=== PATIENT | female | born 1975 | race Caucasian/White ===

== ENCOUNTER 2020-09-26 18:01 | Emergency (ER) | payer BC, SELFPAY ==
[2020-09-26 18:31] VITALS: BP 125/86; PULSE 80; RESP 18; TEMP 37; O2SAT 98; BMI 37.2
--- NOTE | 2020-09-26 18:45 | HMH.EDUTC ---
[facility] [place] Disposition Clinical Impression: Cellulitis of breast Disposition: Home, Self-Care Condition on Discharge: Good Instructions: DI for Cellulitis -- Adult, Cellulitis Additional Instructions: *Start antibiotic(s) immediately and be sure to take as ordered for the FULL length of time although you may be feeling better or start to see improvement in the next 24-48 hours *Monitor closely. Outlined redness so that you can monitor easier. Follow up immediately for new or worsening symptoms including but not limited to redness, swelling, streaking from site fever or chills. *Warm compress 15 minutes 3-4 times day *Never squeeze or pop these on your own. Seek immediate medical attention next time this occurs *Monitor Temp. Tylenol every 4 hours as needed and ibuprofen every 6 hours as needed (as long as your primary care doctor has told you that it is ok to take both. For fever, aches, pain. ER if no less that 101 despite Tylenol and ibuprofen Follow up with your family doctor/primary care physician in the next 48-72 hours if no improvement and for monitoring Return if needed Straight to ER if any life threatening symptoms Prescriptions: clindamycin HCL [Cleocin HCl] 300 mg PO TID 10 Days #40 cap Transmission Status: Received by [facility] #[id number] Mupirocin Calcium [Mupirocin 2% Cream 15gm] 1 applicatio TP TID 10 Days #1 tube Transmission Status: Received by [facility] #[id number] Referrals: Camila Berger [Primary Care Provider] - As needed Time of Disposition: 18:55 Medical Decision Making - Jonathan Inquiry Pt receiving controlled substance: No Jonathan was queried for this patient: No Vital Signs: 09/26/20 18:31 09/26/20 18:57 Temperature 98.6 F 98.6 F Temperature Source Oral Pulse Rate 80 Pulse Rate [Left] 80 Respiratory Rate 18 18 Blood Pressure 126/85 Blood Pressure [Left Arm] 125/86 Blood Pressure Mean [Left Arm] 99 Blood Pressure Source [Left Arm] Automatic Cuff 02 Sat by Pulse Oximetry 98 Oxygen Delivery Method Room Air Room Air [facility] [place] HPI - General Stated complaint: Possible breast infection Time Seen by Provider: 09/26/20 18:45 Description of Symptoms (Recalled from Triage Doc. by RN): pt concerned about a possible breast infection to left breast from her bra. HEENT Symptoms (Recalled from RN notes): No Resp Symptoms (Recalled from RN notes): No Skin Symptoms (Recalled from RN notes): Yes MS Symptoms (Recalled from RN notes): No Functional Status (Recalled from RN notes): na - History of Present Illness Provider Complaint: Patient states that she noticed she had a sore red area under her left breast with surrounding redness States that she has had small boil like abcess on her breast before an had to have medication States that today it was sore and looked like it was getting bigger so she came in to get it checked - Related Data Home Medications Medication Instructions Recorded Confirmed Losartan Potassium 50 mg PO DAILY 09/26/20 09/26/20 Metoprolol Succinate [Toprol XL 50 mg PO DAILY 09/26/20 09/26/20 50mg Tablet] Previous Rx's Medication Instructions Recorded Mupirocin Calcium [Mupirocin 2% 1 applicatio TP TID 10 Days #1 tube 09/26/20 Cream 15gm] clindamycin HCL [Cleocin HCl] 300 mg PO TID 10 Days #40 cap 09/26/20 Allergies Allergy/AdvReac Type Severity Reaction Status Date / Time PCN (PENICILLIN) Allergy Mild Uncoded 05/31/17 15:06 - Worker's Comp Is this a Worker's Comp case?: No [facility] History - Hepatitis A Screen Drug use history?: No High risk sexual behaviors?: No History of sexually transmitted infection?: No Currently employed?: No Childcare worker?: No Do you have indoor plumbing?: Yes Do you have electricity?: Yes Attestation statement:: This patient has been screened for Hepatitis A risk factors. I have reviewed the patient's past medical history: Yes ROS Obtained: Yes All systems reviewed & no additional complaints, Yes
[2020-09-26 18:57] VITALS: BP 126/85; PULSE 80; RESP 18; TEMP 37; O2SAT 100
== END 2020-09-26 19:00 | disposition home or self-care (01) ==
PROVIDERS: Emergency Provider Nurse Practitioner; PCP Family Medicine
DX: N61.0 Mastitis without abscess (principal); I10 Essential (primary) hypertension; Z88.0 Allergy status to penicillin; Z79.899 Other long term (current) drug therapy
CPT/HCPCS: 99202; G0463

== ENCOUNTER 2020-12-07 13:24 | Emergency (ER) | payer BC, SELFPAY ==
[2020-12-07 13:27] VITALS: BP 145/67; PULSE 77; RESP 16; TEMP 36.8; O2SAT 98; BMI 36.3
--- NOTE | 2020-12-07 13:30 | PC.NURSE ---
C-colar placed on patient upon arrival to ED
--- NOTE | 2020-12-07 13:55 | XR_ITS ---
PROCEDURE INFORMATION: Exam: XR Facial Bones, Minimum of 3 Views, Complete Exam date and time: 12/07/2020 1:55 PM Age: 45 years old Clinical indication: Injury or trauma; Fall; Blunt trauma (contusions or hematomas); Nose; Additional info: C/O nasal bridge pain after fall w/loc TECHNIQUE: Imaging protocol: XR of the facial bones, minimum of 3 views. Complete exam. AP lateral and Joshua views COMPARISON: No relevant prior studies available. FINDINGS: Sinuses: Well aerated. No opacification. Bones/joints: No fracture. Soft tissues: Unremarkable. IMPRESSION: No facial fracture identified.
--- NOTE | 2020-12-07 13:55 | CT_ITS ---
PROCEDURE INFORMATION: Exam: CT Cervical Spine Without Contrast Exam date and time: 12/07/2020 1:55 PM Age: 45 years old Clinical indication: Injury or trauma; Fall; Blunt trauma; Additional info: Fall, hit head w/loc TECHNIQUE: Imaging protocol: Computed tomography images of the cervical spine without contrast. Radiation optimization: All CT scans at this facility use at least one of these dose optimization techniques: automated exposure control; mA and/or kV adjustment per patient size (includes targeted exams where dose is matched to clinical indication); or iterative reconstruction. COMPARISON: CR XR FACIAL BONES MIN 3V 12/07/2020 1:59 PM FINDINGS: Bones/joints: No acute fracture. Normal alignment. Discs/Spinal canal/Neural foramina: Mild loss of intervertebral disc space at C5-C6 without neural foraminal or spinal canal stenosis. Lungs: Lung apices are normal. Soft tissues: Unremarkable. IMPRESSION: No CT evidence of acute osseous abnormality.
--- NOTE | 2020-12-07 13:55 | CT_ITS ---
PROCEDURE INFORMATION: Exam: CT Head Without Contrast Exam date and time: 12/07/2020 1:55 PM Age: 45 years old Clinical indication: Injury or trauma; Fall; Blunt trauma (contusions or hematomas); With loss of consciousness; Not specified; Additional info: Fall, hit head w/loc TECHNIQUE: Imaging protocol: Computed tomography of the head without contrast. Radiation optimization: All CT scans at this facility use at least one of these dose optimization techniques: automated exposure control; mA and/or kV adjustment per patient size (includes targeted exams where dose is matched to clinical indication); or iterative reconstruction. COMPARISON: CR XR FACIAL BONES MIN 3V 12/07/2020 1:59 PM FINDINGS: Brain: Normal. No hemorrhage. Unremarkable white matter. No mass effect. Cerebral ventricles: No ventriculomegaly. Paranasal sinuses: Visualized sinuses are unremarkable. No fluid levels. Mastoid air cells: Visualized mastoid air cells are well aerated. Bones/joints: Unremarkable. No acute fracture. Soft tissues: Unremarkable. IMPRESSION: No acute intracranial abnormality.
--- NOTE | 2020-12-07 14:11 | HMH.EDGENADL ---
ED Disposition Clinical Impression: Concussion Qualifiers: Encounter type: initial encounter Loss of consciousness presence/duration: with LOC of 30 min or less Qualified Code(s): S06.0X1A - Concussion with loss of consciousness of 30 minutes or less, initial encounter Disposition: Home, Self-Care Condition on Discharge: Good Instructions: DI for Concussion Additional Instructions: Additional instructions for HEAD INJURY: See your physician as soon as possible for further evaluation. Return immediately if severe headache, vomiting, problems with vision or speech, numbness or weakness of the extremities, or severe neck pain. Referrals: Camila Berger [Primary Care Provider] - - Critical Care Critical Care Time: No Attestation: On 12/07/20, the high probability of a clinically significant, sudden or life threatening deterioration of the following system(s) required my full and direct attention, intervention and personal management. The time I documented below is in addition to time spent performing reported procedures but includes the following listed in this critical care notation. Medical Decision Making - Jonathan Inquiry Pt receiving controlled substance: No Vital Signs: 12/07/20 13:27 12/07/20 14:23 Temperature 98.3 F Temperature Source Oral Pulse Rate 79 Pulse Rate [Right] 77 Respiratory Rate 16 Blood Pressure 139/64 Blood Pressure [Right Arm] 145/67 H Blood Pressure Mean [Right Arm] 93 Blood Pressure Source Automatic Cuff Blood Pressure Position Sitting 02 Sat by Pulse Oximetry 98 96 Oxygen Delivery Method Room Air Room Air - Radiology Data #1 Image(s): Other (facial bones) Image Reviewed: Yes I reviewed the patient's radiology image Preliminary Findings: Normal/NAD - CT Data CT Scan: Head, C-Spine Time Received: 14:[address] Reviewed: Yes: I have viewed the radiologist's interpretation Findings Narrative: PROCEDURE INFORMATION: Exam: CT Head Without Contrast Exam date and time: 12/07/2020 1:55 PM Age: 45 years old Clinical indication: Injury or trauma; Fall; Blunt trauma (contusions or hematomas); With loss of consciousness; Not specified; Additional info: Fall, hit head w/loc TECHNIQUE: Imaging protocol: Computed tomography of the head without contrast. Radiation optimization: All CT scans at this facility use at least one of these dose optimization techniques: automated exposure control; mA and/or kV adjustment per patient size (includes targeted exams where dose is matched to clinical indication); or iterative reconstruction. COMPARISON: CR XR FACIAL BONES MIN 3V 12/07/2020 1:59 PM FINDINGS: Brain: Normal. No hemorrhage. Unremarkable white matter. No mass effect. Cerebral ventricles: No ventriculomegaly. Paranasal sinuses: Visualized sinuses are unremarkable. No fluid levels. Mastoid air cells: Visualized mastoid air cells are well aerated. Bones/joints: Unremarkable. No acute fracture. Soft tissues: Unremarkable. IMPRESSION: No acute intracranial abnormality. EDURE INFORMATION: Exam: CT Cervical Spine Without Contrast Exam date and time: 12/07/2020 1:55 PM Age: 45 years old Clinical indication: Injury or trauma; Fall; Blunt trauma; Additional info: Fall, hit head w/loc TECHNIQUE: Imaging protocol: Computed tomography images of the cervical spine without contrast. Radiation optimization: All CT scans at this facility use at least one of these dose optimization techniques: automated exposure control; mA and/or kV adjustment per patient size (includes targeted exams where dose is matched to clinical indication); or iterative reconstruction. COMPARISON: CR XR FACIAL BONES MIN 3V 12/07/2020 1:59 PM FINDINGS: Bones/joints: No acute fracture. Normal alignment. Discs/Spinal canal/Neural foramina: Mild loss of intervertebral disc
--- NOTE | 2020-12-07 14:22 | PC.NURSE ---
Pt returned from rad
[2020-12-07 14:23] VITALS: BP 139/64; PULSE 79; O2SAT 96
[2020-12-07 15:31] VITALS: BP 138/67; PULSE 71; O2SAT 95
[2020-12-07 15:34] VITALS: BP 138/67; PULSE 66; RESP 16; TEMP 36.8; O2SAT 97
== END 2020-12-07 15:35 | disposition home or self-care (01) ==
PROVIDERS: Emergency Provider Emergency Medicine; PCP Family Medicine
DX: S06.0X1A Concussion with loss of consciousness of 30 minutes or less, initial encounter (principal); W01.0XXA Fall on same level from slipping, tripping and stumbling without subsequent striking against object, initial encounter; Y92.017 Garden or yard in single-family (private) house as the place of occurrence of the external cause
CPT/HCPCS: 70150; 70450; 72125; 99282

== ENCOUNTER 2020-12-09 12:37 | Emergency (ER) | payer BC, SELFPAY ==
[2020-12-09 12:38] VITALS: BP 168/85; PULSE 74; RESP 18; TEMP 36.9; O2SAT 97; BMI 36.5
--- NOTE | 2020-12-09 12:41 | HMH.EDGENADL ---
ED Disposition Clinical Impression: Paresthesias Concussion Qualifiers: Encounter type: initial encounter Loss of consciousness presence/duration: with LOC of 30 min or less Qualified Code(s): S06.0X1A - Concussion with loss of consciousness of 30 minutes or less, initial encounter Disposition: Home, Self-Care Condition on Discharge: Good Instructions: DI for Concussion Additional Instructions: Follow-up with your primary care provider and with neurology, Dr. Nobles. Call for appointment. Return to the emergency department if worsening symptoms. Referrals: Camila Berger [Primary Care Provider] - Claudine Nobles MD [Staff Physician] - - Critical Care Critical Care Time: No Attestation: On , the high probability of a clinically significant, sudden or life threatening deterioration of the following system(s) required my full and direct attention, intervention and personal management. The time I documented below is in addition to time spent performing reported procedures but includes the following listed in this critical care notation. Medical Decision Making - Jonathan Inquiry Pt receiving controlled substance: No Vital Signs: 12/09/20 12:38 12/09/20 13:30 Temperature 98.5 F Temperature Source Oral Pulse Rate 62 Pulse Rate [Right] 74 Respiratory Rate 18 18 Blood Pressure 151/77 H Blood Pressure [Right Arm] 168/85 H Blood Pressure Mean [Right Arm] 112 Blood Pressure Position Sitting 02 Sat by Pulse Oximetry 97 94 L Oxygen Delivery Method Room Air Room Air - Lab Data Lab Results 12/09/20 12:45: WBC 11.7 H, RBC 4.97, Hgb 12.8, Hct 37.6, MCV 75.7 L, MCH 25.7 L, MCHC 34.0, RDW 15.3, Plt Count 250, MPV 8.1, Neut % (Auto) 64.7, Lymph % (Auto) 26.7, Island % (Auto) 4.8, Eos % (Auto) 3.1, Baso % (Auto) 0.7, Neut # (Auto) 7.6, Lymph # (Auto) 3.1, Island # (Auto) 0.6, Eos # (Auto) 0.4, Baso # (Auto) 0.1 12/09/20 12:45: Sodium 141, Potassium 3.7, Chloride 107, Carbon Dioxide 25, Anion Gap 12.7, BUN 7, Creatinine 0.60, Estimated Creat Clear 206, Estimated GFR 109, Est GFR ( Amer) 131, Glucose 105 H, Calcium 8.9 Result diagrams: 12/09/20 12:45 12/09/20 12:45 Orders (Tests/Meds): ED MEDICATIONS Discontinued Medications Generic Name Dose Route Start Last Admin Trade Name Andrey PRN Reason Stop Dose Admin Iopamidol 100 ml 12/09/20 13:03 12/09/20 13:04 Iopamidol-370 (76%);100ml Bottle IV 12/09/20 13:04 100 ml ONCE ONE Administration Sodium Chloride 10 ml 12/09/20 13:03 12/09/20 13:05 Sodium Chloride 0.9% 10ml Syr (Rad Only) IV 12/09/20 13:04 10 ml ONCE ONE Administration Sodium Chloride 50 ml 12/09/20 13:03 12/09/20 13:05 0.9 % Sodium Chloride 50 Ml Vial IV 12/09/20 13:04 50 ml ONCE ONE Administration - CT Data CT Scan: Head, Other (facial, CTA head and neck) Time Received: 13:[address] Reviewed: Yes: I have viewed the radiologist's interpretation Findings Narrative: PROCEDURE: CT HEAD/BRAIN WO CON CLINICAL INDICATION: injury Injury, left facial and finger numbness. COMPARISON: CT CT HEAD/BRAIN WO CON from 12/07/2020 TECHNIQUE: Axial images obtained. All CT scans at the facility use one or more dose reduction, viz: automated exposure control, ma/kV adjustment per patient size (including targeted exams where dose is matched to indication, i.e. head), or iterative reconstruction technique. FINDINGS: No midline shift, mass effect, intracranial hemorrhage, hydrocephalus, or extra-axial fluid collection is evident. The calvarium has an unremarkable appearance. No mastoid effusion. No sinus air-fluid level. IMPRESSION: No acute intracranial finding Dictated by: Tarik Zamora MD 12/09/2020 13:26 Tarik Zamora MD in [place] 12/09/2020 13:26 PROCEDURE: CT FACIAL BONES WO CON CLINICAL HISTORY: facial pressure, facial injury COMPARISON: No exams were available for comparison TECHNIQUE: Axial images obtain
--- NOTE | 2020-12-09 12:42 | CT_ITS ---
Procedure: CT ANGIO NECK CT ANGIO HEAD CLINICAL HISTORY: head injury, left facial and hand tingling COMPARISON: CT CT ANGIO HEAD from 12/09/2020 TECHNIQUE: IV Contrast: 100ml Isovue 370 Axial images obtained with sagittal and coronal reformats. All CT scans at the facility use one or more dose reduction, viz: automated exposure control, ma/kV adjustment per patient size (including targeted exams where dose is matched to indication, i.e. head), or iterative reconstruction technique. FINDINGS: CT angio neck: Limited arterial opacification secondary to bolus timing. The aortic arch, great vessels, carotid arteries, and vertebral arteries have an unremarkable appearance. No evidence dissection, stenosis, aneurysm, calcific plaque, or occlusion. Scattered small nodes are present in the neck CT angio head: Arterial opacification is somewhat limited secondary to bolus timing. No aneurysm, AVM, or major intracranial occlusive change apparent. Minimal calcific plaque is present along the cavernous portion of the left ICA laterally and medially with some minimal soft plaque in the cavernous portion of the right ICA. No enhancing lesions, midline shift, or mass effect is evident. No hydrocephalus. IMPRESSION: Limited arterial opacification secondary to bolus timing somewhat decreasing sensitivity of the exam. No acute finding of the CTA of the head or neck. Dictated by: Tarik Zamora MD 12/09/2020 13:47 Tarik Zamora MD in [facility] 12/09/2020 13:47
--- NOTE | 2020-12-09 12:42 | CT_ITS ---
PROCEDURE: CT FACIAL BONES WO CON CLINICAL HISTORY: facial pressure, facial injury COMPARISON: No exams were available for comparison TECHNIQUE: Axial images obtained with sagittal and coronal reformats. All CT scans at the facility use one or more dose reduction, viz: automated exposure control, ma/kV adjustment per patient size (including targeted exams where dose is matched to indication, i.e. head), or iterative reconstruction technique. FINDINGS: Bones: Unremarkable. No fracture, lytic, or blastic changes evident. Extracranial soft tissues: Unremarkable. Sinuses: Unremarkable. No air-fluid levels or significant mucosal thickening. Small retention cyst is present in the right maxillary sinus anteriorly at 5 mm. Orbits: Unremarkable. Other: Scattered small nodes are present in the neck bilaterally. The largest is in the left submandibular region at 1.9 x 1.2 cm. IMPRESSION: No acute finding Dictated by: Tarik Zamora MD 12/09/2020 13:31 Tarik Zamora MD in [facility] 12/09/2020 13:31
--- NOTE | 2020-12-09 12:52 | CT_ITS ---
PROCEDURE: CT HEAD/BRAIN WO CON CLINICAL INDICATION: injury Injury, left facial and finger numbness. COMPARISON: CT CT HEAD/BRAIN WO CON from 12/07/2020 TECHNIQUE: Axial images obtained. All CT scans at the facility use one or more dose reduction, viz: automated exposure control, ma/kV adjustment per patient size (including targeted exams where dose is matched to indication, i.e. head), or iterative reconstruction technique. FINDINGS: No midline shift, mass effect, intracranial hemorrhage, hydrocephalus, or extra-axial fluid collection is evident. The calvarium has an unremarkable appearance. No mastoid effusion. No sinus air-fluid level. IMPRESSION: No acute intracranial finding Dictated by: Tarik Zamora MD 12/09/2020 13:26 Tarik Zamora MD in [facility] 12/09/2020 13:26
[2020-12-09 12:55] LABS: Basophils # 0.1 K/mm3 (0-0.2); Basophils % 0.7 % (0.1-2.0); Eosinophils # 0.4 K/mm3 (0.0-0.4); Eosinophils % 3.1 % (0.1-12.0); Hematocrit 37.6 % (37.0-47.0); Hemoglobin 12.8 g/dL (12.2-16.2); Lymphocytes # 3.1 K/mm3 (0.7-4.5); Lymphocytes % 26.7 % (10-50); Mean Corpuscular Hemoglobin 25.7 pg (27.0-31.2); Mean Corpuscular Volume 75.7 fl (81-99); Mean Platelet Volume 8.1 fl (7.4-10.4); Monocytes # 0.6 K/mm3 (0.1-1.0); Monocytes % 4.8 % (1.7-9.3); Neutrophils # 7.6 K/mm3 (1.8-7.8); Neutrophils % 64.7 % (37.0-80.0); Platelet Count 250 K/mm3 (142-424); Red Blood Count 4.97 M/mm3 (4.20-5.40); Red Cell Distribution Width 15.3 % (11.5-17.5); White Blood Count 11.7 K/mm3 (4.8-10.8)
[2020-12-09 12:59] LABS: Chloride 107 mmol/L (98-107); Potassium 3.7 mmoL/L (3.5-5.1); Sodium 141 mmol/L (136-145)
[2020-12-09 13:02] LABS: Anion Gap 12.7 mEq/L (5-15); Blood Urea Nitrogen 7 mg/dl (7-17); Calcium 8.9 mg/dl (8.4-10.2); Carbon Dioxide 25 mmol/L (22.0-30.0); Creatinine Clearance Estimated 206 mL/min (50-200); Estimated Glomerular Filt Rate 109 ml/min (>60); GFR (African American) 131 ML/MIN (>60); Glucose 105 mg/dl (74-100)
--- NOTE | 2020-12-09 13:14 | PC.NURSE ---
Pt returned from radiology
[2020-12-09 13:30] VITALS: BP 151/77; PULSE 62; RESP 18; O2SAT 94
[2020-12-09 14:00] VITALS: BP 122/71; PULSE 75; RESP 16; TEMP 36.8
== END 2020-12-09 14:22 | disposition home or self-care (01) ==
PROVIDERS: Emergency Provider Emergency Medicine; PCP Family Medicine
DX: S06.0X1D Concussion with loss of consciousness of 30 minutes or less, subsequent encounter (principal); R20.2 Paresthesia of skin
CPT/HCPCS: 70450; 70486; 70496; 70498; 80048; 85025; 99282; Q9967

== ENCOUNTER 2021-06-04 12:07 | Emergency (ER) | payer BC, SELFPAY ==
--- NOTE | 2021-06-04 12:36 | HMH.EDUTC ---
[facility] [place] Clinical Impression: Otitis media Qualifiers: Otitis media type: suppurative Chronicity: acute Laterality: bilateral Recurrence: non-recurrent Spontaneous tympanic membrane rupture: without spontaneous rupture Qualified Code(s): H66.003 - Acute suppurative otitis media without spontaneous rupture of ear drum, bilateral Disposition: Home, Self-Care Condition on Discharge: Good Instructions: Middle Ear Infection Additional Instructions: Drink plenty of fluids. Take tylenol or ibuprofen for pain or fever. Take the medications as directed. Follow up with your regular doctor. GO TO THE ER FOR ANY WORSENING SYMPTOMS Prescriptions: methylPREDNISolone [Medrol] 4 mg PO DIRECTED 6 Days #21 packet Transmission Status: Pending to [facility] # Azithromycin [Z-Cortez 250mg Tab*] 250 mg PO UD DOSE PK #6 tab Transmission Status: Pending to [facility] # Referrals: Camila Berger [Primary Care Provider] - Time of Disposition: 13:35 Medical Decision Making - Medical Records Medical records reviewed: No: I reviewed the patient's medical records. - Jonathan Inquiry Pt receiving controlled substance: No Vital Signs: 06/04/21 12:44 Temperature 98.2 F Temperature Source Oral Pulse Rate [Left] 67 Respiratory Rate 18 Blood Pressure [Right Arm] 136/73 Blood Pressure Mean [Right Arm] 94 02 Sat by Pulse Oximetry 98 [facility] [place]PI - General Stated complaint: left ear pain Time Seen by Provider: 06/04/21 12:36 - History of Present Illness Provider Complaint: She c/o bilateral ear pain for the past 3 days. Her left ear is hurting worse than her right. She gets ear infections sometimes at this time of year. She has sinus congestion also. She denies any chest congestion or significant cough. She denies any fever/chills/body aches. She denies any contact with someone with covid-19 and she states that she does not need to be tested for covid-19 at this time. - Related Data Home Medications Medication Instructions Recorded Confirmed Losartan Potassium 50 mg PO DAILY 09/26/20 09/26/20 Metoprolol Succinate [Toprol XL 50 mg PO DAILY 09/26/20 09/26/20 50mg Tablet] Previous Rx's Medication Instructions Recorded Mupirocin Calcium [Mupirocin 2% 1 applicatio TP TID 10 Days #1 tube 09/26/20 Cream 15gm] clindamycin HCL [Cleocin HCl] 300 mg PO TID 10 Days #40 cap 09/26/20 Azithromycin [Z-Cortez 250mg Tab*] 250 mg PO UD DOSE PK #6 tab 06/04/21 methylPREDNISolone [Medrol] 4 mg PO DIRECTED 6 Days #21 06/04/21 packet Allergies Allergy/AdvReac Type Severity Reaction Status Date / Time PCN (PENICILLIN) Allergy Mild Uncoded 05/31/17 15:06 [facility] History - Hepatitis A Screen Attestation statement:: This patient has been screened for Hepatitis A risk factors. I have reviewed the patient's past medical history: Yes ROS Obtained: Yes All systems reviewed & no additional complaints - Constitutional Constitutional: Denies chills, Denies fever(s), Reports poor appetite, Reports malaise - Eyes Eyes: Denies eye discharge - ENT Ears, Nose, Mouth, and Throat: Reports as per HPI - Cardiovascular Cardiovascular: Denies chest pain - Respiratory Respiratory: Denies chest congestion, Denies cough, Denies dyspnea, Denies stridor, Denies wheezing - Gastrointestinal Gastrointestingal: Reports: nausea. Denies: abdominal pain, diarrhea, vomiting - Musculoskeletal Musculoskeletal: Denies joint pain, Denies back pain, Denies neck pain - Integumentary/Breasts Skin/Breast: Denies redness, Denies rash, Denies wounds Physical Exam - General General appearance: alert, in no apparent distress - Head Head exam: atraumatic, normocephalic, normal inspection - Eye Eye exam: Present: normal appearance, PERRL, EOMI - ENT ENT exam: Present: mucous membranes moist, normal external ear exam - Expanded ENT Exam TM/Canal exam: Bilateral TM: erythema,
[2021-06-04 12:44] VITALS: BP 136/73; PULSE 67; RESP 18; TEMP 36.8; O2SAT 98; BMI 34.7
[2021-06-04 13:42] VITALS: BP 136/73; PULSE 67; RESP 18; TEMP 36.8
== END 2021-06-04 13:43 | disposition home or self-care (01) ==
PROVIDERS: Emergency Provider Nurse Practitioner Family; PCP Family Medicine
DX: H66.003 Acute suppurative otitis media without spontaneous rupture of ear drum, bilateral (principal); Z88.0 Allergy status to penicillin
CPT/HCPCS: 99202; G0463

== ENCOUNTER 2021-06-17 15:28 | Emergency (ER) | payer BC, SELFPAY ==
[2021-06-17 15:43] VITALS: BP 155/87; PULSE 95; RESP 18; O2SAT 97; BMI 33.2
[2021-06-17 17:31] VITALS: BP 0/0; PULSE 0; RESP 0; TEMP -17.7; TEMP 0
== END 2021-06-17 17:32 | disposition left against medical advice (07) ==
LOC: UTC 15:44
PROVIDERS: Emergency Provider Nurse Practitioner Family; PCP Family Medicine
DX: Z53.21 Procedure and treatment not carried out due to patient leaving prior to being seen by health care provider (principal)

== ENCOUNTER 2021-09-11 11:59 | Observation (INO) | payer BC, SELFPAY ==
[2021-09-11] VITALS (13 sets, daily range): BP systolic 101–156; BP diastolic 74–89; PULSE 63–97; RESP 18–21; TEMP 36.7–36.9; O2SAT 92–97; BMI 37.5; BMI 38.2
--- NOTE | 2021-09-11 | IR_ITS ---
APPROVED REPORT Patient Location: [facility] Specialist: JUANITA Hancock RT (R) PROCEDURES Left heart catheterization Left ventriculogram Selective coronary angiogram INDICATION Unstable angina SCAI INDICATION Clinical history: 48-year-old lady sent directly from her family physician's office due to unstable chest pain. Patient began experiencing chest pain this past Tuesday which extended into Tuesday morning. Patient presented to her family physician's office today and was still complaining of intermittent right neck pain with radiations into her left arm. Patient has risk factors for coronary artery disease including morbid obesity, hypertension, and smokes at least 1 pack of cigarettes per day. Patient was evaluated in the emergency department by myself and Ale Aguirre nurse practitioner. While the patient's left arm pain is resolved after receiving nitroglycerin she continued to experience left neck pain and discomfort which was unexplained by any musculoskeletal event. EKG showed very subtle less than a half a millimeter of inferior ST depression. Patient has a history of cholecystectomy. Because of patient's associated symptoms with subtle EKG abnormalities and having ongoing left neck pain this was felt to be unstable angina therefore patient was taken directly to the [facility] for diagnostic angiography Informed consent was obtained prior to the procedure. COMPLICATIONS none Estimated Blood Loss: less than 10 ml TECHNIQUE One percent lidocaine used to anesthetize the right anterior aspect of the wrist. The right radial artery was accessed via the Seldinger technique. A 6 Taj[place] sheath was placed in the right radial artery. 2.5 mg of verapamil, 800 mcg of nitroglycerin, 1mg Lidocaine and 5000 U Heparin were given through the arterial sheath. The papa catheter was also used to perform left heart catheterization, left ventriculogram and selective coronary angiogram. At the end of the procedure the sheath was removed good hemostasis was achieved using Traclet band, patient was transferred to the postop holding area in stable condition. ANGIOGRAPHIC RESULTS The left main artery Normal The left anterior descending artery Proximally normal and has a mid vessel 30 to 40% concentric stenosis The circumflex artery Large dominant normal The right coronary artery Nondominant with a proximal to 40 to 50% eccentric stenosis The OSPINA ventriculogram reveals Normal 65% The left ventricular end-diastolic pressure 10 mmHg IMPRESSION Moderate coronary artery disease as described above all of which is almost certainly nonischemic at this time Normal ejection fraction Normal left ventricular and SI pressure PLAN 1. Avoidance of tobacco products 2. Risk factor modification 3. LDL less than 55 to be achieved with high intensity statin 4. Evaluation of noncardiac chest pain 5. Recommend pulmonary artery CTA this evening Electronically signed by : Lazarus Velasquez MD 09/11/2021 14:18:45
--- NOTE | 2021-09-11 12:07 | ECG_ITS ---
APPROVED REPORT Exam: Resting ECG HR:69 bpm ECG Measurements Heart Rate 69 AXES AR 177 P 56 QRSd 82 QRS 13 QT 391 T 37 QTc 411 Conclusion SINUS RHYTHM NORMAL ECG UNCONFIRMED REPORT Electronically signed by : Dru Morris MD 09/12/2021 08:16:42
--- NOTE | 2021-09-11 12:19 | HMH.EDGENADL ---
ED Disposition Clinical Impression: Chest pain Qualifiers: Chest pain type: unspecified Qualified Code(s): R07.9 - Chest pain, unspecified Disposition: Admitted as Observation Condition on Discharge: Good - Critical Care Critical Care Time: No Attestation: On 09/11/21, the high probability of a clinically significant, sudden or life threatening deterioration of the following system(s) required my full and direct attention, intervention and personal management. The time I documented below is in addition to time spent performing reported procedures but includes the following listed in this critical care notation. Medical Decision Making - Jonathan Inquiry Pt receiving controlled substance: No Vital Signs: 09/11/21 12:00 09/11/21 13:00 09/11/21 13:25 Temperature 98.4 F 98.4 F Temperature Source Oral Oral Pulse Rate 72 72 Pulse Rate [Right Radial] 63 Respiratory Rate 18 21 18 Blood Pressure 131/79 131/79 Blood Pressure [Right Arm] 156/80 H Blood Pressure Mean 104 Blood Pressure Mean [Right Arm] 105 Blood Pressure Source [Right Arm] Blood Pressure Position [Right Arm] 02 Sat by Pulse Oximetry 96 97 Oxygen Delivery Method Room Air 09/11/21 14:21 09/11/21 14:25 09/11/21 14:35 Temperature Temperature Source Pulse Rate 95 H Pulse Rate [Right Radial] 97 H 95 H 90 Respiratory Rate 20 20 20 Blood Pressure Blood Pressure [Right Arm] 147/84 H 127/81 129/79 Blood Pressure Mean Blood Pressure Mean [Right Arm] 105 96 95 Blood Pressure Source [Right Arm] Automatic Cuff Automatic Cuff Automatic Cuff Blood Pressure Position [Right Arm] Supine Supine Supine 02 Sat by Pulse Oximetry 93 L 93 L 95 Oxygen Delivery Method Room Air Room Air Room Air - Lab Data Lab Results 09/11/21 12:15: WBC 11.8 H, RBC 5.44 H, Hgb 14.9, Hct 44.9, MCV 82.5, MCH 27.3, MCHC 33.1, RDW 15.2, Plt Count 314, MPV 8.7, Neut % (Auto) 53.5, Lymph % (Auto) 35.4, [place] % (Auto) 4.8, Eos % (Auto) 3.3, Baso % (Auto) 3.1 H, Neut # (Auto) 6.3, Lymph # (Auto) 4.2, [place] # (Auto) 0.6, Eos # (Auto) 0.4, Baso # (Auto) 0.4 H 09/11/21 12:15: Sodium 138, Potassium 4.1, Chloride 106, Carbon Dioxide 25, Anion Gap 11.1, BUN 9, Creatinine 0.60, Estimated Creat Clear 218, Estimated GFR 109, Est GFR ( Amer) 131, Glucose 96, Calcium 8.9, Total Bilirubin 0.5, AST 26, ALT 25, Alkaline Phosphatase 84, Troponin I < 0.01, Total Protein 7.2, Albumin 4.4, Globulin 2.8, Albumin/Globulin Ratio 1.6 09/11/21 12:34: Urine Color Yellow, Urine Appearance Clear, Urine pH 6.0, Ur Specific [place] 1.015, Urine Protein Negative, Urine Glucose (UA) Negative, Urine Ketones Negative, Urine Blood Negative, Urine Nitrate Negative, Urine Bilirubin Negative, Urine Urobilinogen 0.2, Ur Leukocyte Esterase Negative, Urine RBC None, Urine WBC Occasional, Ur Squamous Epith Cells 3-5, Urine Bacteria Trace 09/11/21 13:21: SARS-CoV-2 (PCR) Not detected, Influenza A Untype (PCR) Not detected, Influenza Type B (PCR) Not detected Result diagrams: 09/11/21 12:15 09/11/21 12:15 Orders (Tests/Meds): ED MEDICATIONS Generic Name Dose Route Start Last Admin Trade Name Freq PRN Reason Stop Dose Admin Acetaminophen 650 mg 09/11/21 14:24 Acetaminophen 325mg Tab PO 10/11/21 14:23 Q4HP PRN Fever or Mild Pain Fentanyl Citrate 25 mcg 09/11/21 14:24 Fentanyl 250mcg/5ml Vial IV 09/12/21 13:21 Q3MINP PRN Moderate to Severe Pain Fentanyl Citrate 50 mcg 09/11/21 14:24 Fentanyl 250mcg/5ml Vial IV 09/12/21 13:21 Q3MINP PRN Moderate to Severe Pain Fentanyl Citrate 25 mcg 09/11/21 14:24 Fentanyl 100mcg/2ml Vial IV 09/12/21 13:21 Q3MINP PRN Moderate to Severe Pain Fentanyl Citrate 50 mcg 09/11/21 14:24 Fentanyl 100mcg/2ml Vial IV 09/12/21 13:21 Q3MINP PRN Moderate to Severe Pain Flumazenil 0.2 mg 09/11/21 14:24 Flumazenil 0.1mg/Ml 5ml Vial IV 09/11/21 23:00 NEEDED PRN Sedation He
--- NOTE | 2021-09-11 12:30 | XR_ITS ---
FINAL REPORT CLINICAL HISTORY: periodic chest pain, smoker FINDINGS: Two views of the chest were obtained. The heart size and pulmonary vascularity are within normal limits. The mediastinum is normal. No acute pulmonary abnormality is identified. There is no pneumothorax. The bony thorax is intact. IMPRESSION: No active cardiopulmonary disease. Reviewed, Interpreted and Dictated by Jose Mcclellan III, MD Transcribed by Yoandy Vieyra Authenticated by Jose Mcclellan III, MD on 09/11/2021 01:27:02 PM [facility]
[2021-09-11 12:38] LABS: Microscopic, Urine URINE MICROSCOPIC (MICROSCOPIC)
--- NOTE | 2021-09-11 12:39 | PC.NURSE ---
Patient going to CT
[2021-09-11 12:42] LABS: Basophils # 0.4 K/mm3 (0-0.2); Basophils % 3.1 % (0.1-2.0); Eosinophils # 0.4 K/mm3 (0.0-0.4); Eosinophils % 3.3 % (0.1-12.0); Hematocrit 44.9 % (37.0-47.0); Hemoglobin 14.9 g/dL (12.2-16.2); Lymphocytes # 4.2 K/mm3 (0.7-4.5); Lymphocytes % 35.4 % (10-50); Mean Corpuscular HGB Conc 33.1 g/dL (31.8-35.4); Mean Corpuscular Hemoglobin 27.3 pg (27.0-31.2); Mean Corpuscular Volume 82.5 fl (81-99); Mean Platelet Volume 8.7 fl (7.4-10.4); Monocytes # 0.6 K/mm3 (0.1-1.0); Monocytes % 4.8 % (1.7-9.3); Neutrophils # 6.3 K/mm3 (1.8-7.8); Neutrophils % 53.5 % (37.0-80.0); Platelet Count 314 K/mm3 (142-424); Red Blood Count 5.44 M/mm3 (4.20-5.40); Red Cell Distribution Width 15.2 % (11.5-17.5); White Blood Count 11.8 K/mm3 (4.8-10.8)
[2021-09-11 12:44] LABS: Appearance,Urine CLEAR (Clear); Bilirubin,Urine Negative (Negative); Blood, Urine Negative (Negative); Color,Urine YELLOW (Yellow); Glucose,Urine (UA) Negative (Negative); Ketones,Urine Negative (Negative); Leukocyte Esterase,Urine Negative (Negative); Nitrate,Urine Negative (Negative); Protein,Urine Negative (Negative); Specific Gravity, Urine 1.015 (1.005-1.030); Urobilinogen,Urine 0.2 EU/dl (0.2)
--- NOTE | 2021-09-11 12:44 | PC.NURSE ---
Patient back from CT
[2021-09-11 12:45] LABS: Alanine Aminotransferase 25 U/L (12-78); Albumin Level 4.4 g/dl (3.5-5.0); Albumin/Globulin Ratio 1.6 (1.1-1.8); Alkaline Phosphatase 84 U/L (38-126); Anion Gap 11.1 mEq/L (5-15); Aspartate Amino Transferase 26 U/L (14-36); Bilirubin,Total 0.5 mg/dl (0.2-1.3); Blood Urea Nitrogen 9 mg/dl (7-17); Calcium 8.9 mg/dl (8.4-10.2); Carbon Dioxide 25 mmol/L (22.0-30.0); Chloride 106 mmol/L (98-107); Creatinine Clearance Estimated 218 mL/min (50-200); Estimated Glomerular Filt Rate 109 ml/min (>60); GFR (African American) 131 ML/MIN (>60); Globulin 2.8 g/dL (1.3-3.2); Glucose 96 mg/dl (74-100); Potassium 4.1 mmoL/L (3.5-5.1); Sodium 138 mmol/L (136-145); Total Protein,Serum 7.2 g/dl (6.3-8.2)
[2021-09-11 12:56] LABS: Bacteria,Urine Trace /lpf; WBC,Urine Occasional #/hpf (0-3)
[2021-09-11 12:59] LABS: Troponin I < 0.01 ng/ml (0.00-0.034)
--- NOTE | 2021-09-11 13:18 | PC.NURSE ---
placed called to dr. metz (suction drum drier operator for service pt), staff states in room with at pt will have him call back.
--- NOTE | 2021-09-11 13:24 | CA_ITS ---
APPROVED REPORT EXAM: Comprehensive 2D, Doppler, and color-flow Echocardiogram [employer]ow Farm Technician: Yeny Spaulding RT(R) Ht: 5 ft 9 in Wt: 254lbs BSA: 2.29 BP: 156/80 mmHg Indications: obesity, cp, heart cath today no stents, smoker, fatigue, SOB, 2D Dimensions LVOT 2.06 cm (M/F) 1.5-2.5 M-Mode Dimensions RVDd 3.11 cm (0.9-2.6) LA Diam 2.74 cm (1.9-4.0) LVDd 4.78 cm (3.5-5.7) Ao Diam 2.86 cm (2.0-3.7) LVDs 3.72 cm (3.5-5.7) IVSd 1.21 cm (0.6-1.1) PWd 0.80 cm (0.6-1.1) EF (Teich) 44.70% FS 22.20% EDV (Teich) 106.50 mL ESV (Teich) 58.90 mL LV Diastology E Decel Time 263.00 (160-240 msec) E/A Ratio 0.8 MED E' 9.70 (< 7 cm/sec) E'/MED E' Ratio 5.65 (>14) LAT E' 8.60 (<10 cm/sec) E/LAT E' Ratio 6.37 (>14) Mitral Valve MV E Max Bola. 55.00 (40-130 cm/s) MV A Velocity 70.00 (40-130 cm/s) E/A Ratio 0.78 MV Decel. Time 263.00 (160-240 ms) MV PHT 77.00 ms Left Ventricle Left atrium is mildly enlarged, left ventricle is normal size, left ventricle wall thickness is upper limits of normal, there is preserved left ventricular systolic function, estimated ejection fraction 55% with no regional wall motion abnormality, Doppler evidence of impaired LV relaxation seen, tissue Doppler is not indicated of raise left atrial pressure. Right Ventricle Right atrium and right ventricle are qualitatively mildly enlarged with normal contractility. Aortic Valve Aortic valve is grossly normal, there is no aortic stenosis or aortic insufficiency. Mitral Valve Mitral valve is grossly normal, there is trace mitral regurgitation. Tricuspid Valve Tricuspid grossly normal, there is trace tricuspid regurgitation, tricuspid regurgitation jet velocity is inadequate for calculation of the right ventricular systolic pressure. Pulmonic Valve Pulmonic valve is poorly visualized. Great Vessels Aortic root is normal size. Inferior vena cava is poorly visualized. Pericardium No significant pericardial effusion noted. Conclusion 1. Normal left ventricular size, preserved left ventricular systolic function, visually estimated ejection fraction 55% with no regional wall motion abnormality, Doppler evidence of impaired LV relaxation seen, tissue Doppler is not indicated raise left atrial pressure. 2. Trace mitral and tricuspid regurgitation. 3. No significant pericardial effusion. 4. Inferior vena cava is poorly visualized. Electronically signed by : Freddie Hooks MD 09/11/2021 16:11:19
--- NOTE | 2021-09-11 13:25 | HMH.CNCARD ---
<Ale Aguirre - Last Filed: 09/11/21 13:25> History of Present Illness Consult date: 09/11/21 Requesting physician: Nadeem Miller Consult reason: chest pain Chief complaint: chest pain History of present illness: This is a 45-year-old white female who presented to the emergency department with complaints of chest pain. She states that she was seen by her primary care provider today in [facility] and it was recommended that she go to the emergency department. She has been having chest pain and discomfort since May 2021. She describes this as a pressure sensation in the substernal aspect of the chest. She states there is a constant aching but the pressure sensation is intermittent. It radiates down her left arm into the left side of her neck. It is associated with shortness of breath and nausea. There is no diaphoresis. Symptoms last about 30 seconds to a minute. Today they lasted a little longer up to 2 minutes and then resolved. She states that since being in the emergency department her constant aching sensation in her chest has resolved but she still has an aching in the left side of her neck and left arm that has been constant. Nothing worsens her symptoms or improves them. She states that this can be severe in intensity. She is a 1 pack/day smoker and has hypertension and hyperlipidemia. She did has have been tight her BNP is in a family history of heart disease. [facility] History I have reviewed the patient's past medical history: Yes Medical History: Reports:: Hyperlipidemia, Hypertension *Have you ever received a pneumonia vaccine?: No *Have you received a flu vaccine this season?: No Other Surgeries: Yes: Other - *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 Smoking Status: Smoker, status unknown # Packs/Day (cigarettes): 1 Alcohol Intake: never *Occupational Status:: employed *Travel in the last 8 weeks: None Family Hx:: Hypertension Meds Home Medications Medication Instructions Recorded Confirmed Type Losartan Potassium 50 mg PO DAILY 09/26/20 09/11/21 History Metoprolol Succinate [Toprol XL 50 mg PO DAILY 09/26/20 09/11/21 History 50mg Tablet] Allergies Allergy/AdvReac Type Severity Reaction Status Date / Time PCN (PENICILLIN) Allergy Mild Uncoded 05/31/17 15:06 Exam Vital signs and Labs for Last 24 Hours: Temp Pulse Resp BP Pulse Ox 98.4 F 63 18 156/80 H 96 04/01/22 12:00 09/11/21 12:00 09/11/21 12:00 09/11/21 12:00 09/11/21 12:00 Laboratory Results - last 24 hr 09/11/21 12:15: WBC 11.8 H, RBC 5.44 H, Hgb 14.9, Hct 44.9, MCV 82.5, MCH 27.3, MCHC 33.1, RDW 15.2, Plt Count 314, MPV 8.7, Neut % (Auto) 53.5, Lymph % (Auto) 35.4, [place] % (Auto) 4.8, Eos % (Auto) 3.3, Baso % (Auto) 3.1 H, Neut # (Auto) 6.3, Lymph # (Auto) 4.2, [place] # (Auto) 0.6, Eos # (Auto) 0.4, Baso # (Auto) 0.4 H 09/11/21 12:15: Sodium 138, Potassium 4.1, Chloride 106, Carbon Dioxide 25, Anion Gap 11.1, BUN 9, Creatinine 0.60, Estimated Creat Clear 218, Estimated GFR 109, Est GFR ( Amer) 131, Glucose 96, Calcium 8.9, Total Bilirubin 0.5, AST 26, ALT 25, Alkaline Phosphatase 84, Troponin I < 0.01, Total Protein 7.2, Albumin 4.4, Globulin 2.8, Albumin/Globulin Ratio 1.6 09/11/21 12:34: Urine Color Yellow, Urine Appearance Clear, Urine pH 6.0, Ur Specific [place] 1.015, Urine Protein Negative, Urine Glucose (UA) Negative, Urine Ketones Negative, Urine Blood Negative, Urine Nitrate Negative, Urine Bilirubin Negative, Urine Urobilinogen 0.2, Ur Leukocyte Esterase Negative, Urine RBC None, Urine WBC Occasional, Ur Squamous Epith Cells 3-5, Urine Bacteria Trace I & O for Last 24 hours: Intake & Output 09/08/21 09/09/21 09/10/21 09/11/21 23:59 23:59 23:59 23:59 Weight 254 lb Narrative: EKG is sinus rhythm with subtle inferior inferior ST depression. These EKG abnormalities are concerning in a morbidly obese patient with associated risk factors including smoking at least 1 pack of cigarettes per day and having active left side
[2021-09-11 13:26] LABS: Coronavirus 19, PCR Not Detected (NotDetected); Influenza A, PCR Not Detected (NotDetected); Influenza B, PCR Not Detected (NotDetected)
--- NOTE | 2021-09-11 13:27 | PC.NURSE ---
Patient going to Network Security Administrator
--- NOTE | 2021-09-11 14:01 | HMH.PHAINT ---
MEDICATION RECONCILIATION COMPLETED ON PATIENT USING EXTERNAL FILL HISTORY FROM PHARMACY. -KENDALL MAURER, EDEND
--- NOTE | 2021-09-11 14:22 | CT_ITS ---
FINAL REPORT CLINICAL HISTORY: chest pain, PT HAD HEART CATH DONE TODAY FINDINGS: Thin section axial CT images of the chest were obtained with contrast. 3D reformatted images were also obtained. This study was performed with techniques to keep radiation doses as low as reasonably achievable (ALARA). Individualized dose reduction techniques using automated exposure control or adjustment of mA and/or kV according to the patient's size were employed. There is no evidence of pulmonary embolism. There is no evidence of thoracic aortic aneurysm or dissection. There is no evidence of mediastinal or hilar mass or adenopathy. There is no evidence of pulmonary mass or nodule. There is bilateral dependent atelectasis. Limited images of the upper abdomen reveal the patient is status post cholecystectomy. IMPRESSION: No evidence of pulmonary embolism. Bilateral dependent atelectasis. Reviewed, Interpreted and Dictated by Jose Mcclellan III, MD Transcribed by Sanjuana Sheehan Authenticated by Jose Mcclellan III, MD on 09/11/2021 04:22:[address] [facility]
--- NOTE | 2021-09-11 14:27 | PC.NURSE ---
GENEVIEVE PHILIPPE speaking with dr. metz at this time
--- NOTE | 2021-09-11 14:28 | PC.NURSE ---
Care management has been contacted about a room for patient.
--- NOTE | 2021-09-11 14:33 | HMH.PHAVTE ---
[facility] Pharmacy VTE Monitoring - Patient Demographics Admission date: 09/11/21 Report Date: 09/11/21 Time: 14:33 Allergies/Adverse Reactions: Patient Allergies PCN (PENICILLIN) Allergy (Mild, Uncoded 05/31/17 15:06) Height: 1.75 m Weight: 115.212 kg Patient Problems: Current Active Problems Unstable angina (Acute) HTN (hypertension) (Chronic) HLD (hyperlipidemia) (Chronic) Smoker (Chronic) Abnormal EKG (Acute) Morbid obesity (Chronic) - VTE Risk Labs: VTE Related Lab Results Hgb 14.9 g/dL (12.2-16.2) 09/11/21 12:15 Hct 44.9 % (37.0-47.0) 09/11/21 12:15 Plt Count 314 K/mm3 (142-424) 09/11/21 12:15 BUN 9 mg/dl (7-17) 09/11/21 12:15 Creatinine 0.60 mg/dl (0.52-1.04) 09/11/21 12:15 Estimated Creat Clear 218 mL/min (50-200) 09/11/21 12:15 - Prophylaxis VTE Prophylaxis Ordered?: Yes Types of VTE Prophylaxis: TEDS Knee High Location of Applied Device: Bilateral Lower Extremeties
--- NOTE | 2021-09-11 14:40 | PC.NURSE ---
Pt arrived to the floor at this time
--- NOTE | 2021-09-11 18:12 | HMH.HPDC ---
General - General Admission date:: 09/11/21 Discharge date: 09/11/21 *Admission Date: 09/11/21 *Chief complaint: chest pain *History of present illness: Sent to the emergency room by her PCP in [place]. She has had episodes of chest discomfort since May 2021. Initially a couple of times a week but now getting up 2-3 times per day over the past week or 2. She describes a heaviness in her chest associated with sharp pain that goes down the inner aspect of her left arm and into the left side of her neck. Sometimes associated with shortness of breath, sometimes with nausea. No diaphoresis. Symptoms last about 30 seconds but then she is left with a discomfort in her left arm that can last up to 1 hour. No exacerbating or alleviating factors. No current discomfort. No prior history of heart disease. No family history of heart disease in first-degree relatives. She is a smoker 1 pack/day. She has hypertension. She does not have diabetes. She has borderline hyperlipidemia, not on any medications for that. No prior cardiac evaluation. Given 4 baby aspirin by her primary care provider and sent to the emergency department. No tests performed in the office. Workup included a normal troponin. [facility] History Medical History: Reports:: Hyperlipidemia, Hypertension Denies:: Diabetes Mellitus Type 1, Diabetes Mellitus Type 2 *Have you ever received a pneumonia vaccine?: No *Have you received a flu vaccine this season?: No Other Surgeries: Yes: Cardiac Catheterization, Cholecystectomy, , Hysterectomy-Total, Other - *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 Smoking Status: Current every day smoker Tobacco Type: cigarettes # Packs/Day (cigarettes): 1 Alcohol Intake: never *Occupational Status:: employed *Travel in the last 8 weeks: None Family Hx:: Cancer, Diabetes, Heart Attack, Hypertension, Substance abuse, Mental illness Review of Systems - Constitutional Reports lack of energy - Eyes Denies change in vision - ENT Denies hearing loss - *Cardiovascular Reports chest pain, Reports shortness of breath with activity - *Respiratory Reports shortness of breath with activity, Denies coughing up blood - *Gastrointestinal Denies black, tarry stools - *Genitourinary Denies painful urination - *Musculoskeletal Reports muscle weakness - Integumentary/Breasts Denies yellowing of the skin - *Neurologic Denies abnormal hearing, Denies behavioral changes - Psychiatric Denies behavioral changes - Endocrine Denies rapid, pounding, or irregular heartbeat - Hematologic/Lymphatic Denies easy bleeding - Allergic/Immunologic Denies hives, Denies wheezing Exam Vital signs and Labs for Last 24 Hours: Temp Pulse Resp BP Pulse Ox 98.4 F 90 20 129/79 95 09/11/21 13:25 09/11/21 14:35 09/11/21 14:35 09/11/21 14:35 09/11/21 16:37 Laboratory Results - last 24 hr 09/11/21 12:15: WBC 11.8 H, RBC 5.44 H, Hgb 14.9, Hct 44.9, MCV 82.5, MCH 27.3, MCHC 33.1, RDW 15.2, Plt Count 314, MPV 8.7, Neut % (Auto) 53.5, Lymph % (Auto) 35.4, [place] % (Auto) 4.8, Eos % (Auto) 3.3, Baso % (Auto) 3.1 H, Neut # (Auto) 6.3, Lymph # (Auto) 4.2, [place] # (Auto) 0.6, Eos # (Auto) 0.4, Baso # (Auto) 0.4 H 09/11/21 12:15: Sodium 138, Potassium 4.1, Chloride 106, Carbon Dioxide 25, Anion Gap 11.1, BUN 9, Creatinine 0.60, Estimated Creat Clear 218, Estimated GFR 109, Est GFR ( Amer) 131, Glucose 96, Calcium 8.9, Total Bilirubin 0.5, AST 26, ALT 25, Alkaline Phosphatase 84, Troponin I < 0.01, Total Protein 7.2, Albumin 4.4, Globulin 2.8, Albumin/Globulin Ratio 1.6 09/11/21 12:34: Urine Color Yellow, Urine Appearance Clear, Urine pH 6.0, Ur Specific [place] 1.015, Urine Protein Negative, Urine Glucose (UA) Negative, Urine Ketones Negative, Urine Blood Negative, Urine Nitrate Negative, Urine Bilirubin Negative, Urine Urobilinogen 0.2, Ur Leukocyte Esterase Negative, Urine RBC None, Urine WBC Occasional, Ur Squamous Epith Cells 3-5, Urine Bacteria T
--- NOTE | 2021-09-11 19:10 | PC.NURSE ---
Discharge instructions given to pt. Vital signs have been stable. Radial band removed, no bruising, bleeding or hematoma noted. PIV removed. Pt states her ride will be here shortly and she will call out when they get her.e
--- NOTE | 2021-09-14 13:55 | CARE MANAGER ---
Spoke with patient regarding recent hospitalization. Patient reports she got meds, and has a follow-up appointment with her MD. NO needs at this time.
== END 2021-09-11 19:24 | disposition home or self-care (01) ==
LOC: ER 13:21 → CATHLAB 13:56 → 2ND 14:00
PROVIDERS: Internal Medicine; Admitting Provider Family Medicine; Emergency Provider Emergency Medicine; PCP Family Medicine; Visit Provider Family Medicine
DX: I25.110 Atherosclerotic heart disease of native coronary artery with unstable angina pectoris (principal); F17.210 Nicotine dependence, cigarettes, uncomplicated; I10 Essential (primary) hypertension
CPT/HCPCS: 71046; 71275; 80053; 81001; 84484; 85025; 93005; 93306; 93458; 99152; 99285; C1725; C1769; C9803; G0378; J1644; Q9967; U0003; U0005

== ENCOUNTER 2021-09-13 10:36 | Emergency (ER) | payer BC, SELFPAY ==
[2021-09-13] VITALS (10 sets, daily range): BP systolic 104–177; BP diastolic 59–85; PULSE 62–89; RESP 13–18; TEMP 37.4; O2SAT 92–99; BMI 36.9
--- NOTE | 2021-09-13 10:36 | ECG_ITS ---
APPROVED REPORT Exam: Resting ECG HR:88 bpm ECG Measurements Heart Rate 88 AXES MO 163 P 72 QRSd 82 QRS 94 QT 348 T 63 QTc 394 Conclusion SINUS RHYTHM BORDERLINE RIGHT AXIS DEVIATION [QRS AXIS > 90] BORDERLINE ECG UNCONFIRMED REPORT Electronically signed by : Dru Morris MD 09/16/2021 17:37:18
--- NOTE | 2021-09-13 10:48 | XR_ITS ---
PROCEDURE INFORMATION: Exam: XR Chest Exam date and time: 09/13/2021 10:50 AM Age: 45 years old Clinical indication: Pain; Chest pressure; Additional info: Chest pain TECHNIQUE: Imaging protocol: XR of the chest. Views: 2 views. COMPARISON: CR XR CHEST 2V 09/11/2021 12:33 PM FINDINGS: Lungs: Mild linear atelectasis/fibrosis. Probable punctate calcified granuloma in the right apical region. No focal consolidation. Pleural spaces: Unremarkable. No pleural effusion. No pneumothorax. Heart/Mediastinum: Unremarkable. No cardiomegaly. Bones/joints: Unremarkable. IMPRESSION: No acute process.
--- NOTE | 2021-09-13 10:50 | PC.NURSE ---
ED MD at
[2021-09-13 10:55] LABS: Basophils # 0.3 K/mm3 (0-0.2); Basophils % 2.4 % (0.1-2.0); Chloride 104 mmol/L (98-107); Eosinophils # 0.4 K/mm3 (0.0-0.4); Eosinophils % 3.3 % (0.1-12.0); Hematocrit 45.2 % (37.0-47.0); Hemoglobin 14.9 g/dL (12.2-16.2); Lymphocytes # 3.5 K/mm3 (0.7-4.5); Lymphocytes % 29.2 % (10-50); Mean Corpuscular Hemoglobin 27.1 pg (27.0-31.2); Mean Corpuscular Volume 82.2 fl (81-99); Mean Platelet Volume 8.3 fl (7.4-10.4); Monocytes # 0.6 K/mm3 (0.1-1.0); Monocytes % 5.3 % (1.7-9.3); Neutrophils % 59.7 % (37.0-80.0); Platelet Count 326 K/mm3 (142-424); Red Blood Count 5.51 M/mm3 (4.20-5.40); Red Cell Distribution Width 15.3 % (11.5-17.5); White Blood Count 11.8 K/mm3 (4.8-10.8)
--- NOTE | 2021-09-13 10:55 | HMH.EDGENADL ---
ED Disposition Clinical Impression: Tremulousness Chest pain Qualifiers: Chest pain type: unspecified Qualified Code(s): R07.9 - Chest pain, unspecified Disposition: Home, Self-Care Condition on Discharge: Good Instructions: Tips for Reducing Stress in Your Life, DI for Chest Pain Additional Instructions: You have been evaluated for chest tightness, dizziness. Please try stress reduction strategies like cyclic breathing. Take Vistaril as needed. Follow-up with your primary care doctor in the morning. Follow-up with cardiology as soon as available, call Dr. Velasquez's office. Return to the emergency department at once for any new or worsening symptoms, chest pain, shortness of breath, other concerns Prescriptions: hydrOXYzine HCL [Hydroxyzine HCl] 25 mg PO Q6 PRN #8 tab PRN Reason: Anxiety Transmission Status: Pending to [facility][id number] Referrals: Camila Berger [Primary Care Provider] - Time of Disposition: 13:49 - Critical Care Critical Care Time: No Attestation: On 09/13/21, the high probability of a clinically significant, sudden or life threatening deterioration of the following system(s) required my full and direct attention, intervention and personal management. The time I documented below is in addition to time spent performing reported procedures but includes the following listed in this critical care notation. Medical Decision Making - Medical Records Medical records reviewed: Yes: I reviewed the patient's medical records. - Jonathan Inquiry Pt receiving controlled substance: No Vital Signs: 09/13/21 10:39 09/13/21 10:40 09/13/21 11:15 Temperature 99.4 F Temperature Source Oral Pulse Rate 85 70 Pulse Rate [Right] 89 Respiratory Rate 16 15 13 Blood Pressure 177/72 H 144/81 H Blood Pressure [Right Arm] 177/72 H Blood Pressure Mean Blood Pressure Mean [Right Arm] 107 Blood Pressure Source [Right Arm] Automatic Cuff Blood Pressure Position [Right Arm] Supine 02 Sat by Pulse Oximetry 97 97 96 Oxygen Delivery Method Room Air 09/13/21 11:18 09/13/21 11:30 09/13/21 12:01 Temperature Temperature Source Pulse Rate 70 82 62 Pulse Rate [Right] Respiratory Rate 18 16 16 Blood Pressure 144/81 H 141/77 H 109/59 L Blood Pressure [Right Arm] Blood Pressure Mean 106 98 75 Blood Pressure Mean [Right Arm] Blood Pressure Source [Right Arm] Blood Pressure Position [Right Arm] 02 Sat by Pulse Oximetry 96 96 94 L Oxygen Delivery Method 09/13/21 12:30 09/13/21 13:01 09/13/21 13:31 Temperature Temperature Source Pulse Rate 66 68 69 Pulse Rate [Right] Respiratory Rate 18 18 16 Blood Pressure 107/74 L 136/76 126/75 Blood Pressure [Right Arm] Blood Pressure Mean 85 87 96 Blood Pressure Mean [Right Arm] Blood Pressure Source [Right Arm] Blood Pressure Position [Right Arm] 02 Sat by Pulse Oximetry 92 L 94 L 95 Oxygen Delivery Method - Lab Data Lab Results 09/13/21 10:40: WBC 11.8 H, RBC 5.51 H, Hgb 14.9, Hct 45.2, MCV 82.2, MCH 27.1, MCHC 33.0, RDW 15.3, Plt Count 326, MPV 8.3, Neut % (Auto) 59.7, Lymph % (Auto) 29.2, [place] % (Auto) 5.3, Eos % (Auto) 3.3, Baso % (Auto) 2.4 H, Neut # (Auto) 7.0, Lymph # (Auto) 3.5, [place] # (Auto) 0.6, Eos # (Auto) 0.4, Baso # (Auto) 0.3 H 09/13/21 10:40: Sodium 138, Potassium 4.4, Chloride 104, Carbon Dioxide 27, Anion Gap 11.4, BUN 9, Creatinine 0.70, Estimated Creat Clear 184, Estimated GFR 91, Est GFR ( Amer) 110, Glucose 98, Calcium 9.0, Total Bilirubin 0.7, AST 24, ALT 24, Alkaline Phosphatase 92, Troponin I 0.05 H, Total Protein 7.6, Albumin 4.5, Globulin 3.1, Albumin/Globulin Ratio 1.5 09/13/21 13:00: Troponin I 0.04 H Result diagrams: 09/13/21 10:40 09/13/21 10:40 Orders (Tests/Meds): ED MEDICATIONS Discontinued Medications Generic Name Dose Route Start Last Admin Trade Name Freq PRN Reason Stop Dose Admin Aspirin 325 mg 09/13/21 10:48 09/13/21 10:
[2021-09-13 10:56] LABS: Potassium 4.4 mmoL/L (3.5-5.1); Sodium 138 mmol/L (136-145)
--- NOTE | 2021-09-13 10:57 | PC.NURSE ---
patient to xray with electronic engineering technician by wheelchair
[2021-09-13 10:58] LABS: Alanine Aminotransferase 24 U/L (12-78); Albumin Level 4.5 g/dl (3.5-5.0); Albumin/Globulin Ratio 1.5 (1.1-1.8); Alkaline Phosphatase 92 U/L (38-126); Anion Gap 11.4 mEq/L (5-15); Aspartate Amino Transferase 24 U/L (14-36); Bilirubin,Total 0.7 mg/dl (0.2-1.3); Blood Urea Nitrogen 9 mg/dl (7-17); Carbon Dioxide 27 mmol/L (22.0-30.0); Creatinine Clearance Estimated 184 mL/min (50-200); Estimated Glomerular Filt Rate 91 ml/min (>60); GFR (African American) 110 ML/MIN (>60); Globulin 3.1 g/dL (1.3-3.2); Total Protein,Serum 7.6 g/dl (6.3-8.2)
[2021-09-13 10:59] LABS: Glucose 98 mg/dl (74-100)
--- NOTE | 2021-09-13 11:07 | PC.NURSE ---
Pt back from radiology with sales and service technician by wheelchair
[2021-09-13 11:11] LABS: Troponin I 0.05 ng/ml (0.00-0.034)
--- NOTE | 2021-09-13 11:47 | PC.NURSE ---
patient to restroom; ambulatory without any complications
--- NOTE | 2021-09-13 12:45 | PC.NURSE ---
pt pacing in room, very nervous
[2021-09-13 13:27] LABS: Troponin I 0.04 ng/ml (0.00-0.034)
--- NOTE | 2021-09-13 13:30 | PC.NURSE ---
pt in bed resting with visitor at bedside
--- NOTE | 2021-09-13 13:44 | PC.NURSE ---
ED MD at for update on POC
== END 2021-09-13 14:45 | disposition home or self-care (01) ==
PROVIDERS: Emergency Provider Emergency Medicine; PCP Family Medicine
DX: R07.9 Chest pain, unspecified (principal); M79.601 Pain in right arm; R42 Dizziness and giddiness; D72.829 Elevated white blood cell count, unspecified; I25.10 Atherosclerotic heart disease of native coronary artery without angina pectoris; E78.5 Hyperlipidemia, unspecified; F41.9 Anxiety disorder, unspecified; Z79.82 Long term (current) use of aspirin; Z79.899 Other long term (current) drug therapy; Z88.0 Allergy status to penicillin
CPT/HCPCS: 71046; 80053; 84484; 85025; 93005; 99285

== ENCOUNTER 2022-02-06 15:25 | Emergency (ER) | payer BC, SELFPAY ==
[2022-02-06 16:15] VITALS: BP 125/51; PULSE 71; RESP 18; TEMP 37.2; O2SAT 97; BMI 34.0
--- NOTE | 2022-02-06 16:51 | EXP.UTC ---
Discharge Plan Disposition Patient Disposition: Home, Self-Care Condition: Good Prescriptions Prescriptions: New metronidazole 0.75 % gel 1 appful vaginal HS 5 Days Qty: 70 0RF No Action paroxetine HCl 10 mg tablet 10 mg PO DAILY Label Comments: TAKE 1 TABLET BY MOUTH EVERY DAY losartan 50 MG tablet 50 mg PO DAILY metoprolol succinate 50 MG tablet 50 mg PO DAILY atorvastatin 40 mg tablet 40 mg PO HS Referrals Follow up/Referrals: Camila Berger [Primary Care Provider] - See instructions Activity Restrictions/Add. Instructions Additional Instructions/Restrictions: Urine culture should be available Tuesday/Tuesday Follow up with PCP if not improving Clinical Impressions Clinical Impression: Bacterial vaginosis Discharge ED Provider: Karina [place] [facility] [place] General Stated complaint: poss uti Mode of Arrival: Ambulatory Source of Information: Patient Limitations: No Limitations Time Seen by Provider: 02/06/22 17:20 Description of Symptoms (Recalled from Triage Doc. by RN): pt comes in with complaints of yeast infection or uti. symptoms include pain with urination, burning, itching. symptoms began yesterday HEENT Symptoms (Recalled from RN notes): No Resp Symptoms (Recalled from RN notes): No Skin Symptoms (Recalled from RN notes): No MS Symptoms (Recalled from RN notes): No Functional Status (Recalled from RN notes): n/a History of Present Illness Provider Complaint: 2 day history of vaginal itching, dysuria, odor. No discharge. Onset (ago): day(s) Location: genitals Radiation: non-radiation Severity: moderate Quality: burning Consistency: constant Relieving factors: none Exacerbating factors: none Associated symptoms: denies other symptoms Treatments prior to arrival: none Related Data Home Medications Medication Instructions Recorded Confirmed losartan 50 mg tablet 50 mg PO DAILY Hypertension 09/26/20 02/06/22 metoprolol succinate 50 mg 50 mg PO DAILY Hypertension 09/26/20 02/06/22 tablet,extended release 24 hr paroxetine HCl 10 mg tablet 10 mg PO DAILY Anxiety 10/07/21 02/06/22 atorvastatin 40 mg tablet 40 mg PO HS Cholesterol 02/06/22 02/06/22 Previous Rx's Medication Instructions Recorded metronidazole 0.75 % vaginal gel 1 appful vaginal HS 5 days #70 02/06/22 grams Allergies Allergy/AdvReac Type Severity Reaction Status Date / Time PCN (PENICILLIN) Allergy Mild Uncoded 05/31/17 15:06 Worker's Comp Is this a Worker's Comp case?: No PFSH PFSH 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 Smoking Status: Current every day smoker tobacco type: cigarettes packs per day: 1 alcohol intake: never current occupational status: employed caffeine: Yes ROS Obtained: Yes All systems reviewed & no additional complaints except as documented Genitourinary Female Genitourinary: Reports dysuria and Reports genital pruritis Physical Exam General General appearance: alert and in no apparent distress Head Head exam: atraumatic, normocephalic and normal inspection Chest Chest inspection: Present normal inspection and symmetric chest wall rise; Absent tenderness Respiratory Respiratory exam: Present normal lung sounds bilaterally; Absent respiratory distress Cardiovascular Cardiovascular exam: Present regular rate and normal rhythm; Absent JVD Extremities Exam Extremities exam: Present normal inspection, full ROM and normal capillary refill; Absent calf tenderness Neurological Exam Neurological exam: Present alert and oriented X3 Psychiatric Psychiatric exam: Present normal affect and normal mood Skin Skin exam: Present warm, dry, intact and normal color Lymphatic Lymphatic Findings: no adenopathy Medical Decision Making Jonathan Inquiry Pt receiving controlled substance: No Vital Signs: 02/06/22 16:15 Temperature 98.9 F Temperature Source Oral Pulse Rate [Left] 71 Respiratory Rate 18 Blood Pre
[2022-02-06 16:53] LABS: Apearance,Urine Cloudy (Clear); Blood, Urine 3+ (Negative); Color,Urine Dark Yellow (Yellow); Glucose,Urine (UA) Negative (Negative); Ketones,Urine Negative (Negative); PH,Urine 5.5 (5.0-8.5); Protein,Urine 1+ (Negative); Specific Gravity, Urine >= 1.030 (1.005-1.030)
[2022-02-06 16:54] LABS: Bilirubin,Urine Negative (Negative); UTC Leukocyte Esterase,Urine Trace (Negative); UTC Nitrate,Urine Negative (Negative); Urobilinogen,Urine 0.2 EU/dl (0.2)
[2022-02-06 17:23] VITALS: BP 125/51; PULSE 71; RESP 18; TEMP 37.2
== END 2022-02-06 17:31 | disposition home or self-care (01) ==
PROVIDERS: Emergency Provider Physician Assistant; PCP Family Medicine
DX: N76.0 Acute vaginitis (principal); B96.20 Unspecified Escherichia coli [E. coli] as the cause of diseases classified elsewhere
CPT/HCPCS: 81003; 87086; 87088; 87186; 87210; 99212; G0463

== ENCOUNTER 2022-05-18 16:01 | Emergency (ER) | payer BC, SELFPAY ==
[2022-05-18 16:13] VITALS: BP 190/71; PULSE 72; RESP 18; TEMP 37; O2SAT 94; BMI 34.0
[2022-05-18 17:01] VITALS: BP 148/70; PULSE 67; RESP 20; O2SAT 95
--- NOTE | 2022-05-18 17:07 | HMH.EDGENADL ---
Discharge Plan Disposition Patient Disposition: Home, Self-Care Condition: Good Prescriptions Prescriptions: New famotidine 20 mg tablet 20 mg PO DAILY Qty: 2 0RF diphenhydramine HCl [Benadryl] 25 mg capsule 50 mg PO HS Qty: 8 0RF Rx Instructions: Please take 2 caps every 12 hours for the next 2 days. No Action paroxetine HCl 10 mg tablet 10 mg PO DAILY Label Comments: TAKE 1 TABLET BY MOUTH EVERY DAY epinephrine 0.3 mg/0.3 mL auto-injector 0.3 ml IM ONCE PRN atorvastatin 40 mg tablet 40 mg PO HS Qty: 90 3RF losartan 50 MG tablet 50 mg PO DAILY metoprolol succinate 50 MG tablet 50 mg PO DAILY Referrals Follow up/Referrals: Camila Berger [Primary Care Provider] - See instructions Activity Restrictions/Add. Instructions Additional Instructions/Restrictions: Please follow-up with your primary care physician within the next 1 to 2 days. Please take the Benadryl scheduled as well as the famotidine scheduled for the next 2 days. Please return to the emergency department if your symptoms recur. Avoid taking any paclovid and avoid any other known triggers. Clinical Impressions Clinical Impression: Allergic reaction Instructions Patient Instructions: DI for General Allergic Reactions Print Language Print Language: Tajik Discharge ED Provider: Carol Serna General Adult HPI General Chief complaint: Allergic Reaction Stated complaint: Allergic reaction Time Seen by Provider: 05/18/22 16:02 Mode of Arrival: Ambulatory Source of Information: Patient Limitations: No Limitations Description of Symptoms (Recalled from ER Triage Doc. by RN): pt to ed c/o allergic reaction. pt states she has been taking paxlovid x4 days. pt reports trouble swallowing and a swollen tongue. pt denies soa or trouble breathing. History of Present Illness HPI narrative: Miss Faulkner is a 46 yo female w/ no significant PMH presenting to the ED for possible allergic rxn. Patient reports 4d prior she was started on Paxlovid. Today is her 4th day of tx and she reports shortly after taking she began to have difficulty swallowing due to swollen tongue. Patient denies any chest pain, wheezing, dyspnea, abdominal pain, rash, N/V or other sx. No exposure to other known allergens. Reports when she took the Paxlovid the first time around she had similar reaction but less severe. MD complaint: allergic rxn. Related Data Home Medications Medication Instructions Recorded Confirmed losartan 50 mg tablet 50 mg PO DAILY Hypertension 09/26/20 04/08/22 metoprolol succinate 50 mg 50 mg PO DAILY Hypertension 09/26/20 04/08/22 tablet,extended release 24 hr paroxetine HCl 10 mg tablet 10 mg PO DAILY Anxiety 10/07/21 04/08/22 epinephrine 0.3 mg/0.3 mL 0.3 ml IM ONCE PRN 04/08/22 04/08/22 injection, auto-injector Previous Rx's Medication Instructions Recorded atorvastatin 40 mg tablet 40 mg PO HS Cholesterol #90 tabs 04/08/22 diphenhydramine HCl 25 mg capsule 50 mg PO HS #8 caps 05/18/22 (Benadryl) famotidine 20 mg tablet 20 mg PO DAILY #2 tabs 05/18/22 Allergies Allergy/AdvReac Type Severity Reaction Status Date / Time PCN (PENICILLIN) Allergy Mild Uncoded 04/08/22 09:55 [facility] Disclaimer: The information contained in this section may have been updated after the patient was seen, as this information can be updated by other users. 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 Smoking Status: Never smoker alcohol intake: never current occupational status: employed Travel in the last 8 weeks: None caffeine: Yes ROS Obtained: Yes All systems reviewed & no additional complaints except as documented Physical Exam General General appearance: alert and in no apparent distress Head Head exam: atraumatic and normal inspection Eye Eye exam: Present normal appearance and EOMI ENT ENT exam: Present normal exam and mucous membranes moist Neck N
[2022-05-18 17:31] VITALS: BP 158/63; PULSE 66; RESP 18; O2SAT 97
[2022-05-18 18:06] VITALS: BP 157/86; PULSE 64; RESP 20; TEMP 37; O2SAT 99
== END 2022-05-18 18:07 | disposition home or self-care (01) ==
PROVIDERS: Emergency Provider Student in an Organized Health Care Education/Training Program; PCP Family Medicine
DX: I10 Essential (primary) hypertension (principal); T43.225A Adverse effect of selective serotonin reuptake inhibitors, initial encounter; F41.9 Anxiety disorder, unspecified; Z79.899 Other long term (current) drug therapy; Z88.0 Allergy status to penicillin
CPT/HCPCS: 99283

== ENCOUNTER 2022-08-14 16:36 | Emergency (ER) | payer BC, SELFPAY ==
[2022-08-14 16:40] VITALS: BP 160/89; PULSE 73; RESP 12; TEMP 36.6; O2SAT 97; BMI 36.1
--- NOTE | 2022-08-14 16:50 | XR_ITS ---
PROCEDURE INFORMATION: Exam: XR Right Finger(s) Exam date and time: 08/14/2022 4:48 PM Age: 46 years old Clinical indication: Pain; Finger(s); Right; Additional info: Foriegn body TECHNIQUE: Imaging protocol: Radiologic exam of the right fingers. Views: Minimum 2 views. COMPARISON: No relevant prior studies available. FINDINGS: Bones/joints: Normal. Soft tissues: Normal. IMPRESSION: No acute findings.
--- NOTE | 2022-08-14 17:04 | EXP.UTC ---
Discharge Plan Disposition Patient Disposition: Home, Self-Care Condition: Good Prescriptions Prescriptions: New clindamycin HCl 300 mg capsule 300 mg PO BID 7 Days Qty: 14 0RF No Action paroxetine HCl 10 mg tablet 10 mg PO DAILY Label Comments: TAKE 1 TABLET BY MOUTH EVERY DAY epinephrine 0.3 mg/0.3 mL auto-injector 0.3 ml IM ONCE PRN atorvastatin 40 mg tablet 40 mg PO HS Qty: 90 3RF losartan 50 MG tablet 50 mg PO DAILY metoprolol succinate 50 MG tablet 50 mg PO DAILY famotidine 20 mg tablet 20 mg PO DAILY Qty: 2 0RF diphenhydramine HCl [Benadryl] 25 mg capsule 50 mg PO HS Qty: 8 0RF Rx Instructions: Please take 2 caps every 12 hours for the next 2 days. Referrals Follow up/Referrals: Camila Berger [Primary Care Provider] - See instructions Clinical Impressions Clinical Impression: Foreign body (FB) in soft tissue Instructions Patient Instructions: DI for Skin Abscess Discharge ED Provider: Manuel ([facility])T[place] [facility] [place] General Stated complaint: splinter in RT index finger Mode of Arrival: Ambulatory Source of Information: Patient Limitations: No Limitations Time Seen by Provider: 08/14/22 17:04 Description of Symptoms (Recalled from Triage Doc. by RN): PATIENT C/O SPLINTER TO RIGHT INDEX FINGER X 1 WEEK HEENT Symptoms (Recalled from RN notes): No Resp Symptoms (Recalled from RN notes): No Skin Symptoms (Recalled from RN notes): Yes MS Symptoms (Recalled from RN notes): No Functional Status (Recalled from RN notes): WNL History of Present Illness Provider Complaint: 46 yr old female presents for a splinter in index finger on rt hand. pt states she got a piece out with pus but the net day it was swollen back up. Related Data Home Medications Medication Instructions Recorded Confirmed losartan 50 mg tablet 50 mg PO DAILY Hypertension 09/26/20 04/08/22 metoprolol succinate 50 mg 50 mg PO DAILY Hypertension 09/26/20 04/08/22 tablet,extended release 24 hr paroxetine HCl 10 mg tablet 10 mg PO DAILY Anxiety 10/07/21 04/08/22 epinephrine 0.3 mg/0.3 mL 0.3 ml IM ONCE PRN 04/08/22 04/08/22 injection, auto-injector Previous Rx's Medication Instructions Recorded diphenhydramine HCl 25 mg capsule 50 mg PO HS #8 caps 05/18/22 (Benadryl) famotidine 20 mg tablet 20 mg PO DAILY #2 tabs 05/18/22 atorvastatin 40 mg tablet 40 mg PO HS Cholesterol #90 tabs 06/14/22 clindamycin HCl 300 mg capsule 300 mg PO BID 7 days #14 caps 08/14/22 Allergies Allergy/AdvReac Type Severity Reaction Status Date / Time PCN (PENICILLIN) Allergy Mild Uncoded 04/08/22 09:55 Worker's Comp Is this a Worker's Comp case?: No [facility] Disclaimer: The information contained in this section may have been updated after the patient was seen, as this information can be updated by other users. 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 smoker alcohol intake: never current occupational status: employed Travel in the last 8 weeks: None caffeine: Yes ROS Obtained: Yes All systems reviewed & no additional complaints except as documented Constitutional Constitutional: Reports system reviewed and no additional complaints, except as documented and Reports as per HPI Eyes Eyes: Reports system reviewed and no additional complaints, except as documented ENT Ears, Nose, Mouth, and Throat: Reports system reviewed and no additional complaints, except as documented Cardiovascular Cardiovascular: Reports system reviewed and no additional complaints, except as documented Respiratory Respiratory: Reports system reviewed and no additional complaints, except as documented Musculoskeletal Musculoskeletal: Reports system reviewed and no additional complaints, except as documented and Reports as per HPI Integumentary/Breasts Skin/Breast: Reports system reviewed and no additional complaints, except as documen
[2022-08-14 17:23] VITALS: BP 160/89; PULSE 73; RESP 12; TEMP 36.6; O2SAT 97
== END 2022-08-14 17:27 | disposition home or self-care (01) ==
PROVIDERS: Emergency Provider Nurse Practitioner Family; PCP Family Medicine
DX: S60.450A Superficial foreign body of right index finger, initial encounter (principal)
CPT/HCPCS: 73140; 99212; 99213; G0463

== ENCOUNTER 2022-09-16 20:17 | Emergency (ER) | payer BC, SELFPAY ==
[2022-09-16] VITALS (8 sets, daily range): BP systolic 135–187; BP diastolic 76–108; PULSE 59–89; RESP 12–21; TEMP 36.7; O2SAT 92–97; BMI 36.5
--- NOTE | 2022-09-16 20:16 | ECG_ITS ---
APPROVED REPORT Exam: Resting ECG HR:91 bpm ECG Measurements Heart Rate 91 AXES MT 178 P 65 QRSd 81 QRS 61 QT 344 T 59 QTc 393 Conclusion SINUS RHYTHM NORMAL ECG UNCONFIRMED REPORT Electronically signed by : Dru Morris MD 09/17/2022 17:02:03
--- NOTE | 2022-09-16 20:29 | XR_ITS ---
PROCEDURE INFORMATION: Exam: XR Chest Exam date and time: 09/16/2022 8:25 PM Age: 46 years old Clinical indication: Sternal or substernal pain; Additional info: Chest pain TECHNIQUE: Imaging protocol: Radiologic exam of the chest. Views: 2 views. COMPARISON: CR XR CHEST 2V 08/14/2021 10:50 FINDINGS: Lungs: Unremarkable. No consolidation. Pleural spaces: Unremarkable. No pleural effusion. No pneumothorax. Heart/Mediastinum: Unremarkable. No cardiomegaly. Bones/joints: Unremarkable. IMPRESSION: No acute findings.
[2022-09-16 20:35] LABS: Basophils # 0.2 K/mm3 (0-0.2); Basophils % 1.2 % (0.1-2.0); Eosinophils # 0.5 K/mm3 (0.0-0.4); Eosinophils % 3.8 % (0.1-12.0); Hematocrit 46.5 % (37.0-47.0); Hemoglobin 15.1 g/dL (12.2-16.2); Lymphocytes # 5.4 K/mm3 (0.7-4.5); Lymphocytes % 39.4 % (10-50); Mean Corpuscular HGB Conc 32.5 g/dL (31.8-35.4); Mean Corpuscular Volume 86.2 fl (81-99); Mean Platelet Volume 8.5 fl (7.4-10.4); Monocytes # 0.6 K/mm3 (0.1-1.0); Monocytes % 4.5 % (1.7-9.3); Neutrophils % 51.1 % (37.0-80.0); Platelet Count 286 K/mm3 (142-424); Red Cell Distribution Width 14.8 % (11.5-17.5); White Blood Count 13.6 K/mm3 (4.8-10.8)
[2022-09-16 20:41] LABS: Chloride 103 mmol/L (98-107)
[2022-09-16 20:42] LABS: Sodium 141 mmol/L (136-145)
[2022-09-16 20:44] LABS: Alanine Aminotransferase 25 U/L (12-78); Alkaline Phosphatase 103 U/L (38-126); Aspartate Amino Transferase 26 U/L (14-36); Bilirubin,Direct 0.2 mg/dl (0.0-0.4); Bilirubin,Indirect 0.1 mg/dL (0.0-0.9); Bilirubin,Total 0.3 mg/dl (0.2-1.3); Bilirubin,Unconjugated 0.1 mg/dL (0.0-1.1); Blood Urea Nitrogen 14 mg/dl (7-17); Carbon Dioxide 28 mmol/L (22.0-30.0); Creatinine Clearance Estimated 174 mL/min (50-200); Estimated Glomerular Filt Rate 90 ml/min (>60); GFR (African American) 109 ML/MIN (>60)
[2022-09-16 20:45] LABS: Albumin Level 4.8 g/dl (3.5-5.0); Calcium 9.4 mg/dl (8.4-10.2); Glucose 117 mg/dl (74-100); Total Protein,Serum 7.5 g/dl (6.3-8.2)
[2022-09-16 21:06] LABS: Troponin I < 0.01 ng/ml (0.00-0.034)
--- NOTE | 2022-09-16 21:10 | PC.NURSE ---
Pt ambulatory to bathroom to provide urine sample and back to bed. Pt provided with warm blanket and mouth swabs. No other needs voiced at this time. Call light within reach.
[2022-09-16 21:11] LABS: Microscopic, Urine URINE MICROSCOPIC (MICROSCOPIC)
[2022-09-16 21:14] LABS: Appearance,Urine CLEAR (Clear); Bilirubin,Urine Negative (Negative); Blood, Urine Negative (Negative); Color,Urine YELLOW (Yellow); Glucose,Urine (UA) Negative (Negative); Ketones,Urine Negative (Negative); Leukocyte Esterase,Urine Negative (Negative); Nitrate,Urine Negative (Negative); PH,Urine 6.5 (5.0-8.5); Protein,Urine Negative (Negative); Specific Gravity, Urine 1.015 (1.005-1.030); Urobilinogen,Urine 0.2 EU/dl (0.2)
--- NOTE | 2022-09-16 21:29 | PC.NURSE ---
Dr. Loya at
[2022-09-16 21:33] LABS: Squamous Epithelial Cell,Urine Occasional #/hpf (0-5); WBC,Urine Occasional #/hpf (0-3)
--- NOTE | 2022-09-16 21:33 | HMH.EDCP ---
Discharge Plan Disposition Patient Disposition: Home, Self-Care Chief Complaint: Chest Pain Prescriptions Prescriptions: No Action paroxetine HCl 10 mg tablet 10 mg PO DAILY Label Comments: TAKE 1 TABLET BY MOUTH EVERY DAY epinephrine 0.3 mg/0.3 mL auto-injector 0.3 ml IM ONCE PRN atorvastatin 40 mg tablet 40 mg PO HS Qty: 90 3RF losartan 50 MG tablet 50 mg PO DAILY metoprolol succinate 50 MG tablet 50 mg PO DAILY famotidine 20 mg tablet 20 mg PO DAILY Qty: 2 0RF diphenhydramine HCl [Benadryl] 25 mg capsule 50 mg PO HS Qty: 8 0RF Rx Instructions: Please take 2 caps every 12 hours for the next 2 days. clindamycin HCl 300 mg capsule 300 mg PO BID 7 Days Qty: 14 0RF Referrals Follow up/Referrals: Camila Berger [Primary Care Provider] - See instructions Lazarus Velasquez MD [Staff Physician] - See instructions Clinical Impressions Clinical Impression: Coronary artery disease, Tobacco use, Angina at rest Instructions Patient Instructions: DI for Chest Pain Discharge ED Provider: Shalini (ED)Ric Chest Pain HPI General Chief Complaint: Chest Pain Stated Complaint: Chest Pain Time Seen by Provider: 09/16/22 21:33 Mode of Arrival: Ambulatory Source of Information: Patient, Relative and Medical Record Limitations: No Limitations Description of Symptoms (Recalled from ER Triage Doc. by RN): Pt arrives to ED with c/o left sided chest pain that radiates to her left neck and arm. Pain started approx 1600 this afternoon. Pt denies any trauma. Pt stated she had a heart cath last September r/t having chest angina, but was not dx with anything. Pt also reported taking aspirin on the way to ED to help with chest pain. History of Present Illness HPI narrative: pt with lt sided chest pain with rad to neck with hx of cad with cath in 10/02 with no stents - does smoke and has been compliant with meds complaint: chest pain indicative of cardiac Onset (ago): hour(s) Duration: intermittent Activity at onset: during rest Pain location: left chest Severity: moderate Quality: sharp Pain radiation: neck Risk Factors for CAD: Hypertension, Family Hx of CAD and Smoking Treatments prior to or on arrival for Cardiac Chest Pain: none [place] Score for Non-Stemi Age of Patient: 40-49 years old Heart Rate: 50-69 bpm Systolic Blood Pressure: 140-159 mmHg Serum Creatinine: 0.40-0.79 mg/dl CHF [place] Class: I-No CHF Other Risk Factors: None Non-Stemi Risk Score: 56 Risk Stratification: 1-108 = Low Risk Related Data Prior Cardiac Testing/Procedures: Cardiac Angiogram On Oral Contraceptives: No Home Medications Medication Instructions Recorded Confirmed losartan 50 mg tablet 50 mg PO DAILY Hypertension 09/26/20 04/08/22 metoprolol succinate 50 mg 50 mg PO DAILY Hypertension 09/26/20 04/08/22 tablet,extended release 24 hr paroxetine HCl 10 mg tablet 10 mg PO DAILY Anxiety 10/07/21 04/08/22 epinephrine 0.3 mg/0.3 mL 0.3 ml IM ONCE PRN 04/08/22 04/08/22 injection, auto-injector Previous Rx's Medication Instructions Recorded diphenhydramine HCl 25 mg capsule 50 mg PO HS #8 caps 05/18/22 (Benadryl) famotidine 20 mg tablet 20 mg PO DAILY #2 tabs 05/18/22 atorvastatin 40 mg tablet 40 mg PO HS Cholesterol #90 tabs 06/14/22 clindamycin HCl 300 mg capsule 300 mg PO BID 7 days #14 caps 08/14/22 Allergies Allergy/AdvReac Type Severity Reaction Status Date / Time PCN (PENICILLIN) Allergy Mild Uncoded 04/08/22 09:55 [facility] Disclaimer: The information contained in this section may have been updated after the patient was seen, as this information can be updated by other users. 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
--- NOTE | 2022-09-16 21:35 | CT_ITS ---
PROCEDURE INFORMATION: Exam: CTA Chest With Contrast Exam date and time: 09/16/2022 9:45 PM Age: 46 years old Clinical indication: Pain; Left-sided; Patient HX: Smoker; Additional info: Cp TECHNIQUE: Imaging protocol: Computed tomographic angiography of the chest with contrast. 3D rendering (Not supervised by radiologist): MIP and/or 3D reconstructed images were created by the technologist. Radiation optimization: All CT scans at this facility use at least one of these dose optimization techniques: automated exposure control; mA and/or kV adjustment per patient size (includes targeted exams where dose is matched to clinical indication); or iterative reconstruction. Contrast material: ISOVUE; Contrast volume: 70 ml; Contrast route: INTRAVENOUS (IV); REPORTING DATA: Count of CT and Cardiac NM exams in prior 12 months: This patient has received 0 known CTs and 0 known cardiac nuclear medicine studies in the 12 months prior to the current study. COMPARISON: CT ANGIO CHEST PE PROTOCOL 06/16/2021 15:03 FINDINGS: Pulmonary arteries: No pulmonary emboli. Aorta: The aorta demonstrates mild atherosclerotic disease. Lungs: Mosaic attenuation of the lungs is nonspecific, but suggests small airway disease. Pleural spaces: Unremarkable. No pneumothorax. No pleural effusion. Heart: Upper limits of normal heart size. Coronary arteries: Mild coronary arterial calcification, indicating the presence of coronary artery disease. Lymph nodes: Unremarkable. No enlarged lymph nodes. Gallbladder and bile ducts: Gallbladder is absent. Bones/joints: Unremarkable. No acute fracture. Soft tissues: Unremarkable. Other findings: Stigmata of old granulomatous disease. IMPRESSION: 1. No pulmonary emboli. 2. Mosaic attenuation of the lungs is nonspecific, but suggests small airway disease. Please correlate for evidence of asthma or bronchiolitis. 3. Mild coronary arterial calcification, indicating the presence of coronary artery disease. If the patient has associated symptoms, recommend management as per chest pain guidelines. If the patient is asymptomatic, consider reviewing modifiable cardiovascular risk factors and managing as per guidelines for primary prevention.
--- NOTE | 2022-09-16 23:04 | PC.NURSE ---
second trop drawn and sent to lab
[2022-09-16 23:45] LABS: Troponin I < 0.01 ng/ml (0.00-0.034)
--- NOTE | 2022-09-16 23:52 | PC.NURSE ---
spoke with Cardiology who recommends 30mg IMDUR and to see patient in clinic at 1100 on 09/17/22
[2022-09-17 00:18] VITALS: BP 156/87; PULSE 84; RESP 16; TEMP 37; O2SAT 99
== END 2022-09-17 00:20 | disposition home or self-care (01) ==
PROVIDERS: Emergency Provider Emergency Medicine; PCP Family Medicine
DX: R07.9 Chest pain, unspecified (principal); I25.10 Atherosclerotic heart disease of native coronary artery without angina pectoris
CPT/HCPCS: 71046; 71275; 80048; 80076; 81001; 83735; 84484; 85025; 93005; 96360; 99285; Q9967

== ENCOUNTER → 2022-10-01 07:17 | Outpatient (CLI) | payer BC, SELFPAY | LOC: RAD 07:17 | PROVIDERS: PCP Family Medicine; Visit Provider Physician Assistant | DX: R07.89 Other chest pain (principal); I25.10 Atherosclerotic heart disease of native coronary artery without angina pectoris; I10 Essential (primary) hypertension; E78.2 Mixed hyperlipidemia; H02.60 Xanthelasma of unspecified eye, unspecified eyelid; R94.31 Abnormal electrocardiogram [ECG] [EKG]; E66.01 Morbid (severe) obesity due to excess calories; Z68.38 Body mass index [BMI] 38.0-38.9, adult; Z72.0 Tobacco use | CPT/HCPCS: 78452; 93017; A9502; J2785 ==

== ENCOUNTER 2023-07-31 21:04 | Emergency (ER) | payer BC, SELFPAY ==
[2023-07-31 21:06] VITALS: BP 161/90; PULSE 89; RESP 18; TEMP 36.8; O2SAT 96; BMI 38.4
--- NOTE | 2023-07-31 21:19 | ED_ITS ---
Discharge Plan Disposition Chief Complaint: Skin/Abscess/Foreign Body Prescriptions Prescriptions: No Action paroxetine HCl 10 mg tablet 10 mg PO DAILY Patient Comments: TAKE 1 TABLET BY MOUTH EVERY DAY epinephrine 0.3 mg/0.3 mL auto-injector 0.3 ml IM ONCE PRN atorvastatin 40 mg tablet 20 mg PO HS Wegovy 0.25 mg/0.5 mL pen injector 0.25 mg SQ WEEKLY Qty: 2 5RF Rx Instructions: administer weeks 1 through 4 of therapy amlodipine [Norvasc] 5 mg tablet 5 mg PO DAILY Qty: 30 5RF losartan 50 MG tablet 50 mg PO DAILY metoprolol succinate 50 MG tablet 50 mg PO DAILY Referrals Follow up/Referrals: Camila Berger [Primary Care Provider] - See instructions Instructions Patient Instructions: DI for Skin Abscess Discharge ED Provider: Jenny Huddleston General Adult HPI General Chief complaint: Skin/Abscess/Foreign Body Stated complaint: abcess on right breast Time Seen by Provider: 07/31/23 21:18 Mode of Arrival: Ambulatory Source of Information: Patient Limitations: No Limitations Description of Symptoms (Recalled from ER Triage Doc. by RN): Patient noticed an abcess to the underside of right breast Tuesday morning. She has been using warm moist compresses and reports that the place has started draining but pain has significantly increased. She had planned to go to primary care tomorrow, but the pain was too severe at this time. Patient has had an abcess many years in the past. No fevers at home reported. Related Data Home Medications Medication Instructions Recorded Confirmed losartan 50 mg tablet 50 mg PO DAILY Hypertension 09/26/20 04/13/23 metoprolol succinate 50 mg 50 mg PO DAILY Hypertension 09/26/20 04/13/23 tablet,extended release 24 hr paroxetine HCl 10 mg tablet 10 mg PO DAILY Anxiety 10/07/21 04/13/23 epinephrine 0.3 mg/0.3 mL 0.3 ml IM ONCE PRN 04/08/22 04/13/23 injection, auto-injector atorvastatin 40 mg tablet 20 mg PO HS Cholesterol 10/06/22 04/13/23 Previous Rx's Medication Instructions Recorded amlodipine 5 mg tablet (Norvasc) 5 mg PO DAILY #30 tabs 02/01/23 semaglutide (weight loss) 0.25 0.25 mg (0.5 mL) SQ WEEKLY #2 mL 04/13/23 mg/0.5 mL subcutaneous pen injector (Wegovy) Allergies Allergy/AdvReac Type Severity Reaction Status Date / Time Penicillins Allergy Intermediate Unknown Verified 04/13/23 09:[address] [facility] Disclaimer: The information contained in this section may have been updated after the patient was seen, as this information can be updated by other users. 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 Smoking Status: Current every day smoker tobacco type: cigarettes packs per day: 1 alcohol intake: never current occupational status: employed Travel in the last 8 weeks: None caffeine: Yes ROS Obtained: Yes Systems reviewed as appropriate & no additional complaints except as documented Physical Exam General General appearance: alert and in no apparent distress Head Head exam: atraumatic and normal inspection Eye Eye exam: Present normal appearance, PERRL and EOMI ENT ENT exam: Present normal exam, normal oropharynx and mucous membranes moist Neck Neck exam: Present normal inspection, full ROM and trachea midline; Absent lym phadenopathy Chest Chest inspection: Present normal inspection and symmetric chest wall rise Respiratory Respiratory exam: Present normal lung sounds bilaterally; Absent accessory muscle use Cardiovascular Cardiovascular exam: Present regular rate, normal rhythm, normal heart sounds, +S1 and +S2 Abdominal Exam Abdominal exam: Present soft and normal bowel sounds; Absent tenderness, guarding or rebound Extremities Exam Extremities exam: Present normal inspection and full ROM Neurological Exam Neurological exam: Present alert, oriented X3 and CN II-XII intact Psychiatric Psychiatric exam: Present normal affect and normal mood Skin Skin exam: Present warm, dry and normal color Lymphatic Lymphatic Findings: no adenopathy Medical Decision Making Vital Signs: 07/31/23 21:06 Temperature 98.2 F Temperature Source Oral Pulse Rate [Left Radial] 89 Respiratory Rate 18 Blood Pressure [Right Arm] 161/90 H Blood Pressure Mean [Right Arm] 113 Blood Pressure Source [Right Arm] Automatic Cuff Blood Pressure Position [Right Arm] Sitting 02 Sat by Pulse Oximetry 96 Oxygen Delivery Method Room Air Medical Decision Narrative: In summary patient is a [age, sex] who presents to the emergency department for evaluation of [complaint]. Patient is [hemodynamically stable/unstable] upon arrival, [febrile/afebrile]. [Unremarkable physical exam, nonfocal exam versus focal remarkable exam]. Differential diagnosis includes [DDx]. Initial workup will be conducted with [hematologic labs, imaging, respiratory swab, describe workup]. Initial interventions include [crystalloid bolus, medications, p.o. challenge, etc.] initial workup reviewed by me [hematologic labs are remarkable for... Imaging remarkable for... Urinalysis remarkable for]. Upon repeat evaluation [patient had acceptable resolution of symptoms, had persistent pain for which additional interventions were conducted (describe interventions), tolerated p.o., was ambulatory, etc.]. Given this [patient is appropriate for discharge at this time and will be discharged with a prescription for... The case was discussed with hospital medicine regarding management and they will admit the patient their service for continued evaluation at this time... Etc.] Places where you can increase complexity: I informally interpreted the patient's chest x-ray or CT read and is remarkable for... Documenting what the cafeteria monitor shows with rate and rhythm Consideration of test but deferring. Ex: I considered chest x-ray on this patient however given that they have no oxygen requirement and are clear to auscultation all lung [place] will be deferred. Social determinants of health: Given that patient is undomiciled increases complexity. Given that patient has polysubstance abuse compounds all aspects of care
--- NOTE | 2023-07-31 21:31 | PC.NURSE ---
Provider at bedside with ultrasound.
--- NOTE | 2023-07-31 21:50 | HMH.EDGENADL ---
Discharge Plan Disposition Patient Disposition: Home, Self-Care Prescriptions Prescriptions: New sulfamethoxazole-trimethoprim [Bactrim DS] 800-160 mg tablet 1 tab PO BID 10 Days Qty: 20 0RF cephalexin 500 mg capsule 500 mg PO QID 10 Days Qty: 40 0RF No Action paroxetine HCl 10 mg tablet 10 mg PO DAILY Patient Comments: TAKE 1 TABLET BY MOUTH EVERY DAY epinephrine 0.3 mg/0.3 mL auto-injector 0.3 ml IM ONCE PRN atorvastatin 40 mg tablet 20 mg PO HS Wegovy 0.25 mg/0.5 mL pen injector 0.25 mg SQ WEEKLY Qty: 2 5RF Rx Instructions: administer weeks 1 through 4 of therapy amlodipine [Norvasc] 5 mg tablet 5 mg PO DAILY Qty: 30 5RF losartan 50 MG tablet 50 mg PO DAILY metoprolol succinate 50 MG tablet 50 mg PO DAILY Referrals Follow up/Referrals: Camila Berger [Primary Care Provider] - See instructions Phan Loza MD [Staff Physician] - See instructions Activity Restrictions/Add. Instructions Additional Instructions/Restrictions: You have evidence of a spontaneously draining small breast abscess with surrounding cellulitis. On bedside ultrasound there is no localized drainable fluid collection. I recommend that you follow-up with either our surgeon in 48 to 72 hours to ensure resolution of your symptoms or with a comprehensive [facility] care [facility] whom you have previously seen in follow-up. Return with any worsening symptoms high fevers or other concerns. Clinical Impressions Clinical Impression: Abscess of breast, Cellulitis of breast Instructions Patient Instructions: DI for Skin Abscess Discharge ED Provider: Jenny Huddleston General Adult HPI General Chief complaint: Skin/Abscess/Foreign Body Stated complaint: abcess on right breast Time Seen by Provider: 07/31/23 21:20 Mode of Arrival: Ambulatory Source of Information: Patient Limitations: No Limitations Description of Symptoms (Recalled from ER Triage Doc. by RN): Patient noticed an abcess to the underside of right breast Tuesday morning. She has been using warm moist compresses and reports that the place has started draining but pain has significantly increased. She had planned to go to primary care tomorrow, but the pain was too severe at this time. Patient has had an abcess many years in the past. No fevers at home reported. History of Present Illness HPI narrative: Patient is a 47-year-old female presents today with concerns for breast abscess. States she had a similar presentation several years ago where she had a bedside drainage at [facility] and had complete resolution of her symptoms with drainage and oral antibiotics. She states that over the last 48 hours she initially noticed some redness and pain and then had some spontaneous drainage this morning. She had some subjective fevers at home but nothing objective. Denies any other significant past medical history specifically no evidence or history of breast cancer. Related Data Home Medications Medication Instructions Recorded Confirmed losartan 50 mg tablet 50 mg PO DAILY Hypertension 09/26/20 04/13/23 metoprolol succinate 50 mg 50 mg PO DAILY Hypertension 09/26/20 04/13/23 tablet,extended release 24 hr paroxetine HCl 10 mg tablet 10 mg PO DAILY Anxiety 10/07/21 04/13/23 epinephrine 0.3 mg/0.3 mL 0.3 ml IM ONCE PRN 04/08/22 04/13/23 injection, auto-injector atorvastatin 40 mg tablet 20 mg PO HS Cholesterol 10/06/22 04/13/23 Previous Rx's Medication Instructions Recorded amlodipine 5 mg tablet (Norvasc) 5 mg PO DAILY #30 tabs 02/01/23 semaglutide (weight loss) 0.25 0.25 mg (0.5 mL) SQ WEEKLY #2 mL 04/13/23 mg/0.5 mL subcutaneous pen injector (Wegovy) cephalexin 500 mg capsule 500 mg PO QID 10 days #40 caps 07/31/23 sulfamethoxazole 800 1 tab PO BID 10 days #20 tabs 07/31/23 mg-trimethoprim 160 mg tablet (Bactrim DS) Allergies Allergy/AdvReac Type Severity Reaction Status Date / Time Penicillins Allergy Intermediate Unknown Verified 04/13/23 09:53 allergy reaction [facility] Disclaimer: The information contained in this section may have been updated after the patient was seen, as this information can be updated by other users. 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 Smoking Status: Current every day smoker tobacco type: cigarettes packs per day: 1 alcohol intake: never current occupational status: employed Travel in the last 8 weeks: None caffeine: Yes ROS Obtained: Yes All systems reviewed & no additional complaints except as documented Physical Exam General General appearance: alert Expanded Chest Exam Female Torso: 1. .5 cm area of centralized necrosis and purulent drainage with some surrounding cellulitis about 3 x 3 cm no fluctuance Respiratory Respiratory exam: Present normal lung sounds bilaterally Cardiovascular Cardiovascular exam: Present regular rate Neurological Exam Neurological exam: Present alert Medical Decision Making Jonathan Inquiry Pt receiving controlled substance: No Vital Signs: 07/31/23 21:06 Temperature 98.2 F Temperature Source Oral Pulse Rate [Left Radial] 89 Respiratory Rate 18 Blood Pressure [Right Arm] 161/90 H Blood Pressure Mean [Right Arm] 113 Blood Pressure Source [Right Arm] Automatic Cuff Blood Pressure Position [Right Arm] Sitting 02 Sat by Pulse Oximetry 96 Oxygen Delivery Method Room Air Orders (Tests/Meds): ED MEDICATIONS Generic Name Dose Route Start Last Admin Trade Name Freq PRN Reason Stop Dose Admin Cephalexin HCl 500 mg 07/31/23 21:44 Cephalexin 500mg Capsule PO 07/31/23 21:45 ONCE ONE Trimethoprim/Sulfamethoxazole 1 each 07/31/23 21:44 Sulfa/Trimethoprim 1 Tablet PO 07/31/23 21:45 ONCE ONE ORDERS Category Date Time Status POCUS Point of Care (ER Only) Stat Exams 07/31/23 21:32 Ordered Medical Decision Narrative: Patient today presents with 48 hours of symptoms of erythema and purulent drainage underneath the right breast over the last 48 hours. It is exceedingly unlikely that this is a malignancy presentation however that remains possible. Limited bedside ultrasound was done to identify the presence of a possible drainable fluid collection which there was not 1. There is evidence that there has been some purulent drainage she likely had a very small superficial abscess that has since been spontaneously draining she does have surrounding cellulitis both clinically and radiographically. At the moment there is no indication for incision and drainage but will treat with oral antibiotics and she has been advised to continue warm compresses. She has an established relationship with [facility] which I advised that she follow-up within 48 to 72 hours or to follow-up with her surgeon during that same time. If she cannot get in to be seen at that time. She will also return to the emergency department with any worsening symptoms. She is aware that this could get worse and that antibiotics may not stop this completely she is also aware that this is a possible presentation of malignancy but that remains unlikely but needs to be followed through resolution. She was given a first dose of Bactrim and Keflex in the emergency department and discharged with prescription. Specifically she has had cephalosporins in the past without any significant allergic reaction. Procedures Miscellaneous Procedure Procedure Performed: Limited soft tissue ultrasound Indication: Right breast cellulitis versus abscess Identified structures: Location: Right breast Findings: Soft tissue edema with no localized drainable fluid collection Impression: Evidence of soft tissue cellulitis without abscess in the right superficial breast tissue Images are saved to permanent archive The study was not technically adequate Soft Tissue CPT Codes: CPT Breast: 21101-83-WK/LT (complete), 46857-81-IY/LT (limited), This study was performed by me, and I personally interpreted all images/videos. Based on my clinical judgement, these images were adequate and did not necessitate further imaging. Critical Care Critical Care Time Critical Care Time: No
[2023-07-31] MEDS: SULFA/TRIMETHOPRIM 1 TABLET 1 EACH PO (21:56)
[2023-07-31] MEDS: cephALEXin 500MG CAPSULE 500 MG PO (21:56)
[2023-07-31 21:57] VITALS: BP 158/88; PULSE 89; RESP 18; TEMP 36.8; O2SAT 96
== END 2023-07-31 21:58 | disposition home or self-care (01) ==
PROVIDERS: Emergency Provider Student in an Organized Health Care Education/Training Program; PCP Family Medicine
DX: N61.1 Abscess of the breast and nipple (principal); N61.0 Mastitis without abscess; F17.210 Nicotine dependence, cigarettes, uncomplicated
CPT/HCPCS: 99284

== ENCOUNTER 2023-08-13 04:32 | Emergency (ER) | payer BC, SELFPAY ==
[2023-08-13 04:34] VITALS: BP 136/89; PULSE 73; RESP 18; O2SAT 96; BMI 40.7
--- NOTE | 2023-08-13 04:54 | XR_ITS ---
PROCEDURE INFORMATION: Exam: XR Chest Exam date and time: 08/13/2023 4:56 AM Age: 47 years old Clinical indication: Shortness of breath; Additional info: Chest tightness TECHNIQUE: Imaging protocol: Radiologic exam of the chest. Views: 2 views. COMPARISON: CT ANGIO CHEST PE PROTOCOL 09/16/2022 9:45 PM FINDINGS: Lungs: Unremarkable. No consolidation. Pleural spaces: Unremarkable. No pleural effusion. No pneumothorax. Heart/Mediastinum: Unremarkable. No cardiomegaly. Bones/joints: Unremarkable. IMPRESSION: No acute findings.
--- NOTE | 2023-08-13 04:58 | HMH.EDGENADL ---
Discharge Plan Disposition Patient Disposition: Home, Self-Care Condition: Good Prescriptions Prescriptions: New clindamycin HCl 300 mg capsule 300 mg PO TID 7 Days Qty: 21 0RF Discontinued sulfamethoxazole-trimethoprim [Bactrim DS] 800-160 mg tablet 1 tab PO BID 10 Days Qty: 20 0RF No Action paroxetine HCl 10 mg tablet 10 mg PO DAILY Patient Comments: TAKE 1 TABLET BY MOUTH EVERY DAY epinephrine 0.3 mg/0.3 mL auto-injector 0.3 ml IM ONCE PRN Wegovy 0.25 mg/0.5 mL pen injector 0.25 mg SQ WEEKLY Qty: 2 5RF Rx Instructions: administer weeks 1 through 4 of therapy amlodipine [Norvasc] 5 mg tablet 5 mg PO DAILY Qty: 30 5RF atorvastatin 40 mg tablet 20 mg PO HS Qty: 90 1RF losartan 50 MG tablet 50 mg PO DAILY metoprolol succinate 50 MG tablet 50 mg PO DAILY cephalexin 500 mg capsule 500 mg PO QID 10 Days Qty: 40 0RF Referrals Follow up/Referrals: Camila Berger [Primary Care Provider] - See instructions Activity Restrictions/Add. Instructions Additional Instructions/Restrictions: If symptoms return, take diphenhydramine 50 mg up to every 12 hours. Return to the emergency department with any shortness of breath, vomiting, lightheadedness, tongue swelling, or other concerns. Clinical Impressions Clinical Impression: Anaphylaxis due to antibacterial agent Instructions Patient Instructions: DI for Anaphylaxis Discharge ED Provider: Nanda Lundberg General Adult HPI General Chief complaint: Allergic Reaction Stated complaint: itching, tightness in chest, hives Time Seen by Provider: 08/13/23 04:45 Mode of Arrival: Wheelchair Source of Information: Patient Limitations: No Limitations Description of Symptoms (Recalled from ER Triage Doc. by RN): woke up itching all over 2 hours ago; states she can breath easily but it feels tight ; wondering if it is the Bactrim she's taking; some redness and hives seen on right leg; pt took 12.5mg of Diphenhydramine 1.5 hours before arrival History of Present Illness HPI narrative: 47-year-old female with previous medical history of breast abscess on Bactrim and open fracture of the right foot on cephalexin presents with generalized itching and chest tightness. 07/31 patient was seen in this emergency department for a right breast abscess. Approximately 2 days later she started taking Bactrim and initially tolerated this well. 08/06 she broke her right foot and due to open fracture was started on cephalexin in addition to the Bactrim. She began taking this on 08/09 and had generalized itching. At that time it was unclear whether this was due to Bactrim or cephalexin. She states that her orthopedic doctors advised her to discontinue both antibiotics and as of today she has only resumed Bactrim for her right breast abscess. Over the past 2 days she has had gradually worsening generalized pruritus of the face, torso, extremities concerning for hives and tonight developed chest tightness as well. She is currently only taking Bactrim so is concerned that Bactrim is what actually caused her reaction rather than cephalexin. On presentation to the emergency department she complains of chest tightness but no shortness of breath or wheezing. No severe chest pain. No nausea or vomiting or diarrhea. She complains of itching all over. She took 12.5 mg diphenhydramine before arrival with no improvement. Chronic daily medications include metoprolol, losartan, paroxetine, amlodipine, atorvastatin. Related Data Home Medications Medication Instructions Recorded Confirmed losartan 50 mg tablet 50 mg PO DAILY Hypertension 09/26/20 08/04/23 metoprolol succinate 50 mg 50 mg PO DAILY Hypertension 09/26/20 08/04/23 tablet,extended release 24 hr paroxetine HCl 10 mg tablet 10 mg PO DAILY Anxiety 10/07/21 08/04/23 epinephrine 0.3 mg/0.3 mL 0.3 ml IM ONCE PRN 04/08/22 08/04/23 injection, auto-injector Previous Rx's Medication Instructions Recorded amlodipine 5 mg tablet (Norvasc) 5 mg PO DAILY #30 tabs 02/01/23 semaglutide (weight loss) 0.25 0.25 mg (0.5 mL) SQ WEEKLY #2 mL 04/13/23 mg/0.5 mL subcutaneous pen injector (Wegovy) cephalexin 500 mg capsule 500 mg PO QID 10 days #40 caps 07/31/23 atorvastatin 40 mg tablet 20 mg PO HS Cholesterol #90 tabs 08/11/23 clindamycin HCl 300 mg capsule 300 mg PO TID 7 days #21 caps 08/13/23 Allergies Allergy/AdvReac Type Severity Reaction Status Date / Time Penicillins Allergy Intermediate Unknown Verified 08/04/23 10:13 allergy reaction [facility] Disclaimer: The information contained in this section may have been updated after the patient was seen, as this information can be updated by other users. Medical History Abscess of breast Cellulitis of breast HTN (hypertension) 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 Smoking Status: Current every day smoker tobacco type: cigarettes packs per day: 1 alcohol intake: never current occupational status: employed Travel in the last 8 weeks: None caffeine: Yes ROS Obtained: Yes All systems reviewed & no additional complaints except as documented Physical Exam General General appearance: alert and in no apparent distress Comment: Erythema and urticaria of the face, chest, bilateral upper and lower extremities. No blistering, petechiae, purpura, or mucous membrane involvement. Head Head exam: atraumatic, normocephalic and normal inspection Eye Eye exam: Present normal appearance, PERRL and EOMI ENT ENT exam: Present normal exam, normal oropharynx, mucous membranes moist, TM's normal bilaterally and normal external ear exam Neck Neck exam: Present normal inspection, full ROM and trachea midline; Absent meningismus or lymphadenopathy Chest Chest inspection: Present normal inspection and symmetric chest wall rise; Absent tenderness Respiratory Respiratory exam: Present normal lung sounds bilaterally; Absent respiratory distress, wheezes, stridor or accessory muscle use Cardiovascular Cardiovascular exam: Present regular rate and normal rhythm; Absent JVD Abdominal Exam Abdominal exam: Present soft and normal bowel sounds; Absent distention, tenderness or guarding Extremities Exam Extremities exam: Present normal inspection, full ROM and normal capillary refill; Absent calf tenderness Back Exam Back exam: Present normal inspection; Absent tenderness Neurological Exam Neurological exam: Present alert and oriented X3 Psychiatric Psychiatric exam: Present normal affect and normal mood Skin Skin exam: Present warm, dry, intact and normal color Lymphatic Lymphatic Findings: no adenopathy Medical Decision Making Medical Records Medical records reviewed: Yes I reviewed the patient's medical records. Jonathan Inquiry Pt receiving controlled substance: No Jonathan was queried for this patient: No Vital Signs: 08/13/23 04:34 Pulse Rate [Right Brachial] 73 Respiratory Rate 18 Blood Pressure [Right Arm] 136/89 Blood Pressure Mean [Right Arm] 104 Blood Pressure Source [Right Arm] Automatic Cuff Blood Pressure Position [Right Arm] Sitting 02 Sat by Pulse Oximetry 96 Oxygen Delivery Method Room Air Lab Data Lab Results 08/13/23 05:05: WBC 11.4 H, RBC 5.25, Hgb 14.4, Hct 45.6, MCV 86.9, MCH 27.5, MCHC 31.6 L, RDW 15.3, Plt Count 294, MPV 8.9, Neut % (Auto) 59.2, Lymph % (Auto) 30.3, Levy % (Auto) 4.7, Eos % (Auto) 4.2, Baso % (Auto) 1.5, Neut # (Auto) 6.8, Lymph # (Auto) 3.5, Levy # (Auto) 0.5, Eos # (Auto) 0.5 H, Baso # (Auto) 0.2, Sodium 139, Potassium 4.0, Chloride 105, Carbon Dioxide 25, Anion Gap 13.0, BUN 11, Creatinine 0.70, Estimated Creat Clear 198, Estimated GFR 90, Est GFR ( Amer) 109, Glucose 105 H, Calcium 9.1, Total Bilirubin 0.3, AST 24, ALT 28, Alkaline Phosphatase 101, Troponin I < 0.01, Total Protein 7.2, Albumin 4.4, Globulin 2.8, Albumin/Globulin Ratio 1.6 08/13/23 05:05 08/13/23 05:05 Orders (Tests/Meds): ED MEDICATIONS Generic Name Dose Route Start Last Admin Trade Name Freq PRN Reason Stop Dose Admin Sodium Chloride 10 ml 08/13/23 04:54 Sodium Chloride 0.9% 10ml Flush Syringe IV 09/12/23 04:53 NEEDED PRN Maintain IV Site Discontinued Medications Generic Name Dose Route Start Last Admin Trade Name Freq PRN Reason Stop Dose Admin Diphenhydramine HCl 50 mg 08/13/23 04:54 08/13/23 05:23 Diphenhydramine 50mg/Ml Vial IV 08/13/23 04:55 50 mg ONCE ONE Administration Epinephrine HCl 0.3 mg 08/13/23 04:54 08/13/23 05:23 Epinephrine 1 Mg/Ml Ampul IM 08/13/23 04:55 0.3 mg ONCE ONE Administration Famotidine 20 mg 08/13/23 04:54 08/13/23 05:24 Famotidine 20mg/2ml Vial IV 08/13/23 04:55 20 mg ONCE ONE Administration ORDERS Category Date Time Status XR chest 2V Stat Exams 08/13/23 04:54 Taken CBC [Complete Blood Count Auto Diff] Stat Lab 08/13/23 05:05 Completed Comprehensive Metabolic Panel Stat Lab 08/13/23 05:05 Completed Trop I [Troponin I] Stat Lab 08/13/23 05:05 Completed Troponin I Q3H Lab 08/13/23 08:00 Ordered Troponin I Q3H Lab 08/13/23 11:00 Ordered Medical Decision Narrative: On arrival patient is hemodynamically stable though her urticaria and chest tightness is concerning for allergic reaction with 2 body systems involved therefore anaphylaxis. For this reason administered IM epinephrine, diphenhydramine, famotidine, and obtained laboratory evaluation to evaluate for endorgan damage. Also given her chest tightness obtained EKG and two-view chest x-ray to evaluate for ACS, pneumothorax, pneumonia, pleural effusion, among others. Low suspicion at this time for angioedema or anaphylactic shock based on physical exam and stable vital signs. Also low suspicion for other life-threatening rashes such as SJS, toxic shock, infectious rashes based on history and physical exam. Social determinants of health did not complicate care. On reassessment, patient had improvement in her itchiness and chest tightness. Labs I independently reviewed and interpreted showed very mild leukocytosis and eosinophilia consistent with allergic reaction, CMP with no signs of endorgan damage, troponin below detectable limit. Chest x-ray independently reviewed and interpreted showed no focal consolidations, pleural effusions, pneumothorax or other concerns to explain her chest tightness. Normal chest x-ray.. Discussed with patient that at this time she most likely had a reaction to Bactrim. Advised her to discontinue taking Bactrim and prescribed clinda instead for abscess/cellulitis treatment with MRSA coverage. Provided strict return precautions and instructions to more appropriately dosed Benadryl. Discharge stable with improvement in her symptoms Critical Care Critical Care Time Critical Care Time: No
[2023-08-13 05:14] LABS: Basophils # 0.2 K/mm3 (0-0.2); Basophils % 1.5 % (0.1-2.0); Eosinophils # 0.5 K/mm3 (0.0-0.4); Eosinophils % 4.2 % (0.1-12.0); Hematocrit 45.6 % (37.0-47.0); Hemoglobin 14.4 g/dL (12.2-16.2); Lymphocytes # 3.5 K/mm3 (0.7-4.5); Lymphocytes % 30.3 % (10-50); Mean Corpuscular HGB Conc 31.6 g/dL (31.8-35.4); Mean Corpuscular Hemoglobin 27.5 pg (27.0-31.2); Mean Corpuscular Volume 86.9 fl (81-99); Mean Platelet Volume 8.9 fl (7.4-10.4); Monocytes # 0.5 K/mm3 (0.1-1.0); Monocytes % 4.7 % (1.7-9.3); Neutrophils # 6.8 K/mm3 (1.8-7.8); Neutrophils % 59.2 % (37.0-80.0); Platelet Count 294 K/mm3 (142-424); Red Blood Count 5.25 M/mm3 (4.20-5.40); Red Cell Distribution Width 15.3 % (11.5-17.5); White Blood Count 11.4 K/mm3 (4.8-10.8)
--- NOTE | 2023-08-13 05:19 | ECG_ITS ---
APPROVED REPORT Exam: Resting ECG HR:61 bpm ECG Measurements Heart Rate 61 AXES NV 179 P 50 QRSd 89 QRS 58 QT 404 T 29 QTc 406 Conclusion Nanda Lundberg MD: Normal rate, regular rhythm, no significant ST segment elevations or morphology changes. Normal sinus rhythm. Electronically signed by : NANDA LUNDBERG, 08/13/2023 07:48:17
[2023-08-13 05:22] LABS: Alanine Aminotransferase 28 U/L (12-78); Albumin Level 4.4 g/dl (3.5-5.0); Albumin/Globulin Ratio 1.6 (1.1-1.8); Alkaline Phosphatase 101 U/L (38-126); Aspartate Amino Transferase 24 U/L (14-36); Bilirubin,Total 0.3 mg/dl (0.2-1.3); Blood Urea Nitrogen 11 mg/dl (7-17); Calcium 9.1 mg/dl (8.4-10.2); Carbon Dioxide 25 mmol/L (22.0-30.0); Chloride 105 mmol/L (98-107); Creatinine Clearance Estimated 198 mL/min (50-200); Estimated Glomerular Filt Rate 90 ml/min (>60); GFR (African American) 109 ML/MIN (>60); Globulin 2.8 g/dL (1.3-3.2); Glucose 105 mg/dl (74-100); Sodium 139 mmol/L (136-145); Total Protein,Serum 7.2 g/dl (6.3-8.2)
[2023-08-13] MEDS: diphenhydrAMINE 50MG/ML VIAL 50 MG IV (05:23)
[2023-08-13] MEDS: EPINEPHrine 1 MG/ML AMPUL 0.299999999999999989 MG IM (05:23)
[2023-08-13] MEDS: FAMOTIDINE 20MG/2ML VIAL 20 MG IV (05:24)
[2023-08-13 05:34] LABS: Troponin I < 0.01 ng/ml (0.00-0.034)
[2023-08-13 07:13] VITALS: BP 138/75; PULSE 70; RESP 18; TEMP 36.7; O2SAT 96
== END 2023-08-13 06:50 | disposition home or self-care (01) ==
PROVIDERS: Emergency Provider Emergency Medicine; PCP Family Medicine
DX: T88.6XXA Anaphylactic reaction due to adverse effect of correct drug or medicament properly administered, initial encounter (principal); T37.0X5A Adverse effect of sulfonamides, initial encounter; L50.9 Urticaria, unspecified; R07.89 Other chest pain; D72.829 Elevated white blood cell count, unspecified; N61.1 Abscess of the breast and nipple; I10 Essential (primary) hypertension; F17.210 Nicotine dependence, cigarettes, uncomplicated
CPT/HCPCS: 71046; 80053; 84484; 85025; 93005; 96372; 96374; 96375; 99285

== ENCOUNTER 2023-09-02 10:58 | Emergency (ER) | payer BC, SELFPAY ==
[2023-09-02 10:59] VITALS: BP 133/71; PULSE 72; RESP 18; TEMP 36.4; O2SAT 95; BMI 39.9
--- NOTE | 2023-09-02 11:12 | XR_ITS ---
FINAL REPORT CLINICAL HISTORY: foot injury FINDINGS: RIGHT FOOT 3 views of the right foot were obtained. There are fractures of the second, third, and fourth distal phalanges with distraction measuring up to 4 mm. There is also a nondisplaced fracture of the second middle phalanx. Visualized joint spaces are normally aligned. Soft tissues are unremarkable. IMPRESSION: Acute fractures as above. Reviewed, Interpreted and Dictated by Jose Mcclellan III, MD Transcribed by Sydney John Authenticated and [facility]
[2023-09-02 11:31] VITALS: BP 144/80; PULSE 68; RESP 18; O2SAT 92
--- NOTE | 2023-09-02 11:38 | ED_ITS ---
Discharge Plan Disposition Patient Disposition: Home, Self-Care Prescriptions Prescriptions: No Action paroxetine HCl 10 mg tablet 10 mg PO DAILY Patient Comments: TAKE 1 TABLET BY MOUTH EVERY DAY epinephrine 0.3 mg/0.3 mL auto-injector 0.3 ml IM ONCE PRN Wegovy 0.25 mg/0.5 mL pen injector 0.25 mg SQ WEEKLY Qty: 2 5RF Rx Instructions: administer weeks 1 through 4 of therapy amlodipine [Norvasc] 5 mg tablet 5 mg PO DAILY Qty: 30 5RF atorvastatin 40 mg tablet 20 mg PO HS Qty: 90 1RF losartan 50 MG tablet 50 mg PO DAILY metoprolol succinate 50 MG tablet 50 mg PO DAILY cephalexin 500 mg capsule 500 mg PO QID 10 Days Qty: 40 0RF clindamycin HCl 300 mg capsule 300 mg PO TID 7 Days Qty: 21 0RF Referrals Follow up/Referrals: Camila Berger [Primary Care Provider] - See instructions Activity Restrictions/Add. Instructions Additional Instructions/Restrictions: Evidence of any new or different abnormalities in comparison with your x-rays that you had recently done at . Please continue to follow-up with them from a wound management standpoint. Clinical Impressions Clinical Impression: Encounter for assessment of wound, Fracture, toe Discharge ED Provider: Jenny Huddleston General Adult HPI General Chief complaint: Extremity Injury, Lower Stated complaint: Ao Pain in R foot Time Seen by Provider: 09/02/23 11:00 Mode of Arrival: Wheelchair Source of Information: Patient Limitations: No Limitations Description of Symptoms (Recalled from ER Triage Doc. by RN): Patient states she broke three of her toes on her right foot approx 3 weeks ago and this morning she accidently dropped a 5lb bag of sugar on them this morning. History of Present Illness HPI narrative: Patient is a 47-year-old female who presents today for wound reevaluation. States that she dropped a very large catering table onto her toes 3 weeks ago she was seen initially at [facility] emergency department where she was diagnosed with lacerations that went through the nail plate as well as distal phalanx fractures of her second third and fourth toes on her right foot. She was seen by orthopedic surgery had those repaired at the bedside and was supposed to follow-up with them for wound management. However this morning she accidentally dropped a 5 pound bag of sugar onto her foot and return to the emergency dep artment to be evaluated to make sure she had not worsened any of her previous injuries. Related Data Home Medications Medication Instructions Recorded Confirmed losartan 50 mg tablet 50 mg PO DAILY Hypertension 09/26/20 08/04/23 metoprolol succinate 50 mg 50 mg PO DAILY Hypertension 09/26/20 08/04/23 tablet,extended release 24 hr paroxetine HCl 10 mg tablet 10 mg PO DAILY Anxiety 10/07/21 08/04/23 epinephrine 0.3 mg/0.3 mL 0.3 ml IM ONCE PRN 04/08/22 08/04/23 injection, auto-injector Previous Rx's Medication Instructions Recorded amlodipine 5 mg tablet (Norvasc) 5 mg PO DAILY #30 tabs 02/01/23 semaglutide (weight loss) 0.25 0.25 mg (0.5 mL) SQ WEEKLY #2 mL 04/13/23 mg/0.5 mL subcutaneous pen injector (Wegovy) cephalexin 500 mg capsule 500 mg PO QID 10 days #40 caps 07/31/23 atorvastatin 40 mg tablet 20 mg (1/2 x 40 mg) PO HS 08/11/23 Cholesterol #90 tabs clindamycin HCl 300 mg capsule 300 mg PO TID 7 days #21 caps 08/13/23 Allergies Allergy/AdvReac Type Severity Reaction Status Date / Time Penicillins Allergy Intermediate Unknown Verified 08/04/23 10:13 allergy reaction cephalexin [From Keflex] Allergy Verified 09/02/23 11:12 [facility] Disclaimer: The information contained in this section may have been updated after the patient was seen, as this information can be updated by other users. Medical History Abscess of breast Cellulitis of breast HTN (hypertension) 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 Smoking Status: Current every day smoker tobacco type: cigarettes packs per day: 1 alcohol intake: never current occupational status: employed Travel in the last 8 weeks: None caffeine: Yes ROS Obtained: Yes All systems reviewed & no additional complaints except as documented Physical Exam General General appearance: alert and in no apparent distress Respiratory Respiratory exam: Present normal lung sounds bilaterally Cardiovascular Cardiovascular exam: Present regular rate and normal rhythm Extremities Exam Extremities exam: Present other (Right lower extremity on the foot very slight erythema and swelling to the second third and fourth digits with good brisk capillary refill no open wounds she has sensation and motor function in her baseline) Neurological Exam Neurological exam: Present alert and oriented X3 Medical Decision Making Jonathan Inquiry Pt receiving controlled substance: No Vital Signs: 09/02/23 10:59 Temperature 97.6 F Temperature Source Oral Pulse Rate [Radial] 72 Respiratory Rate 18 Blood Pressure [Right Arm] 133/71 Blood Pressure Mean [Right Arm] 91 Blood Pressure Source [Right Arm] Automatic Cuff Blood Pressure Position [Right Arm] Sitting 02 Sat by Pulse Oximetry 95 Oxygen Delivery Method Room Air Orders (Tests/Meds): ORDERS Category Date Time Status Foot XR right minimum 3 views [XR foot RT min 3V] Stat Exams 09/02/23 11:12 Taken Medical Decision Narrative: Above history and physical. No superficial injuries that are off of her recent baseline. X-ray was performed which I personally interpreted and also reviewed and personally interpreted the x-rays from [facility] from their EMR as a comparison. She does have distal phalanx fractures that are comminuted in the second third and fourth digits which appear unchanged. No new or different fractures in the foot. There is no obvious callus formation or wound healing from that standpoint she has been advised of this. Nothing worse from an injury standpoint today. Her foot was redressed and she has been advised to follow-up with orthopedic surgery as previously instructed. Critical Care Critical Care Time Critical Care Time: No
[2023-09-02 11:46] VITALS: BP 144/80; PULSE 67; RESP 18; TEMP 36.6; O2SAT 67
== END 2023-09-02 11:47 | disposition home or self-care (01) ==
PROVIDERS: Emergency Provider Student in an Organized Health Care Education/Training Program; PCP Family Medicine
DX: M79.671 Pain in right foot (principal); W22.8XXA Striking against or struck by other objects, initial encounter; I10 Essential (primary) hypertension; F17.210 Nicotine dependence, cigarettes, uncomplicated
CPT/HCPCS: 73630; 99283

== ENCOUNTER 2023-11-23 19:14 | Emergency (ER) | payer BC, SELFPAY ==
[2023-11-23 19:23] VITALS: BP 171/115; PULSE 87; RESP 16; TEMP 37.2; O2SAT 98; BMI 40.6
--- NOTE | 2023-11-23 19:28 | ECG_ITS ---
APPROVED REPORT Exam: Resting ECG HR:85 bpm ECG Measurements Heart Rate 85 AXES NM 163 P 59 QRSd 78 QRS 95 QT 358 T 32 QTc 400 Conclusion SINUS RHYTHM WITH SINUS ARRHYTHMIA BORDERLINE RIGHT AXIS DEVIATION [QRS AXIS > 90] LOW QRS VOLTAGE IN PRECORDIAL LEADS [QRS DEFLECTION < 1.0 mV IN CHEST LEADS] BORDERLINE ECG Electronically signed by : MECCA COOK, 11/24/2023 19:09:48
--- NOTE | 2023-11-23 19:29 | XR_ITS ---
PROCEDURE INFORMATION: Exam: XR Chest Exam date and time: 11/23/2023 7:39 PM Age: 48 years old Clinical indication: Pain; Other: Neck; Additional info: Left shoulder pain/neck pain radiating into chest TECHNIQUE: Imaging protocol: Radiologic exam of the chest. Views: 2 views. COMPARISON: CR XR CHEST 2V 08/13/2023 4:56 AM FINDINGS: Lungs: Minimal subsegmental atelectasis/scarring. No consolidation. Pleural spaces: No significant pleural effusion. No pneumothorax. Heart/Mediastinum: No cardiomegaly. Bones/joints: No displaced fracture. Soft tissues: Unremarkable. IMPRESSION: No definite acute cardiopulmonary disease.
[2023-11-23 19:31] VITALS: PULSE 85
--- NOTE | 2023-11-23 19:53 | PC.NURSE ---
pt back from RAD in bathroom giving urine sample at this time.
--- NOTE | 2023-11-23 19:55 | CT_ITS ---
PROCEDURE INFORMATION: Exam: CTA Neck With Contrast Exam date and time: 11/23/2023 8:45 PM Age: 48 years old Clinical indication: Other: Left neck pain; Additional info: BP radiating to L neck TECHNIQUE: Imaging protocol: Computed tomographic angiography of the neck with contrast. Exam focused on the cervical segments of the vasculature. 3D rendering (Not supervised by radiologist): MIP and/or 3D reconstructed images were created by the technologist. Radiation optimization: All CT scans at this facility use at least one of these dose optimization techniques: automated exposure control; mA and/or kV adjustment per patient size (includes targeted exams where dose is matched to clinical indication); or iterative reconstruction. Contrast material: ISOVUE; Contrast volume: 90 ml; Contrast route: INTRAVENOUS (IV); COMPARISON: CT ANGIO NECK 12/09/2020 1:03 PM FINDINGS: Right common carotid artery: No stenosis. No dissection or occlusion. Right internal carotid artery: No stenosis of the extracranial segment. No dissection or occlusion. Right external carotid artery: No occlusion or stenosis of the origin. Left common carotid artery: No stenosis. No dissection or occlusion. Left internal carotid artery: No stenosis of the extracranial segment. No dissection or occlusion. Left external carotid artery: No occlusion or stenosis of the origin. Right vertebral artery: No stenosis. No dissection or occlusion. Left vertebral artery: No stenosis. No dissection or occlusion. Soft tissues: Normal. No significant soft tissue swelling. Bones/joints: No acute fracture. IMPRESSION: No stenosis or occlusion. REFERENCES: NASCET CRITERIA. The degree of stenosis in the cervical segment of the internal carotid artery is based on NASCET criteria. Normal is no stenosis. Mild is less than 50% stenosis. Moderate is 50-69% stenosis. Severe is 70% to 99% stenosis. Total occlusion is no detectable patent lumen.
--- NOTE | 2023-11-23 19:55 | CT_ITS ---
PROCEDURE INFORMATION: Exam: CTA Head With Contrast, Arteriography Exam date and time: 11/23/2023 8:45 PM Age: 48 years old Clinical indication: Other: Pain left neck; Additional info: BP radiating to L neck TECHNIQUE: Imaging protocol: Computed tomographic angiography of the head with contrast. Exam focused on the arteries. 3D rendering (Not supervised by radiologist): MIP and/or 3D reconstructed images were created by the technologist. Radiation optimization: All CT scans at this facility use at least one of these dose optimization techniques: automated exposure control; mA and/or kV adjustment per patient size (includes targeted exams where dose is matched to clinical indication); or iterative reconstruction. Contrast material: ISVOUE; Contrast volume: 90 ml; Contrast route: INTRAVENOUS (IV); COMPARISON: CT HEAD/BRAIN WO CON 11/23/2023 8:42 PM FINDINGS: ANTERIOR CIRCULATION: Right internal carotid artery: Mild atherosclerotic changes of the right cavernous carotid artery. Right middle cerebral artery: No occlusion or significant stenosis. No aneurysm. Right anterior cerebral artery: No occlusion or significant stenosis. No aneurysm. Left internal carotid artery: Mild atherosclerotic changes of the left cavernous carotid artery. Left middle cerebral artery: No occlusion or significant stenosis. No aneurysm. Left anterior cerebral artery: No occlusion or significant stenosis. No aneurysm. POSTERIOR CIRCULATION: Right vertebral artery: No occlusion or significant stenosis. No aneurysm. Left vertebral artery: No occlusion or significant stenosis. No aneurysm. Basilar artery: No occlusion or significant stenosis. No aneurysm. Right posterior cerebral artery: No occlusion or significant stenosis. No aneurysm. 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 Brain: No definite mass, mass effect, or midline shift. Cerebral ventricles: No ventriculomegaly. Bones/joints: Unremarkable. No acute fracture. Soft tissues: Unremarkable. IMPRESSION: No acute findings.
--- NOTE | 2023-11-23 19:55 | CT_ITS ---
PROCEDURE INFORMATION: Exam: CTA Chest With Contrast Exam date and time: 11/23/2023 8:50 PM Age: 48 years old Clinical indication: Pain; Left-sided; Additional info: BP radiating to L neck TECHNIQUE: Imaging protocol: Computed tomographic angiography of the chest with contrast. Exam focused on the arteries. 3D rendering (Not supervised by radiologist): MIP and/or 3D reconstructed images were created by the technologist. Radiation optimization: All CT scans at this facility use at least one of these dose optimization techniques: automated exposure control; mA and/or kV adjustment per patient size (includes targeted exams where dose is matched to clinical indication); or iterative reconstruction. Contrast material: ISOVUE; Contrast volume: 90 ml; Contrast route: INTRAVENOUS (IV); COMPARISON: CT ANGIO CHEST PE PROTOCOL 09/16/2022 9:45 PM FINDINGS: Limitations: Streak artifact - mild. Suboptimal timing of bolus. Pulmonary arteries: No definite pulmonary embolism. Aorta: Unremarkable. No aneurysm. Lungs: Minimal atelectasis/scarring. No consolidation. RUL calcified granuloma. Pleural spaces: No significant pleural effusion. No pneumothorax. Heart: No cardiomegaly. No pericardial effusion. Lymph nodes: No pathologically enlarged lymph nodes. Gallbladder and bile ducts: Cholecystectomy. Bones/joints: No acute fracture. Soft tissues: Unremarkable. IMPRESSION: No definite CT evidence of pulmonary embolism.
--- NOTE | 2023-11-23 20:06 | ED_ITS ---
Discharge Plan Disposition Patient Disposition: Home, Self-Care Chief Complaint: Chest Pain Prescriptions Prescriptions: No Action paroxetine HCl 10 mg tablet 10 mg PO DAILY Patient Comments: TAKE 1 TABLET BY MOUTH EVERY DAY epinephrine 0.3 mg/0.3 mL auto-injector 0.3 ml IM ONCE PRN Wegovy 0.25 mg/0.5 mL pen injector 0.25 mg SQ WEEKLY Qty: 2 5RF Rx Instructions: administer weeks 1 through 4 of therapy atorvastatin 40 mg tablet 20 mg PO HS Qty: 90 1RF amlodipine [Norvasc] 5 mg tablet 5 mg PO DAILY Qty: 30 5RF losartan 50 MG tablet 50 mg PO DAILY metoprolol succinate 50 MG tablet 50 mg PO DAILY cephalexin 500 mg capsule 500 mg PO QID 10 Days Qty: 40 0RF clindamycin HCl 300 mg capsule 300 mg PO TID 7 Days Qty: 21 0RF Referrals Follow up/Referrals: Camila Berger [Primary Care Provider] - See instructions Activity Restrictions/Add. Instructions Additional Instructions/Restrictions: Call your family doctor to establish care for this visit to the emergency department and schedule follow-up within 48 hours to ensure improvement. If you have any worsening of your condition or any other concerning signs or symptoms, return to the emergency department or your primary care doctor for further evaluation. Clinical Impressions Clinical Impression: Migraine, Acute neck pain Discharge ED Provider: Rodolfo Mccray HPI General Chief Complaint: Chest Pain Stated Complaint: neck shoulder pain, MELARA, Time Seen by Provider: 11/23/23 19:29 Mode of Arrival: Family Vehicle Source of Information: Patient Limitations: No Limitations Description of Symptoms (Recalled from ER Triage Doc. by RN): 48 yo female presents with CC of left side neck pain, left shoulder pain, and having headaches throughout day today. States she has been dealing with bronchitis and pneumonia since the beginning of October and been on several rounds of antibiotics for them also states she smokes 1 ppd cigs, denies etoh and denies marijuana/rec drugs. Patient is alert, oriented, denies previous fevers this week. Slightly nauseated. Denies dyspnea. History of Present Illness HPI narrative: Please note that above description of symptoms, in this electronic medical record under categorization of recalled from ER triage doctor by RN are reflective of an initial nursing assessment, however, is not reflective of my full history and physical exam that was personally taken and clarified. Consequentially, this preceding description of symptoms, which may include the patient's categorized chief complaint in the EMR, do not reflect my personal clinical impression, and the ultimate description of history of present illness and patient stated complaints should be deferred to this section of the note. Unless stated otherwise or congruent with this section of the note, additional signs, symptoms, or incongruence should be interpreted as inaccurate with my clinical impression. Related Data Home Medications Medication Instructions Recorded Confirmed losartan 50 mg tablet 50 mg PO DAILY Hypertension 09/26/20 08/04/23 metoprolol succinate 50 mg 50 mg PO DAILY Hypertension 09/26/20 08/04/23 tablet,extended release 24 hr paroxetine HCl 10 mg tablet 10 mg PO DAILY Anxiety 10/07/21 08/04/23 epinephrine 0.3 mg/0.3 mL 0.3 ml IM ONCE PRN 04/08/22 08/04/23 injection, auto-injector Previous Rx's Medication Instructions Recorded semaglutide (weight loss) 0.25 0.25 mg (0.5 mL) SQ WEEKLY #2 mL 04/13/23 mg/0.5 mL subcutaneous pen injector (Wegovy) cephalexin 500 mg capsule 500 mg PO QID 10 days #40 caps 07/31/23 atorvastatin 40 mg tablet 20 mg (1/2 x 40 mg) PO HS 08/11/23 Cholesterol #90 tabs clindamycin HCl 300 mg capsule 300 mg PO TID 7 days #21 caps 08/13/23 amlodipine 5 mg tablet (Norvasc) 5 mg PO DAILY #30 tabs 09/23/23 Allergies Allergy/AdvReac Type Severity Reaction Status Date / Time Penicillins Allergy Intermediate Unknown Verified 08/04/23 10:13 allergy reaction cephalexin [From Keflex] Allergy Verified 09/02/23 11:12 [facility] Disclaimer: The information contained in this section may have been updated after the patient was seen, as this information can be updated by other users. Medical History Abscess of breast Cellulitis of breast HTN (hypertension) 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 Smoking Status: Current every day smoker tobacco type: cigarettes packs per day: 1 alcohol intake: never current occupational status: employed Travel in the last 8 weeks: None caffeine: Yes ROS Obtained: Yes All systems reviewed & no additional complaints except as documented Physical Exam General General appearance: alert, in distress (Intermittently crying, intermittent pains) and obese Neck Neck exam: Present trachea midline and other (No bruit); Absent tenderness Chest Chest inspection: Present normal inspection and symmetric chest wall rise Respiratory Respiratory exam: Present normal lung sounds bilaterally; Absent respiratory distress, wheezes, stridor, accessory muscle use or prolonged expiratory phase Cardiovascular Cardiovascular exam: Present regular rate, normal rhythm and other Extremities Exam Extremities exam: Absent edema Neurological Exam Neurological exam: Present alert, oriented X3, CN II-XII intact and normal gait; Absent motor sensory deficit Skin Skin exam: Present warm and dry; Absent cyanosis, diaphoresis or pallor HEART Score HEART Score HEART Score assessment performed?: Yes History (anamnesis): Slightly suspicious ECG: Normal Age: 45-65 years Risk factors: 1-2 risk factors Troponin: </= normal limit HEART Score: 2 Critical Care Critical Care Time Critical Care Time: No Medical Decision Making Medical Records Medical records reviewed: Yes I reviewed the patient's medical records. Jonathan Inquiry Pt receiving controlled substance: No Jonathan was queried for this patient: No Vital Signs Vital Signs: 11/23/23 19:23 11/23/23 19:31 11/23/23 20:15 Temperature 98.9 F Temperature Source Oral Pulse Rate 85 Pulse Rate [Right Brachial] 87 Respiratory Rate 16 Blood Pressure 129/95 H Blood Pressure [Right Arm] 171/115 H Blood Pressure Mean [Right Arm] 133 Blood Pressure Source [Right Arm] Automatic Cuff Blood Pressure Position [Right Arm] Sitting 02 Sat by Pulse Oximetry 98 Oxygen Delivery Method Room Air Lab Data Labs: Lab Results 11/23/23 19:45: WBC 11.5 H, RBC 5.02, Hgb 13.9, Hct 42.2, MCV 84.0, MCH 27.6, MCHC 32.9, RDW 15.7, Plt Count 290, MPV 8.2, Neut % (Auto) 53.7, Lymph % (Auto) 37.0, Hernando % (Auto) 4.3, Eos % (Auto) 3.6, Baso % (Auto) 1.4, Neut # (Auto) 6.2, Lymph # (Auto) 4.2, Hernando # (Auto) 0.5, Eos # (Auto) 0.4, Baso # (Auto) 0.2, Sodium 138, Potassium 3.8, Chloride 106, Carbon Dioxide 24, Anion Gap 11.8, BUN 12, Creatinine 0.60, Estimated Creat Clear 228, Estimated GFR 107, Est GFR ( Amer) 130, Glucose 110 H, Calcium 9.4, Total Bilirubin 0.2, AST 24, ALT 26, Alkaline Phosphatase 88, Troponin I < 0.01, NT-Pro-B Natriuret Pep < 20.0, Total Protein 7.2, Albumin 4.3, Globulin 2.9, Albumin/Globulin Ratio 1.5 11/23/23 22:38: Troponin I < 0.01 11/23/23 19:45 11/23/23 19:45 Response Orders (Tests/Meds): ED MEDICATIONS Discontinued Medications Generic Name Dose Route Start Last Admin Trade Name Freq PRN Reason Stop Dose Admin Acetaminophen 1,000 mg 11/23/23 20:11 11/23/23 20:23 Acetaminophen 500mg Tab PO 11/23/23 20:12 1,000 mg ONCE ONE Administration Aspirin 324 mg 11/23/23 19:55 11/23/23 20:08 Aspirin 81mg Chewable Tablet PO 11/23/23 19:56 324 mg ONCE ONE Administration Dexamethasone Sodium Phosphate 10 mg 11/23/23 20:11 11/23/23 20:21 Dexamethasone 4mg/Ml 1ml Vial IV 11/23/23 20:12 10 mg ONCE ONE Administration Diphenhydramine HCl 25 mg 11/23/23 20:11 11/23/23 20:22 Diphenhydramine 50mg/Ml Vial IV 11/23/23 20:12 25 mg ONCE ONE Administration Iopamidol 180 ml 11/23/23 20:37 11/23/23 20:38 Iopamidol-370 (76%);100ml Bottle IV 11/23/23 20:38 180 ml ONCE ONE Administration Ketorolac Tromethamine 15 mg 11/23/23 20:11 11/23/23 20:21 Ketorolac 30mg/Ml Vial IV 11/23/23 20:12 15 mg ONCE ONE Administration Labetalol HCl 10 mg 11/23/23 20:07 Labetalol 20mg/4ml Syringe IV 11/23/23 20:08 ONCE ONE Labetalol HCl 20 mg 11/23/23 20:09 11/23/23 20:15 Labetalol 20mg/4ml Syringe IV 11/23/23 20:10 Not Given ONCE ONE Morphine Sulfate 4 mg 11/23/23 19:55 11/23/23 20:16 Morphine 4mg/Ml Syringe IV 11/23/23 19:56 Not Given ONCE ONE Ondansetron HCl 4 mg 11/23/23 19:55 11/23/23 20:08 Ondansetron 4mg/2ml Vial IV 11/23/23 19:56 4 mg ONCE ONE Administration Prochlorperazine Edisylate 10 mg 11/23/23 20:11 11/23/23 20:21 Prochlorperazine 10mg/2ml Vial IV 11/23/23 20:12 10 mg ONCE ONE Administration Sodium Chloride 10 ml 11/23/23 20:37 11/23/23 20:38 Sodium Chloride 0.9% 10ml Syr (Rad Only) IV 11/23/23 20:38 10 ml ONCE ONE Administration Sodium Chloride 50 ml 11/23/23 20:37 11/23/23 20:38 0.9 % Sodium Chloride 50 Ml Vial IV 11/23/23 20:38 50 ml ONCE ONE Administration ORDERS Category Date Time Status CT angio head Stat Cat Scan 11/23/23 19:[address] angio neck Stat Cat Scan 11/23/23 19:[address] head/brain wo con Stat Cat Scan 11/23/23 20:37 Completed CTA Chest [CT angio chest - dissection] Stat Cat Scan 11/23/23 19:55 Completed XR chest 2V Stat Exams 11/23/23 19:29 Completed Complete Blood Count Auto Diff Stat Lab 11/23/23 19:45 Completed Comprehensive Metabolic Panel Stat Lab 11/23/23 19:45 Completed NT Pro Brain Natriuretic Pep. Stat Lab 11/23/23 19:45 Completed Troponin I Q3H Lab 11/23/23 22:38 Completed Troponin I Q3H Lab 11/24/23 01:30 Ordered Troponin I Stat Lab 11/23/23 19:45 Completed MDM Narrative Medical Decision Narrative: 48-year-old female history of hypertension and hyperlipidemia presenting with neck pain, shoulder pain, headache. Patient states that headaches have been on and off for the past couple of months. Today, started having left-sided neck pain that radiates into her left scapula and left upper extremity. Feels that it is separate from the headache it has been going on. No numbness, tingling, weakness, no stroke symptoms, no chest pain, shortness of breath. Patient states the pain is moderate in intensity at baseline, intermittently spikes to severe intensity, does not radiate elsewhere.. History was obtained via conversation with patient. On arrival, patient hemodynamically stable, alert, oriented x4, appropriate, GCS 15, moving all extremities spontaneously, pupils equal and reactive to light. Full physical exam performed and significant for anxious appearing woman in intermittent distress secondary to pain. Pupils equal and reactive, no evidence of conjunctival injection or tearing, motor, sensory, cerebellar, cranial nerve exams within normal limits. Cardiopulmonary exam within normal limits as well. Differential includes migraine, cluster headache, dissection, ACS, TX, muscle spasms, among others. Patient was given full dose aspirin, headache cocktail, for symptomatic management and correction of underlying abnormalities. Labetalol was ordered, but prior to giving, patient's blood pressure lowered to 120/90 and no longer tachycardic. Held at this time. Workup independently interpreted and significant for nonactionable CBC or chemistry, kidney function normal. Initial troponin undetectable. Chest x-ray nonactionable. CTA of the chest, head, neck without acute dissection, CT head without acute intracranial hemorrhage.. See radiology read for full review of final results. Independent interpretation of EKG shows sinus rhythm 85 beats a minute without ST or T wave changes concerning for acute ischemia. OK 163, QRS 78, QTc 400. Patient placed on continuous cardiac monitoring and continuous pulse ox with initial blood pressure 171/115, heart rate 87, saturation 98 on room air. Heart score. Patient was placed in observation beginning at 8 PM in order to rule out evolving TX with delta troponin as well as monitor for headache improvement with meds and determine need for admission versus home- going. The patient was provided meds, serial exams while awaiting results. Independent interpretation of results demonstrated negative delta troponin. On reevaluation, patient resting comfortably in bed, normotensive, no symptoms at this time. At this time, I feel patient is appropriate for discharge. Total observation time 3 hours. It is recommended the patient follow-up with her monkey trainer as well as her family doctor for this. Patient continues to have symptoms, could be related to migraines. She states she used to have a history of migraines, they were not similar to this, but she has not had them in years, did not cross her mind at the time. Thinks it may be related to atypical migraine, but unsure. At this point, I think is possible, but I am not able to definitively say, given patient's history of heart disease it was still recommended she follow-up with her monkey trainer given possibility of atypical angina as well, she voiced understanding. Because patient at baseline without signs or symptoms of clinical decompensation, deemed appropriate for discharge. Results were relayed to patient who voiced understanding and were agreeable to outpatient management and follow up. I discussed my clinical impression with patient and answered all questions. At this time, the evidence for any other entities in the differential is insufficient to warrant any further testing or ED observation. This was explained as well. Advisory was given that persistent or worsening symptoms require further evaluation. I confirmed the understanding of this discussion. [employer] Technician disclaimer Much of this encounter note is an electronic neuropsychology service director spoken language to printed text. Electronic neuropsychology service director of the spoken language may permit errors. Although I have reviewed the note, some errors may still exist.
[2023-11-23] MEDS: ASPIRIN 81MG CHEWABLE TABLET 324 MG PO (20:08)
[2023-11-23] MEDS: ONDANSETRON 4MG/2ML VIAL 4 MG IV (20:08)
--- NOTE | 2023-11-23 20:14 | PC.NURSE ---
discussed pt's current bp with physician per indu saucedo, states to hold off on labetalol.
[2023-11-23 20:15] VITALS: BP 129/95
[2023-11-23 20:15] LABS: Basophils # 0.2 K/mm3 (0-0.2); Basophils % 1.4 % (0.1-2.0); Eosinophils # 0.4 K/mm3 (0.0-0.4); Eosinophils % 3.6 % (0.1-12.0); Hematocrit 42.2 % (37.0-47.0); Hemoglobin 13.9 g/dL (12.2-16.2); Lymphocytes # 4.2 K/mm3 (0.7-4.5); Mean Corpuscular HGB Conc 32.9 g/dL (31.8-35.4); Mean Corpuscular Hemoglobin 27.6 pg (27.0-31.2); Mean Platelet Volume 8.2 fl (7.4-10.4); Monocytes # 0.5 K/mm3 (0.1-1.0); Monocytes % 4.3 % (1.7-9.3); Neutrophils # 6.2 K/mm3 (1.8-7.8); Neutrophils % 53.7 % (37.0-80.0); Platelet Count 290 K/mm3 (142-424); Red Blood Count 5.02 M/mm3 (4.20-5.40); Red Cell Distribution Width 15.7 % (11.5-17.5); White Blood Count 11.5 K/mm3 (4.8-10.8)
[2023-11-23 20:19] LABS: Chloride 106 mmol/L (98-107); Potassium 3.8 mmoL/L (3.5-5.1); Sodium 138 mmol/L (136-145)
[2023-11-23] MEDS: KETOROLAC 30MG/ML VIAL 15 MG IV (20:21)
[2023-11-23] MEDS: DEXAMETHASONE 4MG/ML 1ML VIAL 10 MG IV (20:21)
[2023-11-23] MEDS: PROCHLORPERAZINE 10MG/2ML VIAL 10 MG IV (20:21)
[2023-11-23 20:22] LABS: Alanine Aminotransferase 26 U/L (12-78); Albumin Level 4.3 g/dl (3.5-5.0); Albumin/Globulin Ratio 1.5 (1.1-1.8); Alkaline Phosphatase 88 U/L (38-126); Anion Gap 11.8 mEq/L (5-15); Aspartate Amino Transferase 24 U/L (14-36); Bilirubin,Total 0.2 mg/dl (0.2-1.3); Blood Urea Nitrogen 12 mg/dl (7-17); Calcium 9.4 mg/dl (8.4-10.2); Carbon Dioxide 24 mmol/L (22.0-30.0); Creatinine Clearance Estimated 228 mL/min (50-200); Estimated Glomerular Filt Rate 107 ml/min (>60); GFR (African American) 130 ML/MIN (>60); Globulin 2.9 g/dL (1.3-3.2); Glucose 110 mg/dl (74-100); Total Protein,Serum 7.2 g/dl (6.3-8.2)
[2023-11-23] MEDS: diphenhydrAMINE 50MG/ML VIAL 25 MG IV (20:22)
[2023-11-23] MEDS: ACETAMINOPHEN 500MG TAB 1000 MG PO (20:23)
[2023-11-23 20:32] LABS: NT Pro Brain Natriuretic Pep. < 20.0 pg/mL (0-125)
[2023-11-23 20:35] LABS: Troponin I < 0.01 ng/ml (0.00-0.034)
--- NOTE | 2023-11-23 20:37 | CT_ITS ---
PROCEDURE INFORMATION: Exam: CT Head Without Contrast Exam date and time: 11/23/2023 8:42 PM Age: 48 years old Clinical indication: Pain; Headache; Additional info: Frontal MELARA, devere, acute TECHNIQUE: Imaging protocol: Computed tomography of the head without contrast. Radiation optimization: All CT scans at this facility use at least one of these dose optimization techniques: automated exposure control; mA and/or kV adjustment per patient size (includes targeted exams where dose is matched to clinical indication); or iterative reconstruction. COMPARISON: CT ANGIO HEAD 12/09/2020 1:03 PM FINDINGS: Brain: No intracranial hemorrhage. No mass. No definite edema. Cerebral ventricles: No hydrocephalus. Paranasal sinuses: No acute sinusitis. Mastoid air cells: No significant effusion. Orbital cavities: Unremarkable as visualized. Bones: No acute fracture. Soft tissues: Unremarkable. IMPRESSION: No definite acute intracranial abnormality. If symptoms persist, consider MRI.
[2023-11-23] MEDS: SODIUM CHLORIDE 0.9% 10ML SYR (RAD ONLY) 10 ML IV (20:38)
[2023-11-23] MEDS: 0.9 % SODIUM CHLORIDE 50 ML VIAL IV (20:38)
[2023-11-23] MEDS: IOPAMIDOL-370 (76%);100ML BOTTLE 180 ML IV (20:38)
[2023-11-23 23:10] LABS: Troponin I < 0.01 ng/ml (0.00-0.034)
[2023-11-23 23:55] VITALS: BP 97/57; PULSE 72; RESP 19; TEMP 36.7; O2SAT 98
== END 2023-11-23 23:57 | disposition home or self-care (01) ==
PROVIDERS: Emergency Provider Emergency Medicine; PCP Family Medicine
DX: G43.909 Migraine, unspecified, not intractable, without status migrainosus (principal); M54.2 Cervicalgia; M25.512 Pain in left shoulder; I10 Essential (primary) hypertension; F17.210 Nicotine dependence, cigarettes, uncomplicated
CPT/HCPCS: 70450; 70496; 70498; 71046; 71275; 80053; 83880; 84484; 85025; 93005; 96374; 96375; 99285; J1100; J1885; J2270; J2405; Q9967

== ENCOUNTER 2023-12-20 07:34 | Outpatient (CLI) | payer BC, SELFPAY ==
[2023-12-20] VITALS (8 sets, daily range): BP systolic 144–182; BP diastolic 64–91; PULSE 59–73; RESP 16–18; TEMP 36.4; O2SAT 96–98; BMI 40.8
--- NOTE | 2023-12-20 07:35 | CT_ITS ---
APPROVED REPORT Continuity Coordinator: CLINICAL INDICATION Chest Pain TECHNIQUE Image Acquisition: A 128 slice MDCT scanner (Deep Drivera View) was used for data acquisition. A noncontrast coronary calcium scan was performed. A CT attenuation threshold of 130 Hounsfield units (HU) was used for the detection of calcium in contiguous voxels of 1 sq mm in area to be counted as individual lesions. Bolus tracking in the ascending aorta with a threshold of 180 HU was performed. Immediately afterwards, ECG synchronized cardiac CT was then performed from the cardiac base to apex using retrospective gating with ECG tube current modulation. A total of 85 mL of Isovue 370 mg/mL contrast medium was administered at 5 mL/sec followed by a saline flush using a biphasic injection protocol. A tube voltage of 120 KVp was used. The patient received the following medications prior to the cardiac CT. 5 mg of intravenous metoprolol 0.8 mg of sublingual nitroglycerin The average heart rate at the time of acquisition was 60 bpm and regular. Image Reconstruction Transaxial images were reconstructed at 0.67 mm slide thickness. Data was reviewed interactively on an advanced workstation capable of 2 and 3-dimensional displays in all conventional reconstruction formats, including multiplanar reformations, maximum intensity projections, curved multiplanar reformations, and volume rendered reconstructions. When applicable, selected routine images describing the relevant coronary anatomy and pathology were saved and sent to PACS. Complications None Technical Quality Overall image quality was suboptimal. Coronary artery opacification was suboptimal. Total DLP (Dose-Length Product) is 2725.8 mGy-cm. The reported value represents the total of one or more individual components during the CT acquisition of this date and at this time, and as such, the same value may appear in more than one CT report depending on the interpreting/reporting physicians. COMPARISON None FINDINGS CT Coronary Calcium Scoring LMA (Left Main Artery) = 0 LAD (Left Anterior Descending) = 128 LCX (Left Coronary Circumflex) = 2 RCA (Right Coronary Artery) = 3 Total Calcium Score = 133 using the AJ-130 method. The observed calcium score of 133 is at 99th percentile for subjects of the same age, sex, and race/ethnicity. The interpretation of the calcium heart score is based on the following continuum*: 0 = no calcified plaque detected (risk of coronary artery disease is very low ??? less than 5%) 1-10 = calcium detected in extremely minimal levels (risk of coronary diseases is still low ??? less than 10%) 11-100 = mild levels of plaque detected with certainty (mild or minimal narrowing of heart arteries is likely) 101-400 = definite,at least moderate levels of plaque detected (relatively high risk of a heart attack within 3-5 years) >401-999 = extensive levels of plaque detected (high risk of heart attack, high levels of vascular disease are present, high likelihood of at least one significant coronary narrowing) *The calcium heart score quantifies the burden of coronary calcification/plaque in the coronary arteries. The calcium heart score is not able to evaluate the presence or burden of non-calcified (i.e. soft) plaque. There is no identifiable calcification in the aortic valve, mitral annulus or mitral valve, pericardium, or myocardium. Coronary CT Angiography The coronary arterial system is right dominant. Quantitative Stenosis Grading: Left Main (LM): The left main originates normally from the left sinus of Valsalva. The LM bifurcates into the left anterior descending artery and left circumflex artery. The LM is patent with no evidence of atherosclerosis. Left Anterior Descending (LAD) and Diagonal Branches: The LAD gives off 2 diagonal branch(es). There is mixed calcified/noncalcified plaque in the proximal and mid LAD segments with up to 70-90% luminal stenosis. There is no evidence of LAD-myocardial bridge. Left Circumflex (LCX) and Obtuse Marginals (OM): The LCX gives off 1 Obtuse Marginal (OM) branch(es). There is mild calcified plaque in the proximal LCx, with no luminal stenosis. Right Coronary Artery (RCA): The RCA originates normally from the right sinus of Valsalva. The RCA gives off a posterior descending artery (PDA) and posterolateral (PL) branches. There is mild calcified plaque in the proximal RCA, with no luminal stenosis. Non-Coronary Cardiac Findings: Analysis of the left ventricular (LV) structure and function was performed after 3-D reconstruction of the LV from axial images, with user-corrected automatic contouring for assessment of LV volumes and user-defined reconstruction from oblique planes for measurement of 3-D cardiac structure and function. -The left ventricle systolic function is reduced. -There is no left atrial appendage filling defect. Two right pulmonary veins and two left pulmonary veins drain normally into the left atrium. -No pericardial thickening or calcification. -Central and branch pulmonary arteries in the [id number] are unremarkable. -Thoracic aorta within the visualized thoracic aortic-branches in the [id number] is unremarkable. Extracardiac Structures No significant extra-cardiac findings. Note, however, that this study is focused on the cardiac findings. IMPRESSION -Suboptimal image quality and suboptimal opacification of IV contrast. Technically difficult study. -Presence of coronary calcification with an Agatston score = 133 using the AJ-130 method. -The observed calcium score of 133 is at 99th percentile for subjects of the same age, sex, and race/ethnicity. -Possible significant flow-limiting atherosclerosis of the proximal LAD segment (up to 70-90% luminal stenosis). -The left ventricle systolic function is reduced on CCTA. Correlation with new or recent TTE is recommended. -CAD-RADS 4A. Management recommendations per ACC/AHA guidelines*, as clinically appropriate. In the setting of technically difficult non-invasive study and presence of reduced LV systolic function with flow-limiting atherosclerosis on CCTA, revascularization with invasive coronary angiography is suggested. *Recommendations: CAD RADS 0: Reassurance. Consider non-atherosclerotic causes of chest pain. CAD RADS 1: Consider non-atherosclerotic causes of chest pain. Consider preventive therapy and risk factor modification. CAD RADS 2: Consider non-atherosclerotic causes of chest pain. Consider preventive therapy and risk factor modification, particularly for patients with nonobstructive plaque in multiple segments. CAD RADS 3: Consider further functional testing. Consider symptom-guided anti-ischemic and preventive pharmacotherapy as well as risk factor modification per published guideline statements. CAD RADS 4A: Consider further functional testing or invasive coronary angiography with revascularization per published guideline statements. Consider symptom-guided anti-ischemic and preventive pharmacotherapy as well as risk factor modification per published guideline statements. CAD RADS 4B: Invasive coronary angiography recommended with revascularization per published guideline statements. Consider symptom-guided anti-ischemic and preventive pharmacotherapy as well as risk factor modification per published guideline statements. CAD RADS 5: Consider invasive angiography and/or viability assessment with revascularization per published guideline statements. Consider symptom-guided anti-ischemic and preventive pharmacotherapy as well as risk factor modification per published guideline statements. CRITICAL RESULT None COMMUNICATION Per this written report The coronary and cardiac findings of this CCTA were reviewed, reported, and signed by Nestor Watts MD (Heel Gummer) Conclusion Electronically signed by : Nanda Watts MD 12/21/2023 13:11:09
[2023-12-20] MEDS: IOPAMIDOL-370 (76%);100ML BOTTLE 90 ML IV (09:02)
[2023-12-20] MEDS: SODIUM CHLORIDE 0.9% 10ML SYR (RAD ONLY) 10 ML IV (09:02)
[2023-12-20] MEDS: 0.9 % SODIUM CHLORIDE 50 ML VIAL IV (09:02)
== END 2023-12-20 09:03 | disposition home or self-care (01) ==
PROVIDERS: PCP Family Medicine; Visit Provider Nurse Practitioner Family
DX: R07.9 Chest pain, unspecified (principal); I25.10 Atherosclerotic heart disease of native coronary artery without angina pectoris; F17.210 Nicotine dependence, cigarettes, uncomplicated
CPT/HCPCS: 75574; Q9967

== ENCOUNTER 2023-12-30 10:42 | Emergency (ER) | payer BC, SELFPAY ==
[2023-12-30 11:03] VITALS: BP 111/48; PULSE 82; RESP 16; TEMP 36.8; O2SAT 95; BMI 41.5
[2023-12-30 11:05] LABS: Apearance,Urine Cloudy (Clear); Color,Urine Dark Yellow (Yellow)
[2023-12-30 11:06] LABS: Bilirubin,Urine Negative (Negative); Blood, Urine Trace (Negative); Glucose,Urine (UA) Negative (Negative); Ketones,Urine Negative (Negative); Protein,Urine Trace (Negative); UTC Leukocyte Esterase,Urine 1+ (Negative); UTC Nitrate,Urine Positive (Negative); Urobilinogen,Urine 0.2 EU/dl (0.2)
--- NOTE | 2023-12-30 11:16 | ED_ITS ---
Discharge Plan Disposition Patient Disposition: Home, Self-Care Condition: Good Prescriptions Prescriptions: New nitrofurantoin monohyd/m-cryst [Macrobid] 100 mg capsule 100 mg PO Q12H 7 Days Qty: 14 0RF Rx Instructions: must administer with a meal/food phenazopyridine [Pyridium] 200 mg tablet 200 mg PO Q8H 2 Days Qty: 6 0RF No Action paroxetine HCl 10 mg tablet 10 mg PO DAILY Patient Comments: TAKE 1 TABLET BY MOUTH EVERY DAY epinephrine 0.3 mg/0.3 mL auto-injector 0.3 ml IM ONCE PRN (Reason: Allergic Reaction) atorvastatin 40 mg tablet 20 mg PO HS Qty: 90 1RF amlodipine [Norvasc] 5 mg tablet 5 mg PO DAILY Qty: 30 5RF losartan 50 MG tablet 50 mg PO DAILY metoprolol succinate 50 MG tablet 50 mg PO DAILY Referrals Follow up/Referrals: Camila eBrger [Primary Care Provider] - See instructions Activity Restrictions/Add. Instructions Additional Instructions/Restrictions: *Increase fluids. Water not Soda or Tea *Start antibiotic immediately and be sure to take as ordered for the FULL length of time although you should start to see improvement over the next 48 hours *Pyridium as needed Remember this medication will turn your urine . This is normal but it will stain what ever it gets on *You should not use Pyridium for more than 48 hours. If so , follow up with your primary physician to review urine culture and ensure that antibiotic is adequate for infection *Be SURE to follow up anytime for new or worsening symptoms with your family doctor. AND in 48 hours for urine culture results with your family doctor, if you do not have a doctor then you may call back to the [facility] for urine culture results and further treatment. We do recommend that you choose and establish care with a Primary Care Physician. ?AND follow up with them ?in 10-14 days to repeat UA to ensure infection is resolved and blood no longer present *Be sure to let your PCP know that we sent urine cultures from the [facility] so they can follow up to ensure that you area the on the correct antibiotic Call your doctor office and make appointment for 48 hours (2 days from today) ?to follow up and get the results of your urine culture and further treatment Clinical Impressions Clinical Impression: UTI (urinary tract infection) Instructions Patient Instructions: DI for Urinary Tract Infection (UTI), Urinary Tract Infection, Nitrofurantoin Discharge ED Provider: Veronica Sainz [facility] [place] General Stated complaint: poss uti Mode of Arrival: Ambulatory Source of Information: Patient Limitations: No Limitations Time Seen by Provider: 12/30/23 11:16 Description of Symptoms (Recalled from Triage Doc. by RN): Complaint of burning and pain with urination since 12/27. HEENT Symptoms (Recalled from RN notes): No Resp Symptoms (Recalled from RN notes): No Skin Symptoms (Recalled from RN notes): No MS Symptoms (Recalled from RN notes): No Functional Status (Recalled from RN notes): wnl History of Present Illness Provider Complaint: Patient states that she has been having burning with urination and feeling of urgency and frequency States feels like she does when she has a UTI so today she was still havign symptoms so she came in to get checked Related Data Home Medications Medication Instructions Recorded Confirmed losartan 50 mg tablet 50 mg PO DAILY Hypertension 09/26/20 12/20/23 metoprolol succinate 50 mg 50 mg PO DAILY Hypertension 09/26/20 12/20/23 tablet,extended release 24 hr paroxetine HCl 10 mg tablet 10 mg PO DAILY Anxiety 10/07/21 12/20/23 epinephrine 0.3 mg/0.3 mL 0.3 ml IM ONCE PRN Allergic 04/08/22 12/20/23 injection, auto-injector Reaction Previous Rx's Medication Instructions Recorded atorvastatin 40 mg tablet 20 mg (1/2 x 40 mg) PO HS 08/11/23 Cholesterol #90 tabs amlodipine 5 mg tablet (Norvasc) 5 mg PO DAILY #30 tabs 09/23/23 nitrofurantoin 100 mg PO Q12H 7 days #14 caps 12/30/23 monohydrate/macrocrystals 100 mg capsule (Macrobid) phenazopyridine 200 mg tablet 200 mg PO Q8H pain 2 days #6 tabs 12/30/23 (Pyridium) Allergies Allergy/AdvReac Type Severity Reaction Status Date / Time bee venom protein (honey bee) Allergy Severe Anaphylaxis Verified 12/20/23 07:57 Penicillins Allergy Intermediate Unknown Verified 12/20/23 07:55 allergy reaction cephalexin [From Keflex] Allergy Verified 12/20/23 07:55 Worker's Comp Is this a Worker's Comp case?: No [facility] Disclaimer: The information contained in this section may have been updated after the patient was seen, as this information can be updated by other users. Medical History (Updated 12/30/23 @ 11:22 by Veronica Sainz APRN) Angina pectoris Pain of left lower extremity Cellulitis of breast Abscess of breast Xanthelasma Coronary artery disease Morbid obesity HLD (hyperlipidemia) HTN (hypertension) Surgical History Previous section Hx of cholecystectomy History of appendectomy H/O: hysterectomy 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 Smoking Status: Current every day smoker tobacco type: cigarettes packs per day: 1 alcohol intake: never current occupational status: employed Travel in the last 8 weeks: None caffeine: Yes ROS Obtained: Yes All systems reviewed & no additional complaints except as documented and Yes Systems reviewed as appropriate & no additional complaints except as documented Constitutional Constitutional: Reports system reviewed and no additional complaints, except as documented, Reports as per HPI, Denies body ache, Denies chills and Denies fever(s) ENT Ears, Nose, Mouth, and Throat: Reports system reviewed and no additional complaints, except as documented, Reports as per HPI, Denies nasal congestion, Denies nasal discharge and Denies sore throat Cardiovascular Cardiovascular: Reports system reviewed and no additional complaints, except as documented and Reports as per HPI Respiratory Respiratory: Reports system reviewed and no additional complaints, except as documented and Reports as per HPI Gastrointestinal Gastrointestingal: Reports system reviewed and no additional complaints, except as documented and as per HPI; Denies abdominal pain, diarrhea, nausea or vomi ting Genitourinary Female Genitourinary: Reports system reviewed and no additional complaints, except as documented, Reports as per HPI, Reports dysuria, Reports urinary frequency and Reports urinary urgency Physical Exam General General appearance: alert and in no apparent distress ENT ENT exam: Present mucous membranes moist Respiratory Respiratory exam: Present normal lung sounds bilaterally; Absent respiratory distress or wheezes Cardiovascular Cardiovascular exam: Present regular rate, normal rhythm and normal heart sounds Neurological Exam Neurological exam: Present alert, oriented X3 and normal gait Medical Decision Making Jonathan Inquiry Pt receiving controlled substance: No Jonathan was queried for this patient: No Vital Signs: 12/30/23 11:03 Temperature 98.2 F Temperature Source Oral Pulse Rate [Radial] 82 Respiratory Rate 16 Blood Pressure [Right Arm] 111/48 L Blood Pressure Mean [Right Arm] 69 Blood Pressure Source [Right Arm] Automatic Cuff Blood Pressure Position [Right Arm] Sitting 02 Sat by Pulse Oximetry 95 Oxygen Delivery Method Room Air Lab Data Lab results reviewed: Yes I reviewed the patient's lab results. Lab Results 12/30/23 11:04: Urine Color Dark yellow, Urine Appearance Cloudy, Urine pH 7.0, Ur Specific [place]cl[place] 1.020, Urine Protein Trace, Urine Glucose (UA) Negative, Urine Ketones Negative, Urine Blood Trace, Urine Nitrate Positive A, Urine Bilirubin Negative, Urine Urobilinogen 0.2, Ur Leukocyte Esterase 1+ A Orders (Tests/Meds): ORDERS Category Date Time Status Urine Culture Stat Micro 12/30/23 10:55 Received
[2023-12-30 11:27] VITALS: BP 111/48; PULSE 82; RESP 16; TEMP 36.8; O2SAT 95
--- NOTE | 2024-01-01 09:42 | PC.NURSE ---
URINE CULTURE WAS REVIEWED BY Modesta KHANNA APRN AND ANTIBIOTIC WAS CHANGED TO LEVAQUIN. PATIENT NOTIFIED OF CHANGE IN ANTIBIOTIC AND ADVISED TO MONITOR FOR HEEL/ACHILLES TENDON PAIN WHILE TAKING THE LEVAQUIN
== END 2023-12-30 11:28 | disposition home or self-care (01) ==
PROVIDERS: Emergency Provider Nurse Practitioner; PCP Family Medicine
DX: N39.0 Urinary tract infection, site not specified (principal); B95.2 Enterococcus as the cause of diseases classified elsewhere; R30.0 Dysuria; R35.0 Frequency of micturition
CPT/HCPCS: 81003; 87086; 87088; 87186; 99212; 99214; G0463

== ENCOUNTER 2024-01-02 21:27 | Observation (INO) | payer BC, SELFPAY ==
[2024-01-02 21:28] VITALS: BP 156/77; PULSE 90; RESP 18; TEMP 37.2; O2SAT 97; BMI 41.6
--- NOTE | 2024-01-02 21:30 | ECG_ITS ---
APPROVED REPORT Exam: Resting ECG HR:81 bpm ECG Measurements Heart Rate 81 AXES WA 156 P 54 QRSd 92 QRS 106 QT 344 T 18 QTc 381 Conclusion SINUS RHYTHM RIGHT AXIS DEVIATION [QRS AXIS > 100] LOW QRS VOLTAGE IN PRECORDIAL LEADS [QRS DEFLECTION < 1.0 mV IN CHEST LEADS] ABNORMAL ECG UNCONFIRMED REPORT Electronically signed by : LIZ TREVIZO, 01/04/2024 06:04:08
--- NOTE | 2024-01-02 21:37 | XR_ITS ---
PROCEDURE INFORMATION: Exam: XR Chest Exam date and time: 01/02/2024 9:36 PM Age: 48 years old Clinical indication: Dyspnea TECHNIQUE: Imaging protocol: Radiologic exam of the chest. Views: 1 view. COMPARISON: CT ANGIO CHEST 11/23/2023 8:50 PM and chest x-ray 11/23/2023 FINDINGS: Lungs: Unremarkable. No consolidation. Pleural spaces: Unremarkable. No pleural effusion. No pneumothorax. Heart/Mediastinum: Unremarkable. No cardiomegaly. Bones/joints: Unremarkable. IMPRESSION: Stable chest x-ray with no acute disease.
--- NOTE | 2024-01-02 21:39 | ED_ITS ---
Discharge Plan Disposition Patient Disposition: Admitted Prescriptions Prescriptions: No Action paroxetine HCl 10 mg tablet 10 mg PO DAILY Patient Comments: TAKE 1 TABLET BY MOUTH EVERY DAY epinephrine 0.3 mg/0.3 mL auto-injector 0.3 ml IM ONCE PRN (Reason: Allergic Reaction) atorvastatin 20 mg tablet 20 mg PO HS Qty: 90 3RF amlodipine [Norvasc] 5 mg tablet 5 mg PO DAILY Qty: 30 5RF losartan 50 MG tablet 50 mg PO DAILY metoprolol succinate 50 MG tablet 50 mg PO DAILY nitrofurantoin monohyd/m-cryst [Macrobid] 100 mg capsule 100 mg PO Q12H 7 Days Qty: 14 0RF Rx Instructions: must administer with a meal/food phenazopyridine [Pyridium] 200 mg tablet 200 mg PO Q8H 2 Days Qty: 6 0RF levofloxacin 500 mg tablet 500 mg PO DAILY 7 Days Qty: 7 0RF Referrals Follow up/Referrals: Camila Berger [Primary Care Provider] - See instructions Clinical Impressions Clinical Impression: Anxiety, Abnormal findings on diagnostic imaging of heart and coronary circulation, Abnormal findings diagnostic imaging of heart and coronary circulation Chest pain Qualifiers: Chest pain type: unspecified Qualified Code(s): R07.9 - Chest pain, unspecified Discharge ED Provider: Jenny Huddleston HPI General Chief Complaint: Chest Pain Stated Complaint: Chest Pain- needs to schedule heart cath Time Seen by Provider: 01/02/24 21:29 History of Present Illness HPI narrative: Patient is a 48-year-old female presenting today with chest pain and anxiety. She states this has been intermittently occurring over the last several months. She had an ED visit that subsequently prompted a cardiology follow-up where she had a noninvasive coronary CTA which showed significant abnormalities including probable diminished LVEF as well as probable intraluminal stenosis of the LAD of 70-90%. She was told she needed a heart cath at her cardiology appointment earlier today. She states that after she left she got very anxious and her chest pain worsened been coming and going throughout the remainder of the day. Admits to being severely anxious and tearful not sure whether or not her chest pain is the same pain she is been feeling her subsequent to the new she just found out about needing this procedure. She specifically asked to be admitted to have this procedure done prior to going home. Related Data Home Medications Medication Instructions Recorded Confirmed losartan 50 mg tablet 50 mg PO DAILY Hypertension 09/26/20 01/02/24 metoprolol succinate 50 mg 50 mg PO DAILY Hypertension 09/26/20 01/02/24 tablet,extended release 24 hr paroxetine HCl 10 mg tablet 10 mg PO DAILY Anxiety 10/07/21 01/02/24 epinephrine 0.3 mg/0.3 mL 0.3 ml IM ONCE PRN Allergic 04/08/22 01/02/24 injection, auto-injector Reaction Previous Rx's Medication Instructions Recorded amlodipine 5 mg tablet (Norvasc) 5 mg PO DAILY #30 tabs 09/23/23 nitrofurantoin 100 mg PO Q12H 7 days #14 caps 12/30/23 monohydrate/macrocrystals 100 mg capsule (Macrobid) phenazopyridine 200 mg tablet 200 mg PO Q8H pain 2 days #6 tabs 12/30/23 (Pyridium) levofloxacin 500 mg tablet 500 mg PO DAILY 7 days #7 tabs 01/01/24 atorvastatin 20 mg tablet 20 mg PO HS Cholesterol #90 tabs 01/02/24 Allergies Allergy/AdvReac Type Severity Reaction Status Date / Time bee venom protein (honey bee) Allergy Severe Anaphylaxis Verified 01/02/24 13:51 Penicillins Allergy Intermediate Unknown Verified 01/02/24 13:51 allergy reaction cephalexin [From Keflex] Allergy Verified 01/02/24 13:51 [facility] Disclaimer: The information contained in this section may have been updated after the patient was seen, as this information can be updated by other users. Medical History (Updated 01/02/24 @ 21:39 by Jenny Huddleston MD) Abnormal findings on diagnostic imaging of heart and coronary circulation Angina pectoris Pain of left lower extremity Cellulitis of breast Abscess of breast Xanthelasma Coronary artery disease Morbid obesity HLD (hyperlipidemia) HTN (hypertension) Surgical History Previous section Hx of cholecystectomy History of appendectomy H/O: hysterectomy 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 Smoking Status: Current every day smoker tobacco type: cigarettes packs per day: 1 alcohol intake: never current occupational status: employed Travel in the last 8 weeks: None caffeine: Yes ROS Obtained: Yes All systems reviewed & no additional complaints except as documented Physical Exam General General appearance: alert and anxious (Tearful) Respiratory Respiratory exam: Present normal lung sounds bilaterally and respiratory distress Cardiovascular Cardiovascular exam: Present regular rate and normal rhythm Abdominal Exam Abdominal exam: Present soft; Absent distention or tenderness Neurological Exam Neurological exam: Present alert and oriented X3 HEART Score HEART Score HEART Score assessment performed?: Yes History (anamnesis): Moderately suspicious ECG: Non-specific disturbance Age: 45-65 years Risk factors: 3 or more risk factors Troponin: </= normal limit HEART Score: 5 Critical Care Critical Care Time Critical Care Time: No Medical Decision Making Jonathan Inquiry Pt receiving controlled substance: No Vital Signs Vital Signs: 01/02/24 21:28 01/02/24 21:41 Temperature 98.9 F Temperature Source Oral Pulse Rate 90 Pulse Rate [Left Radial] 90 Respiratory Rate 18 Blood Pressure [Right Arm] 156/77 H Blood Pressure Mean [Right Arm] 103 02 Sat by Pulse Oximetry 97 Oxygen Delivery Method Room Air Lab Data Lab results reviewed: Yes I reviewed the patient's lab results. Labs: Lab Results 01/02/24 21:32: WBC 11.0 H, RBC 5.05, Hgb 13.9, Hct 43.3, MCV 85.7, MCH 27.6, MCHC 32.2, RDW 16.0, Plt Count 293, MPV 8.1, Neut % (Auto) 50.9, Lymph % (Auto) 36.8, [place] % (Auto) 6.6, Eos % (Auto) 3.7, Baso % (Auto) 2.0, Neut # (Auto) 5.6, Lymph # (Auto) 4.1, [place] # (Auto) 0.7, Eos # (Auto) 0.4, Baso # (Auto) 0.2, Sodium 141, Potassium 3.8, Chloride 109 H, Carbon Dioxide 26, Anion Gap 9.8, BUN 9, Creatinine 0.90, Estimated Creat Clear 78, Estimated GFR 67, Est GFR ( Amer) 81, Glucose 108 H, Calcium 9.5, Total Bilirubin 0.3, AST 24, ALT 28, Alkaline Phosphatase 76, Troponin I < 0.01, Total Protein 7.2, Albumin 4.2, Globulin 3.0, Albumin/Globulin Ratio 1.4, Lipase 56 01/02/24 21:32 01/02/24 21:32 Response Orders (Tests/Meds): ED MEDICATIONS Generic Name Dose Route Start Last Admin Trade Name Freq PRN Reason Stop Dose Admin Sodium Chloride 10 ml 01/02/24 21:37 Sodium Chloride 0.9% 10ml Vial IV 02/01/24 21:36 NEEDED PRN to Dilute Lorazepam inj Discontinued Medications Generic Name Dose Route Start Last Admin Trade Name Freq PRN Reason Stop Dose Admin Aspirin 324 mg 01/02/24 21:37 01/02/24 21:46 Aspirin 81mg Chewable Tablet PO 01/02/24 21:38 324 mg ONCE ONE Administration Lorazepam 1 mg 01/02/24 21:37 01/02/24 21:48 Lorazepam 2mg/Ml Vial IV 01/02/24 21:38 1 mg ONCE ONE Administration ORDERS Category Date Time Status CXR --portable [XR chest portable] Stat Exams 01/02/24 21:37 Completed CBC w/Auto Diff [Complete Blood Count Auto Diff] Stat Lab 01/02/24 21:32 Completed CMP [Comprehensive Metabolic Panel] Stat Lab 01/02/24 21:32 Completed Lipase Stat Lab 01/02/24 21:32 Completed Trop I [Troponin I] Stat Lab 01/02/24 21:32 Completed Troponin I Q3H Lab 01/03/24 00:45 Ordered Troponin I Q3H Lab 01/03/24 03:45 Ordered ECG Data Tracing #1: Attestation: I reviewed this ECG and interpreted as documented below: ECG Narrative: Ventricular rate of 81 normal sinus rhythm no acute ischemic changes noted no significant conduction abnormalities there is a normal axis MDM Narrative Medical Decision Narrative: 48-year-old presenting today with persistent and worsening chest pain after recent noninvasive cardiac imaging with a coronary CTA demonstrating significant upper and probable with disease in the LAD and diminished LVEF. She has been advised in an outpatient setting that she needs a left heart cath however she is very anxious and tearful after today's news and states her chest pain has worsened. She request to be admitted for further evaluation and heart cath on this hospitalization which is reasonable. Aspirin has been administered as well as Ativan will reassess after initial workup is complete. No indication to go emergently to the [facility] at this moment. Reassessment 10:30 PM patient appears very stable troponin negative labs otherwise unremarkable chest x-ray performed which I first interpreted as no acute cardiopulmonary emergency. I discussed the case with hospital medicine who agreed admit the patient for further evaluation and management and probable consult with cardiology and possible left heart cath this hospitalization
[2024-01-02 21:41] VITALS: PULSE 90
[2024-01-02] MEDS: ASPIRIN 81MG CHEWABLE TABLET 324 MG PO (21:46)
[2024-01-02 21:48] LABS: Basophils # 0.2 K/mm3 (0-0.2); Eosinophils # 0.4 K/mm3 (0.0-0.4); Eosinophils % 3.7 % (0.1-12.0); Hematocrit 43.3 % (37.0-47.0); Hemoglobin 13.9 g/dL (12.2-16.2); Lymphocytes # 4.1 K/mm3 (0.7-4.5); Lymphocytes % 36.8 % (10-50); Mean Corpuscular HGB Conc 32.2 g/dL (31.8-35.4); Mean Corpuscular Hemoglobin 27.6 pg (27.0-31.2); Mean Corpuscular Volume 85.7 fl (81-99); Mean Platelet Volume 8.1 fl (7.4-10.4); Monocytes # 0.7 K/mm3 (0.1-1.0); Monocytes % 6.6 % (1.7-9.3); Neutrophils # 5.6 K/mm3 (1.8-7.8); Neutrophils % 50.9 % (37.0-80.0); Platelet Count 293 K/mm3 (142-424); Red Blood Count 5.05 M/mm3 (4.20-5.40)
[2024-01-02] MEDS: LORazepam 2MG/ML VIAL 1 MG IV (21:48)
[2024-01-02 21:52] LABS: Chloride 109 mmol/L (98-107); Potassium 3.8 mmoL/L (3.5-5.1); Sodium 141 mmol/L (136-145)
[2024-01-02 21:54] LABS: Blood Urea Nitrogen 9 mg/dl (7-17); Creatinine Clearance Estimated 78 mL/min (50-200); Estimated Glomerular Filt Rate 67 ml/min (>60); GFR (African American) 81 ML/MIN (>60)
[2024-01-02 21:55] LABS: Alanine Aminotransferase 28 U/L (12-78); Albumin Level 4.2 g/dl (3.5-5.0); Albumin/Globulin Ratio 1.4 (1.1-1.8); Alkaline Phosphatase 76 U/L (38-126); Anion Gap 9.8 mEq/L (5-15); Aspartate Amino Transferase 24 U/L (14-36); Bilirubin,Total 0.3 mg/dl (0.2-1.3); Calcium 9.5 mg/dl (8.4-10.2); Carbon Dioxide 26 mmol/L (22.0-30.0); Glucose 108 mg/dl (74-100); Lipase 56 U/L (23-300); Total Protein,Serum 7.2 g/dl (6.3-8.2)
[2024-01-02 22:01] VITALS: BP 131/103; PULSE 93; RESP 15; O2SAT 95
[2024-01-02 22:23] LABS: Troponin I < 0.01 ng/ml (0.00-0.034)
--- NOTE | 2024-01-02 22:29 | PC.NURSE ---
called [facility] [employer] for bed. pt being admitted to hospitalist for chest pain
[2024-01-02 22:43] VITALS: BP 120/78; PULSE 88; RESP 20; TEMP 36.8; O2SAT 98
--- NOTE | 2024-01-02 22:43 | PC.NURSE ---
jeremiah report to Lianet AMIN on 2nd floor
--- NOTE | 2024-01-02 22:58 | PC.NURSE ---
pt arrived to floor via wheelchair @[id number]
[2024-01-02 23:13] VITALS: BP 120/78; PULSE 80; RESP 19; O2SAT 92; BMI 41.4
--- NOTE | 2024-01-02 23:39 | P.HP_ITS ---
History of Present Illness *Admission Date: 01/02/24 *Reason for visit:: Chest pain *History of present illness: Julia Smith is a 48-year-old female past medical history significant for HTN, tobacco use, HLD, CAD who presents emergency room tonight with complaints of chest pain. Ms. Smith states that she went to see Dr. Velasquez[facility] clinic today for the results of her coronary CTA. Report showed significant abnormalities including probable diminished LVEF as well as probable intraluminal stenosis of the LAD of 70-90%. She was told they were going to schedule an LHC in the next week. She states she got extremely anxious and started worrying and began having chest pain. Chest pain was left-sided, radiating up into her shoulder. Reports some diaphoresis but states she was outside and it was hot today. Also reports some nausea, no vomiting noted. Reports that she has been having these chest pains off and on for the last several months. Her chest pain was virtually gone down in the ER but she specifically asked to be admitted to have an LHC done during this admission instead of waiting for another week. She believes that she is likely having this type of chest pain related to her anxiety. Denies any cough, fever, shortness of breath, abdominal pain, bowel or bladder dysfunction. No swelling in her legs or feet. No focal neurodeficits noted. Continues to smoke cigarettes, smokes about a pack of cigarettes per day. Denies alcohol or illicit drug use. Takes a baby aspirin every other day. Reports that she had UTI symptoms that started Tuesday, went to urgent care and was given Macrobid. Culture came back and they switched her to Levaquin. She has not taken a dose of Levaquin. Called into her PCP today and they wanted her to take Cipro instead of Levaquin. She has not had a dose of Cipro either. Workup in the ER showed a slightly evaded white count of 11, H&H stable at 13.9 and 43. All other labs were virtually unremarkable. EKG did not show any ST elevation depression, sinus rhythm with a rate 81. Initial troponin was negative. She will be noted to hospitalist service for chest pain/ACS rule out. [facility] Disclaimer: The information contained in this section may have been updated after the patient was seen, as this information can be updated by other users. Medical History (Updated 01/03/24 @ 09:49 by Ale Aguirre APRN) LV dysfunction Unstable angina Abnormal findings on diagnostic imaging of heart and coronary circulation Angina pectoris Pain of left lower extremity Cellulitis of breast Abscess of breast Xanthelasma Coronary artery disease Morbid obesity HLD (hyperlipidemia) HTN (hypertension) Surgical History Previous section Hx of cholecystectomy History of appendectomy H/O: hysterectomy Family History Other No significant family history 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 (Updated 01/02/24 @ 23:25 by Ashley Terrazas RN) Smoking Status: Current every day smoker tobacco type: cigarettes packs per day: 1 alcohol intake: never current occupational status: employed Travel in the last 8 weeks: None caffeine: Yes Review of Systems Review of Systems Review of systems:: pertinent systems reviewed and negative unless documented below *Cardiovascular Cardiovascular: Reports chest pain, Reports dyspnea and Reports radiating jaw, neck or arm pain *Respiratory Respiratory: Reports dyspnea *Genitourinary Genitourinary: Reports dysuria Meds Home Medications and Allergies Home Medications Medication Instructions Recorded Confirmed Type losartan 50 mg tablet 50 mg PO DAILY 09/26/20 01/02/24 History metoprolol succinate 50 mg 50 mg PO DAILY 09/26/20 01/02/24 History tablet,extended release 24 hr paroxetine HCl 10 mg tablet 10 mg PO DAILY 10/07/21 01/02/24 History epinephrine 0.3 mg/0.3 mL 0.3 ml IM ONCE PRN Allergic 04/08/22 01/02/24 History injection, auto-injector Reaction amlodipine 5 mg tablet (Norvasc) 5 mg PO DAILY #30 tabs 09/23/23 01/02/24 Rx aspirin 81 mg tablet,delayed 81 mg PO DAILY 30 days #30 tabs 01/03/24 Rx release atorvastatin 40 mg tablet 40 mg PO HS 30 days #30 tabs 01/03/24 Rx prasugrel 10 mg tablet 10 mg PO DAILY 30 days #30 tabs 01/03/24 Rx New Prescriptions to Start Prescriptions: Javier Silvestre atorvastatin Trudy,Javier prasugrel Javier Yates Allergies Allergy/AdvReac Type Severity Reaction Status Date / Time bee venom protein (honey bee) Allergy Severe Anaphylaxis Verified 01/02/24 13:51 Penicillins Allergy Intermediate Unknown Verified 01/02/24 13:51 allergy reaction cephalexin [From Keflex] Allergy Unknown Verified 01/03/24 10:36 allergy reaction Sulfa (Sulfonamide Allergy Hives Verified 01/03/24 10:36 Antibiotics) Exam Data for Last 24 hours Vital signs and Labs for Last 24 Hours: Temp Pulse Resp BP Pulse Ox O2 Del Method 98.2 F 80 19 120/78 92 L Room Air 01/02/24 22:43 01/02/24 23:13 01/02/24 23:13 01/02/24 23:13 01/02/24 23:13 01/02/24 23:30 Laboratory Results - last 24 hr 01/02/24 21:32: WBC 11.0 H, RBC 5.05, Hgb 13.9, Hct 43.3, MCV 85.7, MCH 27.6, MCHC 32.2, RDW 16.0, Plt Count 293, MPV 8.1, Neut % (Auto) 50.9, Lymph % (Auto) 36.8, Woods % (Auto) 6.6, Eos % (Auto) 3.7, Baso % (Auto) 2.0, Neut # (Auto) 5.6, Lymph # (Auto) 4.1, Woods # (Auto) 0.7, Eos # (Auto) 0.4, Baso # (Auto) 0.2, Sodium 141, Potassium 3.8, Chloride 109 H, Carbon Dioxide 26, Anion Gap 9.8, BUN 9, Creatinine 0.90, Estimated Creat Clear 78, Estimated GFR 67, Est GFR ( Amer) 81, Glucose 108 H, Calcium 9.5, Total Bilirubin 0.3, AST 24, ALT 28, Alkaline Phosphatase 76, Troponin I < 0.01, Total Protein 7.2, Albumin 4.2, Globulin 3.0, Albumin/Globulin Ratio 1.4, Lipase 56 I & O for Last 24 hours: Intake & Output 12/30/23 12/31/23 01/01/24 01/02/24 23:59 23:59 23:59 23:59 Weight 124.012 kg *Routine HEENT Exam Head: Present normocephalic Eye: Present EOMI and PERRL ENT: Present mucous membranes moist *Routine Neck Exam Neck: Present supple *Routine Respiratory Exam Respiratory: Present CTA bilaterally *Routine Cardiovascular Exam Cardiovascular: Present RRR, Normal S1 and Normal S2 *Routine Abdominal Exam Abdominal: Present soft and normoactive bowel sounds *Routine Rectal Exam Rectal:: deferred *Routine Genitalia Exam Genitalia:: deferred *Routine Extremities Exam Extremities: Present pulses intact and normal capillary refill *Routine Skin Exam Skin: Present intact *Routine Neurological Exam Neurological: Present alert and oriented X3 Assessment and Plan *Assessment and plan (1) Chest pain: Status: Acute Qualifiers: Chest pain type: unspecified Qualified Code(s): R07.9 - Chest pain, unspecified Category: Medical Code(s): R07.9 - Chest pain, unspecified (2) Coronary artery disease: Status: Chronic Qualifiers: Associated angina: with other forms of angina Coronary Disease- Associated Artery/Lesion type: [place] artery [place] vs. transplanted heart: [place] heart Qualified Code(s): I25.118 - Atherosclerotic heart disease of [place] coronary artery with other forms of angina pectoris Category: Medical Code(s): I25.10 - Atherosclerotic heart disease of [place] coronary artery without angina pectoris (3) HLD (hyperlipidemia): Status: Chronic Qualifiers: Hyperlipidemia type: mixed hyperlipidemia Qualified Code(s): E78.2 - Mixed hyperlipidemia Category: Medical Code(s): E78.5 - Hyperlipidemia, unspecified (4) HTN (hypertension): Status: Chronic Qualifiers: Hypertension type: primary hypertension Qualified Code(s): I10 - Essent ial (primary) hypertension Category: Medical Code(s): I10 - Essential (primary) hypertension (5) Morbid obesity: Status: Chronic Category: Medical Code(s): E66.01 - Morbid (severe) obesity due to excess calories (6) Xanthelasma: Status: Chronic Category: Medical Code(s): H02.60 - Xanthelasma of unspecified eye, unspecified eyelid (7) Acute cystitis: Status: Acute Category: Medical Code(s): N30.00 - Acute cystitis without hematuria Plan Assessment: This is a 48-year-old female being admitted for chest pain/ACS rule out. On my exam, patient is lying in bed in no acute distress. No complaints at this time. Plan: Admit to observation-MedSurg Chest pain/ACS rule out CAD HTN HLD -Serial troponins -Serial EKGs -Telemetry -N.p.o. at midnight -COnsider Consult cardiology in the morning -ASA daily, continue statin, BB, ARB -If troponin elevates, or if ischemic ECG changes noted, will initiate heparin drip Acute cystitis -urine culture back showed Enterobacter colacae -will start on Cipro -Pyridium as needed for dysuria Anxiety -Continue paroxetine Tobacco abuse -cessation counseling given -nicotine patch as needed DVT prophylaxis: Heparin CODE STATUS: Full code Surrogate decision maker: Osbaldo [phone] Skin: Low risk Rounded on patient after nurse practitioner. Personally examined and interviewed patient. Agree with exam findings and care plan as documented.
[2024-01-03] VITALS (19 sets, daily range): BP systolic 121–163; BP diastolic 67–90; PULSE 59–110; RESP 16–19; TEMP 36.4–36.8; O2SAT 91–99; BMI 41.4
[2024-01-03 01:00] LABS: Troponin I < 0.01 ng/ml (0.00-0.034)
[2024-01-03 04:02] LABS: Troponin I < 0.01 ng/ml (0.00-0.034)
--- NOTE | 2024-01-03 04:30 | PC.NURSE ---
Patient alert and oriented x4 this shift. Tolerating room air well. No complaints of chest pain since arriving to the floor. Patient has ambulated independently to/from restroom. Family at bedside through the night. Lung sounds clear. Bowel sounds active x4 quadrants. Slight swelling bilaterally in ankles. Sinus tach on tele. No needs or concerns expressed this shift. VSS. Call light within reach.
[2024-01-03 06:53] LABS: Basophils # 0.1 K/mm3 (0-0.2); Basophils % 1.4 % (0.1-2.0); Eosinophils # 0.4 K/mm3 (0.0-0.4); Eosinophils % 4.1 % (0.1-12.0); Hematocrit 38.3 % (37.0-47.0); Hemoglobin 12.8 g/dL (12.2-16.2); Lymphocytes # 3.5 K/mm3 (0.7-4.5); Lymphocytes % 40.6 % (10-50); Mean Corpuscular HGB Conc 33.5 g/dL (31.8-35.4); Mean Corpuscular Hemoglobin 28.2 pg (27.0-31.2); Mean Corpuscular Volume 84.4 fl (81-99); Mean Platelet Volume 8.4 fl (7.4-10.4); Monocytes # 0.6 K/mm3 (0.1-1.0); Monocytes % 6.9 % (1.7-9.3); Neutrophils # 4.1 K/mm3 (1.8-7.8); Neutrophils % 47.2 % (37.0-80.0); Platelet Count 252 K/mm3 (142-424); Red Blood Count 4.53 M/mm3 (4.20-5.40); White Blood Count 8.7 K/mm3 (4.8-10.8)
[2024-01-03 07:09] LABS: INR 0.93 (0.9-1.1); Prothrombin Time 10.5 seconds (10.1-12.5)
[2024-01-03 07:10] LABS: Anion Gap 9.8 mEq/L (5-15); Blood Urea Nitrogen 10 mg/dl (7-17); Calcium 9.2 mg/dl (8.4-10.2); Carbon Dioxide 27 mmol/L (22.0-30.0); Chloride 107 mmol/L (98-107); Creatinine Clearance Estimated 117 mL/min (50-200); Estimated Glomerular Filt Rate 107 ml/min (>60); GFR (African American) 130 ML/MIN (>60); Glucose 112 mg/dl (74-100); Potassium 3.8 mmoL/L (3.5-5.1); Sodium 140 mmol/L (136-145)
--- NOTE | 2024-01-03 07:17 | HMH.PHAINT1 ---
Pharmacy Intervention Comments: HOME MEDICATION LIST VERIFIED USING LIST FROM OUTPATIENT PHARMACY
--- NOTE | 2024-01-03 08:04 | ECG_ITS ---
APPROVED REPORT Exam: Resting ECG HR:69 bpm ECG Measurements Heart Rate 69 AXES OR 162 P 67 QRSd 80 QRS 88 QT 363 T 48 QTc 383 Conclusion SINUS RHYTHM WITH SINUS ARRHYTHMIA NORMAL ECG UNCONFIRMED REPORT Electronically signed by : LIZ TREVIZO, 01/04/2024 06:04:00
[2024-01-03] MEDS: IRBESARTAN 75MG TABLET 75 MG PO (08:08)
[2024-01-03] MEDS: METOPROLOL SUCCINATE XL 50MG TABLET 50 MG PO (08:09)
[2024-01-03] MEDS: AMLODIPINE 5MG TABLET 5 MG PO (08:09)
[2024-01-03] MEDS: ASPIRIN 81MG CHEWABLE TABLET 81 MG PO (08:09)
[2024-01-03] MEDS: PARoxetine 10MG TABLET 10 MG PO (08:09)
[2024-01-03] MEDS: HEPARIN SODIUM 5,000 UNIT/ML VIAL 5000 UNIT SQ (08:09)
--- NOTE | 2024-01-03 09:09 | CA_ITS ---
APPROVED REPORT EXAM: Comprehensive 2D, Doppler, and color-flow Echocardiogram [employer] Operator: Yeny Spaulding RT(R) Ht: 5 ft 8 in Wt: 273lbs BSA: 2.33 BP: 120/77 mmHg Indications: CP, smoker, HTN, HLD, obesity, CAD, reduced EF on cardiac CTA 2D Dimensions IVSd 1.19 cm F: 0.6-1.0 LVEF (Visual) 41.10 % PWd 0.88 cm F: 0.6 - 1.0 LVEF (Cross's) 69.40 % F: 54 - 74 LVDd 4.92 cm F: 3.9 - 5.3 LV Volume 130.10 mL F: 46 - 106 LVDs 3.93 cm F: 2.2 - 3.5 LV Volume Index 55.8 mL/m2 F: 29 - 61 EF AP4 69.00 % EF AP2 68.1 % EF BP 69.4 % GL Strain -21.7 % M-Mode Dimensions RVDd 3.48 cm (0.9-2.6) LA Diam 3.00 cm (1.9-4.0) LVDd 5.17 cm (3.5-5.7) LVDs 4.28 cm (3.5-5.7) IVSd 0.94 cm (0.6-1.1) PWd 0.80 cm (0.6-1.1) EF (Teich) 35.70% FS 17.20% EDV (Teich) 127.80 mL ESV (Teich) 82.20 mL LV Diastology E Decel Time 250 (160-240 msec) E/A Ratio 1.01 Mitral Valve MV A Velocity 87.0 (40-130 cm/s) E/A Ratio 1.01 Left Ventricle The left ventricle is normal size. The left ventricular systolic function is normal. The left ventricular ejection fraction is within the normal range. There is increased LV wall thickness. There is normal LV segmental wall motion. The left ventricular diastolic function is normal. LVEF is 55%. Right Ventricle The right ventricle is normal size. The right ventricular systolic function is normal. Atria The left atrium size is normal. The right atrium size is normal. There is no Doppler evidence of interatrial shunt. Aortic Valve The aortic valve opens well. There is no aortic valvular stenosis. No aortic regurgitation is present. Mitral Valve The mitral valve is normal in structure. No evidence of mitral valve stenosis. Trace mitral regurgitation. Tricuspid Valve The tricuspid valve leaflets are thin and pliable. Trace tricuspid regurgitation. There is insufficient TR jet to estimate RVSP. Pulmonic Valve The pulmonary valve is normal in structure. Trace pulmonic regurgitation. Great Vessels The aortic root is normal in size. The ascending aorta is normal in size. IVC is normal in size and collapses >50% with inspiration. Pericardium There is no pericardial effusion. Other Information Study Quality: Adequate Conclusion Normal biventricular systolic function. Significant valvular stenosis or regurgitation. Electronically signed by : Nanda Watts MD 01/03/2024 12:17:05
--- NOTE | 2024-01-03 09:35 | P.CONCA_ITS ---
History of Present Illness History of Present Illness Consult date: 01/03/24 Requesting physician: Javier Yates Consult reason: chest pain Chief complaint: chest pain History of present illness: This is a 48-year-old white female presented to the emergency department with complaints of chest pain. She has a past medical history for coronary artery disease, hypertension, hyperlipidemia and tobacco use. The patient was in cardiology clinic yesterday afternoon to review her coronary CTA which showed she may have a reduction in her LVEF and suspected a stenosis of 70 to 990% in the LAD. The patient was being scheduled for an outpatient left heart cath next week. When she got home from her appointment she was extremely anxious so she decided to go fishing so she would stop worrying. She states that when she got to the like to finish she was very relaxed and not even thinking about the results she had been given. She then had sudden onset of pressure and sharp pain and the left side of her chest that radiated up to the left side of her neck and her left shoulder. She states that it was associated with shortness of breath and diaphoresis. She states that this was a severe pain and attributed it to her being hot so she went home to sit in the air but her symptoms continue to persist and worsen so she decided to come to the emergency department. She is not sure whether or not her chest pain was related to her anxiety or because of her coronary artery disease. She states that her chest pain has improved but she has still been having it intermittently. The patient gets very tearful when discussing her chest pain and she is just very concerned that something is wrong with her heart. She ruled out for an AR. She denies any fever, chills, nausea, vomiting, diarrhea, PND or orthopnea. She was recently diagnosed with a UTI as well and has been started on antibiotics. [facility] Disclaimer: The information contained in this section may have been updated after the patient was seen, as this information can be updated by other users. Medical History (Updated 01/03/24 @ 09:49 by Ale Aguirre APRN) LV dysfunction Unstable angina Abnormal findings on diagnostic imaging of heart and coronary circulation Angina pectoris Pain of left lower extremity Cellulitis of breast Abscess of breast Xanthelasma Coronary artery disease Morbid obesity HLD (hyperlipidemia) HTN (hypertension) Surgical History Previous section Hx of cholecystectomy History of appendectomy H/O: hysterectomy Family History Other No significant family history 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 (Updated 01/02/24 @ 23:25 by Ashley Terrazas RN) Smoking Status: Current every day smoker tobacco type: cigarettes packs per day: 1 alcohol intake: never current occupational status: employed Travel in the last 8 weeks: None caffeine: Yes Review of Systems Review of Systems Review of systems:: pertinent systems reviewed and negative unless documented below Constitutional Constitutional: Reports system reviewed and no additional complaints, except as documented Eyes Eyes: Reports system reviewed and no additional complaints, except as documented ENT Ears, Nose, Mouth, and Throat: Reports system reviewed and no additional complaints, except as documented *Cardiovascular Cardiovascular: Reports system reviewed and no additional complaints, except as documented, Reports chest pain, Reports chest pain at rest, Reports chest pain with activity, Reports diaphoresis, Reports dyspnea, Reports dyspnea on exertion and Reports radiating jaw, neck or arm pain *Respiratory Respiratory: Reports system reviewed and no additional complaints, except as documented, Reports dyspnea and Reports dyspnea on exertion *Gastrointestinal Gastrointestinal: Reports system reviewed and no additional complaints, except as documented *Genitourinary Genitourinary: Reports system reviewed and no additional complaints, except as documented *Musculoskeletal Musculoskeletal: Reports system reviewed and no additional complaints, except as documented Integumentary/Breasts Skin/Breast: Reports system reviewed and no additional complaints, except as documented *Neurologic Neurologic: Reports system reviewed and no additional complaints, except as documented Psychiatric Psychiatric: Reports system reviewed and no additional complaints, except as documented and Reports anxiety Endocrine Endocrine: Reports system reviewed and no additional complaints, except as documented Hematologic/Lymphatic Hematologic/Lymphatic: Reports system reviewed and no additional complaints, except as documented Allergic/Immunologic Allergic/Immunologic: Reports system reviewed and no additional complaints, except as documented Exam Data for Last 24 hours Vital signs and Labs for Last 24 Hours: Temp Pulse Resp BP Pulse Ox O2 Del Method 97.6 F 100 H 18 140/77 98 Room Air 01/03/24 07:42 01/03/24 07:55 01/03/24 07:42 01/03/24 07:42 01/03/24 07:42 01/03/24 09:00 Laboratory Results - last 24 hr 01/02/24 21:32: WBC 11.0 H, RBC 5.05, Hgb 13.9, Hct 43.3, MCV 85.7, MCH 27.6, MCHC 32.2, RDW 16.0, Plt Count 293, MPV 8.1, Neut % (Auto) 50.9, Lymph % (Auto) 36.8, [place] % (Auto) 6.6, Eos % (Auto) 3.7, Baso % (Auto) 2.0, Neut # (Auto) 5.6, Lymph # (Auto) 4.1, [place] # (Auto) 0.7, Eos # (Auto) 0.4, Baso # (Auto) 0.2, Sodium 141, Potassium 3.8, Chloride 109 H, Carbon Dioxide 26, Anion Gap 9.8, BUN 9, Creatinine 0.90, Estimated Creat Clear 78, Estimated GFR 67, Est GFR ( Amer) 81, Glucose 108 H, Calcium 9.5, Total Bilirubin 0.3, AST 24, ALT 28, Alkaline Phosphatase 76, Troponin I < 0.01, Total Protein 7.2, Albumin 4.2, Globulin 3.0, Albumin/Globulin Ratio 1.4, Lipase 56 01/03/24 00:32: Troponin I < 0.01 01/03/24 03:30: Troponin I < 0.01 01/03/24 06:26: WBC 8.7, RBC 4.53, Hgb 12.8, Hct 38.3, MCV 84.4, MCH 28.2, MCHC 33.5, RDW 16.0, Plt Count 252, MPV 8.4, Neut % (Auto) 47.2, Lymph % (Auto) 40.6, [place] % (Auto) 6.9, Eos % (Auto) 4.1, Baso % (Auto) 1.4, Neut # (Auto) 4.1, Lymph # (Auto) 3.5, [place] # (Auto) 0.6, Eos # (Auto) 0.4, Baso # (Auto) 0.1, PT 10.5, INR 0.93, Sodium 140, Potassium 3.8, Chloride 107, Carbon Dioxide 27, Anion Gap 9.8, BUN 10, Creatinine 0.60 D, Estimated Creat Clear 117, Estimated GFR 107, Est GFR ( Amer) 130 D, Glucose 112 H, Calcium 9.2 I & O for Last 24 hours: Intake & Output 12/31/23 01/01/24 01/02/24 01/03/24 23:59 23:59 23:59 23:59 Output Total 0 / 0 Balance 0 / 0 Weight 273 lb 6.4 oz 273 lb 6.394 oz Narrative: EKG #1 is sinus rhythm with right axis deviation and a rate of 81 bpm. EKG #2 is sinus rhythm with a rate of 69 bpm. Constitutional Constitutional: no acute distress and morbidly obese *Routine HEENT Exam Head: Present normocephalic and atraumatic ENT: Present mucous membranes moist *Routine Neck Exam Neck: Present supple, full ROM and normal carotid upstroke; Absent JVD, carotid bruit or lymphadenopathy *Routine Respiratory Exam Respiratory: Present CTA bilaterally, normal respiratory effort, able to speak in complete sentences and symmetric chest movement *Routine Cardiovascular Exam Cardiovascular: Present RRR, Normal S1 and Normal S2; Absent murmur or gallop *Routine Abdominal Exam Abdominal: Present soft and normoactive bowel sounds; Absent tenderness, distended or organomegaly *Routine Extremities Exam Extremities: Present full ROM, pulses intact and normal capillary refill; Absent cyanosis, clubbing or edema *Routine Skin Exam Skin: Present intact and warm; Absent erythema *Routine Neurological Exam Neurological: Present alert, oriented X3 and CN II-XII intact; Absent sensory deficit or motor deficit Routine Psychiatric Exam Psychiatric: Present normal affect Meds Home Medications and Allergies Home Medications Medication Instructions Recorded Confirmed Type losartan 50 mg tablet 50 mg PO DAILY 09/26/20 01/02/24 History metoprolol succinate 50 mg 50 mg PO DAILY 09/26/20 01/02/24 History tablet,extended release 24 hr paroxetine HCl 10 mg tablet 10 mg PO DAILY 10/07/21 01/02/24 History epinephrine 0.3 mg/0.3 mL 0.3 ml IM ONCE PRN Allergic 04/08/22 01/02/24 History injection, auto-injector Reaction amlodipine 5 mg tablet (Norvasc) 5 mg PO DAILY #30 tabs 09/23/23 01/02/24 Rx atorvastatin 20 mg tablet 20 mg PO HS Cholesterol #90 tabs 01/02/24 01/02/24 Rx New Prescriptions to Start Prescriptions: Allergies Allergy/AdvReac Type Severity Reaction Status Date / Time bee venom protein (honey bee) Allergy Severe Anaphylaxis Verified 01/02/24 13:51 Penicillins Allergy Intermediate Unknown Verified 01/02/24 13:51 allergy reaction cephalexin [From Keflex] Allergy Unknown Verified 01/03/24 10:36 allergy reaction Sulfa (Sulfonamide Allergy Hives Verified 01/03/24 10:36 Antibiotics) Assessment and Plan *Assessment and plan (1) Abnormal findings on diagnostic imaging of heart and coronary circulation: Status: Acute Category: Medical Code(s): R93.1 - Abnormal findings on diagnostic imaging of heart and coronary circ ulation (2) LV dysfunction: Status: Acute Category: Medical Code(s): I51.9 - Heart disease, unspecified (3) Unstable angina: Status: Resolved Category: Medical Code(s): I20.0 - Unstable angina (4) Coronary artery disease: Status: Chronic Qualifiers: Associated angina: with other forms of angina Coronary Disease- Associated Artery/Lesion type: [place] artery [place] vs. transplanted heart: [place] heart Qualified Code(s): I25.118 - Atherosclerotic heart disease of [place] coronary artery with other forms of angina pectoris Category: Medical Code(s): I25.10 - Atherosclerotic heart disease of [place] coronary artery without angina pectoris (5) HLD (hyperlipidemia): Status: Chronic Qualifiers: Hyperlipidemia type: mixed hyperlipidemia Qualified Code(s): E78.2 - Mixed hyperlipidemia Category: Medical Code(s): E78.5 - Hyperlipidemia, unspecified (6) HTN (hypertension): Status: Chronic Qualifiers: Hypertension type: primary hypertension Qualified Code(s): I10 - Essential (primary) hypertension Category: Medical Code(s): I10 - Essential (primary) hypertension (7) Xanthelasma: Status: Chronic Category: Medical Code(s): H02.60 - Xanthelasma of unspecified eye, unspecified eyelid (8) Tobacco use: Status: Chronic Category: Social Hx Code(s): Z72.0 - Tobacco use (9) UTI (urinary tract infection): Status: Acute Qualifiers: Hematuria presence: with hematuria Urinary tract infection type: site unspecified Qualified Code(s): N39.0 - Urinary tract infection, site not specified; R31.9 - Hematuria, unspecified Category: Medical Code(s): N39.0 - Urinary tract infection, site not specified (10) Anxiety: Status: Acute Category: Medical Code(s): F41.9 - Anxiety disorder, unspecified Plan Plan: 1. The patient was admitted to the hospital with unstable angina. She has a recent abnormal CTA of the coronary arteries which shows severe disease in the LAD at 70-90 percent stenosis. Will plan to proceed with left cardiac catheterization today to evaluate her coronary arteries due to her known coronary artery disease, unstable angina and abnormal CTA of the coronary arteries. 2. The patient has been educated the risk and benefits of proceeding with left cardiac catheterization. The patient verbalized understanding and is agreeable in proceeding with the procedure. 3. The patient will be n.p.o. in preparation for left cardiac catheterization. 4. Coronary artery disease is present. Continue aspirin 81 mg daily. 5. Her blood pressure is well-controlled. Continue amlodipine, losartan and metoprolol. 6. Her LDL goal is less than 55. Her LDL is 99 in November 2023. Will increase her Lipitor to 40 mg p.o. nightly. 7. Tobacco cessation is highly advised and counseled. 8. Will obtain an echocardiogram. The CTA of her coronary arteries reported that there was presence of reduced LV systolic function, so we will obtain an echocardiogram to evaluate her LV function. 9. The patient was recently diagnosed with a UTI. She has been on antibiotics. Her antibiotics are being managed by the hospitalist. Will defer. 10. Further recommendations will be made pending the patient's response to treatment and the results of her left cardiac catheterization and echocardiogram today. Thank you for the opportunity to help participate in the care of this patient. All recommendations and orders are per Dr. Watts. AMB Pre-cath Criteria Pre-cath considerations: Clinical evaluation and indication for coronary angiography includes:: know CAD, new onset angina <= 2 months, worsening angina and LV dysfunction Patient is describing chest pain symtom as:: typical angina Clinical risk factors:: CAD, HTN, HLD, Tobacco use, LV dysfunction, abnormal CTA coronary arteries. How many antianginals is the patient taking?: 2 Patient is taking:: beta adrianna and CCB Risks and benefits:: We will plan to proceed with LHC/coronary angiography with right radial access. The patient has been educated on the risks and benefits of proceeding with LHC/coronary angiography with right radial access. The patient verbalized understanding and is agreeable in proceeding with the procedure.
[2024-01-03] MEDS: LEVOFLOXACIN/D5W 750 MG/150 ML 750 MG/150 ML PIGGYBACK 100 MG IV (09:36)
--- NOTE | 2024-01-03 09:38 | IR_ITS ---
APPROVED REPORT Patient Location: Inpatient PROCEDURES Selective coronary angiogram Drug-eluting stent deployment to the proximal and mid right coronary artery INDICATION Coronary artery disease, Acute coronary syndrome/unstable angina, Informed consent was obtained prior to the procedure. COMPLICATIONS NONE Estimated Blood Loss: LESS THAN 10 ML TECHNIQUE One percent lidocaine used to anesthetize the right anterior aspect of the wrist. The right radial artery was accessed via the Seldinger technique. A 6 [place] sheath was placed in the right radial artery. 2.5 mg of Verapamil, 800 mcg of nitroglycerin, 1mg Lidocaine and 5000 U Heparin were given through the arterial sheath. The papa catheter was also used to perform selective coronary angiogram. At the end the diagnostic angiogram therapeutic Was administered giving a therapeutic ACT and the guide catheter was placed in the right coronary artery followed by Choice PT extra-support wire distally. A 3 mm x 38 mm [place] frontier stent was deployed at 16 noel reducing the stenosis to 0%. An additional 3.5 x 26 mm [place] frontier stent was placed proximal to the for stent yet still overlapping and deployed at 18 noel. 800 mcg of intracoronary nitroglycerin was administered which failed to satisfactorily reduce the proximal stenosis therefore a 4 mm x 12 mm [place] frontier stent was placed proximal to the 3.5 mm stent yet still overlapping and deployed at 18 noel. The balloon was advanced onto the length and deployed at 16 noel to post dilate. SAE-3 flow was present before and after the procedure. At the end of procedure the apparatus was removed the sheath was removed and hemostasis was achieved using TR banding patient was transferred to the postop holding in stable condition ANGIOGRAPHIC RESULTS The left main artery Normal The left anterior descending artery Proximally normal with a mid vessel smooth 20 to 30% stenosis The circumflex artery Large-caliber codominant with 40 to 50% concentric stenosis and a mid 2.5 mm first obtuse marginal artery. Second obtuse marginal artery has proximal smooth 20% stenosis The right coronary artery Is codominant has a proximal eccentric 70 to 80% stenosis with an additional long tubular 40% stenosis which extends into the proximal portion of the distal right coronary The OSP[place] ventriculogram reveals Not performed The left ventricular end-diastolic pressure Not measured IMPRESSION Severe single-vessel coronary disease as described above Successful stenting of the proximal mid and distal codominant right coronary artery severe disease reduced to 0% with 3 contiguous drug-eluting stents Persistent moderate stenosis in a medium to large first obtuse marginal artery PLAN 1. Dual antiplatelet therapy 2. LDL less than 55 to be achieved with high intensity statin 3. Avoidance of tobacco products 4. Risk factor modification 5. Cardiac rehabilitation Electronically signed by : Lazarus Velasquez MD 01/03/2024 14:31:20
[2024-01-03] MEDS: 0.9 % SODIUM CHLORIDE 500 ML 25 ML IV (13:54)
[2024-01-03] MEDS: NITROGLYCERIN 800MCG/8ML SYR (CATH LAB) 800 MCG IA (13:55)
[2024-01-03] MEDS: HEPARIN 1,000 UNITS/500ML NS (CATH LAB) 3000 UNIT IV (13:55)
[2024-01-03] MEDS: VERAPAMIL 2.5MG/ML 2ML VIAL 2.5 MG IV (13:55)
[2024-01-03] MEDS: HEPARIN 1,000 UNITS/ML 10ML VIAL (CATH LAB) 10000 UNIT IV (13:55)
[2024-01-03] MEDS: diphenhydrAMINE 50MG/ML VIAL 50 MG IV (13:55)
[2024-01-03] MEDS: FENTANYL 100MCG/2ML VIAL 50 MCG IV (14:07)
[2024-01-03] MEDS: MIDAZOLAM HCL 1MG/1ML 5ML VIAL 1 MG IV (14:07)
[2024-01-03] MEDS: LIDOCAINE 1% 10ML MDV 20 ML IJ (14:12)
[2024-01-03] MEDS: ONDANSETRON 4MG/2ML VIAL 4 MG IV (14:17)
[2024-01-03] MEDS: PRASUGREL 10MG TAB 10 MG PO (14:30)
--- NOTE | 2024-01-03 14:39 | EXP.DC.SUM ---
General Admission date:: 01/02/24 Discharge date: 01/03/24 HPI HPI HPI: Sofi Faulkner is a 48-year-old female past medical history significant for HTN, tobacco use, HLD, CAD who presents emergency room tonight with complaints of chest pain. Ms. Smith states that she went to see Dr. Velasquez's clinic today for the results of her coronary CTA. Report showed significant abnormalities including probable diminished LVEF as well as probable intraluminal stenosis of the LAD of 70-90%. She was told they were going to schedule an LHC in the next week. She states she got extremely anxious and started worrying and began having chest pain. Chest pain was left-sided, radiating up into her shoulder. Reports some diaphoresis but states she was outside and it was hot today. Also reports some nausea, no vomiting noted. Reports that she has been having these chest pains off and on for the last several months. Her chest pain was virtually gone down in the ER but she specifically asked to be admitted to have an LHC done during this admission instead of waiting for another week. She believes that she is likely having this type of chest pain related to her anxiety. Denies any cough, fever, shortness of breath, abdominal pain, bowel or bladder dysfunction. No swelling in her legs or feet. No focal neurodeficits noted. Continues to smoke cigarettes, smokes about a pack of cigarettes per day. Denies alcohol or illicit drug use. Takes a baby aspirin every other day. Reports that she had UTI symptoms that started Tuesday, went to urgent care and was given Macrobid. Culture came back and they switched her to Levaquin. She has not taken a dose of Levaquin. Called into her PCP today and they wanted her to take Cipro instead of Levaquin. She has not had a dose of Cipro either. Workup in the ER showed a slightly evaded white count of 11, H&H stable at 13.9 and 43. All other labs were virtually unremarkable. EKG did not show any ST elevation depression, sinus rhythm with a rate 81. Initial troponin was negative. She will be noted to hospitalist service for chest pain/ACS rule out. Hospital Course Hospital Course Hospital Course: Ms. Faulkner is a 48-year-old female admitted for unstable angina/ACS rule out. Serial enzymes overnight remain negative. Symptoms however very concerning. Recently had CCTA with concern for occlusions. Was being scheduled for outpatient heart cath. Patient taken to the [facility] with severe one-vessel disease identified and intervened on. Doing better after heart cath. On goal-directed therapy. Stable to discharge home with close follow-up with cardiology for further management. Problems addressed as follows: Chest pain/ACS rule out CAD HTN HLD - The patient was admitted to the hospital with unstable angina. She has a recent abnormal CTA of the coronary arteries which shows severe disease in the LAD at 70-90 percent stenosis. Taken for left heart cath. Found to have severe single-vessel coronary artery disease in the mid and distal codominant right coronary artery as follows: Severe single-vessel coronary disease. Successful stenting of the proximal mid and distal codominant right coronary artery severe disease reduced to 0% with 3 contiguous drug-eluting stents Persistent moderate stenosis in a medium to large first obtuse marginal artery - Continue dual antiplatelet therapy with aspirin and prasugrel. Medications provided at discharge. Initiated on high intensity statin, continue Lipitor 40 mg nightly. Counseled on tobacco cessation. Plan for close follow-up with cardiology in the next 1 to 2 weeks for further management as an outpatient. - Echocardiogram obtained showing preserved ejection fraction Acute cystitis: urine culture from previous visit positive for Enterobacter cloacae, resistant to Macrobid. Will receive dose of Levaquin prior to cath. Complete course with Cipro at discharge. Anxiety: Continue paroxetine Tobacco abuse: cessation counseling given. Exam Data for Last 24 hours Vital signs and Labs for Last 24 Hours: Temp Pulse Resp BP Pulse Ox O2 Del Method 98.1 F 69 19 163/90 H 97 Room Air 01/03/24 12:00 01/03/24 12:00 01/03/24 12:00 01/03/24 12:00 01/03/24 12:00 01/03/24 13:00 Laboratory Results - last 24 hr 01/02/24 21:32: WBC 11.0 H, RBC 5.05, Hgb 13.9, Hct 43.3, MCV 85.7, MCH 27.6, MCHC 32.2, RDW 16.0, Plt Count 293, MPV 8.1, Neut % (Auto) 50.9, Lymph % (Auto) 36.8, [place] % (Auto) 6.6, Eos % (Auto) 3.7, Baso % (Auto) 2.0, Neut # (Auto) 5.6, Lymph # (Auto) 4.1, [place] # (Auto) 0.7, Eos # (Auto) 0.4, Baso # (Auto) 0.2, Sodium 141, Potassium 3.8, Chloride 109 H, Carbon Dioxide 26, Anion Gap 9.8, BUN 9, Creatinine 0.90, Estimated Creat Clear 78, Estimated GFR 67, Est GFR ( Amer) 81, Glucose 108 H, Calcium 9.5, Total Bilirubin 0.3, AST 24, ALT 28, Alkaline Phosphatase 76, Troponin I < 0.01, Total Protein 7.2, Albumin 4.2, Globulin 3.0, Albumin/Globulin Ratio 1.4, Lipase 56 01/03/24 00:32: Troponin I < 0.01 01/03/24 03:30: Troponin I < 0.01 01/03/24 06:26: WBC 8.7, RBC 4.53, Hgb 12.8, Hct 38.3, MCV 84.4, MCH 28.2, MCHC 33.5, RDW 16.0, Plt Count 252, MPV 8.4, Neut % (Auto) 47.2, Lymph % (Auto) 40.6, [place] % (Auto) 6.9, Eos % (Auto) 4.1, Baso % (Auto) 1.4, Neut # (Auto) 4.1, Lymph # (Auto) 3.5, [place] # (Auto) 0.6, Eos # (Auto) 0.4, Baso # (Auto) 0.1, PT 10.5, INR 0.93, Sodium 140, Potassium 3.8, Chloride 107, Carbon Dioxide 27, Anion Gap 9.8, BUN 10, Creatinine 0.60 D, Estimated Creat Clear 117, Estimated GFR 107, Est GFR ( Amer) 130 D, Glucose 112 H, Calcium 9.2 I & O for Last 24 hours: Intake & Output 12/31/23 01/01/24 01/02/24 01/03/24 23:59 23:59 23:59 23:59 Output Total 0 / 0 Balance 0 / 0 Weight 124.012 kg 124.012 kg Constitutional Constitutional: no acute distress, morbidly obese and cooperative *Routine HEENT Exam Head: Present normocephalic Eye: Present EOMI and PERRL ENT: Present mucous membranes moist *Routine Neck Exam Neck: Present supple; Absent lymphadenopathy *Routine Respiratory Exam Respiratory: Present CTA bilaterally; Absent rhonchi, wheezes or crackles *Routine Cardiovascular Exam Cardiovascular: Present RRR *Routine Abdominal Exam Abdominal: Present soft and normoactive bowel sounds; Absent tenderness *Routine Rectal Exam Patient deferred: visual exam *Routine Exam Patient deferred: external exam *Routine Extremities Exam Extremities: Absent cyanosis, clubbing or edema *Routine Skin Exam Skin: Present warm; Absent rash *Routine Neurological Exam Neurological: Present alert, oriented X3 and moving all extremities; Absent altered mental status Results Data Completed and Pending Labs on day of discharge: Labs from last 24 hours 01/03/24 01/03/24 01/03/24 06:26 03:30 00:32 WBC 8.7 RBC 4.53 Hgb 12.8 Hct 38.3 MCV 84.4 MCH 28.2 MCHC 33.5 RDW 16.0 Plt Count 252 MPV 8.4 Neut % (Auto) 47.2 Lymph % (Auto) 40.6 [place] % (Auto) 6.9 Eos % (Auto) 4.1 Baso % (Auto) 1.4 Neut # (Auto) 4.1 Lymph # (Auto) 3.5 [place] # (Auto) 0.6 Eos # (Auto) 0.4 Baso # (Auto) 0.1 PT 10.5 INR 0.93 Sodium 140 Potassium 3.8 Chloride 107 Carbon Dioxide 27 Anion Gap 9.8 BUN 10 Creatinine 0.60 D Estimated Creat Clear 117 Estimated GFR 107 Est GFR ( Amer) 130 D Glucose 112 H Calcium 9.2 Total Bilirubin AST ALT Alkaline Phosphatase Troponin I < 0.01 < 0.01 Total Protein Albumin Globulin Albumin/Globulin Ratio Lipase 01/02/24 21:32 WBC 11.0 H RBC 5.05 Hgb 13.9 Hct 43.3 MCV 85.7 MCH 27.6 MCHC 32.2 RDW 16.0 Plt Count 293 MPV 8.1 Neut % (Auto) 50.9 Lymph % (Auto) 36.8 [place] % (Auto) 6.6 Eos % (Auto) 3.7 Baso % (Auto) 2.0 Neut # (Auto) 5.6 Lymph # (Auto) 4.1 [place] # (Auto) 0.7 Eos # (Auto) 0.4 Baso # (Auto) 0.2 PT INR Sodium 141 Potassium 3.8 Chloride 109 H Carbon Dioxide 26 Anion Gap 9.8 BUN 9 Creatinine 0.90 Estimated Creat Clear 78 Estimated GFR 67 Est GFR ( Amer) 81 Glucose 108 H Calcium 9.5 Total Bilirubin 0.3 AST 24 ALT 28 Alkaline Phosphatase 76 Troponin I < 0.01 Total Protein 7.2 Albumin 4.2 Globulin 3.0 Albumin/Globulin Ratio 1.4 Lipase 56 DS: Diagnosis Discharge Diagnosis (1) Abnormal findings on diagnostic imaging of heart and coronary circulation: Status: Acute Code(s): R93.1 - Abnormal findings on diagnostic imaging of heart and coronary circulation (2) LV dysfunction: Status: Acute Code(s): I51.9 - Heart disease, unspecified (3) Unstable angina: Status: Resolved Code(s): I20.0 - Unstable angina (4) Coronary artery disease: Status: Chronic Code(s): I25.10 - Atherosclerotic heart disease of [place] coronary artery without angina pectoris Qualifiers: Associated angina: with other forms of angina Coronary Disease-Associated Artery/Lesion type: [place] artery [place] vs. transplanted heart: [place] heart Qualified Code(s): I25.118 - Atherosclerotic heart disease of [place] coronary artery with other forms of angina pectoris (5) HLD (hyperlipidemia): Status: Chronic Code(s): E78.5 - Hyperlipidemia, unspecified Qualifiers: Hyperlipidemia type: mixed hyperlipidemia Qualified Code(s): E78.2 - Mixed hyperlipidemia (6) HTN (hypertension): Status: Chronic Code(s): I10 - Essential (primary) hypertension Qualifiers: Hypertension type: primary hypertension Qualified Code(s): I10 - Essential (primary) hypertension (7) Xanthelasma: Status: Chronic Code(s): H02.60 - Xanthelasma of unspecified eye, unspecified eyelid (8) Tobacco use: Status: Chronic Code(s): Z72.0 - Tobacco use (9) UTI (urinary tract infection): Status: Acute Code(s): N39.0 - Urinary tract infection, site not specified Qualifiers: Hematuria presence: with hematuria Urinary tract infection type: site unspecified Qualified Code(s): N39.0 - Urinary tract infection, site not specified; R31.9 - Hematuria, unspecified (10) Anxiety: Status: Acute Code(s): F41.9 - Anxiety disorder, unspecified Meds Home Medications and Allergies Home Medications ?Medication ?Instructions ?Recorded ?Confirmed ?Type losartan 50 mg tablet 50 mg PO DAILY 09/26/20 01/02/24 History metoprolol succinate 50 mg 50 mg PO DAILY 09/26/20 01/02/24 History tablet,extended release 24 hr paroxetine HCl 10 mg tablet 10 mg PO DAILY 10/07/21 01/02/24 History epinephrine 0.3 mg/0.3 mL 0.3 ml IM ONCE PRN Allergic 04/08/22 01/02/24 History injection, auto-injector Reaction amlodipine 5 mg tablet (Norvasc) 5 mg PO DAILY #30 tabs 09/23/23 01/02/24 Rx aspirin 81 mg tablet,delayed 81 mg PO DAILY 30 days #30 tabs 01/03/24 Rx release atorvastatin 40 mg tablet 40 mg PO HS 30 days #30 tabs 01/03/24 Rx prasugrel 10 mg tablet 10 mg PO DAILY 30 days #30 tabs 01/03/24 Rx New Prescriptions to Start Prescriptions: Javier Silvestre atorvastatin Javier Yates prasugrel Javier Yates Allergies Allergy/AdvReac Type Severity Reaction Status Date / Time bee venom protein (honey bee) Allergy Severe Anaphylaxis Verified 01/02/24 13:51 Penicillins Allergy Intermediate Unknown Verified 01/02/24 13:51 allergy reaction cephalexin [From Keflex] Allergy Unknown Verified 01/03/24 10:36 allergy reaction Sulfa (Sulfonamide Allergy Hives Verified 01/03/24 10:36 Antibiotics) Discharge Plan Disposition Patient Disposition: Home, Self-Care Condition: Fair Follow up Plan Follow up with: Lazarus Velasquez MD [Staff Physician] - 01/11/24 1:15 pm Camila Berger [Primary Care Provider] - Enter time for follow up (Please call for your follow up appt ) Prescriptions/Medication Reconciliation: New atorvastatin 40 mg Tablet 40 mg PO HS 30 Days Qty: 30 0RF prasugrel 10 mg Tablet 10 mg PO DAILY 30 Days Qty: 30 0RF aspirin 81 mg tablet,delayed release (DR/EC) 81 mg PO DAILY 30 Days Qty: 30 0RF Continued paroxetine HCl 10 mg tablet 10 mg PO DAILY Patient Comments: TAKE 1 TABLET BY MOUTH EVERY DAY epinephrine 0.3 mg/0.3 mL auto-injector 0.3 ml IM ONCE PRN (Reason: Allergic Reaction) amlodipine [Norvasc] 5 mg tablet 5 mg PO DAILY Qty: 30 5RF losartan 50 MG tablet 50 mg PO DAILY metoprolol succinate 50 MG tablet 50 mg PO DAILY Discontinued atorvastatin 20 mg tablet 20 mg PO HS Qty: 90 3RF Other Ambulatory Orders: Basic Metabolic Panel (Routine) Timeframe: 20240110 Facility: [facility] - Location: Laboratory Ordered By: Lazarus Velasquez Complete Blood Count Auto Diff (Routine) Timeframe: 20240110 Facility: [facility] - Location: Laboratory Ordered By: Lazarus Velasquez Problem Reconciliation Problems Reviewed?: Yes Patient Discharge Instructions ACTIVITY: Continue current activity DIET: continue same diet and low fat, low cholesterol Patient Instructions: DI for Cardiac Catheterization, DI for Coronary Stenting, DI for Surgical Site Infection, DI for Chest Pain Print Language: Turkish Providers Primary Care Provider: Camila Berger Admit Provider: Javier Yates Attending Provider: Javier Yates
[2024-01-03] MEDS: IOPAMIDOL-370 (76%);100ML BOTTLE 100 ML IV (14:48)
[2024-01-03 14:49] LABS: CATHL Activated Clotting Time 301 SEC (74-125)
--- NOTE | 2024-01-04 13:05 | CARE MANAGER ---
Contacted patient related to hospital discharge. She states that she is tired but doing well. She is aware of her appointment with cardiology and will call PCP tomorrow as the office is closed today to make follow up appointment. She has all new meds and denies questions or concerns. ELOISA Morel
== END 2024-01-03 18:35 | disposition home or self-care (01) ==
LOC: ER 21:39 → 2ND 23:10
PROVIDERS: Internal Medicine; Nurse Practitioner Acute Care; Admitting Provider Internal Medicine Adolescent Medicine; Emergency Provider Student in an Organized Health Care Education/Training Program; PCP Family Medicine; Visit Provider Internal Medicine Adolescent Medicine
DX: R07.9 Chest pain, unspecified (principal); F17.210 Nicotine dependence, cigarettes, uncomplicated; Z79.899 Other long term (current) drug therapy; I25.110 Atherosclerotic heart disease of native coronary artery with unstable angina pectoris; I10 Essential (primary) hypertension; E78.5 Hyperlipidemia, unspecified; E66.01 Morbid (severe) obesity due to excess calories; Z68.41 Body mass index [BMI] 40.0-44.9, adult; N39.0 Urinary tract infection, site not specified
CPT/HCPCS: 36415; 71045; 80048; 80053; 83690; 84484; 85025; 85347; 85610; 92928; 93005; 93306; 93454; 99152; 99221; 99285; C1725; C1769; C1874; C9600; G0378; J1200; J1644; J1956; J2060; J2250; J2405; J3010; Q9967

== ENCOUNTER 2024-02-02 14:04 | Outpatient (RCR) | payer BC, SELFPAY | END 2024-03-19 15:30 | disposition home or self-care (01) | LOC: PT 14:04 | PROVIDERS: Visit Provider Internal Medicine | DX: I25.118 Atherosclerotic heart disease of native coronary artery with other forms of angina pectoris (principal); Z95.5 Presence of coronary angioplasty implant and graft | CPT/HCPCS: 93798 ==

== ENCOUNTER 2024-05-16 21:34 | Emergency (ER) | payer BC, SELFPAY ==
[2024-05-16 21:41] VITALS: BP 167/103; PULSE 88; RESP 20; TEMP 37.1; O2SAT 97; BMI 38.0
--- NOTE | 2024-05-16 22:05 | PC.NURSE ---
Family states that she has become more confused over past few days State that her speech has been off. Skin pale warm and dry REsp full and tachypnic. Speech clear and appropriate. - FAST exam. MD at bedside at time of triage
[2024-05-16] MEDS: OXYMETAZOLINE NASAL SPRAY 0.05% 15ML NS (22:06)
--- NOTE | 2024-05-16 22:06 | ED_ITS ---
Discharge Plan Disposition Patient Disposition: Home, Self-Care Chief Complaint: Epistaxis Prescriptions Prescriptions: No Action paroxetine HCl 10 mg tablet 10 mg PO DAILY Patient Comments: TAKE 1 TABLET BY MOUTH EVERY DAY epinephrine 0.3 mg/0.3 mL auto-injector 0.3 ml IM ONCE PRN (Reason: Allergic Reaction) albuterol sulfate 90 mcg/actuation HFA aerosol inhaler inhalation nystatin 100,000 unit/gram cream topical amlodipine [Norvasc] 5 mg tablet 5 mg PO DAILY Qty: 30 5RF atorvastatin 40 mg tablet 40 mg PO HS 30 Days Qty: 90 1RF aspirin 81 mg tablet,delayed release (DR/EC) 81 mg PO DAILY 30 Days Qty: 90 1RF prasugrel 10 mg tablet 10 mg PO DAILY 30 Days Qty: 90 1RF losartan 50 MG tablet 50 mg PO DAILY metoprolol succinate 50 MG tablet 50 mg PO DAILY Referrals Follow up/Referrals: Camila Berger [Primary Care Provider] - See instructions Activity Restrictions/Add. Instructions Additional Instructions/Restrictions: Call your family doctor to establish care for this visit to the emergency department and schedule follow-up within 48 hours to ensure improvement. If you have any worsening of your condition or any other concerning signs or symptoms, return to the emergency department or your primary care doctor for further evaluation. If you have another nosebleed, repeat what we did here for 20 minutes. If it continues bleeding, repeat by blowing clots out, oxymetazoline in both nostrils, then clamping for 45 minutes. Clinical Impressions Clinical Impression: Acute anterior epistaxis Instructions Patient Instructions: DI for Nosebleed Print Language Print Language: Pashto Discharge ED Provider: Rodolfo Mccray General Adult HPI General Chief complaint: Epistaxis Stated complaint: nose bleed dizziness Time Seen by Provider: 05/16/24 21:42 Mode of Arrival: Ambulatory Source of Information: Spouse Limitations: No Limitations Description of Symptoms (Recalled from ER Triage Doc. by RN): Pt has nose bleed that started 20 min ago. Pt on blood thinners and has HTN History of Present Illness HPI narrative: Please note that above description of symptoms, in this electronic medical record under categorization of recalled from ER triage doctor by RN are reflective of an initial nursing assessment, however, is not reflective of my full history and physical exam that was personally taken and clarified. Consequentially, this preceding description of symptoms, which may include the patient's categorized chief complaint in the EMR, do not reflect my personal clinical impression, and the ultimate description of history of present illness and patient stated complaints should be deferred to this section of the note. Unless stated otherwise or congruent with this section of the note, additional signs, symptoms, or incongruence should be interpreted as inaccurate with my clinical impression. Related Data Home Medications ?Medication ?Instructions ?Recorded ?Confirmed losartan 50 mg tablet 50 mg PO DAILY 09/26/20 03/14/24 metoprolol succinate 50 mg 50 mg PO DAILY 09/26/20 03/14/24 tablet,extended release 24 hr paroxetine HCl 10 mg tablet 10 mg PO DAILY 10/07/21 03/14/24 epinephrine 0.3 mg/0.3 mL 0.3 ml IM ONCE PRN Allergic 04/08/22 03/14/24 injection, auto-injector Reaction albuterol sulfate 90 mcg/actuation inhalation 01/10/24 03/14/24 aerosol inhaler nystatin 100,000 unit/gram topical topical 02/09/24 03/14/24 cream Previous Rx's ?Medication ?Instructions ?Recorded amlodipine 5 mg tablet (Norvasc) 5 mg PO DAILY #30 tabs 09/23/23 aspirin 81 mg tablet,delayed 81 mg PO DAILY 30 days #90 tabs 02/03/24 release atorvastatin 40 mg tablet 40 mg PO HS 30 days #90 tabs 02/03/24 prasugrel 10 mg tablet 10 mg PO DAILY 30 days #90 tabs 02/03/24 Allergies Allergy/AdvReac Type Severity Reaction Status Date / Time bee venom protein (honey bee) Allergy Severe Anaphylaxis Verified 03/14/24 10:42 Penicillins Allergy Intermediate Unknown Verified 03/14/24 10:42 allergy reaction cephalexin (From Keflex) Allergy Unknown Verified 03/14/24 10:42 allergy reaction Sulfa (Sulfonamide Allergy Hives Verified 03/14/24 10:42 Antibiotics) [facility] Disclaimer: The information contained in this section may have been updated after the patient was seen, as this information can be updated by other users. Medical History LV dysfunction Unstable angina Abnormal findings on diagnostic imaging of heart and coronary circulation Angina pectoris Pain of left lower extremity Cellulitis of breast Abscess of breast Xanthelasma Coronary artery disease Morbid obesity HLD (hyperlipidemia) HTN (hypertension) Surgical History Previous section Hx of cholecystectomy History of appendectomy H/O: hysterectomy Family History Other No significant family history 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 Smoking Status: Current every day smoker tobacco type: cigarettes packs per day: 1 alcohol intake: never current occupational status: employed Travel in the last 8 weeks: None caffeine: Yes Other Medical History Have you received the Flu Vaccine for this season: No Have you received the Pneumonia Vaccine: No ROS Obtained: Yes All systems reviewed & no additional complaints except as documented Physical Exam General General appearance: alert Head Head exam: atraumatic and normocephalic Eye Eye exam: Present normal appearance, PERRL and EOMI ENT ENT exam: Present other (Clot left nostril) Neck Neck exam: Present normal inspection, full ROM and trachea midline Respiratory Respiratory exam: Absent respiratory distress, wheezes, stridor, accessory muscle use or prolonged expiratory phase Cardiovascular Cardiovascular exam: Present other (Pulses equal symmetric in upper and lower extremities) Abdominal Exam Abdominal exam: Present soft; Absent distention, tenderness or pulsatile mass Extremities Exam Extremities exam: Absent edema Neurological Exam Neurological exam: Present alert, oriented X3 and CN II-XII intact; Absent motor sensory deficit Skin Skin exam: Present warm and dry; Absent diaphoresis or erythema Medical Decision Making Medical Records Medical records reviewed: Yes I reviewed the patient's medical records. Screening: Per USPSTF and CDC recommendations, given the prevalence of disease in our region, it is our hospital?s policy to screen for HIV and viral Hepatitis for all patients aged 18 and over and those with ongoing risk factors. Jonathan Inquiry Pt receiving controlled substance: No Jonathan was queried for this patient: No Vital Signs: 05/16/24 21:41 05/16/24 22:15 05/16/24 22:30 Temperature 98.8 F Temperature Source Oral Pulse Rate 84 80 Pulse Rate [Right Brachial] 88 Respiratory Rate 20 Blood Pressure 151/88 H 137/90 Blood Pressure [Right Arm] 167/103 H Blood Pressure Mean [Right Arm] 124 Blood Pressure Source [Right Arm] Automatic Cuff Blood Pressure Position [Right Arm] Sitting 02 Sat by Pulse Oximetry 97 95 95 Oxygen Delivery Method Room Air 05/16/24 22:45 Temperature Temperature Source Pulse Rate 81 Pulse Rate [Right Brachial] Respiratory Rate Blood Pressure Blood Pressure [Right Arm] Blood Pressure Mean [Right Arm] Blood Pressure Source [Right Arm] Blood Pressure Position [Right Arm] 02 Sat by Pulse Oximetry 93 L Oxygen Delivery Method Orders (Tests/Meds): ED MEDICATIONS Discontinued Medications Generic Name Dose Route Start Last Admin Trade Name Andrey PRN Reason Stop Dose Admin Oxymetazoline HCl 1 ml 05/16/24 21:59 05/16/24 22:06 Oxymetazoline Nasal [place] 0.05% 15ml NS 05/16/24 22:00 1 ml ONCE ONE Administration ORDERS Category Date Time Status HIV (1&2) Antibody Rapid Stat Lab 05/16/24 21:44 Ordered Hep C Ab with Reflex to RNA Stat Lab 05/16/24 21:44 Ordered Medical Decision Narrative: 48-year-old female history of hypertension, hyperlipidemia, CAD on aspirin and Plavix presenting with nosebleed. Patient states that just for arrival, she was itching her nose, she has had upper airway congestion symptoms. No fevers or chills. States that she started having epistaxis that has not been able to stop. She has been holding pressure. Came in for further evaluation. No syncope, chest pain, lightheadedness, shortness of breath, or any other associated symptoms.. History was obtained via conversation with patient. On arrival, patient hemodynamically stable, alert, oriented x4, appropriate, GCS 15, moving all extremities spontaneously, pupils equal and reactive to light. Full physical exam performed and significant for large clot in left nostril. No blood running down the back of her throat.. Differential includes anterior epistaxis, among others. Patient placed on continuous cardiac monitoring and continuous pulse ox with initial blood pressure 167/103, heart rate 88, saturation 97% on room air. Labs not deemed necessary at this time, although they were considered. Patient given topical oxymetazoline and nose clip for 20-minute trial. Successful clamp trial. Because patient at baseline without signs or symptoms of clinical decompensation, deemed appropriate for discharge. Results were relayed to patient who voiced understanding and were agreeable to outpatient management and follow up. I discussed my clinical impression with patient and answered all questions. At this time, the evidence for any other entities in the differential is insufficient to warrant any further testing or ED observation. This was explained as well. Advisory was given that persistent or worsening symptoms require further evaluation. I confirmed the understanding of this discussion. Roller Machine Operator disclaimer Much of this encounter note is an electronic roustabout supervisor spoken language to printed text. Electronic roustabout supervisor of the spoken language may permit errors. Although I have reviewed the note, some errors may still exist. Critical Care Critical Care Time Critical Care Time: No
[2024-05-16 22:15] VITALS: BP 151/88; PULSE 84; O2SAT 95
[2024-05-16 22:30] VITALS: BP 137/90; PULSE 80; O2SAT 95
[2024-05-16 22:45] VITALS: PULSE 81; O2SAT 93
[2024-05-16 23:10] VITALS: BP 137/81; PULSE 58; RESP 18; TEMP 36.6; O2SAT 98
== END 2024-05-16 23:12 | disposition home or self-care (01) ==
PROVIDERS: Emergency Provider Emergency Medicine; PCP Family Medicine
DX: R04.0 Epistaxis (principal); R42 Dizziness and giddiness
CPT/HCPCS: 99282

== ENCOUNTER 2024-06-07 22:46 | Emergency (ER) | payer BC, SELFPAY ==
[2024-06-07 23:03] VITALS: BMI 36.1
[2024-06-07 23:04] VITALS: BP 154/91; PULSE 80; RESP 16; TEMP 36.8; O2SAT 96; BMI 36.3
[2024-06-07 23:10] LABS: Microscopic, Urine URINE MICROSCOPIC (MICROSCOPIC)
[2024-06-07 23:25] LABS: Appearance,Urine CLEAR (Clear); Blood, Urine Negative (Negative); Color,Urine ORANGE (Yellow); Glucose,Urine (UA) TRACE (Negative); Ketones,Urine TRACE (Negative); Leukocyte Esterase,Urine Negative (Negative); Nitrate,Urine POSITIVE (Negative); PH,Urine 6.5 (5.0-8.5); Protein,Urine 1+ (Negative); Specific Gravity, Urine 1.025 (1.005-1.030)
--- NOTE | 2024-06-07 23:29 | ECG_ITS ---
APPROVED REPORT Exam: Resting ECG HR:67 bpm ECG Measurements Heart Rate 67 AXES WV 174 P 38 QRSd 82 QRS 0 QT 392 T 13 QTc 408 Conclusion SINUS RHYTHM NORMAL ECG Electronically signed by : SAKINA SIDDIQUI, 06/08/2024 07:00:45
--- NOTE | 2024-06-07 23:29 | XR_ITS ---
PROCEDURE INFORMATION: Exam: XR Chest Exam date and time: 06/07/2024 11:44 PM Age: 48 years old Clinical indication: Pain; Left-sided; Additional info: L cp TECHNIQUE: Imaging protocol: Radiologic exam of the chest. Views: 1 view. COMPARISON: CR XR CHEST PORTABLE 01/02/2024 9:36 PM FINDINGS: Lungs: Unremarkable. No consolidation. Pleural spaces: Unremarkable. No pleural effusion. No pneumothorax. Heart/Mediastinum: Unremarkable. No cardiomegaly. Bones/joints: Unremarkable. IMPRESSION: No acute findings.
--- NOTE | 2024-06-07 23:39 | HMH.EDGENADL ---
Discharge Plan Disposition Patient Disposition: Home, Self-Care Condition: Good Prescriptions Prescriptions: New levofloxacin 750 mg tablet 750 mg PO DAILY 6 Days Qty: 6 0RF No Action paroxetine HCl 10 mg tablet 10 mg PO DAILY Patient Comments: TAKE 1 TABLET BY MOUTH EVERY DAY epinephrine 0.3 mg/0.3 mL auto-injector 0.3 ml IM ONCE PRN (Reason: Allergic Reaction) albuterol sulfate 90 mcg/actuation HFA aerosol inhaler inhalation nystatin 100,000 unit/gram cream topical amlodipine [Norvasc] 5 mg tablet 5 mg PO DAILY Qty: 30 5RF atorvastatin 40 mg tablet 40 mg PO HS 30 Days Qty: 90 1RF aspirin 81 mg tablet,delayed release (DR/EC) 81 mg PO DAILY 30 Days Qty: 90 1RF prasugrel 10 mg tablet 10 mg PO DAILY 30 Days Qty: 90 1RF losartan 50 MG tablet 50 mg PO DAILY metoprolol succinate 50 MG tablet 50 mg PO DAILY Referrals Follow up/Referrals: Camila Berger [Primary Care Provider] - See instructions Activity Restrictions/Add. Instructions Additional Instructions/Restrictions: You were evaluated in the ER and are appropriate for discharge at this time. Take the prescribed Levaquin as directed, do not skip doses, do not stop taking early. Make an appointment with your primary care doctor for reevaluation in a few days. Also call your cotton broker for an appointment and follow-up of chest pain. Return to the ER with new, worsening, or otherwise concerning symptoms. Clinical Impressions Clinical Impression: UTI (urinary tract infection) Instructions Patient Instructions: DI for Urinary Tract Infection (UTI) Print Language Print Language: Moh[place] Discharge ED Provider: Hafsa Márquez General Adult HPI General Chief complaint: Urogenital-Female Stated complaint: Burning,frequency,left shoulder pain Time Seen by Provider: 06/07/24 23:10 Mode of Arrival: Ambulatory Source of Information: Patient Limitations: No Limitations Description of Symptoms (Recalled from ER Triage Doc. by RN): pt c/o pain and burning with urination. pt states this has been ongoing since 06/05. Pt has tried to go to a few [facility]'s but was unable due to the alvaro. She has since started taking AZO and her urine is bright orange. History of Present Illness HPI narrative: 48-year-old female presents to the ER with complaints of 2 days of dysuria, urgency, frequency. She states she was unable to get into [facility] or her primary care doctor due to the holiday. She states she has been taking Azo but this is only slightly relieved her symptoms. She reports tonight she also drank baking soda with water because a friend told her it would help her urinary symptoms. She states since that time she has been having left-sided chest pain and pressure. She does have a cardiac history with multiple stents and a history of hypertension and hyperlipidemia. She states this pain is similar to what she experienced before she needed stents. She has no vomiting or diarrhea, abdominal pain is localized in the suprapubic region, she does not have any back pain or fevers. ROS otherwise negative Related Data Home Medications ?Medication ?Instructions ?Recorded ?Confirmed losartan 50 mg tablet 50 mg PO DAILY 09/26/20 03/14/24 metoprolol succinate 50 mg 50 mg PO DAILY 09/26/20 03/14/24 tablet,extended release 24 hr paroxetine HCl 10 mg tablet 10 mg PO DAILY 10/07/21 03/14/24 epinephrine 0.3 mg/0.3 mL 0.3 ml IM ONCE PRN Allergic 04/08/22 03/14/24 injection, auto-injector Reaction albuterol sulfate 90 mcg/actuation inhalation 01/10/24 03/14/24 aerosol inhaler nystatin 100,000 unit/gram topical topical 02/09/24 03/14/24 cream Previous Rx's ?Medication ?Instructions ?Recorded amlodipine 5 mg tablet (Norvasc) 5 mg PO DAILY #30 tabs 09/23/23 aspirin 81 mg tablet,delayed 81 mg PO DAILY 30 days #90 tabs 02/03/24 release atorvastatin 40 mg tablet 40 mg PO HS 30 days #90 tabs 02/03/24 prasugrel 10 mg tablet 10 mg PO DAILY 30 days #90 tabs 02/03/24 levofloxacin 750 mg tablet 750 mg PO DAILY 6 days #6 tabs 06/08/24 Allergies Allergy/AdvReac Type Severity Reaction Status Date / Time bee venom protein (honey bee) Allergy Severe Anaphylaxis Verified 06/07/24 23:11 Penicillins Allergy Intermediate Unknown Verified 06/07/24 23:11 allergy reaction cephalexin (From Keflex) Allergy Unknown Verified 06/07/24 23:11 allergy reaction Sulfa (Sulfonamide Allergy Hives Verified 06/07/24 23:11 Antibiotics) [facility] Disclaimer: The information contained in this section may have been updated after the patient was seen, as this information can be updated by other users. Medical History LV dysfunction Unstable angina Abnormal findings on diagnostic imaging of heart and coronary circulation Angina pectoris Pain of left lower extremity Cellulitis of breast Abscess of breast Xanthelasma Coronary artery disease Morbid obesity HLD (hyperlipidemia) HTN (hypertension) Surgical History Previous section Hx of cholecystectomy History of appendectomy H/O: hysterectomy Family History Other No significant family history 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 Smoking Status: Current every day smoker tobacco type: cigarettes packs per day: 1 alcohol intake: never current occupational status: employed Travel in the last 8 weeks: None caffeine: Yes Have you lived/traveled outside US in past 30 days?: No Contact w/someone who lives/traveled outside US past 30 days?: No Exposure to someone with infectious disease in past 14 days?: No Do you have a fever (greater than 100.4 F or 38 C)?: No Have you tested positive for COVID-19: No Exposed to someone with COVID-19 in past 14 days?: No Do you have a sore throat?: No Do you have a cough?: No Do you have any weakness?: No Do you have any diarrhea?: No Are you experiencing any unusual bleeding?: No Do you have any muscle aches/pain?: No Do you have any abdominal pain?: No Are you experiencing loss of taste or smell?: No Other Medical History Have you received the Flu Vaccine for this season: No Have you received the Pneumonia Vaccine: No ROS Obtained: Yes Systems reviewed as appropriate & no additional complaints except as documented Per HPI Physical Exam General General appearance: alert and in no apparent distress Head Head exam: atraumatic and normocephalic Eye Eye exam: Present PERRL and EOMI ENT ENT exam: Present mucous membranes moist Neck Neck exam: Present normal inspection and full ROM Chest Chest inspection: Present symmetric chest wall rise Respiratory Respiratory exam: Present normal lung sounds bilaterally; Absent respiratory distress, wheezes or stridor Cardiovascular Cardiovascular exam: Present regular rate and normal rhythm Abdominal Exam Abdominal exam: Present soft and tenderness (Mild suprapubic); Absent distention, guarding or rebound Extremities Exam Extremities exam: Present full ROM Back Exam Back exam: Absent tenderness, CVA tenderness (R) or CVA tenderness (L) Neurological Exam Neurological exam: Present alert and oriented X3; Absent motor sensory deficit Psychiatric Psychiatric exam: Present normal affect and normal mood Skin Skin exam: Present warm and dry Medical Decision Making Medical Records Screening: Per USPSTF and CDC recommendations, given the prevalence of disease in our region, it is our hospital?s policy to screen for HIV and viral Hepatitis for all patients aged 18 and over and those with ongoing risk factors. Jonathan Inquiry Pt receiving controlled substance: No Vital Signs: 06/07/24 23:04 06/08/24 00:00 06/08/24 00:30 Temperature 98.2 F Temperature Source Oral Pulse Rate 70 62 Pulse Rate [Left] 80 Respiratory Rate 16 Blood Pressure 118/67 Blood Pressure [Right Arm] 154/91 H Blood Pressure Mean 88 Blood Pressure Mean [Right Arm] 112 Blood Pressure Source [Right Arm] Automatic Cuff Blood Pressure Position [Right Arm] Sitting 02 Sat by Pulse Oximetry 96 96 96 Oxygen Delivery Method Room Air Room Air 06/08/24 01:00 06/08/24 02:00 06/08/24 02:30 Temperature Temperature Source Pulse Rate 54 L 56 L 53 L Pulse Rate [Left] Respiratory Rate Blood Pressure 147/80 H Blood Pressure [Right Arm] Blood Pressure Mean Blood Pressure Mean [Right Arm] Blood Pressure Source [Right Arm] Blood Pressure Position [Right Arm] 02 Sat by Pulse Oximetry 97 96 97 Oxygen Delivery Method 06/08/24 03:23 Temperature 97.9 F Temperature Source Pulse Rate 72 Pulse Rate [Left] Respiratory Rate 16 Blood Pressure 126/80 Blood Pressure [Right Arm] Blood Pressure Mean Blood Pressure Mean [Right Arm] Blood Pressure Source [Right Arm] Blood Pressure Position [Right Arm] 02 Sat by Pulse Oximetry Oxygen Delivery Method Lab Data Lab Results 06/07/24 23:01: Urine Color [place], Urine Appearance Clear, Urine pH 6.5, Ur Specific [place] 1.025, Urine Protein 1+ A, Urine Glucose (UA) Trace, Urine Ketones Trace, Urine Blood Negative, Urine Nitrate Positive A, Urine Bilirubin 1+ A, Urine Urobilinogen 4.0, Ur Leukocyte Esterase Negative, Urine RBC None, Urine WBC 3-5, Ur Squamous Epith Cells 5-10, Urine Bacteria Trace 06/07/24 23:46: WBC 9.9, RBC 4.73, Hgb 12.6, Hct 38.6, MCV 81.6, MCH 26.6 L, MCHC 32.6, RDW 14.9, Plt Count 268, MPV 10.5 H, Neut % (Auto) 51.8, Lymph % (Auto) 37.0, [place] % (Auto) 6.3, Eos % (Auto) 3.5, Baso % (Auto) 0.9, Neut # (Auto) 5.1, Lymph # (Auto) 3.7, [place] # (Auto) 62.0 H, Eos # (Auto) 0.4, Baso # (Auto) 0.1, Sodium 139, Potassium 3.7, Chloride 106, Carbon Dioxide 26, Anion Gap 10.7, BUN 11, Creatinine 0.60, Estimated Creat Clear 203, Estimated GFR 107, Est GFR ( Amer) 130, Glucose 101 H, Calcium 9.1, Total Bilirubin 0.4, AST 29, ALT 21, Alkaline Phosphatase 88, Troponin I < 0.01, Total Protein 6.4, Albumin 4.1, Globulin 2.3, Albumin/Globulin Ratio 1.8 06/08/24 02:34: Troponin I < 0.01 06/07/24 23:46 06/07/24 23:46 Orders (Tests/Meds): ED MEDICATIONS Discontinued Medications Generic Name Dose Route Start Last Admin Trade Name Surajq PRN Reason Stop Dose Admin Levofloxacin 750 mg 06/07/24 23:54 06/08/24 00:00 Levofloxacin 750 Mg Tablet PO 06/07/24 23:55 750 mg ONCE ONE Administration ORDERS Category Date Time Status CXR --portable [XR chest portable] Stat Exams 06/07/24 23:29 Completed CBC w/Auto Diff [Complete Blood Count Auto Diff] Stat Lab 06/07/24 23:46 Completed CMP [Comprehensive Metabolic Panel] Stat Lab 06/07/24 23:46 Completed Trop I [Troponin I] Stat Lab 06/07/24 23:46 Completed Troponin I Q3H Lab 06/08/24 02:34 Completed UA [Urinalysis and Microscopic] Stat Lab 06/07/24 23:01 Completed Urine Culture Stat Micro 06/07/24 23:01 Received Medical Decision Narrative: In summary, this 48-year-old female with comorbidities described in the HPI presents to the emergency department today with dysuria, urgency, frequency, as well as left-sided chest pain that has been going on for the last couple hours. On initial evaluation patient is hemodynamically stable, afebrile, no reproducible chest pain on exam, cardiopulmonary exam is benign, patient has mild suprapubic tenderness without rebound or guarding, no CVA tenderness. Differential diagnosis includes but is not limited to UTI, considered pyelonephritis but patient has no CVA tenderness or back pain, she is afebrile. I also considered ACS, esophageal spasm, pneumothorax, among others. Based on these concerns, I ordered serum labs, chest x-ray, urine studies. ECG personally interpreted demonstrates normal sinus rhythm, rate 67, normal axis, normal MA and QTc, no STEMI. Labs reviewed and are notable for findings concerning for UTI with few WBCs as well as nitrite positive, trace bacteria. Patient's urine sample is contaminated with squamous cells, however with her symptoms I believe it is appropriate to treat for UTI. She received Levaquin due to antibiotic allergies. Labs also notable for initial troponin undetectably low less than 0.01. Patient was placed into ED observation at 0130 for continued monitoring, serial troponins to rule out evolving AL and preclude unnecessary admission. 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 She did not have any concerning changes in her vitals, chest pain was resolved. Repeat troponin undetectably low less than 0.01. She is appropriate for discharge at this time. I prescribed Levaquin for outpatient management of UTI. Patient was given instructions on symptomatic management, follow up instructions, and return precautions for the emergency department. Patient indicated understanding and was discharged in stable condition. Total time in ED observation: 1 hour 45 minutes Critical Care Critical Care Time Critical Care Time: No
[2024-06-07 23:52] LABS: Bilirubin,Urine 1+ (Negative)
[2024-06-07 23:55] LABS: Bacteria,Urine Trace /lpf
[2024-06-08] VITALS: BP 118/67; PULSE 70; O2SAT 96
[2024-06-08] MEDS: levoFLOXacin 750 MG TABLET PO
[2024-06-08 00:05] LABS: Hemoglobin 12.6 g/dL (12.2-16.2); Red Blood Count 4.73 M/mm3 (4.20-5.40); White Blood Count 9.9 K/mm3 (4.8-10.8)
[2024-06-08 00:06] LABS: Basophils % 0.9 % (0.1-2.0); Eosinophils % 3.5 % (0.1-12.0); Hematocrit 38.6 % (37.0-47.0); Lymphocytes # 3.7 K/mm3 (0.7-4.5); Mean Corpuscular HGB Conc 32.6 g/dL (31.8-35.4); Mean Corpuscular Hemoglobin 26.6 pg (27.0-31.2); Mean Corpuscular Volume 81.6 fl (81-99); Mean Platelet Volume 10.5 fl (7.4-10.4); Monocytes % 6.3 % (1.7-9.3); Neutrophils # 5.1 K/mm3 (1.8-7.8); Neutrophils % 51.8 % (37.0-80.0); Platelet Count 268 K/mm3 (142-424); Red Cell Distribution Width 14.9 % (11.5-17.5)
[2024-06-08 00:07] LABS: Basophils # 0.1 K/mm3 (0-0.2); Eosinophils # 0.4 K/mm3 (0.0-0.4)
[2024-06-08 00:12] LABS: Alanine Aminotransferase 21 U/L (12-78); Albumin Level 4.1 g/dl (3.5-5.0); Albumin/Globulin Ratio 1.8 (1.1-1.8); Alkaline Phosphatase 88 U/L (38-126); Aspartate Amino Transferase 29 U/L (14-36); Bilirubin,Total 0.4 mg/dl (0.2-1.3); Blood Urea Nitrogen 11 mg/dl (7-17); Calcium 9.1 mg/dl (8.4-10.2); Carbon Dioxide 26 mmol/L (22.0-30.0); Chloride 106 mmol/L (98-107); Creatinine Clearance Estimated 203 mL/min (50-200); Estimated Glomerular Filt Rate 107 ml/min (>60); GFR (African American) 130 ML/MIN (>60); Globulin 2.3 g/dL (1.3-3.2); Glucose 101 mg/dl (74-100); Potassium 3.7 mmoL/L (3.5-5.1); Total Protein,Serum 6.4 g/dl (6.3-8.2)
[2024-06-08 00:19] LABS: Anion Gap 10.7 mEq/L (5-15); Sodium 139 mmol/L (136-145)
[2024-06-08 00:30] VITALS: PULSE 62; O2SAT 96
[2024-06-08 00:36] LABS: Troponin I < 0.01 ng/ml (0.00-0.034)
[2024-06-08 01:00] VITALS: BP 147/80; PULSE 54; O2SAT 97
[2024-06-08 02:00] VITALS: PULSE 56; O2SAT 96
[2024-06-08 02:30] VITALS: PULSE 53; O2SAT 97
[2024-06-08 03:09] LABS: Troponin I < 0.01 ng/ml (0.00-0.034)
[2024-06-08 03:23] VITALS: BP 126/80; PULSE 72; RESP 16; TEMP 36.6; O2SAT 97
--- NOTE | 2024-06-10 09:53 | PC.NURSE ---
URINE CULTURE DISCUSSED WITH DR GERBER, APPROPRIATE ABX GIVEN. NO NEW ORDERS
== END 2024-06-08 03:27 | disposition home or self-care (01) ==
PROVIDERS: Emergency Provider Emergency Medicine; PCP Family Medicine
DX: N39.0 Urinary tract infection, site not specified (principal); R30.9 Painful micturition, unspecified; R35.0 Frequency of micturition; R30.0 Dysuria; R07.89 Other chest pain; R10.2 Pelvic and perineal pain
CPT/HCPCS: 71045; 80053; 81001; 84484; 85025; 87086; 87088; 87186; 93005; 99284

== ENCOUNTER 2024-07-10 08:56 | Emergency (ER) | payer BC, SELFPAY ==
[2024-07-10 09:10] VITALS: BP 132/78; PULSE 70; RESP 18; TEMP 36.8; O2SAT 98; BMI 37.7
[2024-07-10 09:15] LABS: Apearance,Urine Cloudy (Clear); Color,Urine Orange (Yellow); Specific Gravity, Urine 1.025 (1.005-1.030)
[2024-07-10 09:16] LABS: Bilirubin,Urine Negative (Negative); Blood, Urine 3+ (Negative); Glucose,Urine (UA) 1+ (Negative); Ketones,Urine TRACE (Negative); Protein,Urine 1+ (Negative); UTC Leukocyte Esterase,Urine 1+ (Negative); UTC Nitrate,Urine Positive (Negative); Urobilinogen,Urine 1 EU/dl (0.2)
--- NOTE | 2024-07-10 09:24 | ED_ITS ---
Discharge Plan Disposition Patient Disposition: Home, Self-Care Condition: Good Prescriptions Prescriptions: New nitrofurantoin monohyd/m-cryst [Macrobid] 100 mg capsule 100 mg PO Q12H 7 Days Qty: 14 0RF Rx Instructions: must administer with a meal/food phenazopyridine [Pyridium] 200 mg tablet 200 mg PO Q8H 2 Days Qty: 6 0RF No Action losartan 50 mg tablet 50 mg PO DAILY Patient Comments: TAKE 1 TABLET BY MOUTH EVERY DAY atorvastatin 40 mg tablet 40 mg PO DAILY Patient Comments: TAKE ONE TABLET BY MOUTH EVERY DAY AT BEDTIME paroxetine HCl 10 mg tablet 10 mg PO DAILY Patient Comments: TAKE 1 TABLET BY MOUTH EVERY DAY metoprolol succinate 50 mg tablet extended release 24 hr 50 mg PO DAILY Patient Comments: TAKE 1 TABLET BY MOUTH EVERY DAY amlodipine 5 mg tablet 5 mg PO DAILY Patient Comments: TAKE 1 TABLET BY MOUTH ONCE DAILY aspirin 81 mg tablet,delayed release (DR/EC) 81 mg PO DAILY Patient Comments: TAKE ONE TABLET BY MOUTH EVERY DAY prasugrel 10 mg tablet 10 mg PO DAILY Patient Comments: TAKE ONE TABLET BY MOUTH EVERY DAY Referrals Follow up/Referrals: Camila Berger [Primary Care Provider] - See instructions Activity Restrictions/Add. Instructions Additional Instructions/Restrictions: Follow up with your Family Doctor as discussed *Increase fluids. Water not Soda or Tea *Start antibiotic immediately and be sure to take as ordered for the FULL length of time although you should start to see improvement over the next 48 hours *Pyridium as needed Remember this medication will turn your urine . This is normal but it will stain what ever it gets on *You should not use Pyridium for more than 48 hours. If so , follow up with your primary physician to review urine culture and ensure that antibiotic is adequate for infection *Be SURE to follow up anytime for new or worsening symptoms with your family doctor. AND in 48 hours for urine culture results with your family doctor, if you do not have a doctor then you may call back to the [facility] for urine culture results and further treatment. We do recommend that you choose and establish care with a Primary Care Physician. ?AND follow up with them ?in 10-14 days to repeat UA to ensure infection is resolved and blood no longer present *Be sure to let your PCP know that we sent urine cultures from the [facility] so they can follow up to ensure that you area the on the correct antibiotic Call your doctor office and make appointment for 48 hours (2 days from today) ?to follow up and get the results of your urine culture and further treatment Clinical Impressions Clinical Impression: UTI (urinary tract infection) Instructions Patient Instructions: Nitrofurantoin, DI for Urinary Tract Infection (UTI) Print Language Print Language: [place] Discharge ED Provider: Veronica Sainz [facility] HPI General Stated complaint: uti Mode of Arrival: Ambulatory Source of Information: Patient Limitations: No Limitations Time Seen by Provider: 07/10/24 09:24 Description of Symptoms (Recalled from Triage Doc. by RN): PATIENT C/O FREQUENCY, BURNING, AND PAIN WITH URINATION THAT STARTED YESTERDAY. HEENT Symptoms (Recalled from RN notes): No Resp Symptoms (Recalled from RN notes): No Skin Symptoms (Recalled from RN notes): No MS Symptoms (Recalled from RN notes): No Functional Status (Recalled from RN notes): WNL History of Present Illness Provider Complaint: Patient states that she has been having burning with urination, with urgency and frequency since yesterday States that she had a UTI about a month ago and had similar symptoms so today when she was still having symptoms she came in to get checked Related Data Home Medications ?Medication ?Instructions ?Recorded ?Confirmed amlodipine 5 mg tablet 5 mg PO DAILY 07/10/24 07/10/24 aspirin 81 mg tablet,delayed 81 mg PO DAILY 07/10/24 07/10/24 release atorvastatin 40 mg tablet 40 mg PO DAILY 07/10/24 07/10/24 losartan 50 mg tablet 50 mg PO DAILY 07/10/24 07/10/24 metoprolol succinate 50 mg 50 mg PO DAILY 07/10/24 07/10/24 tablet,extended release 24 hr paroxetine HCl 10 mg tablet 10 mg PO DAILY 07/10/24 07/10/24 prasugrel 10 mg tablet 10 mg PO DAILY 07/10/24 07/10/24 Previous Rx's ?Medication ?Instructions ?Recorded nitrofurantoin 100 mg PO Q12H 7 days #14 caps 07/10/24 monohydrate/macrocrystals 100 mg capsule (Macrobid) phenazopyridine 200 mg tablet 200 mg PO Q8H pain 2 days #6 tabs 07/10/24 (Pyridium) Allergies Allergy/AdvReac Type Severity Reaction Status Date / Time bee venom protein (honey bee) Allergy Severe Anaphylaxis Verified 07/02/24 09:40 Penicillins Allergy Intermediate Unknown Verified 07/02/24 09:40 allergy reaction cephalexin (From Keflex) Allergy Unknown Verified 07/02/24 09:40 allergy reaction Sulfa (Sulfonamide Allergy Hives Verified 07/02/24 09:40 Antibiotics) Worker's Comp Is this a Worker's Comp case?: No [facility] Disclaimer: The information contained in this section may have been updated after the patient was seen, as this information can be updated by other users. Medical History LV dysfunction Unstable angina Abnormal findings on diagnostic imaging of heart and coronary circulation Angina pectoris Pain of left lower extremity Cellulitis of breast Abscess of breast Xanthelasma Coronary artery disease Morbid obesity HLD (hyperlipidemia) HTN (hypertension) Surgical History Previous section Hx of cholecystectomy History of appendectomy H/O: hysterectomy Family History Other No significant family history 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 Smoking Status: Current every day smoker tobacco type: cigarettes packs per day: 1 alcohol intake: never current occupational status: employed Travel in the last 8 weeks: None caffeine: Yes Have you lived/traveled outside US in past 30 days?: No Contact w/someone who lives/traveled outside US past 30 days?: No Exposure to someone with infectious disease in past 14 days?: No Do you have a fever (greater than 100.4 F or 38 C)?: No Have you tested positive for COVID-19: No Exposed to someone with COVID-19 in past 14 days?: No Do you have a sore throat?: No Do you have a cough?: No Do you have any weakness?: No Do you have any diarrhea?: No Are you experiencing any unusual bleeding?: No Do you have any muscle aches/pain?: No Do you have any abdominal pain?: No Are you experiencing loss of taste or smell?: No ROS Obtained: Yes All systems reviewed & no additional complaints except as documented and Yes Systems reviewed as appropriate & no additional complaints except as documented Constitutional Constitutional: Reports system reviewed and no additional complaints, except as documented, Reports as per HPI, Denies body ache, Denies chills and Denies fever(s) ENT Ears, Nose, Mouth, and Throat: Reports system reviewed and no additional complaints, except as documented and Reports as per HPI Cardiovascular Cardiovascular: Reports system reviewed and no additional complaints, except as documented and Reports as per HPI Respiratory Respiratory: Reports system reviewed and no additional complaints, except as documented and Reports as per HPI Gastrointestinal Gastrointestingal: Reports system reviewed and no additional complaints, except as documented and as per HPI Genitourinary Female Genitourinary: Reports system reviewed and no additional complaints, except as documented, Reports as per HPI, Reports dysuria, Reports urinary frequency and Reports urinary urgency Musculoskeletal Musculoskeletal: Reports system reviewed and no additional complaints, except as documented and Reports as per HPI Physical Exam General General appearance: alert and in no apparent distress Respiratory Respiratory exam: Present normal lung sounds bilaterally; Absent respiratory distress or wheezes Cardiovascular Cardiovascular exam: Present regular rate, normal rhythm and normal heart sounds Abdominal Exam Abdominal exam: Present soft and normal bowel sounds; Absent distention or tenderness Neurological Exam Neurological exam: Present alert, oriented X3 and normal gait Medical Decision Making Medical Records Screening: Per USPSTF and CDC recommendations, given the prevalence of disease in our region, it is our hospital?s policy to screen for HIV and viral Hepatitis for all patients aged 18 and over and those with ongoing risk factors. Jonathan Inquiry Pt receiving controlled substance: No Jonathan was queried for this patient: No Vital Signs: 07/10/24 09:10 Temperature 98.3 F Temperature Source Oral Pulse Rate [Left Brachial] 70 Respiratory Rate 18 Blood Pressure [Left Arm] 132/78 Blood Pressure Mean [Left Arm] 96 Blood Pressure Source [Left Arm] Automatic Cuff Blood Pressure Position [Left Arm] Sitting 02 Sat by Pulse Oximetry 98 Oxygen Delivery Method Room Air Lab Data Lab results reviewed: Yes I reviewed the patient's lab results. Lab Results 07/10/24 09:04: Urine Color [place], Urine Appearance Cloudy, Urine pH 5.0, Ur Specific [place] 1.025, Urine Protein 1+, Urine Glucose (UA) 1+, Urine Ketones Trace, Urine Blood 3+, Urine Nitrate Positive A, Urine Bilirubin Negative, Urine Urobilinogen 1, Ur Leukocyte Esterase 1+ A Orders (Tests/Meds): ORDERS Category Date Time Status Urine Culture Stat Micro 07/10/24 09:00 Received
[2024-07-10 09:34] VITALS: BP 132/78; PULSE 70; RESP 18; TEMP 36.8; O2SAT 98
--- NOTE | 2024-07-13 19:57 | PC.NURSE ---
REVIEWED PATIENT'S URINE CULTURE. PATIENT IS CURRENTLY ON MACROBID, NO CHANGES NEEDED AT THIS TIME
== END 2024-07-10 09:37 | disposition home or self-care (01) ==
PROVIDERS: Emergency Provider Nurse Practitioner; PCP Family Medicine
DX: N30.00 Acute cystitis without hematuria (principal)
CPT/HCPCS: 81003; 87086; 87088; 87186; 99212; G0381

== ENCOUNTER 2024-10-25 20:57 | Emergency (ER) | payer BC, SELFPAY ==
[2024-10-25 21:04] VITALS: BP 165/83; PULSE 100; RESP 18; TEMP 36.6; O2SAT 98; BMI 36.5
[2024-10-25] MEDS: diphenhydrAMINE 50MG/ML VIAL 50 MG IV (21:23)
[2024-10-25] MEDS: FAMOTIDINE 20MG/2ML VIAL 20 MG IV (21:23)
[2024-10-25] MEDS: EPINEPHrine 1 MG/ML AMPUL 0.3 MG IM (21:23)
[2024-10-25] MEDS: SODIUM CHLORIDE 0.9% 10ML VIAL 8 ML IV (21:24)
[2024-10-25] MEDS: DEXAMETHASONE 4MG/ML 1ML VIAL 10 MG IV (21:24)
[2024-10-25 21:29] LABS: Basophils # 0.1 K/mm3 (0-0.2); Basophils % 0.8 % (0.1-2.0); Eosinophils # 0.5 Kmm3 (0.0-0.4); Eosinophils % 3.8 % (0.1-12.0); Hematocrit 42.5 % (37.0-47.0); Hemoglobin 13.7 g/dL (12.2-16.2); Immature Granulocytes # 0.05 10^3uL; Immature Granulocytes % 0.4 %; Lymphocytes # 5.2 K/mm3 (0.7-4.5); Mean Corpuscular HGB Conc 32.2 g/dL (31.8-35.4); Mean Corpuscular Hemoglobin 26.5 pg (27.0-31.2); Mean Corpuscular Volume 82.2 fl (81-99); Mean Platelet Volume 10.4 fl (7.4-10.4); Monocytes # 0.7 K/mm3 (0.1-1.0); Monocytes % 5.7 % (1.7-9.3); Neutrophils # 6.4 K/mm3 (1.8-7.8); Neutrophils % 49.3 % (37.0-80.0); Nucleated Red Blood Cells # 0 10^3/uL; Nucleated Red Blood Cells % 0 %; Platelet Count 319 K/mm3 (142-424); Red Blood Count 5.17 M/mm3 (4.20-5.40); Red Cell Distribution Width 15.5 % (11.5-17.5); Red Cell Distribution Width-SD 46.5 fL
[2024-10-25 21:32] LABS: MANUAL DIFFERENTIAL MANUAL DIFFERENTIAL (MANUAL DIFF)
[2024-10-25 21:34] LABS: Chloride 109 mmol/L (98-107)
[2024-10-25 21:35] LABS: Albumin Level 5.1 g/dl (3.5-5.0); Potassium 4.2 mmoL/L (3.5-5.1); Sodium 140 mmol/L (136-145)
[2024-10-25 21:37] LABS: Alanine Aminotransferase 23 U/L (12-78); Anion Gap 10.2 mEq/L (5-15); Aspartate Amino Transferase 26 U/L (14-36); Blood Urea Nitrogen 17 mg/dl (7-17); Carbon Dioxide 25 mmol/L (22.0-30.0); Creatinine Clearance Estimated 169 mL/min (50-200); Estimated Glomerular Filt Rate 89 ml/min (>60); GFR (African American) 108 ML/MIN (>60)
[2024-10-25 21:38] LABS: Alkaline Phosphatase 111 U/L (38-126); Bilirubin,Total 0.4 mg/dl (0.2-1.3); Calcium 9.7 mg/dl (8.4-10.2); Globulin 2.5 g/dL (1.3-3.2); Glucose 130 mg/dl (74-100); Total Protein,Serum 7.6 g/dl (6.3-8.2)
[2024-10-25 22:34] LABS: Eosinophils % 3 % (0-3); Lymphocytes % 48 % (10-50); Monocytes % 2 % (2-9); Neutrophils % 47 % (42-76); Total Cells Counted 100
[2024-10-25 22:35] LABS: Platelet Estimate Normal; RBC Morphology Normal
--- NOTE | 2024-10-25 23:27 | HMH.EDGENADL ---
Discharge Plan Disposition Patient Disposition: Home, Self-Care Condition: Good Prescriptions Prescriptions: New epinephrine [EpiPen] 0.3 mg/0.3 mL auto-injector 0.3 mg IM Q10M PRN (Reason: anaphylaxis) Qty: 2 0RF Rx Instructions: for 2 doses No Action atorvastatin 40 mg tablet See Rx Instructions .ROUTE .COMPLEX Qty: 90 3RF Dose Instruction: TAKE ONE TABLET BY MOUTH EVERY DAY AT BEDTIME Rx Instructions: TAKE ONE TABLET BY MOUTH EVERY DAY AT BEDTIME prasugrel HCl 10 mg tablet See Rx Instructions .ROUTE .COMPLEX Qty: 90 3RF Dose Instruction: TAKE ONE TABLET BY MOUTH EVERY DAY Rx Instructions: TAKE ONE TABLET BY MOUTH EVERY DAY aspirin 81 mg tablet,delayed release (DR/EC) See Rx Instructions .ROUTE .COMPLEX Qty: 90 1RF Dose Instruction: TAKE ONE TABLET BY MOUTH EVERY DAY Rx Instructions: TAKE ONE TABLET BY MOUTH EVERY DAY amlodipine 5 mg tablet 5 mg PO DAILY Qty: 30 3RF losartan 50 mg tablet 50 mg PO DAILY Patient Comments: TAKE 1 TABLET BY MOUTH EVERY DAY paroxetine HCl 10 mg tablet 10 mg PO DAILY Patient Comments: TAKE 1 TABLET BY MOUTH EVERY DAY metoprolol succinate 50 mg tablet extended release 24 hr 50 mg PO DAILY Patient Comments: TAKE 1 TABLET BY MOUTH EVERY DAY Referrals Follow up/Referrals: Lazarus Velasquez MD [Staff Physician] - See instructions Camila Berger [Primary Care Provider] - See instructions Activity Restrictions/Add. Instructions Additional Instructions/Restrictions: You were evaluated in the emergency department today. We considered prolonged observation in the hospital to make sure you do not have worsening symptoms, but since you are electing to go home it is very important that you monitor for any worsening symptoms. I recommend stopping your losartan for your blood pressure just in case this could have caused this. It is unclear if it is related to the losartan if it could be allergic reaction to something else. Please car pick up driver your prescription for EpiPen and keep on hand as needed for allergic reactions. Call cardiology in the morning to see if they would like to start you on a different blood pressure medication or if they want you to keep taking the losartan. Take Benadryl every 8 hours as needed for symptoms. Return to the emergency department for new or worsening symptoms Clinical Impressions Clinical Impression: Angioedema Stand Alone Forms Stand Alone Forms: Work/School Release Instructions Patient Instructions: DI for Angioedema, DI for Adverse Drug Reaction -- Allergic Print Language Print Language: Upper Sorbian Discharge ED Provider: Isis Bates General Adult HPI General Chief complaint: Allergic Reaction Stated complaint: allergic reaction,eyes,tongue swelling,SOA Time Seen by Provider: 10/25/24 21:11 Mode of Arrival: Ambulatory Source of Information: Patient Description of Symptoms (Recalled from ER Triage Doc. 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 She also notes some swelling to her eyes. She states this feels different from prior anaphylaxis and she does not know of any bee stings, though she was outside today. She is on losartan but denies any prior reaction. No rashes, abdominal pain/cramping, nausea, vomiting, or diarrhea, but she does state that she feels like her chest is a little bit wheezy. Related Data Home Medications ?Medication ?Instructions ?Recorded ?Confirmed losartan 50 mg tablet 50 mg PO DAILY 07/10/24 10/01/24 metoprolol succinate 50 mg 50 mg PO DAILY 07/10/24 10/01/24 tablet,extended release 24 hr paroxetine HCl 10 mg tablet 10 mg PO DAILY 07/10/24 10/01/24 Previous Rx's ?Medication ?Instructions ?Recorded aspirin 81 mg tablet,delayed See Rx Instructions .Route 07/30/24 release .COMPLEX #90 tabs atorvastatin 40 mg tablet See Rx Instructions .Route 07/30/24 .COMPLEX #90 tabs prasugrel HCl 10 mg tablet See Rx Instructions .Route 07/30/24 .COMPLEX #90 tabs amlodipine 5 mg tablet 5 mg PO DAILY #30 tabs 08/31/24 epinephrine 0.3 mg/0.3 mL 0.3 mg (0.3 mL) IM Q10M PRN 10/25/24 injection, auto-injector (EpiPen) anaphylaxis #2 ea Allergies Allergy/AdvReac Type Severity Reaction Status Date / Time bee venom protein (honey bee) Allergy Severe Anaphylaxis Verified 10/01/24 09:37 Penicillins Allergy Intermediate Unknown Verified 10/01/24 09:37 allergy reaction cephalexin (From Keflex) Allergy Unknown Verified 10/01/24 09:37 allergy reaction Sulfa (Sulfonamide Allergy Hives Verified 10/01/24 09:37 Antibiotics) [facility] Disclaimer: The information contained in this section may have been updated after the patient was seen, as this information can be updated by other users. Medical History Angina pectoris SOB (shortness of breath) LV dysfunction Unstable angina Abnormal findings on diagnostic imaging of heart and coronary circulation Pain of left lower extremity Cellulitis of breast Abscess of breast Xanthelasma Coronary artery disease Morbid obesity HLD (hyperlipidemia) HTN (hypertension) Surgical History Previous section Hx of cholecystectomy History of appendectomy H/O: hysterectomy Family History Other No significant family history 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 Smoking Status: Current every day smoker tobacco type: cigarettes packs per day: 1 alcohol intake: never current occupational status: employed Travel in the last 8 weeks?: None caffeine: Yes Have you lived/traveled outside US in past 30 days?: No Contact w/someone who lives/traveled outside US past 30 days?: No Exposure to someone with infectious disease in past 14 days?: No Do you have a fever (greater than 100.4 F or 38 C)?: No Have you tested positive for COVID-19?: No Exposed to someone with COVID-19 in past 14 days?: No Do you have a sore throat?: No Do you have a cough?: No Do you have any weakness?: No Do you have any diarrhea?: No Are you experiencing any unusual bleeding?: No Do you have any muscle aches/pain?: No Do you have any abdominal pain?: No Are you experiencing loss of taste or smell?: No Other Medical History Have you received the Flu Vaccine for this season: No Have you received the Pneumonia Vaccine: Yes ROS Obtained: Yes All systems reviewed & no additional complaints except as documented Physical Exam General General appearance: alert and in no apparent distress Head Head exam: atraumatic and normocephalic Eye Eye exam: Present PERRL and EOMI ENT ENT exam: Present mucous membranes moist, normal external ear exam and other (Mild tongue and bilateral periorbital swelling) Neck Neck exam: Present normal inspection, full ROM and trachea midline; Absent tenderness Chest Chest inspection: Present normal inspection and symmetric chest wall rise; Absent tenderness Respiratory Respiratory exam: Present normal lung sounds bilaterally; Absent respiratory distress, wheezes, stridor or accessory muscle use Cardiovascular Cardiovascular exam: Present regular rate and normal rhythm Abdominal Exam Abdominal exam: Present soft; Absent distention, tenderness or guarding Extremities Exam Extremities exam: Present normal inspection, full ROM and normal capillary refill; Absent tenderness or edema Back Exam Back exam: Present normal inspection and full ROM; Absent tenderness Neurological Exam Neurological exam: Present alert, oriented X3, CN II-XII intact and normal gait; Absent motor sensory deficit Psychiatric Psychiatric exam: Present normal affect and normal mood Skin Skin exam: Present warm and dry Medical Decision Making Medical Records Medical records reviewed: Yes I reviewed the patient's medical records. Screening: Per USPSTF and CDC recommendations, given the prevalence of disease in our region, it is our hospital?s policy to screen for HIV and viral Hepatitis for all patients aged 18 and over and those with ongoing risk factors. Jonathan Inquiry Pt receiving controlled substance: No Vital Signs: 10/25/24 21:04 Temperature 98 F Temperature Source Oral Pulse Rate [Right] 100 H Respiratory Rate 18 Blood Pressure [Right Arm] 165/83 H Blood Pressure Mean [Right Arm] 110 Blood Pressure Source [Right Arm] Manual Cuff/ Doppler Blood Pressure Position [Right Arm] Sitting 02 Sat by Pulse Oximetry 98 Oxygen Delivery Method Room Air Lab Data Lab results reviewed: Yes I reviewed the patient's lab results. Lab Results 10/25/24 21:15: WBC 13.0 H, RBC 5.17, Hgb 13.7, Hct 42.5, MCV 82.2, MCH 26.5 L, MCHC 32.2, RDW 15.5, Plt Count 319, MPV 10.4, Neut % (Auto) 49.3, Lymph % (Auto) 40.0, Fannin % (Auto) 5.7, Eos % (Auto) 3.8, Baso % (Auto) 0.8, Neut # (Auto) 6.4, Lymph # (Auto) 5.2 H, Fannin # (Auto) 0.7, Eos # (Auto) 0.5 H, Baso # (Auto) 0.1, Total Counted 100, Neutrophils % (Manual) 47, Lymphocytes % (Manual) 48, Monocytes % (Manual) 2, Eosinophils % (Manual) 3, Platelet Estimate Normal, RBC Morphology Normal, Sodium 140, Potassium 4.2, Chloride 109 H, Carbon Dioxide 25, Anion Gap 10.2, BUN 17, Creatinine 0.70, Estimated Creat Clear 169, Estimated GFR 89, Est GFR ( Amer) 108, Glucose 130 H, Calcium 9.7, Total Bilirubin 0.4, AST 26, ALT 23, Alkaline Phosphatase 111, Total Protein 7.6, Albumin 5.1 H, Globulin 2.5, Albumin/Globulin Ratio 2.0 H 10/25/24 21:15 10/25/24 21:15 Orders (Tests/Meds): ED MEDICATIONS Generic Name Dose Route Start Last Admin Trade Name Freq PRN Reason Stop Dose Admin Sodium Chloride 8 ml 10/25/24 21:15 10/25/24 21:24 Sodium Chloride 0.9% 10ml Vial IV 11/24/24 21:14 8 ml NEEDED PRN Administration dilute pepcid Discontinued Medications Generic Name Dose Route Start Last Admin Trade Name Freq PRN Reason Stop Dose Admin Dexamethasone Sodium Phosphate 10 mg 10/25/24 21:15 10/25/24 21:24 Dexamethasone 4mg/Ml 1ml Vial IV 10/25/24 21:16 10 mg ONCE ONE Administration Diphenhydramine HCl 50 mg 10/25/24 21:15 10/25/24 21:23 Diphenhydramine 50mg/Ml Vial IV 10/25/24 21:16 50 mg ONCE ONE Administration Epinephrine HCl 0.3 mg 10/25/24 21:15 10/25/24 21:23 Epinephrine 1 Mg/Ml Ampul IM 10/25/24 21:16 0.3 mg ONCE ONE Administration Famotidine 20 mg 10/25/24 21:15 10/25/24 21:23 Famotidine 20mg/2ml Vial IV 10/25/24 21:16 20 mg ONCE ONE Administration ORDERS Category Date Time Status Complete Blood Count Auto Diff Stat Lab 10/25/24 21:15 Completed Comprehensive Metabolic Panel Stat Lab 10/25/24 21:15 Completed Medical Decision Narrative: In summary, this patient is a 49-year-old female presenting to the Emergency Department for evaluation of tongue swelling. Differential diagnoses considered include but are not limited to medication adverse reaction, anaphylaxis to bee sting, other cause of anaphylaxis, bradykinin mediated angioedema. Ruling out the most morbid conditions drove assessment. It should be noted patient's history includes obesity, hypertension, hyperlipidemia, CAD which may not be at goal therapy. This complicates all aspects of care by increasing patient's risk for morbidity. I reviewed patient's past medical records and noted prior cardiology valuations for maintenance of health and blood pressure. On exam, the patient has tongue swelling and mild bilateral periorbital swelling, but otherwise exam is reassuring with no wheezing, stridor, or abdominal symptoms. Vitals are reassuring on cardiac telemetry. She is not in any distress and is conversational without any sort of dyspnea. Workup included CBC and CMP. I considered that this could be related to losartan which she takes, but she does have a history of anaphylaxis to bee stings and has been outside. I elected to treat with IM epinephrine, IV Benadryl, IV dexamethasone, IV Pepcid. On multiple subsequent reassessments, the patient had resolution of symptoms. Labs obtained are reassuring with only mild leukocytosis which is nonspecific. At 2130, patient was placed in ED observation status pending continued monitoring and reassessment to make sure she does not have any rebound symptoms to determine whether or not the patient would be appropriate for discharge versus admission. The patient was provided serial reevaluations and cardiac monitoring while awaiting ultimate disposition. Patient continued to have resolution of symptoms with no recurrence. She states she feels a whole lot better. I feel it is less likely to be related to losartan and more likely to be related to other causes of allergic reaction since it resolved so easily with these medications. I recommended longer observation to ensure no rebound symptoms, however patient states she is very familiar with this and has EpiPen's at home so she feels comfortable going home. Given reassuring workup and exam, it is felt that the patient is appropriate for discharge at 2330. Total ED observation time was 2 hours. She was given prescription for EpiPen, strict return precautions, and instructions for close outpatient follow-up. Advised that she hold the losartan in the meantime just in case and talk to her basket turner to see if they would like to switch this medication. I had a [id number] visit with the patient when providing discharge instructions. The total time involved in discharging this patient was less than 30 minutes. Critical Care Critical Care Time Critical Care Time: Yes Attestation: On 10/25/24, the high probability of a clinically significant, sudden or life threatening deterioration of the following system(s) required my full and direct attention, intervention and personal management. The time I documented below is in addition to time spent performing reported procedures but includes the following listed in this critical care notation. Total Time Total Critical Care Time: 45
[2024-10-25 23:28] VITALS: BP 136/58; PULSE 73; RESP 16; TEMP 36.6; O2SAT 95
== END 2024-10-25 23:30 | disposition home or self-care (01) ==
PROVIDERS: Emergency Provider Emergency Medicine; PCP Family Medicine
DX: T78.3XXA Angioneurotic edema, initial encounter (principal)
CPT/HCPCS: 80053; 85007; 85025; 85027; 96372; 96374; 96375; 99291; J0171; J1100; J1200

== ENCOUNTER 2025-01-10 17:41 | Emergency (ER) | payer OTHER, SELFPAY ==
[2025-01-10] VITALS (9 sets, daily range): BP systolic 126–152; BP diastolic 62–74; PULSE 60–87; RESP 16–21; TEMP 36.4–36.7; O2SAT 95–97; BMI 36.5
--- NOTE | 2025-01-10 17:43 | ECG_ITS ---
APPROVED REPORT Exam: Resting ECG HR:80 bpm ECG Measurements Heart Rate 80 AXES ND 167 P 66 QRSd 89 QRS 75 QT 368 T 51 QTc 404 Conclusion SINUS RHYTHM INDETERMINATE AXIS LOW QRS VOLTAGE IN PRECORDIAL LEADS [QRS DEFLECTION < 1.0 mV IN CHEST LEADS] No STEMI Electronically signed by : SAKINA SIDDIQUI, 01/12/2025 06:41:37
--- OUTSIDE RECORDS SUMMARY | 2025-01-10 17:47 | XMS_ITS | Encounter Summary ---
Author Organization Healthcare Address [address] [place] [address] Care Team Providers Care Can Filling Machine Operator Name Role Phone Camila Berger MD Primary Care Provider [phone] Encounter Details Date Type Department Care Team (Late st Contact Info) Description 03/05/2022 Orders Only External Location [address] [place] [address] Provider, External 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 Tobacco Use Types Packs/Day Years Used Date Smoking Tobacco: Never Assessed Comments Unknown Sex and Gender Information Value Date Recorded Sex Assigned at Not on file Legal Sex Female 8:43 PM EDT Gender Identity Not on file Sexual Orientation Not on file documented as of this encounter Plan of Treatment Not on file documented as of this encounter Procedures Procedure Name Priority Date/Time Associated Diagnosis Comments MAMMOGRAPHY OUTSIDE IMAGES 03/05/2022 11:52 AM EDT documented in this encounter Results * MAMMOGRAPHY OUTSIDE IMAGES (03/05/2022 11:52 AM EDT) Anatomical Region Laterality Modality Breast Mammography 03/05/2022 11:5 2 AM EDT us External Provider IMG BI PROCEDURES Final Result documented in this encounter Visit Diagnoses Not on filedocumented in this encounter Care Teams Can Filling Machine Operator Relationship Specialty Start Date End Date Camila Berger MD [address] [place] [address] [address] [place] [address] PCP - General 10/24/20 documented as of this encounter
--- OUTSIDE RECORDS SUMMARY | 2025-01-10 17:47 | XMS_ITS | Clinical Summary ---
Author Organization [facility] Address [address] [place] [address] Care Team Providers Care Hay Stacker Name Role Phone Camila Berger MD Primary Care Provider + Allergies Active Allergy Reactions Criticality Noted Date Comments Penicillins Anaphylaxis High 04/20/2019 Medications clindamycin (CLEOCIN) 300 MG capsule Take 1 capsule by mouth 4 (Four) Times a Day. 40 capsule 04/20/2019 Active Immunizations Immunization Administration Dates Next Due Tdap 08/06/2023 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 Tobacco Use Types Packs/Day Years Used Date Smoking Tobacco: Never Assessed Abuse Screen Answer Date Recorded Feels Unsafe at Home or Work/School no 08/06/2023 Feels Threatened by Someone no 07/15 Does Anyone Try to Keep You From Having Contact with Others or Doing Things Outside Your Home? no 08/06/2023 Physical Signs of Abuse Present no 08/06/2023 Housing Stability Answer Date Recorded Current Living Arrangements Not on file 02/2023 Potentially Unsafe Housing Conditions Not on fabian e 03/21/2023 Family and Community Support Answer Ildefonso e Recorded Help with Day-to-Day Activities Not on file 03/21/2023 Lonely or Isolated Not on file 03/21/2023 Employment Answer Date Recorded Do you want help finding or keeping work or a yoav b? Not on file 03/21/2023 Disabilities Answer Date Recorded Concentrating, Remembering, or Making Decisions Difficulty Not on file 03/21/2023 Doing Errands Independently Difficulty Not on fi le 03/21/2023 Education Answer Date Recorded Help with school or training? Not on file Preferred Language Not on file 03/21/2023 Comments No Sex and Gender Information Value Date Recorded Sex Assigned at Not on file Legal Sex Female 11:18 AM EDT Gender Identity Not on file Sexual Orientation Not on file Last Filed Vital Signs Vital Sign Reading Time Taken Comments Blood Pressure 138/83 08/06/2023 6:05 PM EST Pulse 80 08/06/2023 6:05 PM EST Temperature 36.9 C (98.5 F) 08/06/2023 6:05 PM EST Respiratory Rate 18 08/06/2023 6:05 PM EST Oxygen Saturation 95% 08/06/2023 6:05 PM EST Inhaled Oxygen Concentration - - Weight 118 kg (260 lb) 08/06/2023 1:45 PM EST Height 175.3 cm (5' 9 ) 08/06/2023 1:45 PM EST Body Mass Index 38.4 08/06/2023 1:45 PM EST Plan of Treatment Health Maintenance Due Date Last Done Comments ANNUAL PHYSICAL 1975 Annual Gynecologic Pelvic and Breast Exam 1975 HEPATITIS C SCREENING 1975 COLON CANCER SCREENING 5 YEAR SIGMOIDOSCOPY [address] COLONOGRAPHY 2021 FECAL OCCULT BLOOD TEST 2021 FIT Testing (1 year) 2021 COVID-19 Vaccine ( season) 2024 01/30/2021, 12/24/2020 INFLUENZA VACCINE 03/13/2025 03/02/2022, , 05/16/2018, Additional history exists COLOGUARD 04/29/2025 04/29/2022 COLORECTAL CANCER SCREENING 04/29/2025 MAMMOGRAM 09/06/2025 09/07/2023, 05/14, 12/23/2016, Additional history exists TDAP/TD VACCINES (3 - Td or Tdap) 08/06/2033 08/06/2023, 02/22/2017 Pneumococcal Vaccine 0-49 Aged Out No longer eligible based on patient's age to complete this topic Insurance [facility] [place] [id number] [facility] Member Subscriber Plan / Payer (Ef fective 2017-Present) Name:Davalosesa Member ID:[id number] Relation to Subscriber:Self Name:Sofi Faulkner Subscriber ID:[id number] Payer ID:[id number] (NAIC) Type:Not on file Address: [address] [place] [address] [place] Care Teams Hay Stacker Relationship Specialty Start Date End Date Camila Berger MD [address] [place] [address] PCP - General Family Medicine 04/20/19
--- OUTSIDE RECORDS SUMMARY | 2025-01-10 17:47 | XMS_ITS | Clinical Summary ---
Author Organization [facility] Address [address] [place] [address] Care Team Providers Care High Energy Forming Equipment Operator Name Role Phone Camila Berger MD Primary Care Provider [phone] Allergies Active Allergy Reactions Criticality Noted Date Comments Sulfamethoxazole-Trime thoprim Hives,Shortness of breath High 08/15/2023 Chest tightness Penicillins Shortness of breath High 12/28/2022 Pt was given Ancef and tolerated well on 08/06/23. Pt states she was told this allergy from childhood. Medications amLODIPine (Norvasc) 5 MG tablet Take 1 tablet (5 mg) by mouth 1 (one) time each day. Active atorvastatin (Lipitor) 20 MG tablet 1 (one) time each day in the evening. Active losartan (Cozaar) 50 MG tablet Take 1 tablet (50 mg) by mouth 1 (one) time each day. 3 Active metoprolol succinate XL (Toprol-XL) 50 MG 24 hr tablet Take 1 tablet (50 mg) by mouth 1 (one) time each day. 3 Active PARoxetine (Paxil) 10 MG tablet Take 1 tablet (10 mg) by mouth 1 (one) time each day. 3 Active albuterol (Ventolin HFA) 108 (90 Base) MCG/ACT inhaler Inhale 2 puffs every 4 (four) hours if needed. Active EPINEPHrine (Epipen) 0.3 MG/0.3ML injection syringe See administration instructions. Active nystatin (Mycostatin) cream Apply 1 Application topically 2 (two) times a day. Active Active Problems Problem Noted Date Diagnosed Date Toe pain, right 10/24/2023 Open nondisplaced fracture o f lesser toe of right foot with routine healing 09/12/2023 Open wound 09/12/2023 Family History Medical History Relation Name Comments Breast cancer Maternal Grandmother Diabetes Mother Hypertension Mother Relation Name Status Comments Maternal Grandmother Mother 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 Tobacco Use Types Packs/Day Years Used Date Smoking Tobacco: Every Day Cigarettes 0.8 20 Started: 2021 Smokeless Tobacco: Never Tobacco Cessation:Ready to Q uit: Not Asked; Counseling Given: Yes Alcohol Use Standard Drinks/Week Comments Never 0 (1 standard drink = 0.6 oz pur e alcohol) PHQ-2 Answer Date Recorded Patient Health Questionnaire-2 Score 0 08/15/2023 Comments No Sex and Gender Information Value Date Recorded Sex Assigned at Not on file Legal Sex Female 8:43 PM EDT Gender Identity Not on file Sexual Orientation Not on file Last Filed Vital Signs Vital Sign Reading Time Taken Comments Blood Pressure 110/72 10/24/2023 10:37 AM EDT Pulse 72 10/24/2023 10:37 AM EDT Temperature 37.2 C (98.9 F) 10/24/2023 10:37 AM EDT Respiratory Rate 16 09/12/2023 10:29 AM EDT Oxygen Saturation 96% 09/22/2023 2:04 PM EDT Inhaled Oxygen Concentration - - Weight 126 kg (277 lb 9 oz) 10/24/2023 10:37 AM EDT Height 172.7 cm (5' 7.99 ) 10/24/2023 10:37 AM E DT Body Mass Index 42.21 10/24/2023 10:37 AM EDT Plan of Treatment Health Maintenance Due Date Last Done Comments [facility]-HIV Screening 1975 [facility]-Hepatitis C Screening 1976 [facility]-Infant/Child/Adol SDOH Screenings 1976 [facility]- SDOH Screenings 1994 [facility]-Adult SDOH Screenings 1994 [facility]-Hepatitis B Vaccines (1 of 3 - 19+ 3-dose series) 10/14/1995 CT Colonography 2021 Colonoscopy 2021 FIT-DNA 2021 FIT 2021 FOBT 2021 Sigmoidoscopy 2021 [facility]-Colorectal Cancer Screening 2021 [id number] Vaccine (3 - season) 2024 01/30/2021, 12/24/2020 [facility]-Depression Screening 08/14/2024 08/15/2023 [facility]-Influenza Vaccine (#1) 02/11/202503/02, 04/18/2020, 05/16/2018, Additional history exists [facility]-Zoster Vaccines (1 of 2) 2026 [facility]-DTaP,Tdap,and Td Vaccines (3 - Td or Tdap) 08/06/2033 08/06/2023, 02/22/2017 [facility]-Hepatitis A Vaccines Aged Out 05/16/2018 No longer eligible based on patient's age to complete this topic [facility]-Obesity Intervention Completed 024, 09/12/2023, 08/15/2023 HPV Vaccines Aged Out No longer eligi ble based on patient's age to complete this topic [facility]-HIB Vaccines Aged Out No longer e ligible based on patient's age to complete this topic [facility]-IPV Vaccines Aged Out No longer e ligible based on patient's age to complete this topic [facility]-Pneumococcal Vaccine: Pediatrics (0 to 5 Years) and At-Risk Patients (6 to 49 Years) Aged Out No longer eligible based on patient's age to complete this topic [facility]-Rotavirus Vaccines Aged Out No lo nger eligible based on patient's age to complete this topic Insurance [id number] [place] [id number] [facility] Care Teams High Energy Forming Equipment Operator Relationship Specialty Start Date End Date Camila Berger MD [address] [place] [address] [address] [place] [address] PCP - General 10/24/20
--- NOTE | 2025-01-10 18:35 | XR_ITS ---
PROCEDURE INFORMATION: Exam: XR Chest Exam date and time: 01/10/2025 6:40 PM Age: 49 years old Clinical indication: Pain; Chest pressure; Additional info: L chest pain TECHNIQUE: Imaging protocol: Radiologic exam of the chest. Views: 2 views. COMPARISON: CR XR CHEST PORTABLE 06/07/2024 11:44 PM FINDINGS: Lungs: Unremarkable. No consolidation. Pleural spaces: Unremarkable. No pleural effusion. No pneumothorax. Heart/Mediastinum: Unremarkable. No cardiomegaly. Bones/joints: Unremarkable. IMPRESSION: No acute findings.
--- NOTE | 2025-01-10 18:38 | [facility].EDCP ---
Discharge Plan Disposition Patient Disposition: Home, Self-Care Condition: Good Prescriptions Prescriptions: No Action metoprolol succinate 50 mg tablet extended release 24 hr 50 mg PO DAILY Qty: 90 3RF fluticasone propionate [Flonase Allergy Relief] 50 mcg/actuation spray,suspension 1 spray intranasal DAILY Qty: 16 2RF Rx Instructions: administer into each nostril twice a day for a week then once daily. atorvastatin 40 mg tablet See Rx Instructions .ROUTE .COMPLEX Qty: 90 3RF Dose Instruction: TAKE ONE TABLET BY MOUTH EVERY DAY AT BEDTIME Rx Instructions: TAKE ONE TABLET BY MOUTH EVERY DAY AT BEDTIME prasugrel HCl 10 mg tablet See Rx Instructions .ROUTE .COMPLEX Qty: 90 3RF Dose Instruction: TAKE ONE TABLET BY MOUTH EVERY DAY Rx Instructions: TAKE ONE TABLET BY MOUTH EVERY DAY aspirin 81 mg tablet,delayed release (DR/EC) See Rx Instructions .ROUTE .COMPLEX Qty: 90 1RF Dose Instruction: TAKE ONE TABLET BY MOUTH EVERY DAY Rx Instructions: TAKE ONE TABLET BY MOUTH EVERY DAY amlodipine 10 mg tablet 10 mg PO DAILY Qty: 90 3RF paroxetine HCl 10 mg tablet 10 mg PO DAILY Patient Comments: TAKE 1 TABLET BY MOUTH EVERY DAY epinephrine [EpiPen] 0.3 mg/0.3 mL auto-injector 0.3 mg IM Q10M PRN (Reason: anaphylaxis) Qty: 2 0RF Rx Instructions: for 2 doses Referrals Follow up/Referrals: Provider,MD Leona [Primary Care Provider, Medical] - See instructions Nestor Watts MD [Staff Physician, Cardiology] - See instructions Activity Restrictions/Add. Instructions Additional Instructions/Restrictions: You were evaluated in the emergency department today. At this time, your workup is reassuring and it does not look like you have any acute heart attack or stress or strain on your heart. It is possible your pain is musculoskeletal. Try taking Tylenol and ibuprofen every 4-6 hours as needed for pain. Follow-up closely with your primary care provider as well as with cardiology. Return to the emergency department for new or worsening symptoms. Clinical Impressions Clinical Impression: Chest pain, Acute pain of left shoulder Stand Alone Forms Stand Alone Forms: Work/School Release Instructions Patient Instructions: DI for Atypical Chest Pain, DI for Shoulder Pain, DI for Chest Pain Print Language Print Language: Bahamian Discharge ED Provider: Isis Bates [facility] General Chief Complaint: Chest Pain Stated Complaint: chest pain Time Seen by Provider: 01/10/25 18:15 Mode of Arrival: Ambulatory Source of Information: Patient and Spouse Description of Symptoms (Recalled from ER Triage Doc. by RN): pt states she hasnt felt well for a week with fatigue then today at 1600 began having pain under left breasrt that radiated into shouler and down left arm with fingertip numbness History of Present Illness HPI narrative: This patient is a 49-year-old female with a history of hypertension, hyperlipidemia, CAD status post stenting, tobacco dependence, obesity presenting to the emergency department for evaluation with concern for fatigue for 1 week and generally feeling unwell. She states that he feels like the floor is uneven and she just does not feel right. She states she feels disoriented. She notes that today, she started having chest pain around 4:00 PM that was on her left breast radiating into her shoulder, and down her left arm with numbness and tingling. She does note that she saw urgent treatment 01/02/2025 for similar symptoms and was told that she had an ear effusion and fluid behind her ear. She notes that she was having ear and neck pain at that time and thinks she might of slept on her neck wrong, but she is not sure. She was told if symptoms worsen, to come to the emergency department. No headache, vision change, unilateral weakness, true gait disturbance. No fever. She has had mild cough and congestion Related Data Home Medications ?Medication ?Instructions ?Recorded ?Confirmed paroxetine HCl 10 mg tablet 10 mg PO DAILY 07/10/24 01/02/25 Previous Rx's ?Medication ?Instructions ?Recorded aspirin 81 mg tablet,delayed See Rx Instructions .Route 07/30/24 release .COMPLEX #90 tabs atorvastatin 40 mg tablet See Rx Instructions .Route 07/30/24 .COMPLEX #90 tabs prasugrel HCl 10 mg tablet See Rx Instructions .Route 07/30/24 .COMPLEX #90 tabs epinephrine 0.3 mg/0.3 mL 0.3 mg (0.3 mL) IM Q10M PRN 10/25/24 injection, auto-injector (EpiPen) anaphylaxis #2 ea amlodipine 10 mg tablet 10 mg PO DAILY #90 tabs 11/29/24 metoprolol succinate 50 mg 50 mg PO DAILY #90 tabs 12/26/24 tablet,extended release 24 hr fluticasone propionate 50 1 spray intranasal DAILY #16 grams 01/02/25 mcg/actuation nasal spray,suspension (Flonase Allergy Relief) Allergies Allergy/AdvReac Type Severity Reaction Status Date / Time bee venom protein (honey bee) Allergy Severe Anaphylaxis Verified 01/02/25 16:36 losartan Allergy Severe throat and Verified 01/02/25 16:36 lip swelling Penicillins Allergy Intermediate Unknown Verified 01/02/25 16:36 allergy reaction cephalexin (From Keflex) Allergy Unknown Verified 01/02/25 16:36 allergy reaction Sulfa (Sulfonamide Allergy Hives Verified 01/02/25 16:36 Antibiotics) [facility] Disclaimer: The information contained in this section may have been updated after the patient was seen, as this information can be updated by other users. Medical History Angina pectoris SOB (shortness of breath) LV dysfunction Unstable angina Abnormal findings on diagnostic imaging of heart and coronary circulation Pain of left lower extremity Cellulitis of breast Abscess of breast Xanthelasma Coronary artery disease Morbid obesity HLD (hyperlipidemia) HTN (hypertension) Surgical History Previous section Hx of cholecystectomy History of appendectomy H/O: hysterectomy Family History Other No significant family history 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 Smoking Status: Current every day smoker tobacco type: cigarettes packs per day: 1 alcohol intake: never current occupational status: employed Travel in the last 8 weeks?: None caffeine: Yes Have you lived/traveled outside [place] in past 30 days?: No Contact w/someone who lives/traveled outside [place] past 30 days?: No Exposure to someone with infectious disease in past 14 days?: No Do you have a fever (greater than 100.4 F or 38 C)?: No Have you tested positive for COVID-19?: No Exposed to someone with COVID-19 in past 14 days?: No Do you have a sore throat?: No Do you have a cough?: No Do you have any weakness?: No Do you have any diarrhea?: No Are you experiencing any unusual bleeding?: No Do you have any muscle aches/pain?: No Do you have any abdominal pain?: No Are you experiencing loss of taste or smell?: No Other Medical History Have you received the Flu Vaccine for this season: No Have you received the Pneumonia Vaccine: Yes ROS Obtained: Yes All systems reviewed & no additional complaints except as documented Physical Exam General General appearance: alert and in no apparent distress Head Head exam: atraumatic and normocephalic Eye Eye exam: Present normal appearance, PERRL and EOMI ENT ENT exam: Present normal exam, normal oropharynx, mucous membranes moist and normal external ear exam Neck Neck exam: Present normal inspection, full ROM and trachea midline; Absent tenderness Chest Chest inspection: Present symmetric chest wall rise and tenderness (Left upper chest wall tenderness going up into the anterior left shoulder.) Respiratory Respiratory exam: Present normal lung sounds bilaterally; Absent respiratory distress, wheezes, stridor or accessory muscle use Cardiovascular Cardiovascular exam: Present regular rate and normal rhythm Abdominal Exam Abdominal exam: Present soft; Absent distention, tenderness or guarding Extremities Exam Extremities exam: Present full ROM, tenderness (Left shoulder muscle tenderness) and normal capillary refill; Absent edema Back Exam Back exam: Present normal inspection and full ROM; Absent tenderness Neurological Exam Neurological exam: Present alert, oriented X3, CN II-XII intact and normal gait; Absent motor sensory deficit Psychiatric Psychiatric exam: Present normal affect and normal mood Skin Skin exam: Present warm and dry HEART Score HEART Score HEART Score assessment performed?: Yes History (anamnesis): Slightly suspicious ECG: Normal Age: 45-65 years Risk factors: Atherosclerosis history Troponin: </= normal limit HEART Score: 3 Critical Care Critical Care Time Critical Care Time: No Medical Decision Making Jonathan Inquiry Pt receiving controlled substance: No Vital Signs Vital Signs: 01/10/25 17:48 01/10/25 17:53 01/10/25 19:01 Temperature 98.1 F Temperature Source Oral Pulse Rate 68 63 Pulse Rate [Left Radial] 68 Respiratory Rate 20 21 Blood Pressure 126/62 Blood Pressure [Right Arm] 152/65 H Blood Pressure Mean Blood Pressure Mean [Right Arm] 94 02 Sat by Pulse Oximetry 97 95 Oxygen Delivery Method Room Air Room Air 01/10/25 19:31 01/10/25 20:01 01/10/25 20:31 Temperature Temperature Source Pulse Rate 61 61 61 Pulse Rate [Left Radial] Respiratory Rate 16 18 16 Blood Pressure 135/69 134/74 134/68 Blood Pressure [Right Arm] Blood Pressure Mean Blood Pressure Mean [Right Arm] 02 Sat by Pulse Oximetry 97 96 97 Oxygen Delivery Method Room Air Room Air 01/10/25 21:31 01/10/25 22:01 01/10/25 22:06 Temperature 97.6 F 97.9 F Temperature Source Pulse Rate 60 61 87 Pulse Rate [Left Radial] Respiratory Rate 18 16 18 Blood Pressure 134/70 132/74 132/74 Blood Pressure [Right Arm] Blood Pressure Mean 91 82 Blood Pressure Mean [Right Arm] 02 Sat by Pulse Oximetry 97 96 Oxygen Delivery Method Room Air Lab Data Labs: Lab Results 01/10/25 17:48: WBC 13.2 H, RBC 4.76, Hgb 12.9, Hct 39.4, MCV 82.8, MCH 27.1, MCHC 32.7, RDW 15.4, Plt Count 296, MPV 10.5 H, Neut % (Auto) 50.7, Lymph % (Auto) 37.7, [place] % (Auto) 6.4, Eos % (Auto) 4.2, Baso % (Auto) 0.7, Neut # (Auto) 6.7, Lymph # (Auto) 5.0 H, [place] # (Auto) 0.9, Eos # (Auto) 0.6 H, Baso # (Auto) 0.1, Total Counted 100, Neutrophils % (Manual) 56, Lymphocytes % (Manual) 34, Monocytes % (Manual) 5, Eosinophils % (Manual) 5 H, Platelet Estimate Normal, RBC Morphology Normal, Hypochromasia 1+, Sodium 140, Potassium 4.2, Chloride 108 H, Carbon Dioxide 25, Anion Gap 11.2, BUN 17, Creatinine 0.80, Estimated Creat Clear 148, Estimated GFR 77, Est GFR ( Amer) 93, Glucose 100, Calcium 9.6, Magnesium 2.0, Total Bilirubin 0.2, AST 27, ALT 19, Alkaline Phosphatase 98, Troponin I < 0.01, NT-Pro-B Natriuret Pep 59.1, Total Protein 7.1, Albumin 4.5, Globulin 2.6, Albumin/Globulin Ratio 1.7, Lipase 75, TSH 1.43, Thyroxine (T4) 11.0 01/10/25 18:48: SARS-CoV-2 (PCR) Not detected, Influenza A Untype (PCR) Not detected, Influenza Type B (PCR) Not detected 01/10/25 20:53: Troponin I < 0.01 01/10/25 17:48 01/10/25 17:48 Response Orders (Tests/Meds): ED MEDICATIONS Discontinued Medications Generic Name Dose Route Start Last Admin Trade Name Andrey PRN Reason Stop Dose Admin Lactated Ringer's 1,000 mls @ 999 mls/hr 01/10/25 18:36 01/10/25 18:45 Lactated Ringer's 1000 Ml Bag IV 01/10/25 19:36 999 mls/hr .Q1H1M ONE Administration Ketorolac Tromethamine 15 mg 01/10/25 18:36 01/10/25 18:45 Ketorolac 30mg/Ml Vial IV 01/10/25 18:37 15 mg ONCE ONE Administration Ondansetron HCl 4 mg 01/10/25 18:36 01/10/25 18:45 Ondansetron 4mg/2ml Vial IV 01/10/25 18:37 4 mg ONCE ONE Administration ORDERS Category Date Time Status CXR 2 view (NOT portable) [XR chest 2V] Stat Exams 01/10/25 18:35 Completed BNP [NT Pro Brain Natriuretic Pep.] Stat Lab 01/10/25 17:48 Completed Complete Blood Count Auto Diff Stat Lab 01/10/25 17:48 Completed Comprehensive Metabolic Panel Stat Lab 01/10/25 17:48 Completed Lipase Stat Lab 01/10/25 17:48 Completed MAG [Magnesium] Stat Lab 01/10/25 17:48 Completed Rapid PCR Covid and Flu A/B Stat Lab 01/10/25 18:48 Completed T4 (Thyroxine) Stat Lab 01/10/25 17:48 Completed TSH [Thyroid Stimulating Hormone] Stat Lab 01/10/25 17:48 Completed Trop I [Troponin I] Stat Lab 01/10/25 17:48 Completed Troponin I Q3H Lab 01/10/25 20:53 Completed ECG Data Tracing #1: Attestation: I reviewed this ECG and interpreted as documented below: ECG Narrative: Normal sinus rhythm with ventricular of [address] changes concerning for STEMI. Normal axis and interval ECG initial impression date: 01/10/25 ECG initial impression time: 17:45 MDM Narrative Medical Decision Narrative: In summary, this patient is a 49-year-old female presenting to the Emergency Department for evaluation of left-sided chest pain going down her left arm. She also has multiple other complaints including fatigue, feelings of disorientation differential diagnoses considered include but are not limited to musculoskeletal strain/sprain, ACS, dysrhythmia, GERD, costochondritis, unstable angina, pneumonia, pleurisy, viral syndrome. Ruling out the most morbid conditions drove assessment. It should be noted patient's history includes hypertension, hyperlipidemia, CAD, tobacco abuse, obesity which may or may not be at goal therapy. This complicates all aspects of care by increasing patient's risk for morbidity. I reviewed patient's past medical records and noted evaluation by [facility] and diagnosis of eustachian tube dysfunction as detailed in HPI. On exam, the patient is sitting upright in no acute distress. Her pain is reproducible with palpation, so I feel it could very well be musculoskeletal. She does have cardiac history, however.. Cardiopulmonary exam is reassuring. She is neurologically intact with reassuring vitals on cardiac telemetry. Workup included CBC, CMP, lipase, troponin, TSH, T4, magnesium, viral swab, chest x-ray, EKG. She is PERC negative for pulmonary embolus. Patient was given a bolus of IV fluids as well as IV Toradol and Zofran for symptomatic improvement. I independently interpreted chest x-ray prior to the radiologist read and noted no large focal consolidation, no pneumothorax. Please see their read for final interpretation. Labs were obtained that demonstrated mild leukocytosis, which appears to be chronic based on lab evaluation. I recommend close PCP follow-up. Troponins negative x 2. Chemistry otherwise reassuring with reassuring thyroid studies, kidney function, liver enzymes. On reassessment, patient had improvement after Toradol. It is possible her symptoms could be muscular in nature, but I feel we have excluded acute life-threatening pathology as a cause of her symptoms currently. I feel she is appropriate for discharge with close PCP and cardiology follow-up. Strict return precautions were given
[2025-01-10 18:43] LABS: Hematocrit 39.4 % (37.0-47.0); Hemoglobin 12.9 g/dL (12.2-16.2); Immature Granulocytes % 0.3 %; Mean Corpuscular HGB Conc 32.7 g/dL (31.8-35.4); Mean Corpuscular Hemoglobin 27.1 pg (27.0-31.2); Mean Corpuscular Volume 82.8 fl (81-99); Nucleated Red Blood Cells % 0 %; Platelet Count 296 K/mm3 (142-424); Red Blood Count 4.76 M/mm3 (4.20-5.40); Red Cell Distribution Width-SD 46.3 fL; White Blood Count 13.2 K/mm3 (4.8-10.8)
[2025-01-10] MEDS: KETOROLAC 30MG/ML VIAL 15 MG IV (18:45)
[2025-01-10] MEDS: ONDANSETRON 4MG/2ML VIAL 4 MG IV (18:45)
[2025-01-10] MEDS: LACTATED RINGERS 1000ML 1,000 ML 999 ML IV (18:45)
[2025-01-10 18:51] LABS: Coronavirus 19, PCR Not Detected (NotDetected); Influenza A, PCR Not Detected (NotDetected); Influenza B, PCR Not Detected (NotDetected)
[2025-01-10 18:53] LABS: Alanine Aminotransferase 19 U/L (12-78); Albumin Level 4.5 g/dl (3.5-5.0); Albumin/Globulin Ratio 1.7 (1.1-1.8); Alkaline Phosphatase 98 U/L (38-126); Anion Gap 11.2 mEq/L (5-15); Aspartate Amino Transferase 27 U/L (14-36); Bilirubin,Total 0.2 mg/dl (0.2-1.3); Blood Urea Nitrogen 17 mg/dl (7-17); Calcium 9.6 mg/dl (8.4-10.2); Carbon Dioxide 25 mmol/L (22.0-30.0); Chloride 108 mmol/L (98-107); Creatinine Clearance Estimated 148 mL/min (50-200); Creatinine,Serum 0.80 mg/dl (0.52-1.04); Estimated Glomerular Filt Rate 77 ml/min (>60); GFR (African American) 93 ML/MIN (>60); Globulin 2.6 g/dL (1.3-3.2); Glucose 100 mg/dl (74-100); Lipase 75 U/L (23-300); Magnesium 2.0 mg/dl (1.6-2.3); Potassium 4.2 mmoL/L (3.5-5.1); Sodium 140 mmol/L (136-145); Total Protein,Serum 7.1 g/dl (6.3-8.2)
[2025-01-10 19:02] LABS: NT Pro Brain Natriuretic Pep. 59.1 pg/mL (0-125)
[2025-01-10 19:07] LABS: Troponin I < 0.01 ng/ml (0.00-0.034)
[2025-01-10 19:11] LABS: T4 (Thyroxine) 11.0 ug/dl (5.53-11.0)
[2025-01-10 19:22] LABS: Hypochromasia 1+; RBC Morphology Normal; Total Cells Counted 100
[2025-01-10 19:24] LABS: Thyroid Stimulating Hormone 1.43 uIU/mL (0.465-4.68)
[2025-01-10 21:53] LABS: Troponin I < 0.01 ng/ml (0.00-0.034)
== END 2025-01-10 22:11 | disposition home or self-care (01) ==
PROVIDERS: Emergency Provider Emergency Medicine
DX: R07.9 Chest pain, unspecified (principal); M25.512 Pain in left shoulder; F17.210 Nicotine dependence, cigarettes, uncomplicated; I10 Essential (primary) hypertension; E78.5 Hyperlipidemia, unspecified; Z86.79 Personal history of other diseases of the circulatory system; Z95.5 Presence of coronary angioplasty implant and graft
CPT/HCPCS: 71046; 80053; 83690; 83735; 83880; 84436; 84443; 84484; 85007; 85025; 85027; 87636; 93005; 96361; 96374; 96375; 99285; J1885; J2405; J7120

== ENCOUNTER 2025-01-29 13:37 | Emergency (ER) | payer OTHER, SELFPAY ==
[2025-01-29] VITALS (8 sets, daily range): BP systolic 111–151; BP diastolic 61–81; PULSE 64–81; RESP 16; TEMP 36.6–36.8; O2SAT 95–98; BMI 36.5
--- NOTE | 2025-01-29 13:38 | ECG_ITS ---
APPROVED REPORT Exam: Resting ECG HR:81 bpm ECG Measurements Heart Rate 81 AXES NE 173 P 58 QRSd 69 QRS 4 QT 350 T 32 QTc 387 Conclusion Normal sinus rhythm Normal axis Normal intervals No STEMI Electronically signed by : Jeevan Patel, 01/29/2025 16:21:33
--- NOTE | 2025-01-29 13:39 | XR_ITS ---
FINAL REPORT CLINICAL HISTORY: Shortness of breath and chest pain COMPARISON: 06/07/2024 FINDINGS: The heart size is normal. The mediastinum is normal. There is no focal infiltrate or edema. There are no pleural effusions. There is no pneumothorax. There is no osseous abnormality. IMPRESSION: No acute cardiopulmonary process Reviewed, Interpreted and Dictated by Marcelo Rocha MD Transcribed by Jennifer Garcia Authenticated and [facility]
--- NOTE | 2025-01-29 13:50 | ED_ITS ---
<Statement entered by Jeevan Patel DO - 01/31/25 10:37> I was consulted by the DANIELA, and we discussed the complexity of problems being addressed. I approved the treatment and management plan for this patient's care in the emergency department, thus performing a substantive portion of the medical decision making. Jeevan Patel DO Discharge Plan Disposition Patient Disposition: Home, Self-Care Condition: Good Prescriptions Prescriptions: No Action metoprolol succinate 50 mg tablet extended release 24 hr 50 mg PO DAILY Qty: 90 3RF fluticasone propionate [Flonase Allergy Relief] 50 mcg/actuation spray,suspension 1 spray intranasal DAILY Qty: 16 2RF Rx Instructions: administer into each nostril twice a day for a week then once daily. isosorbide mononitrate 30 mg tablet extended release 24 hr 30 mg PO DAILY Qty: 30 2RF atorvastatin 40 mg tablet See Rx Instructions .ROUTE .COMPLEX Qty: 90 3RF Dose Instruction: TAKE ONE TABLET BY MOUTH EVERY DAY AT BEDTIME Rx Instructions: TAKE ONE TABLET BY MOUTH EVERY DAY AT BEDTIME prasugrel HCl 10 mg tablet See Rx Instructions .ROUTE .COMPLEX Qty: 90 3RF Dose Instruction: TAKE ONE TABLET BY MOUTH EVERY DAY Rx Instructions: TAKE ONE TABLET BY MOUTH EVERY DAY aspirin 81 mg tablet,delayed release (DR/EC) See Rx Instructions .ROUTE .COMPLEX Qty: 90 1RF Dose Instruction: TAKE ONE TABLET BY MOUTH EVERY DAY Rx Instructions: TAKE ONE TABLET BY MOUTH EVERY DAY amlodipine 10 mg tablet 10 mg PO DAILY Qty: 90 3RF paroxetine HCl 10 mg tablet 10 mg PO DAILY Patient Comments: TAKE 1 TABLET BY MOUTH EVERY DAY epinephrine [EpiPen] 0.3 mg/0.3 mL auto-injector 0.3 mg IM Q10M PRN (Reason: anaphylaxis) Qty: 2 0RF Rx Instructions: for 2 doses Referrals Follow up/Referrals: Provider,Referral, [Referring, Medical] - See instructions Lazarus Velasquez MD [Staff Physician, Cardiology] - See instructions Activity Restrictions/Add. Instructions Additional Instructions/Restrictions: Please return to the emergency department with any worsening signs or symptoms, any worsening chest pain or shortness of breath, please continue to take all your medications as prescribed. Please follow-up with the [facility] office in the upcoming days, please follow-up with your PCP in the upcoming days. Clinical Impressions Clinical Impression: Chest pain, Angina pectoris Instructions Patient Instructions: DI for Angina, DI for Chest Pain Print Language Print Language: Syriac Discharge ED Provider: Jeevan Patel HPI <VALERIE Gomez - Last Filed: 01/29/25 17:29> General Chief Complaint: Chest Pain Stated Complaint: chest pain Time Seen by Provider: 01/29/25 13:39 Mode of Arrival: Ambulatory Source of Information: Patient Description of Symptoms (Recalled from ER Triage Doc. by RN): Patient states that she started having pain in center of chest radiating to left arm around midnight. Patient states that she saw Ale Aguirre at cardiology office 2 weeks ago and was started on new medication, which had been helping History of Present Illness HPI narrative: 49-year-old female presents the emergency department with chest pain that started around midnight last night, waxing and waning, at initial start it was a 2 out of 10, currently a 5 out of 10, worsened within the last hour. Patient describes it as left-sided substernal with radiation around the shoulder and numbness and tingling down the left arm, she follows with [facility], has coronary artery disease with status post 3 stent placement, she is on dual endplate therapy of Plavix and aspirin, was also recently started on a low-dose isosorbide mononitrate, 2 weeks ago. She denies any fever chills admits to shortness of breath and nausea no vomiting no abdominal pain no constipation no diarrhea no urinary type symptomatology, patient is a current everyday smoker, denies any alcohol or drug use, other past medical history consistent with hyperlipidemia, hypertension, LV dysfunction. Initial triage vitals unremarkable. Please note that above description of symptoms, in this electronic medical record under categorization of recalled from ER triage doctor by RN are reflective of an initial nursing assessment, however, is not reflective of my full history and physical exam that was personally taken and clarified. Consequentially, this preceding description of symptoms, which may include the patient's categorized chief complaint in the EMR, do not reflect my personal clinical impression, and the ultimate description of history of present illness and patient stated complaints should be deferred to this section of the note. Unless stated otherwise or congruent with this section of the note, additional signs, symptoms, or incongruence should be interpreted as inaccurate with my clinical impression. complaint: chest pain Related Data Home Medications ?Medication ?Instructions ?Recorded ?Confirmed paroxetine HCl 10 mg tablet 10 mg PO DAILY 07/10/24 Previous Rx's ?Medication ?Instructions ?Recorded aspirin 81 mg tablet,delayed See Rx Instructions .Rout e 07/30/24 release .COMPLEX #90 tabs atorvastatin 40 mg tablet See Rx Instructions .Route 0 07/30/24 .COMPLEX #90 tabs prasugrel HCl 10 mg tablet See Rx Instructions .Route 07/30/24 .COMPLEX #90 tabs epinephrine 0.3 mg/0.3 mL 0.3 mg (0.3 mL) IM Q10M PRN 10/25/24 injection, auto-injector (EpiPen) anaphylaxis #2 ea amlodipine 10 mg tablet 10 mg PO DAILY #90 tabs 11/11 03/07 metoprolol succinate 50 mg 50 mg PO DAILY #90 tabs tablet,extended release 24 hr fluticasone propionate 50 1 spray intranasal DAILY #16 grams 01/02/25 mcg/actuation nasal spray,suspension (Flonase Allergy Relief) isosorbide mononitrate 30 mg 30 mg PO DAILY #30 tabs 0 01/15/25 tablet,extended release 24 hr Allergies Allergy/AdvReac Type Severity Reaction Status Date / Time bee venom protein (honey bee) Allergy Severe Anaphylaxis Verified 01/22/25 11:38 losartan Allergy Severe throat and Verified 01/22/25 11:38 lip swelling Penicillins Allergy Intermediate Unknown Verified 01/22/25 11:38 allergy reaction cephalexin (From Keflex) Allergy Unknown Verified 01/22/25 11:38 allergy reaction Sulfa (Sulfonamide Allergy Hives Verified 01/22/25 11:38 Antibiotics) [facility] <VALERIE Gomez - Last Filed: 01/29/25 17:29> [facility] Disclaimer: The information contained in this section may have been updated after the patient was seen, as this information can be updated by other users. Medical History Angina pectoris SOB (shortness of breath) LV dysfunction Unstable angina Abnormal findings on diagnostic imaging of heart and coronary circulation Pain of left lower extremity Cellulitis of breast Abscess of breast Xanthelasma Coronary artery disease Morbid obesity HLD (hyperlipidemia) HTN (hypertension) Surgical History Previous section Hx of cholecystectomy History of appendectomy H/O: hysterectomy Family History Other No significant family history 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 Smoking Status: Current every day smoker tobacco type: cigarettes packs per day: 1 alcohol intake: never current occupational status: employed Travel in the last 8 weeks?: None caffeine: Yes Have you lived/traveled outside [place] in past 30 days?: No Contact w/someone who lives/traveled outside US past 30 days?: No Exposure to someone with infectious disease in past 14 days?: No Do you have a fever (greater than 100.4 F or 38 C)?: No Have you tested positive for COVID-19?: No Exposed to someone with COVID-19 in past 14 days?: No Do you have a sore throat?: No Do you have a cough?: No Do you have any weakness?: No Do you have any diarrhea?: No Are you experiencing any unusual bleeding?: No Do you have any muscle aches/pain?: No Do you have any abdominal pain?: No Are you experiencing loss of taste or smell?: No Other Medical History Have you received the Flu Vaccine for this season: No Have you received the Pneumonia Vaccine: Yes <VALERIE Gomez - Last Filed: 01/29/25 17:29> ROS Obtained: Yes All systems reviewed & no additional complaints except as documented Physical Exam <VALEREI Gomez - Last Filed: 01/29/25 17:29> General General appearance: alert and in no apparent distress Head Head exam: atraumatic and normocephalic Eye Eye exam: Present normal appearance, PERRL and EOMI Neck Neck exam: Present full ROM; Absent meningismus Chest Chest inspection: Present normal inspection; Absent tenderness Respiratory Respiratory exam: Absent respiratory distress, wheezes, stridor, accessory muscle use or prolonged expiratory phase Cardiovascular Cardiovascular exam: Present normal rhythm and other (Pulses equal and symmetric in bilateral upper and lower extremities) Abdominal Exam Abdominal exam: Absent distention Extremities Exam Extremities exam: Absent edema Neurological Exam Neurological exam: Present alert Psychiatric Psychiatric exam: Present normal affect Skin Skin exam: Present warm and dry HEART Score <VALERIE Gomez - Last Filed: 01/29/25 17:29> HEART Score HEART Score assessment performed?: Yes HEART Score: 3 Critical Care <VALERIE Gomez - Last Filed: 01/29/25 17:29> Critical Care Time Critical Care Time: No Medical Decision Making <VALERIE Gomez - Last Filed: 01/29/25 17:29> Medical Records Medical records reviewed: Yes I reviewed the patient's medical records. Jonathan Inquiry Pt receiving controlled substance: Yes Jonathan was queried for this patient: No Reason not queried -: Emergent pt cond-no time Risks and benefits of using a controlled substance: were discussed with pt by me Vital Signs Vital Signs: 01/29/25 13:42 Temperature 98.2 F Temperature Source Oral Pulse Rate [Right Brachial] 80 Respiratory Rate 16 Blood Pressure [Right Arm] 146/71 H Blood Pressure Mean [Right Arm] 96 Blood Pressure Source [Right Arm] Automatic Cuff Blood Pressure Position [Right Arm] Supine 02 Sat by Pulse Oximetry 96 Oxygen Delivery Method Room Air Lab Data Lab results reviewed: Yes I reviewed the patient's lab results. Labs: Lab Results 01/29/25 13:47: WBC 12.6 H, RBC 4.83, Hgb 12.6, Hct 39.8, MCV 82.4, MCH 26.1 L, MCHC 31.7 L, RDW 15.0, Plt Count 285, MPV 10.1, Neut % (Auto) 52.3, Lymph % (Auto) 35.4, Kings % (Auto) 6.4, Eos % (Auto) 4.4, Baso % (Auto) 0.8, Neut # (Auto) 6.6, Lymph # (Auto) 4.5, Kings # (Auto) 0.8, Eos # (Auto) 0.6 H, Baso # (Auto) 0.1, PT 10.8, INR 0.97, D-Dimer 0.77 H, Sodium 140, Potassium 4.4, Chloride 106, Carbon Dioxide 25, Anion Gap 13.4, BUN 15, Creatinine 0.70, Estimated Creat Clear 169, Estimated GFR 89, Est GFR ( Amer) 108, Glucose 90, Calcium 9.7, Magnesium 1.9, Total Bilirubin 0.4, AST 30, ALT 21, Alkaline Phosphatase 98, Troponin I < 0.01, NT-Pro-B Natriuret Pep 57.9, Total Protein 7.2, Albumin 4.5, Globulin 2.7, Albumin/Globulin Ratio 1.7, Lipase 81 01/29/25 16:41: Troponin I < 0.01 01/29/25 13:47 01/29/25 13:47 Response Orders (Tests/Meds): ED MEDICATIONS Discontinued Medications Generic Name Dose Route Start Last Admin Trade Name Andrey PRN Reason Stop Dose Admin Aspirin 243 mg 01/29/25 13:49 01/29/25 13:57 Aspirin 81mg Chewable Tablet PO 01/29/25 13:50 243 mg ONCE ONE Administration Iopamidol 75 ml 01/29/25 15:12 01/29/25 15:13 Iopamidol-370 (76%);100ml Bottle IV 01/29/25 15:13 75 ml ONCE ONE Administration Morphine Sulfate 4 mg 01/29/25 13:50 01/29/25 14:02 Morphine 4mg/Ml Syringe IV 01/29/25 13:51 4 mg ONCE ONE Administration Ondansetron HCl 4 mg 01/29/25 13:50 01/29/25 14:02 Ondansetron 4mg/2ml Vial IV 01/29/25 13:51 4 mg ONCE ONE Administration Sodium Chloride 10 ml 01/29/25 15:12 01/29/25 15:13 Sodium Chloride 0.9% 10ml Syr (Rad Only) IV 01/29/25 15:13 10 ml ONCE ONE Administration Sodium Chloride 50 ml 01/29/25 15:12 01/29/25 15:13 0.9 % Sodium Chloride 50 Ml Vial IV 01/29/25 15:13 50 ml ONCE ONE Administration ORDERS Category Date Time Status CT angio chest PE protocol Stat Cat Scan 01/29/25 14:57 Completed XR chest portable Stat Exams 01/29/25 13:39 Completed Complete Blood Count Auto Diff Stat Lab 01/29/25 13:47 Completed Comprehensive Metabolic Panel Stat Lab 01/29/25 13:47 Completed D-Dimer Stat Lab 01/29/25 13:47 Completed Lipase Stat Lab 01/29/25 13:47 Completed Magnesium Stat Lab 01/29/25 13:47 Completed NT Pro Brain Natriuretic Pep. Stat Lab 01/29/25 13:47 Completed PT INR [Prothrombin Time INR] Stat Lab 01/29/25 13:47 Completed Troponin I Q3H Lab 01/29/25 16:41 Completed Troponin I Q3H Lab 01/29/25 19:45 Ordered Troponin I Stat Lab 01/29/25 13:47 Completed MDM Narrative Medical Decision Narrative: 49-year-old female presents emerged part with chest pain shortness of breath and nausea, last 24 hours, see HPI for detail past medical history, differential diagnose include but not limited to ACS, cardiac arrhythmia, electrolyte disturbance, PE, costochondritis, anxiety reaction, panic attack, gastritis, pneumonia, GERD, pancreatitis, other musculoskeletal chest pain among others. I discussed the patient case with attending patient , he saw and examined the patient as well as well as Dr. Weaver Will obtain basic laboratory studies, CXR, D-dimer, lipase, troponin, proBNP, PT/INR, EKG, give 243 mg p.o. aspirin, as well as 4 mg morphine and 4 mg of Zofran for pain and nausea. CBC is notable for mild leukocytosis 12.6 PT/INR within normal D-dimer is elevated at 0.77, thus will obtain CTA PE to rule out PE Initial troponin within normal limits at less than 0.01, proBNP within normals, lipase within normal limits. I reviewed the patient's chest x-ray along the corresponding radiologic report, no acute cardiopulmonary process I reviewed the patient's CTA chest without contrast PE protocol, no pulmonary embolism or dissection, dependent edema or pneumonitis. Repeat troponin is less than 0.01, reexamination of the patient at approximately 5:25 PM, patient is currently chest pain-free, would like to be discharged home to self-care, I think this is appropriate, shared decision-making was utilized, patient's heart score of 3, patient will follow-up with [facility] office in the upcoming days. Patient was given strict ED return precautions. Patient and family voiced understanding and in agreement with the current treatment/discharge plan <Jeevan Patel, DO - Last Filed: 01/29/25 16:21> Vital Signs Vital Signs: 01/29/25 13:42 Temperature 98.2 F Temperature Source Oral Pulse Rate [Right Brachial] 80 Respiratory Rate 16 Blood Pressure [Right Arm] 146/71 H Blood Pressure Mean [Right Arm] 96 Blood Pressure Source [Right Arm] Automatic Cuff Blood Pressure Position [Right Arm] Supine 02 Sat by Pulse Oximetry 96 Oxygen Delivery Method Room Air Lab Data Labs: Lab Results 01/29/25 13:47: WBC 12.6 H, RBC 4.83, Hgb 12.6, Hct 39.8, MCV 82.4, MCH 26.1 L, MCHC 31.7 L, RDW 15.0, Plt Count 285, MPV 10.1, Neut % (Auto) 52.3, Lymph % (Auto) 35.4, Kings % (Auto) 6.4, Eos % (Auto) 4.4, Baso % (Auto) 0.8, Neut # (Auto) 6.6, Lymph # (Auto) 4.5, Kings # (Auto) 0.8, Eos # (Auto) 0.6 H, Baso # (Auto) 0.1, PT 10.8, INR 0.97, D-Dimer 0.77 H, Sodium 140, Potassium 4.4, Chloride 106, Carbon Dioxide 25, Anion Gap 13.4, BUN 15, Creatinine 0.70, Estimated Creat Clear 169, Estimated GFR 89, Est GFR ( Amer) 108, Glucose 90, Calcium 9.7, Magnesium 1.9, Total Bilirubin 0.4, AST 30, ALT 21, Alkaline Phosphatase 98, Troponin I < 0.01, NT-Pro-B Natriuret Pep 57.9, Total Protein 7.2, Albumin 4.5, Globulin 2.7, Albumin/Globulin Ratio 1.7, Lipase 81 01/29/25 16:41: Troponin I < 0.01 Response Orders (Tests/Meds): ED MEDICATIONS Discontinued Medications Generic Name Dose Route Start Last Admin Trade Name Andrey PRN Reason Stop Dose Admin Aspirin 243 mg 01/29/25 13:49 01/29/25 13:57 Aspirin 81mg Chewable Tablet PO 01/29/25 13:50 243 mg ONCE ONE Administration Iopamidol 75 ml 01/29/25 15:12 01/29/25 15:13 Iopamidol-370 (76%);100ml Bottle IV 01/29/25 15:13 75 ml ONCE ONE Administration Morphine Sulfate 4 mg 01/29/25 13:50 01/29/25 14:02 Morphine 4mg/Ml Syringe IV 01/29/25 13:51 4 mg ONCE ONE Administration Ondansetron HCl 4 mg 01/29/25 13:50 01/29/25 14:02 Ondansetron 4mg/2ml Vial IV 01/29/25 13:51 4 mg ONCE ONE Administration Sodium Chloride 10 ml 01/29/25 15:12 01/29/25 15:13 Sodium Chloride 0.9% 10ml Syr (Rad Only) IV 01/29/25 15:13 10 ml ONCE ONE Administration Sodium Chloride 50 ml 01/29/25 15:12 01/29/25 15:13 0.9 % Sodium Chloride 50 Ml Vial IV 01/29/25 15:13 50 ml ONCE ONE Administration ORDERS Category Date Time Status CT angio chest PE protocol Stat Cat Scan 01/29/25 14:57 Completed XR chest portable Stat Exams 01/29/25 13:39 Completed Complete Blood Count Auto Diff Stat Lab 01/29/25 13:47 Completed Comprehensive Metabolic Panel Stat Lab 01/29/25 13:47 Completed D-Dimer Stat Lab 01/29/25 13:47 Completed Lipase Stat Lab 01/29/25 13:47 Completed Magnesium Stat Lab 01/29/25 13:47 Completed NT Pro Brain Natriuretic Pep. Stat Lab 01/29/25 13:47 Completed PT INR [Prothrombin Time INR] Stat Lab 01/29/25 13:47 Completed Troponin I Q3H Lab 01/29/25 16:41 Completed Troponin I Q3H Lab 01/29/25 19:45 Ordered Troponin I Stat Lab 01/29/25 13:47 Completed ECG Data Tracing #1: Attestation: I reviewed this ECG and interpreted as documented below: ECG Narrative: EKG personally interpreted by me demonstrates normal sinus rhythm with a rate of 81 bpm, normal axis, no TN prolongation, narrow QRS, no QTc prolongation. No ST elevation or depression. No overt signs of ischemia or arrhythmia
--- OUTSIDE RECORDS SUMMARY | 2025-01-29 13:53 | XMS_ITS | Encounter Summary ---
Author Organization Healthcare Address [address] [place] [address] Care Team Providers Care Pipeline Engineer Name Role Phone Camila Berger MD Primary Care Provider [phone] Encounter Details Date Type Department Care Team (Late st Contact Info) Description 03/05/2022 Orders Only External Location [address] [place] [address] Provider, External 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 Tobacco Use Types [...] on filedocumented in this encounter Care Teams Pipeline Engineer Relationship Specialty Start Date End Date Camila Berger MD [address] [place] [address] [address] [place] [address] PCP - General 10/24/20 documented as of this encounter
--- OUTSIDE RECORDS SUMMARY | 2025-01-29 13:53 | XMS_ITS | Clinical Summary ---
Author Organization [facility] Address [address] [place] [address] Care Team Providers Care Care Services Manager Name Role Phone Camila Berger MD Primary Care Provider [phone] Allergies Active Allergy Reactions Criticality Noted Date [...] [facility]-HIV Screening 1976 [facility]-Hepatitis C Screening 1976 [facility]-/Child/Adol SDOH Screenings 1976 [facility]- SDOH Screenings 1994 [facility]-Adult SDOH Screenings 1994 [facility]-Hepatitis B Vaccines (1 of 3 - 19+ 3-dose series) 10/14/1995 CT Colonography 2021 Colonoscopy 2021 FIT-DNA 2021 FIT 2021 FOBT 2021 Sigmoidoscopy 2021 [facility]-Colorectal Cancer Screening 2021 [id number] Vaccine (3 - season) 2024 01/30/2021, 12/24/2020 [...] this topic Insurance [id number] [id number] [place] [address] Care Teams Care Services Manager Relationship Specialty Start Date End Date Camila Berger MD [address] [place] [address] [address] [place] [address] PCP - General 10/24/20
[2025-01-29 13:56] LABS: Hematocrit 39.8 % (37.0-47.0); Hemoglobin 12.6 g/dL (12.2-16.2); Immature Granulocytes % 0.7 %; Mean Corpuscular HGB Conc 31.7 g/dL (31.8-35.4); Mean Corpuscular Hemoglobin 26.1 pg (27.0-31.2); Mean Corpuscular Volume 82.4 fl (81-99); Nucleated Red Blood Cells % 0 %; Platelet Count 285 K/mm3 (142-424); Red Blood Count 4.83 M/mm3 (4.20-5.40); Red Cell Distribution Width-SD 45.0 fL; White Blood Count 12.6 K/mm3 (4.8-10.8)
[2025-01-29] MEDS: ASPIRIN 81MG CHEWABLE TABLET 243 MG PO (13:57)
[2025-01-29] MEDS: MORPHINE 4MG/ML SYRINGE 4 MG IV (14:02)
[2025-01-29] MEDS: ONDANSETRON 4MG/2ML VIAL 4 MG IV (14:02)
[2025-01-29 14:10] LABS: INR 0.97 (0.9-1.1); Prothrombin Time 10.8 seconds (10.1-12.5)
[2025-01-29 14:29] LABS: Alanine Aminotransferase 21 U/L (12-78); Albumin Level 4.5 g/dl (3.5-5.0); Albumin/Globulin Ratio 1.7 (1.1-1.8); Alkaline Phosphatase 98 U/L (38-126); Anion Gap 13.4 mEq/L (5-15); Aspartate Amino Transferase 30 U/L (14-36); Bilirubin,Total 0.4 mg/dl (0.2-1.3); Blood Urea Nitrogen 15 mg/dl (7-17); Calcium 9.7 mg/dl (8.4-10.2); Carbon Dioxide 25 mmol/L (22.0-30.0); Chloride 106 mmol/L (98-107); Creatinine Clearance Estimated 169 mL/min (50-200); Creatinine,Serum 0.70 mg/dl (0.52-1.04); Estimated Glomerular Filt Rate 89 ml/min (>60); GFR (African American) 108 ML/MIN (>60); Globulin 2.7 g/dL (1.3-3.2); Glucose 90 mg/dl (74-100); Magnesium 1.9 mg/dl (1.6-2.3); Potassium 4.4 mmoL/L (3.5-5.1); Sodium 140 mmol/L (136-145); Total Protein,Serum 7.2 g/dl (6.3-8.2)
[2025-01-29 14:31] LABS: Lipase 81 U/L (23-300)
[2025-01-29 14:33] LABS: D-Dimer 0.77 ug/mL (0.0-0.5)
[2025-01-29 14:41] LABS: NT Pro Brain Natriuretic Pep. 57.9 pg/mL (0-125)
[2025-01-29 14:47] LABS: Troponin I < 0.01 ng/ml (0.00-0.034)
--- NOTE | 2025-01-29 14:57 | CT_ITS ---
FINAL REPORT TECHNIQUE: The patient was injected with IV contrast. Axial images were obtained through the chest in a PE protocol. 3-D reconstruction images were also performed. Individualized dose reduction techniques using automated exposure control or adjustment of the MA and/or KV according to patient's size were employed. CLINICAL HISTORY: Shortness of breath/chest pain COMPARISON: 11/23/2023 FINDINGS: Mediastinal vasculature is adequately opacified. No pulmonary artery filling defects are identified to suggest PE. There is no aortic dissection. There is no axillary adenopathy. There is no hilar or mediastinal adenopathy. The heart size is normal. There is no pericardial or pleural effusion. Limited images of the upper abdomen are unremarkable. There are subtle ground-glass opacities in both lower lobes which may be due to mild dependent edema or pneumonitis. No suspicious pulmonary nodule identified. IMPRESSION: No pulmonary embolus or dissection. Mild dependent edema or pneumonitis. Reviewed, Interpreted and Dictated by Marcelo Rocha MD Transcribed by Jennifer Garcia Authenticated and [facility]
[2025-01-29] MEDS: IOPAMIDOL-370 (76%);100ML BOTTLE 75 ML IV (15:13)
[2025-01-29] MEDS: 0.9 % SODIUM CHLORIDE 50 ML VIAL IV (15:13)
[2025-01-29] MEDS: SODIUM CHLORIDE 0.9% 10ML SYR (RAD ONLY) 10 ML IV (15:13)
[2025-01-29 17:23] LABS: Troponin I < 0.01 ng/ml (0.00-0.034)
== END 2025-01-29 17:42 | disposition home or self-care (01) ==
PROVIDERS: Physician Assistant; Emergency Provider Student in an Organized Health Care Education/Training Program; PCP Family Medicine
DX: R07.9 Chest pain, unspecified (principal); I20.9 Angina pectoris, unspecified; I10 Essential (primary) hypertension; E78.5 Hyperlipidemia, unspecified; F17.210 Nicotine dependence, cigarettes, uncomplicated
CPT/HCPCS: 71045; 71275; 80053; 83690; 83735; 83880; 84484; 85025; 85378; 85610; 93005; 96374; 96375; 99284; 99285; J2270; J2405; Q9967

== ENCOUNTER 2025-04-21 19:49 | Emergency (ER) | payer OTHER, SELFPAY ==
--- OUTSIDE RECORDS SUMMARY | 2025-03-14 12:30 | XMS_ITS | Encounter Summary ---
Author Organization [facility] Address [address] [id number] Care Team Providers Care Audiometric Technician Name Role Phone Camila Berger MD Primary Care Provider + Reason for Referral * Consultation (Routine) - Pending Review Specialty Diagnoses / Procedures Referred By Sil nance Referred To Contact High Risk Breast Diagnoses DEISI gene mutation positive Procedures HI OFFICE/OUTPATIENT NEW MODERATE MDM 45 MINUTES Robin Tafoya MD [address] [place] [address] Phone: tel: fax: [facility] [address] [facility] [address] [place] [address] Phone: tel: fax: Referral ID Status Reason Start Date Expiration Date Visits Requested Visits Authorized [id number] Pending Review Specialty Services Required 03/14/2025 06/13/2026 1 1 * Diagnostic Imaging (Routine) - Authorized Specialty Diagnoses / Procedures Referred By Sil nance Referred To Contact Radiology Diagnoses Mass of upper outer quadrant of left breast Procedures Mammo Diagnostic Digital Tomosynthesis Bilateral With CAD CHG DIGITAL BREAST TOMOSYNTHESIS BILATERAL HI TOMOSYNTHESIS, MAMMO Robin Tafoya MD [address] [place] [address] Phone: tel: fax: [facility] [address] [place] [address] Phone: tel: Referral ID Status Reason Start Date Expiration Date V isits Requested Visits Authorized [id number] Authorized 03/14/2025 06/13/2026 1 1 Reason for Visit * Reason Comments Establish Care Braca 1 detected Encounter Details Date Type Department Care Team (Late st Contact Info) Description 03/14/2025 1:30 PM EDT Office Visit [facility] GENERAL SURGERY [address] [facility] [address] [place] [address] [facility] [address] [facility] [address] [id number] DEISI gene mutation positive (Primary Dx); Mass of upper outer quadrant of left breast; Coronary artery disease due to calcified coronary lesion 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 Tobacco Use Types Packs/Day Years Used Date Smoking Tobacco: Every Day Cigarettes Smokeless Tobacco: Never Tobacco Cessation:Ready to Q uit: Not Asked; Counseling Given: Not Answered Alcohol Use Standard Drinks/Week Comments Never 0 (1 standard drink = 0.6 oz pur e alcohol) Abuse Screen Answer Date Recorded Feels Unsafe [...] Information Value Date Recorded Sex Assigned at Female 03/14/2025 11:39 AM EDT Legal Sex Female 11:18 AM EDT Gender Identity Not on file Sexual Orientation Straight 03/14/2025 11 :39 AM EDT documented as of this encounter Last Filed Vital Signs Vital Sign Reading Time Taken Comments Blood Pressure 121/73 03/14/2025 1:23 PM EDT Pulse 78 03/14/2025 1:23 PM EDT Temperature 36.4 C (97.6 F) 03/14/2025 1:23 PM EDT Respiratory Rate - - Oxygen Saturation 96% 03/14/2025 1:23 PM EDT Inhaled Oxygen Concentration - - Weight 115 kg (254 lb 8 oz) 03/14/2025 1:23 PM E DT Height 172.7 cm (5' 8 ) 03/14/2025 1:23 PM EDT Body Mass Index 38.7 03/14/2025 1:23 PM EDT documented in this encounter Progress Notes * Robin Tafoya MD - 03/14/2025 1:30 PM EDTAssociated Problem(s): Mass of upper outer quadrant of left breast Palpable masses in the upper outer quadrant with tenderness last mammogram in 2023 Recommend proceeding with bilateral diagnostic mammograms and ultrasound as needed Orders: Mammo Diagnostic Digital Tomosynthesis Bilateral With CAD; Future * Robin Tafoya MD - 03/14/2025 1:30 PM EDTAssociated Problem(s): DEISI gene mutation positive Genetic testing 2018 with an amendment in 2021. Patient is at risk for developing breast cancer breast cancer; 20-40% lifetime risk We discussed proceeding with surveillance at the high risk clinic with routine mammograms alternating with breast MRIs versus prophylactic mastectomies. She is at high risk for surgical intervention since she has had coronary disease with 3 stents placed in November 2023. Patient is currently on Brilinta and aspirin and follows up with cardiology at . Will refer to the high risk clinic in the meantime. Orders: Ambulatory Referral to High Risk Breast * Robin Tafoya MD - 03/14/2025 1:30 PM EDTAssociated Problem(s): Coronary artery disease due to calcified coronary lesion Status post 3 stents in November 2023 * Robin Tafoya MD - 03/14/2025 1:30 PM EDT Date of Service: 03/14/2025 Sofi Faulkner [phone] Referring Provider: Chris Berger MD Subjective History of Present Illness: I am seeing, Sofi Faulkner, in consultation for Dr. Berger regarding positive gene mutation. Patient had genetic test in 2017 with an amendment in 2021 that showed the variant in the DEISI gene. She has a family history of breast cancer in her maternal grandmother. Her last mammogram was in 2023. Shepresents today with her mother to discuss possible prophylactic mastectomies. She had a partial hyst erectomy in 2009. She has 2 children. She was diagnosed with coronary disease and had 3 stents placed in November 2023. She has been on Brilinta and baby aspirin. Past Medical History: Diagnosis Date Abscess of the breast and nipple MULTIPLE AND RECURRENT BILATERAL Asthma UNCOMPLICATED Essential (primary) hypertension Past Surgical History: APPENDECTOMY CHOLECYSTECTOMY HYSTERECTOMY Allergies Allergen Reactions Bee Venom Anaphylaxis Losartan Angioedema Penicillins Anaphylaxis Sulfamethoxazole-Trimethoprim Hives and Shortness Of Breath Chest tightness Current Outpatient Medications on File Prior to Visit Medication Sig Dispense Refill amLODIPine (NORVASC) 10 MG tablet Take 1 tablet by mouth Daily. Aspirin Low Dose 81 MG EC tablet Take 1 tablet by mouth Daily. atorvastatin (LIPITOR) 40 MG tablet Take 1 tablet by mouth every night at bedtime. EPINEPHrine (EPIPEN) 0.3 MG/0.3ML solution auto-injector injection See administration instructions. fluticasone (FLONASE) 50 MCG/ACT nasal spray instill 1 SPRAY IN EACH NOSTRIL TWICE DAILY FOR ONE WEEK THEN ONCE DAILY DIRECTED isosorbide mononitrate (IMDUR) 30 MG 24 hr tablet Take 1 tablet by mouth Daily. metoprolol succinate XL (TOPROL-XL) 50 MG 24 hr tablet Take 1 tablet by mouth Daily. PARoxetine (PAXIL) 10 MG tablet Take 1 tablet by mouth Daily. prasugrel (EFFIENT) 10 MG tablet Take 1 tablet by mouth Daily. triamcinolone (KENALOG) 0.1 % cream APPLY TOPICALLY TO THE AFFECTED AREA(S) (A THIN LAYER) FOUR TIMES DAILY NEEDED [DISCONTINUED] clindamycin (CLEOCIN) 300 MG capsule Take 1 capsule by mouth 4 (Four) Times a Day. 40 capsule 0 [DISCONTINUED] fluticasone (FLONASE) 50 MCG/ACT nasal spray instill 1 SPRAY IN EACH NOSTRIL TWICE DAILY FOR ONE WEEK THEN ONCE DAILY DIRECTED No current facility-administered medications on file prior to visit. Current Outpatient Medications: amLODIPine (NORVASC) 10 MG tablet, Take 1 tablet by mouth Daily., Disp: , Rfl: Aspirin Low Dose 81 MG EC tablet, Take 1 tablet by mouth Daily., Disp: , Rfl: atorvastatin (LIPITOR) 40 MG tablet, Take 1 tablet by mouth every night at bedtime., Disp: , Rfl: EPINEPHrine (EPIPEN) 0.3 MG/0.3ML solution auto-injector injection, See administration instructions., Disp: , Rfl: fluticasone (FLONASE) 50 MCG/ACT nasal spray, instill 1 SPRAY IN EACH NOSTRIL TWICE DAILY FOR ONE WEEK THEN ONCE DAILY DIRECTED, Disp: , Rfl: isosorbide mononitrate (IMDUR) 30 MG 24 hr tablet, Take 1 tablet by mouth Daily., Disp: , Rfl: metoprolol succinate XL (TOPROL-XL) 50 MG 24 hr tablet, Take 1 tablet by mouth Daily., Disp: , Rfl: PARoxetine (PAXIL) 10 MG tablet, Take 1 tablet by mouth Daily., Disp: , Rfl: prasugrel (EFFIENT) 10 MG tablet, Take 1 tablet by mouth Daily., Disp: , Rfl: triamcinolone (KENALOG) 0.1 % cream, APPLY TOPICALLY TO THE AFFECTED AREA(S) (A THIN LAYER) FOUR TIMES DAILY NEEDED, Disp: , Rfl: Family History Problem Relation Age of Onset Diabetes Mother Hypertension Mother Heart failure Father 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 Socioeconomic History Marital status: Tobacco Use Smoking status: Every Day Types: Cigarettes Smokeless tobacco: Never Vaping Use Vaping status: Never Used Substance and Sexual Activity Alcohol use: Never Drug use: Never Sexual activity: Defer Review of Systems: Review of Systems Otherwise the 12 point review of systems is negative. Objective BP 121/73 (BP Location: Left arm, Patient Position: Sitting, Cuff Size: Adult) Pulse 78 Temp 97.6 ??F (36.4 ??C) (Infrared) Ht 172.7 cm (68 ) Wt 115 kg (254 lb 8 oz) SpO2 96% BMI 38.70 kg/m?? Body mass index is 38.7 kg/m??. Physical Exam Vitals and nursing note reviewed. Constitutional: Appearance: Normal appearance. HENT: Head: Normocephalic and atraumatic. Nose: Nose normal. Mouth/Throat: Mouth: Mucous membranes are moist. Eyes: Extraocular Movements: Extraocular movements intact. Pupils: Pupils are equal, round, and reactive to light. Cardiovascular: Rate and Rhythm: Normal rate and regular rhythm. Pulmonary: Effort: Pulmonary effort is normal. Breath sounds: Normal breath sounds. Chest: Comments: Breast: Symmetric breast bilaterally. Large and pendulous No skin thickening. No nipple inversion or discharge. Palpable masses appreciated in the upper outer quadrant of the left breast with mild tenderness Axilla: No bilateral axillary adenopathy. Abdominal: General: Abdomen is flat. Musculoskeletal: General: Normal range of motion. Cervical back: Normal range of motion and neck supple. Skin: General: Skin is warm. Neurological: General: No focal deficit present. Mental Status: She is alert and oriented to person, place, and time. Psychiatric: Mood and Affect: Mood normal. Assessment & Plan Mass of upper outer quadrant of left breast Palpable masses in the upper outer quadrant with tenderness last mammogram in 2023 Recommend proceeding with bilateral diagnostic mammograms and ultrasound as needed Orders: Mammo Diagnostic Digital Tomosynthesis Bilateral With CAD; Future DEISI gene mutation positive Genetic testing 2017 with an amendment in 2021. Patient is at risk for developing breast cancer breast cancer; 20-40% lifetime risk We discussed proceeding with surveillance at the high risk clinic with routine mammograms alternating with breast MRIs versus prophylactic mastectomies. She is at high risk for surgical intervention since she has had coronary disease with 3 stents placed in November 2023. Patient is currently on Brilinta and aspirin and follows up with cardiology at . Will refer to the high risk clinic in the meantime. Orders: Ambulatory Referral to High Risk Breast Coronary artery disease due to calcified coronary lesion Status post 3 stents in November 2023 Return for Follow up as needed. Robin Tafoya MD 03/14/25 18:38 EDT documented in this encounter Plan of Treatment Upcoming Encounters Date Type Department Care Team (Late st Contact Info) Description 05/13/2025 8:00 AM EST Appointment [facility] [place] [address] [facility] [address] [place] [address] 10/09/2025 10:30 AM EDT Office Visit [facility] [address] [facility] [address] [place] [address] Agnes Burns APRN [address] [facility] [address] [place] [address] Scheduled Orders Name Type Priority Associated Diagnoses Orde r Schedule Mammo Diagnostic Digital Tomosynthesis Bilateral With CAD Imaging Routine Mass of upper outer quadrant of left breast Expected: 04/25/2025, Expires: 03/14/2026 Scheduled Referrals Name Type Priority Associated Diagnoses Order Schedule Ambulatory Referral to High Risk Breast Outpatient Referral Routine Deisi Gene Mutation Positive Ordered: 03/14/2025 documented as of this encounter Visit Diagnoses Diagnosis DEISI gene mutation positive- Primary Mass of upper outer quadrant of left breast Coronary artery disease due to calcified coronary lesion documented in this encounter Care Teams Audiometric Technician Relationship Specialty Start Date End Date Camila Berger MD [address] [place] [address] [address] [place] [address] PCP - General Family Medicine 04/20/19 documented as of this encounter
--- OUTSIDE RECORDS SUMMARY | 2025-04-10 10:00 | XMS_ITS | Encounter Summary ---
Author Organization [facility] Address [address] [place] [id number] Care Team Providers Care Designer Architect Name Role Phone Camila Berger MD Primary Care Provider + Reason for Referral * MRI/CAT/PET Scan (Routine) - Pending Review Specialty Diagnoses / Procedures [facility] Referred To Contact Radiology Diagnoses DEISI gene mutation positive At high risk for breast cancer Screening for breast cancer using non-mammogram modality Procedures MRI Breast Bilateral Screening With & Without Contrast Agnes Burns APRN [address] [place] [address] Phone: tel: fax: [facility] [address] [place] [address] Phone: tel: Referral ID Status Reason Start Date Expiration Date V isits Requested Visits Authorized [id number] Pending Review 04/10/2025 07/10/2026 1 1 Reason for Visit * Consultation (Routine) - Pending Review Specialty Diagnoses / Procedures [facility] Referred To Contact High Risk Breast Diagnoses DEISI gene mutation positive Procedures CA OFFICE/OUTPATIENT NEW MODERATE MDM 45 MINUTES Robin Tafoya MD [address] [facility] [address] [place] [address] Phone: tel: fax: [facility] [address] [place] [phone] Phone: tel: fax: Referral ID Status Reason Start Date Expiration Date Visits Requested Visits Authorized [id number] Pending Review Specialty Services Required 03/14/2025 06/13/2026 1 1 Encounter Details Date Type Department Care Team (Park st Contact Info) Description 04/10/2025 11:00 AM EDT Office Visit [facility] [address] [facility] [address] [place] [address] Agnes Burns APRN [address] [facility] [address] [place] [address] DEISI gene mutation positive (Primary Dx); Mass of upper outer quadrant of left breast; At high risk for breast cancer; Screening for breast cancer using non-mammogram modality; Tobacco use 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 Tobacco Use Types Packs/Day Years Used Date Smoking Tobacco: Every Day Cigarettes Smokeless Tobacco: Never Alcohol Use Standard Drinks/Week Comments Never 0 [...] file Preferred Language Not on file 03/21/2023 PHQ-2 Answer Date Recorded Patient Health Questionnaire-9 Score 0 04/10/2025 Comments No Sex and Gender Information Value Date Recorded Sex Assigned at Female 03/14/2025 11:39 AM EDT Legal Sex Female 11:18 AM EDT Gender Identity Not on file Sexual Orientation Straight 03/14/2025 11 :39 AM EDT documented as of this encounter Last Filed Vital Signs Vital Sign Reading Time Taken Comments Blood Pressure 145/81 04/10/2025 11:15 AM EDT Pulse 73 04/10/2025 11:15 AM EDT Temperature 36.3 C (97.3 F) 04/10/2025 11:15 AM EDT Respiratory Rate 16 04/10/2025 11:15 AM EDT Oxygen Saturation 95% 04/10/2025 11:15 AM EDT Inhaled Oxygen Concentration - - Weight 118 kg (260 lb) 04/10/2025 11:15 AM EDT Height 172.7 cm (5' 8 ) 04/10/2025 11:15 AM EDT Body Mass Index 39.53 04/10/2025 11:15 AM EDT documented in this encounter Functional Status documented as of this encounter Progress Notes * Agnes Burns, OPERATOR COATING FURNACE - 04/10/2025 11:00 AM EDT High Risk Oncology Clinic New Patient Sofi Faulkner [id number] Referred By: Robin Tafoya MD PCP: Camila Berger MD Reason for Visit: High Risk for Cancer Problem List: 1. DEISI mutation A. Mammogram: 09/07/23 bilateral diagnostic/US ([place]): Heterogeneously dense. There is at least one prominent lymph node, labeled #2, measuring 14 mm in length with cortical thickness of 5 mm. Recommend ultrasound-guided FNA. Possible reactive. BI-RADS 4. Finding 2: Focus ultrasound was performed to evaluate area of reported abscess 5-7:00 1-10 cm from the nipple, which shows no suspicious cystic or solid lesion. BI-RADS 1. B. Breast MRI: 12/10/22 (): Heterogeneously fibroglandular tissue. Right lower outer breast 2- 3 cm from the nipple 9 x 14 mm nonmass enhancement, persistent kinetics, recommend second look ultrasound. This may correlate with a finding previously seen by ultrasound right breast 3:00 7 cm from the nipple lesion C. Breast Biopsy/Surgery: 12/28/22 right breast 8:00 US biopsy (): Fibroadenoma. Usual ductal hyperplasia 09/22/23 Right axillary lymph node fine needle (): Lymphoid tissue, negative for malignancy. Flow cytometry negative for a clonal or aberrant lymphoid population D. 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 EGD/Colonoscopy/Cologuard: 2021 cologuard neg 2. CAD s/p stents x 14 November 2023 3. HTN 4. HLP 5. Ongoing tobacco use Pertinent Surgical History: Hysterectomy with BSO 2009, History of Present Illness: Sofi Faulkner is a 49 y.o. year old female here today for initial consultation in the high risk oncology clinic. She was referred to our clinic by Dr. HERNANDEZ following recent visit to discuss prophylacticmastectomy in the setting of DEISI mutation. She is not a current candidate due to recent history of cardiac stents x 14 November 2023 and DAPT. Plans for ongoing surveillance in the high risk clinic. She underwent genetic testing in 2017 with [employer] panel that showed DEISI likely pathogenic variant. Family history of breast cancer in her maternal aunt, maternal grandmother in her 60's and 2 maternal great aunts. At the time of visit with Dr. HERNANDEZ, she was noted to have a tender palpable mass inthe LUOQ. Plans for bilateral diagnostic mammogram +/- US and scheduled 04/18/25. Screening right breast to be performed at that time with last performed in August 2023. She has a history of right breast biopsy in 2022 at with findings of fibroadenoma and usual ductal hyperplasia. Also underwent right axillary lymph node fine needle aspiration in 2023 with benign findings. She is due for her breast MRI. She is intermittently performing monthly self breast exams. Negative for nipple discharge, dimpling, unilateral pain, asymmetry or other recent changes. She follows closely with her PCP Dr. Berger for her CBE. History of hysterectomy with BSO in 2009. She is a smoker, but recently down to 1/2 ppd. Pertinent Oncology Family History (Age of diagnosis): Father: Liver 50's (ETOH abuse) Aunts: Maternal breast cancer, post menopausal; Maternal great aunts x 2 breast Maternal Grandparents: Grandmother breast 60's Cousins: Maternal cousin Thyroid Reproductive: Age of first menstrual period: 13 Age of first live : 27 Pre/Sneha/Postmenopause: Postmenopausal HRT use: No history 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: Retired, Health insurance Review of Systems Constitutional: Negative for weight loss. Cardiovascular: Negative for chest pain. Respiratory: Negative for shortness of breath. Hematologic/Lymphatic: Negative for adenopathy. Skin: Negative for suspicious lesions. Neurological: Negative for headaches. Allergies: Allergies Allergen Reactions Bee Venom Anaphylaxis Losartan Angioedema Penicillins Anaphylaxis Sulfamethoxazole-Trimethoprim Hives and Shortness Of Breath Chest tightness Current Outpatient Medications: amLODIPine (NORVASC) 10 MG tablet, Take 1 tablet by mouth Daily., Disp: , Rfl: Aspirin Low Dose 81 MG EC tablet, Take 1 tablet by mouth Daily., Disp: , Rfl: atorvastatin (LIPITOR) 40 MG tablet, Take 1 tablet by mouth every night at bedtime., Disp: , Rfl: EPINEPHrine (EPIPEN) 0.3 MG/0.3ML solution auto-injector injection, See administration instructions., Disp: , Rfl: isosorbide mononitrate (IMDUR) 30 [...] tablet by mouth Daily., Disp: , Rfl: The current medication list and allergy list were reviewed and reconciled. 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 Socioeconomic History Marital status: Tobacco Use Smoking status: Every Day Types: Cigarettes Smokeless tobacco: Never Vaping Use Vaping status: Never Used Substance and Sexual Activity Alcohol use: Never Drug use: Never Sexual activity: Defer Family History Problem Relation Name Age of Onset Diabetes Mother Hypertension Mother Skin cancer Mother Heart failure Father Breast cancer Maternal Grandmother Onset 60's Breast cancer Maternal Aunt Post Menpausal Thyroid cancer Maternal Cousin Past Medical History, Past Surgical History, 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, Family History have been reviewed Physical Exam: BP 145/81 Pulse 73 Temp 97.3 ??F (36.3 ??C) Resp 16 Ht 172.7 cm (68 ) Wt 118 kg (260 lb) SpO2 95% BMI 39.53 kg/m?? Pain Score 04/10/25 1115 PainSc: 0-No pain Physical Exam Vitals and nursing note reviewed. Constitutional: Appearance: Normal appearance. HENT: Head: Normocephalic and atraumatic. Cardiovascular: Rate and Rhythm: Normal rate and regular rhythm. Heart sounds: Normal heart sounds, S1 normal and S2 normal. No murmur heard. Pulmonary: Effort: Pulmonary effort is normal. Breath sounds: Normal breath sounds. Chest: Comments: Deferred with recent exam with Dr. HERNANDEZ Abdominal: Palpations: Abdomen is soft. Musculoskeletal: General: Normal range of motion. Cervical back: Neck supple. Right lower leg: No edema. Left lower leg: No edema. Lymphadenopathy: Cervical: No cervical adenopathy. Skin: General: Skin is warm and dry. Neurological: General: No focal deficit present. Mental Status: She is alert and oriented to person, place, and time. Psychiatric: Mood and Affect: Mood normal. Behavior: Behavior normal. Behavior is cooperative. Thought Content: Thought content normal. Judgment: Judgment normal. Lab Results Component Value Date WBC 12.96 (H) 08/06/2023 HGB 13.5 08/06/2023 HCT 42.5 08/06/2023 MCV 85.7 08/06/2023 PLT 275 08/06/2023 Lab Results Component Value Date GLUCOSE 109 (H) 08/06/2023 BUN 10 08/06/2023 CREATININE 0.79 08/06/2023 NA 139 08/06/2023 K 4.1 08/06/2023 CL 105 08/06/2023 CALCIUM 8.6 08/06/2023 PROTEINTOT 7.1 08/06/2023 ALBUMIN 4.1 08/06/2023 ALT 16 08/06/2023 AST 15 08/06/2023 ALKPHOS 96 08/06/2023 BILITOT 0.4 08/06/2023 GLOB 3.0 08/06/2023 AGRATIO 1.4 08/06/2023 BCR 12.7 08/06/2023 ANIONGAP 11.0 08/06/2023 EGFR 93.6 08/06/2023 No results found for: HGBA1C No results found. Assessment and Plan: Diagnoses and all orders for this visit: 1. DEISI gene mutation positive (Primary) - MRI Breast Bilateral Screening With & Without Contrast; Future 2. Mass of upper outer quadrant of left breast 3. At high risk for breast cancer - MRI Breast Bilateral Screening With & Without Contrast; Future 4. Screening for breast cancer using non-mammogram modality - MRI Breast Bilateral Screening With & Without Contrast; Future 5. 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 -Evidence is insufficient for risk reducing mastectomy, manage based on family history. Currently plans to continue high risk plan with pt's recent history of cardiac stenting on DAPT. -Evidence insufficient for RRSO, manage based on family history -Consider pancreatic screening at age 50 years or 10 years younger than the earlier exocrine pancreatic cancer diagnosis in the family, whichever is earlier. Will begin at age 50. -Continue monthly breast exams -Annual screening mammography, overdue. New LUOQ breast mass found on recent exam with Dr. HERNANDEZ. Plans for left diagnostic and right screening at that time +/- US. -Annual screening Breast MRI October 2025 pending upcoming diagnostic mammogram, order placed. -Asked pt to contact our office if any new nipple discharge, mass, unilateral pain, dimpling, asymmetry or other recent breast changes -Clinical breast exam every 6 months. Alternate between our clinic and Dr. Berger every 6 months. -S/P 12/28/22 right breast 8:00 US biopsy ([facility]): Fibroadenoma. Usual ductal hyperplasia -S/P 09/22/23 Right axillary lymph node fine needle ([place]): Lymphoid tissue, negative for malignancy. Flow cytometry negative for a clonal or aberrant lymphoid population -Discussed chemoprevention risks benefits including tamoxifen/anastrozole therapy. Will defer for now. Revisit in the future. -Educated pt and handout provided on NCCN recommendations related to diagnosis. -Additional discussion and educational handouts provided including: self breast exam instructions, breast imaging modalities, Tyrer-Cuzick scoring system, risk reduction strategies/lifestyle modifications including smoking, genetic testing and NCCN high risk breast cancer -Follow up 6 months with CBE to alternate with Dr. Berger then annually Thank you for allowing me to participate in the care of this patient I spent 48 minutes caring for Sofi. This includes time spent by me in the following activities: preparing for visit, reviewing tests, obtaining history, performing physical exam, education, ordering necessary medications/testing and documenting in the medical record. Agnes Burns APRN 04/10/25 documented in this encounter Plan of Treatment Upcoming Encounters Date Type Department Care Team (Late st Contact Info) Description 05/13/2025 8:00 AM EST Appointment [facility] [place] [address] [facility] [address] [place] [address] 10/09/2025 10:30 AM EDT Office Visit [facility] [address] [facility] [address] [place] [address] Agnes Burns APRN [address] [facility] [address] [place] [address] Scheduled Orders Name Type Priority Associated Diagnoses Orde r Schedule MRI Breast Bilateral Screening With & Without Contrast Imaging Routine DEISI gene mutation positive At high risk for breast cancer Screening for breast cancer using non-mammogram modality Expected: 10/21/2025 (Approximate), Expires: 07/11/2026 documented as of this encounter Visit Diagnoses Diagnosis DEISI gene mutation positive- Primary Mass of upper outer quadrant of left breast At high risk for breast cancer Screening for breast cancer using non-mammogram modality Tobacco use documented in this encounter Care Teams Designer Architect Relationship Specialty Start Date End Date Camila Berger MD [address] [place] [address] PCP - General Family Medicine 04/20/19 documented as of this encounter
--- OUTSIDE RECORDS SUMMARY | 2025-04-21 19:58 | XMS_ITS | Encounter Summary ---
Author Organization [facility] Address [address] [place] [address] Care Team Providers Care Bone Density Technician Name Role Phone Camila Berger MD Primary Care Provider + Reason for Visit * Reason Onset Date Comments Genetic Testing 03/18/2025 Records Encounter Details Date Type Department Care Team (Late st Contact Info) Description 03/18/2025 Telephone [facility] [address] [place] [phone] Kim Milton Genetic Testing (Records) 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 Tobacco Use Types Packs/Day Years [...] AM EDT documented as of this encounter Miscellaneous Notes * Telephone Encounter - Kim Milton - 03/18/2025 10:19 AM EDT Received genetic testing records form [facility]. documented in this encounter Plan of Treatment Upcoming Encounters Date Type Department Care Team (Late st Contact Info) Description 05/13/2025 8:00 AM EST Appointment [facility] [place] [address] [facility] [address] [place] [address] 10/09/2025 10:30 AM EDT Office Visit [facility] [address] [facility] [address] [place] [address] Agnes Burns APRN 3000 [facility] [address] [place] [address] documented as of this encounter Procedures Procedure Name Priority Date/Time Associated Diagnosis Comments SCANNED - LABS 03/18/2025 documented in this encounter Results * LABS SCANNED (03/18/2025) [facility] BLOOD ORDERABLES Final Re sult documented in this encounter Visit Diagnoses Not on filedocumented in this encounter Care Teams Bone Density Technician Relationship Specialty Start Date End Date Camila Berger MD [address] [facility] [address] [place] [address] PCP - General Family Medicine 04/20/19 documented as of this encounter
--- OUTSIDE RECORDS SUMMARY | 2025-04-21 19:58 | XMS_ITS | Clinical Summary ---
Author Organization [facility] Address [address] [place] [address] Care Team Providers Care Quoter Name Role Phone Camila Berger MD Primary Care Provider [phone] Allergies Active Allergy Reactions Criticality Noted Date [...] of right foot with routine healing 09/12/2023 Resolved Problems Problem Noted Date Diagnosed Date Resolved Date Open wound 09/12/2023 03/03/2025 Family History Medical History Relation Name Comments [...] of 3 - 19+ 3-dose series) 10/14/1995 [facility]-Pneumococcal Vaccine: Pediatrics (0 to 5 Years) and At-Risk Patients (6 to 49 Years) (1 of 2 - PCV) 10/14/1995 CT Colonography 2021 Colonoscopy 2021 FIT-DNA 2021 FIT 2021 FOBT 2021 Sigmoidoscopy 2021 [facility]-Colorectal Cancer Screening 2021 [facility]-Depression Screening 08/14/2024 08/15/2023 [id number] Vaccine (3 - season) 2025 01/30/2021, 12/24/2020 [facility]-Influenza Vaccine (#1) 02/11/202503/02, 04/18/2020, 05/16/2018, Additional [...] age to complete this topic Insurance [facility] Care Teams Quoter Relationship Specialty Start Date End Date Camila Berger MD [address] [place] [address] [address] [place] [address] PCP - General 10/24/20
--- OUTSIDE RECORDS SUMMARY | 2025-04-21 19:58 | XMS_ITS | Encounter Summary ---
Author Organization [facility] Address [address] [place] [address] Care Team Providers Care Armed Security Guard Name Role Phone Camila Berger MD Primary Care Provider + Encounter Details Date Type Department Care Team (Latest Contact Info) Description 03/14/2025 Travel 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 Tobacco Use Types Packs/Day Years [...] AM EDT documented as of this encounter Plan of Treatment Upcoming Encounters Date Type Department Care Team (Late st Contact Info) Description 05/13/2025 8:00 AM EST Appointment [facility] [place] [address] [facility] [address] [place] [address] 10/09/2025 10:30 AM EDT Office Visit [facility] [address] [facility] [address] [place] [address] Agnes Burns APRN 3000 [facility] [address] [place] [address] documented as of this encounter Visit Diagnoses Not on filedocumented in this encounter Care Teams Armed Security Guard Relationship Specialty Start Date End Date Camila Berger MD [address] [place] [address] PCP - General Family Medicine 04/20/19 documented as of this encounter
--- OUTSIDE RECORDS SUMMARY | 2025-04-21 19:58 | XMS_ITS | Encounter Summary ---
Author Organization [facility] Address [address] [place] [address] Care Team Providers Care Welder Shielded Metal Arc Name Role Phone Camila Berger MD Primary Care Provider [phone] Encounter Details Date Type Department Care Team (Late st Contact Info) Description 03/05/2022 Orders Only External Location [address] [place] [address] Provider, External 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 Tobacco Use Types [...] on filedocumented in this encounter Care Teams Welder Shielded Metal Arc Relationship Specialty Start Date End Date Camila Berger MD [address] [place] [address] [address] [place] [address] PCP - General 10/24/20 documented as of this encounter
--- OUTSIDE RECORDS SUMMARY | 2025-04-21 19:58 | XMS_ITS ---
Author Organization [facility] , [facility] Address [address] [place] [address] Phone Care Team Providers Care Block Sorter Name Role Phone CHAY PHILIPPE, DAISY Rosas Primary Care Provider [phone] PHILIPPE, Jorge L Islas Unavailable [phone] Problems Includes: Active, inactive, and resolved Problems All Visits Onset Date Resolved Date Provider Condition S tatus Joint Pain Elbow Left 08/05/2022 Sammy Álvarez [facility] JAIME Active Last Documented On 3 9:35AM ; [facility] Plan of Treatment Pending Tests Order Diagnosis Results Due Ordering P rovider Procedure/Tests EMG 08/19/22 Sammy Naranjo PA-C Last Documented On 3 10:07AM ; [facility] Referrals To Diagnosis Consult with Orthopedic Corbin Irizarry MD Last Documented On 3 12:30PM ; [facility] Consult with Orthopedic Corbin Irizarry MD - [address] [address] Last Documented On 3 1:02PM ; [facility] Instructions to patient Lose weight Last Documented On 3 9:51AM ; [facility], [facility] Assessments Includes: Assessments for all patient encounters No Assessments Recorded Instructions Includes: Instructions for all patient encounters Instructions to patient Lose weight Last Documented On 3 9:51AM ; [facility], [facility] Medical Equipment - Implanted Devices Includes: Current and historical Devices No Medical Equipment Recorded Medications Administered Includes: Administered Medications in patient's chart No Administered Medications Recorded Results Includes: Results from 04/21/2024 through 04/21/2025 No Results Recorded For Specified Dates History of Present Illness History of Present Illness not supported for this document type No History of Present Illness Recorded 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 Description Last Updated Tobacco non-user 08/05/2022 Last Documented On 3 10:07AM ; [facility], [facility] Never drank alcohol 08/05/2022 Last Documented On 3 10:07AM ; [facility], [facility] Never used drugs 08/05/2022 Last Documented On 3 10:07AM ; [facility], [facility] 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 Last Documented On 3 10:07AM ; [facility] Smoking Status Unknown Procedures and Surgical History Surgical History Last Updated History of appendectomy 08/05/2022 Last Documented On 3 10:07AM ; [facility], [facility] History of History of Gallbladder 2022 Last Documented On 3 10:07AM ; [facility] History of hysterectomy 08/05/2022 Last Documented On 3 10:07AM ; [facility] Medical History Includes: Medical History in patient's chart Description Last Updated History of Hypertension 08/05/2022 Last Documented On 3 10:07AM ; [facility], [facility] Recent immunization for flu 08/05/2022 Last Documented On 3 10:07AM ; [facility], [facility] Family History Includes: Family History in patient's chart Description Last Updated Maternal history of diabetes mellitus Last Documented On 3 10:07AM ; [facility], [facility] Maternal history of systemic hypertensio n 08/05/2022 Last Documented On 3 10:07AM ; [facility], [facility] Review of Systems Review of Systems not supported for this document type No Review of Systems Recorded Mental Status Description Anxiety Functional Status No Functional Status Recorded Physical Exam Physical Exam not supported for this document type No Physical Exam Recorded Insurance Includes: Active Insurance Policies Plan Name Member ID Group # Subscriber Relationship Effect fátima Dates 1 - [facility] [id number] Sofi Faulkner Self 06/13/2022 - Unknown Clinical Notes Includes: Signed Clinical Notes starting from 05/27/2022 No Clinical Notes Recorded
--- OUTSIDE RECORDS SUMMARY | 2025-04-21 19:59 | XMS_ITS | Encounter Summary ---
Author Organization [facility] Address [address] [place] [address] Care Team Providers Care Principal Engineer Name Role Phone Camila Berger MD Primary Care Provider + Encounter Details Date Type Department Care Team (Latest Contact Info) Description 04/10/2025 Travel 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 Tobacco Use Types Packs/Day [...] AM EDT documented as of this encounter Functional Status documented as of this encounter Plan of Treatment Upcoming Encounters Date Type Department Care Team (Late st Contact Info) Description 05/13/2025 8:00 AM EST Appointment [facility] [place] [address] [facility] [address] [place] [address] 10/09/2025 10:30 AM EDT Office Visit [facility] [address] [facility] [address] [place] [address] Agnes Burns APRN [address] [facility] [address] [place] [address] documented as of this encounter Visit Diagnoses Not on filedocumented in this encounter Care Teams Principal Engineer Relationship Specialty Start Date End Date Camila Berger MD [address] [place] [id number] PCP - General Family Medicine 04/20/19 documented as of this encounter
--- OUTSIDE RECORDS SUMMARY | 2025-04-21 19:59 | XMS_ITS | Clinical Summary ---
Author Organization [facility] , [facility] Address [address] [place] [address] Phone Care Team Providers Care Internal Affairs Commander Name Role Phone CHAY PHILIPPE, DAISY Rosas Primary Care Provider [phone] PHILIPPE, Jorge L Islas Unavailable [phone] Reason for Visit and Chief Complaint The Chief Complaint is: left elbow pain Problems Includes: Problems addressed during this encounter and other active Problems Current Visit Onset Date Resolved Date Provider Mikey angulo Status Joint Pain Elbow Left 08/05/2022 Sammy Álvarez [facility] PA-C Active Last Documented On 3 9:35AM ; [facility] Plan of Treatment Pending Tests Order Diagnosis Results Due Ordering P rovider Procedure/Tests EMG 08/19/22 Sammy Naranjo PA-C Last Documented On 3 10:07AM ; [facility] Referrals To Diagnosis Consult with Orthopedic Corbin Irizarry MD Last Documented On 3 12:30PM ; [facility] Consult with Orthopedic Corbin Irizarry MD - [address] [address] Last Documented On 3 1:02PM ; [facility] Instructions to patient Lose weight Last Documented On 3 9:51AM ; [facility] Assessments Includes: Assessments from this encounter Findings 46-year-old left elbow ulnar nerve entrapment and numbness and tingling down into the pinky and ring finger of the left hand she also has a long finger or middle finger trigger finger that is intermittently giving her problems and symptoms. She believes that the nerve pain is her biggest complaint and she has really no other issues. She has only x-rays of the left elbow no EMG tests or any other testing protocols. - Last Documented On 08/05/2022 10:07AM ; [facility], [facility] The patient's medications, medication allergies, Past Medical and Surgical History, pertinent Family History, 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 and ten point Review of Systems was reviewed by me with the patient per the registration sheet dated today. It was then signed today and scanned into the electronic record. - Last Documented On 08/05/2022 10:07AM ; [facility], [facility] PHYSICAL EXAM: - Last Documented On 08/05/2022 10:07AM ; [facility], [facility] CONSTITUTIONAL: Well developed, well groomed, well nourished patient in no acute distress who appears stated age, height and weight. - Last Documented On 08/05/2022 10:07AM ; [facility], [facility] PSYCHIATRIC: The patient is alert and oriented to person, place, date and situation. Mood and affect are normal for current situation. - Last Documented On 08/05/2022 10:07AM ; [facility], [facility] NEUROLOGICAL: Sensation normal bilateral upper and lower extremities. - Last Documented On 08/05/2022 10:07AM ; [facility], [facility] LYMPHATIC: No pitting edema noted in the lower extremities. - Last Documented On 08/05/2022 10:07AM ; [facility], [facility] SKIN: No lesions noted on upper or lower extremities. Skin is dry, warm and with normal turgor. - Last Documented On 08/05/2022 10:07AM ; [facility], [facility] VASCULAR: No swelling in upper or lower extremities other than described below in extremity exam. Radial Pulses normal in both upper extremities. - Last Documented On 08/05/2022 10:07AM ; [facility], [facility] GAIT AND STATION: Normal gait without assistive devices. Station normal. - Last Documented On 08/05/2022 10:07AM ; [facility], [facility] LEFT ELBOW: No deformity. No discoloration. No atrophy. positive ulnar sided tenderness. No crepitation. Active Range of Motion: Flexion 160 degrees, Extension 0 degrees, Pronation 90 degrees, Supination 90 degrees. Strength: 5/5 flexion, 5/5 extension, 5/5 supination 5/5 pronation. positive golfer's elbow test. Negative resistive tennis elbow test. positive Tinel's sign along ulnar nerve at the elbow. Negative milking. Negative valgus stress test. Negative varus stress test. - Last Documented On 08/05/2022 10:07AM ; [facility], [facility] RIGHT ELBOW: No deformity. No discoloration. No atrophy. No tenderness. No crepitation. Active Range of Motion: Flexion 160 degrees, Extension 0 degrees, Pronation 90 degrees, Supination 90 degrees. Strength: 5/5 flexion, 5/5 extension, 5/5 supination 5/5 pronation. Negative golfer's elbow test. Negative resistive tennis elbow test. Negative Tinel's sign along ulnar nerve at the elbow. Negative milking. Negative valgus stress test. Negative varus stress test. - Last Documented On 08/05/2022 10:07AM ; [facility] Assessment and plan - Last Documented On 08/05/2022 10:07AM ; [facility] left elbow ulnar nerve tunnel syndrome - Last Documented On 08/05/2022 10:07AM ; [facility] Left hand long finger trigger finger - Last Documented On 08/05/2022 10:07AM ; [facility], [facility] I am going to move forward with an EMG of the left upper extremity for cubital tunnel syndrome and the trigger finger. We will have the patient follow up with Dr. Irizarry for further follow-up and treatment and procedure. The patient will obtain the EMG and then follow up with her specialist. I discussed with her the natural history of this issue and they can become a repairable if it is let go too long. - Last Documented On 08/05/2022 10:07AM ; [facility], [facility] Instructions Includes: Instructions from this encounter Instructions to patient Lose weight Last Documented On 9:51AM ; [facility], [facility] Medical Equipment - Implanted Devices Includes: Current Devices No Medical Equipment Recorded Medications Administered Includes: Administered Medications from this encounter No Administered Medications Recorded Vital Signs Includes: Vital Signs from this encounter Vital Name 08/05/2022 09:50A Height (in) 69 Weight (lb) 247 Body Mass Index 36.5 Body Surface Area 2.3 Note: snb Last Documented: On 08/05/2022 9:51AM ; [facility], [facility] Results Includes: Results discussed during this encounter No Results Recorded For Specified Dates History of Present Illness Includes: History of Present Illness from this encounter HPI Sofi Faulkner is a 46 year old female. 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 Last Documented On 3 10:07AM ; [facility], [facility] Smoking Status Unknown Procedures and Surgical History Includes: Procedures from this encounter Procedures Code Diagnosis Performing Provider Service L ocation Service Date use of tobacco assessment performed 1000F Last Documented On 3 9:51AM ; [facility], [facility] Surgical History Last Updated History of appendectomy 08/05/2022 Last Documented On 3 10:07AM ; [facility], [facility] History of History of Gallbladder 2022 Last Documented On 3 10:07AM ; [facility] History of hysterectomy 08/05/2022 Last Documented On 3 10:07AM ; [facility], [facility] Medical History Includes: Medical History addressed during this encounter Description Last Updated History of Hypertension 08/05/2022 Last Documented On 3 10:07AM ; [facility], [facility] Recent immunization for flu 08/05/2022 Last Documented On 3 10:07AM ; [facility], [facility] Family History Includes: Family History addressed during this encounter Description Last Updated Maternal history of diabetes mellitus Last Documented On 3 10:07AM ; [facility], [facility] Maternal history of systemic hypertensio n 08/05/2022 Last Documented On 3 10:07AM ; [facility] Review of Systems Includes: Review of Systems from this encounter Systemic: No symptoms. Neurological: Numbness. Psychological: Anxiety. Mental Status Includes: Mental Status from this encounter Description Anxiety Functional Status Includes: Functional Status from this encounter No Functional Status Recorded Physical Exam Includes: Physical Exam from this encounter Encounters Encounter Provider Location Date Check-In Time Check-Out Time Diagnosis Next Available Non-Specified Physician Sammy Naranjo PA-C [facility] 08/05/19 9:21AM 10:02AM Insurance Includes: Active Insurance Policies Plan Name Member ID Group # Subscriber Relationship Effect fátima Dates 1 - [facility] [id number] Sofi Faulkner Self 06/13/2022 - Unknown Clinical Notes Includes: Clinical Notes from this encounter * Progress note Date Encounter Last Documented by 08/05/2022 Next Available Non-S pecified Physician Last documented on 08/05/2022; 10:07 AM, Sammy Naranjo PA-C; [facility] Active Problems & Conditions - Left Elbow Joint Pain Chief Complaint The Chief Complaint is: Left elbow pain. Referred Here Referred by self. History of Present Illness Sofi Faulkner is a 46 year old female. - Allergy list reviewed - Problem list reviewed - Medication list reviewed Past Medical/Surgical History Reported: Immunization History: Recent immunization for flu. Diagnoses: Hypertension Procedural: - History of Gallbladder Surgical: - Appendectomy - Hysterectomy 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 Tobacco use: Tobacco non-user. Alcohol: Never drank alcohol. Drug Use: Never used drugs. 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 Family History Maternal: Systemic hypertension Diabetes mellitus Review Of Systems Systemic: No symptoms. Neurological: Numbness. Psychological: Anxiety. Physical Findings - Vitals taken 08/05/2022 09:50 am snb Height 69 in Weight 247 lbs Body Mass Index 36.5 kg/m2 Body Surface Area 2.3 m2 Standard Measurements: - Patient was overweight. Tests 3 views of the left elbow were ordered and reviewed by me today. They show no evidence of fractures or dislocations. There is no significant osteoarthritic change within the elbow. There is no evidence of destructive pathologic lesions. Assessment 46-year-old left elbow ulnar nerve entrapment and numbness and tingling down into the pinky and ring finger of the left hand she also has a long finger or middle finger trigger finger that is intermittently giving her problems and symptoms. She believes that the nerve pain is her biggest complaint and she has really no other issues. She has only x-rays of the left elbow no EMG tests or any other testing protocols. The patient's medications, medication allergies, Past Medical and Surgical History, pertinent Family History, 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 and ten point Review of Systems was reviewed by me with the patient per the registration sheet dated today. It was then signed today and scanned into the electronic record. PHYSICAL EXAM: CONSTITUTIONAL: Well developed, well groomed, well nourished patient in no acute distress who appears stated age, height and weight. PSYCHIATRIC: The patient is alert and oriented to person, place, date and situation. Mood and affect are normal for current situation. NEUROLOGICAL: Sensation normal bilateral upper and lower extremities. LYMPHATIC: No pitting edema noted in the lower extremities. SKIN: No lesions noted on upper or lower extremities. Skin is dry, warm and with normal turgor. VASCULAR: No swelling in upper or lower extremities other than described below in extremity exam. Radial Pulses normal in both upper extremities. GAIT AND STATION: Normal gait without assistive devices. Station normal. LEFT ELBOW: No deformity. No discoloration. No atrophy. positive ulnar sided tenderness. No crepitation. Active Range of Motion: Flexion 160 degrees, Extension 0 degrees, Pronation 90 degrees, Supination 90 degrees. Strength: 5/5 flexion, 5/5 extension, 5/5 supination 5/5 pronation. positive golfer's elbow test. Negative resistive tennis elbow test. positive Tinel's sign along ulnar nerve at the elbow. Negative milking. Negative valgus stress test. Negative varus stress test. RIGHT ELBOW: No deformity. No discoloration. No atrophy. No tenderness. No crepitation. Active Range of Motion: Flexion 160 degrees, Extension 0 degrees, Pronation 90 degrees, Supination 90 degrees. Strength: 5/5 flexion, 5/5 extension, 5/5 supination 5/5 pronation. Negative golfer's elbow test. Negative resistive tennis elbow test. Negative Tinel's sign along ulnar nerve at the elbow. Negative milking. Negative valgus stress test. Negative varus stress test. Assessment and plan left elbow ulnar nerve tunnel syndrome Left hand long finger trigger finger I am going to move forward with an EMG of the left upper extremity for cubital tunnel syndrome and the trigger finger. We will have the patient follow up with Dr. Irizarry for further follow-up and treatment and procedure. The patient will obtain the EMG and then follow up with her specialist. I discussed with her the natural history of this issue and they can become a repairable if it is let go too long. Counseling/Education - Lose weight Plan StartCited - Other Procedure/Tests: EMG Referral/Orthopedic: Consult with Orthopedic EndCited Practice Management Use of tobacco assessment performed.
--- OUTSIDE RECORDS SUMMARY | 2025-04-21 19:59 | XMS_ITS | Encounter Summary ---
[facility] Organization [facility] Address [address] [place] [address] Care Team Providers Care Recycling Program Manager Name Role Phone Camila Berger MD Primary Care Provider + Encounter Details Date Type Department Care Team (Late st Contact Info) Description 04/10/2025 Patient rounding ([facility] only) [facility] [address] [facility] [address] [place] [address] Maggie Carmichael 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 Tobacco Use Types Packs/Day Years [...] as of this encounter Progress Notes * Maggie Carmichael - 04/10/2025 4:10 PM EDT A [employer] message has been sent to the patient for PATIENT ROUNDING with [facility]. documented in this encounter Plan of Treatment Upcoming Encounters Date Type Department Care Team (Late st Contact Info) Description 05/13/2025 8:00 AM EST Appointment [facility] [address] [facility] [address] [place] [address] 10/09/2025 10:30 AM EDT Office Visit [facility] [address] [facility] [address] [place] [address] Agnes Burns APRN [address] [facility] [address] [place] [address] documented as of this encounter Visit Diagnoses Not on filedocumented in this encounter Care Teams Recycling Program Manager Relationship Specialty Start Date End Date Camila Berger MD [address] [place] [address] [address] [place] [address] PCP - General Family Medicine 04/20/19 documented as of this encounter
[2025-04-21 20:00] VITALS: BP 168/94; PULSE 97; RESP 18; TEMP 36.9; O2SAT 97; BMI 38.0
--- OUTSIDE RECORDS SUMMARY | 2025-04-21 20:00 | XMS_ITS ---
Care Plan - [facility], [facility] Created on: April 21, 2025 Sofi Faulkner : 1975 Sex: Female Author Organization [facility] , [facility] Address [address] [place] [address] Phone Care Team Providers Care Salesforce Business Analyst Name Role Phone CHAY PHILIPPE, DAISY Rosas Primary Care Provider [phone] PHILIPPE, Jorge L Islas Unavailable [phone]
--- OUTSIDE RECORDS SUMMARY | 2025-04-21 20:00 | XMS_ITS | Clinical Summary ---
Author Organization [facility] Address [address] [place] [address] Care Team Providers Care Area Manager Name Role Phone Camila Berger MD Primary Care Provider + Allergies Active Allergy Reactions Criticality Noted Date Comments Bee Venom Anaphylaxis High 03/14/2025 Losartan Angioedema High 03/14/2025 Penicillins Anaphylaxis High 04/20/2019 Sulfamethoxazole-Trime thoprim Hives,Shortness Of Breath High 08/15/2023 Chest tightness Medications PARoxetine (PAXIL) 10 MG tablet Take 1 tablet by mouth Daily. Active prasugrel (EFFIENT) 10 MG tablet Take 1 tablet by mouth Daily. 01/22/20 25 Active metoprolol succinate XL (TOPROL-XL) 50 MG 24 hr tablet Take 1 tablet by mouth Daily. Active EPINEPHrine (EPIPEN) 0.3 MG/0.3ML solution auto-injector injection See administration instructions. Active Aspirin Low Dose 81 MG EC tablet Take 1 tablet by mouth Daily. 02/07/20 25 Active amLODIPine (NORVASC) 10 MG tablet Take 1 tablet by mouth Daily. Active atorvastatin (LIPITOR) 40 MG tablet Take 1 tablet by mouth every night at bedtime. Active isosorbide mononitrate (IMDUR) 30 MG 24 hr tablet Take 1 tablet by mouth Daily. 01/16/20 25 Active fluticasone (FLONASE) 50 MCG/ACT nasal spray instill 1 SPRAY IN EACH NOSTRIL TWICE DAILY FOR ONE WEEK THEN ONCE DAILY DIRECTED 025 Discontin ued(*Ther apy completed ) triamcinolone (KENALOG) 0.1 % cream APPLY TOPICALLY TO THE AFFECTED AREA(S) (A THIN LAYER) FOUR TIMES DAILY NEEDED 025 Discontin ued(*Ther apy completed ) Active Problems Problem Noted Date Diagnosed Date Mass of upper outer quadrant of left breast 07/2024 Assessment & Plan (03/14/2025 6:49 PM EDT): Palpable masses in the upper outer quadrant with tenderness last mammogram in 2023 Recommend proceeding with bilateral diagnostic mammograms and ultrasound as needed Orders: Mammo Diagnostic Digital Tomosynthesis Bilateral With CAD; Future DEISI gene mutation positive 03/14/2025 Assessment & Plan (03/14/2025 6:49 PM EDT): Genetic testing 2017 with an amendment in [...] Breast Coronary artery disease due to calcified coronar y lesion 03/14/2025 Assessment & Plan (03/14/2025 6:49 PM EDT): Status post 3 stents in November 2023 Encounters Date Type Department Care Team Description 04/10/2025 11:00 AM EDT Office Visit [address] [place] [address] Agnes Burns APRN DEISI gene mutation positive (Primary Dx); Mass of upper outer quadrant of left breast; At high risk for breast cancer; Screening for breast cancer using non-mammogram modality; Tobacco use 04/10/2025 Patient rounding ([facility] only) [facility] [address] [facility] [address] [place] [address] Maggie Carmichael 04/10/2025 Travel 03/18/2025 Telephone [facility] [address] [place] [address] Kim Milton Genetic Testing (Records) 03/14/2025 1:30 PM EDT Office Visit [facility] [address] [facility] [address] [place] [address] Robin Tafoya MD DEISI gene mutation positive (Primary Dx); Mass of upper outer quadrant of left breast; Coronary artery disease due to calcified coronary lesion 03/14/2025 Travel from Last 3 Months Immunizations Immunization Administration Dates Next Due Tdap 08/06/2023 Family History Medical History Relation Name Comments Heart failure Father Breast cancer Maternal Aunt Post [place] l Thyroid cancer Maternal Cousin Breast cancer Maternal Grandmother Onset 60's Diabetes Mother Hypertension Mother Skin cancer Mother Relation Name Status Comments Father Maternal Aunt Maternal Cousin Alive Maternal Grandmother Mother Alive 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 Tobacco Use Types Packs/Day Years [...] Orientation Straight 03/14/2025 11 :39 AM EDT Last Filed Vital Signs Vital Sign Reading [...] Mass Index 39.53 04/10/2025 11:15 AM EDT Plan of Treatment Upcoming Encounters Date Type Department Care Team (Late st Contact Info) Description 05/13/2025 8:00 AM EST Appointment [facility] [place] [address] [facility] [address] [place] [id number] 10/09/2025 10:30 AM EDT Office Visit [facility] [address] [place] [address] [address] [place] [phone] Agnes Burns APRN [address] [facility] [address] [place] [address] Health Maintenance Due Date Last Done Comments Annual Gynecologic Pelvic an d Breast Exam 1975 COLON CANCER SCREENING 5 YEA R SIGMOIDOSCOPY [address] COLONOGRAPHY 2021 FECAL OCCULT BLOOD TEST 2021 FIT Testing (1 year) 2021 INFLUENZA VACCINE 01/11/2025 03/02/2022, , 05/16/2018, Additional history exists Pneumococcal Vaccine 0-49 (2 of 2 - PCV) 01/23/2025 01/24/2024 ANNUAL PHYSICAL 03/11/2025 HEPATITIS C SCREENING 03/11/2025 COLOGUARD 04/29/2025 04/29/2022 COLORECTAL CANCER SCREENING 04/29/2025 MAMMOGRAM 03/20/2027 09/22/2023, 08/12, 09/07/2023, Additional history exists TDAP/TD VACCINES (3 - Td or Tdap) 08/06/2033 024, 02/22/2017 Procedures Procedure Name Priority Date/Time Associated Diagnosis Comments SCANNED - LABS 03/18/2025 MAMMO OUTSIDE FILMS Routine 09/22/2023 1 2:00 AM EDT H/O mammogram from Last 3 Months or Most Recently Relevant to Health Maintenance Results * LABS SCANNED (03/18/2025) [facility]LOOD ORDERABLES Final Re sult * MAMMO Outside Films (09/22/2023 12:00 AM EDT) Narrative 03/20/2025 1:19 PM EDT This procedure was auto-finalized with no dictation required. Procedure Note 03/20/2025 This procedure was auto-finalized with no dictation required. Robin Tafoya MD IM MAMMOGRAPHY ORDERABLE S Final Result from Last 3 Months or Most Recently Relevant to Health Maintenance Insurance [facility] [address] [place] [address] Care Teams Area Manager Relationship Specialty Start Date End Date Camila Berger MD [address] [place] [id number] PCP - General Family Medicine 04/20/19
--- OUTSIDE RECORDS SUMMARY | 2025-04-21 20:00 | XMS_ITS | Data Portability ---
Author Organization [facility] Address [address] [facility] [address] Assessment Encounter Date Assessment Date Assessment LastModified by Organization Details LastModified Time 11/01/2023 11/01/2023 Sofi continues to have significant and actually worsening lower respiratory tract symptoms. She is wheezing throughout and her coughing has become severe and has kept her from resting. She does continue to smoke. This was a febrile illness with negative covid testing and an RSV test is negative as well. We recommend respiratory pathogen testing and will cover empirically for community acquired pneumonia with a course of Cefdinir since she has already completed the Zithromax. She also needs a course of corticosteroids and rescue inhaler. Not available 11/01/2023 13:08:46 01/24/2024 01/24/2024 Sofi presents for a wellness visit. She is treated for hypertension, hyperlipidemia and anxiety. She has been followed by cardiology for several years for anginal type symptoms and her recent episode resulted in her requiring three coronary stents. She will be starting cardiac rehab in the near future. She has taken a leave from work and is motivated to stop smoking. some atypical chest and left arm A previous cardiac catheterization several years ago showed moderate coronary atherosclerosis 30-50% stenosis of the LAD and RCA. The recent catheterization showed severe disease in the RCA and Dr. Velasquez used three stents in the artery. She suffered a crush injury of the right foot in August with several toe fractures and the injury is healing but it has been a slow process. Vaccinations are reviewed and we recommend she receive the Covid booster vaccine in the near future as well as the annual flu vaccine. She does receive the Pneumococcal 23 vaccine today. We encourage that she stop smoking of course. Labs are reviewed and cholesterol is better at 112 with the LDL down to 57. Glycohemoglobin is consistent with prediabetes at 6.2% . Thyroid and blood count are all basically normal. She continues to struggle with a weight problem and has been reducing, and we recommend she continue to work on healthy lifestyle choices. Since she is working from home she avoids the long car commute and is able to be more active at home. She is an excellent candidate for the GLP 1 agonist as weight reduction is medically necessary for her with the coronary artery disease and metabolic syndrome if we can get it covered. She keeps an epi pen as she is outdoors in her gardens and has a bee venom allergy. 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 She had a colon cancer screening with a cologuard in 2021 so is due again next year. A ten year calculated cardiovascular risk is 5.58%. She does continue to smoke and we continue to encourage cessation. nikolas Not available 01/25/2024 22:34:33 09/06/2024 09/06/2024 Sofi has concerns about her breast cancer surveillance. She carries the breast cancer genes and her maternal grandmother and at least 5 maternal aunts have also had breast cancer. She has been having alternating MRI and mammograms at and they have done about 3 biopsies that have been benign. She is due an ultrasound of the right breast and a bilateral diagnostic mammogram. She is a bit frustrated by the confusion at . She started everything at because that is where her grandmother went for her recurrent breast cancers. We recommend a definitive referral to a breast surgeon to discuss bilateral prophylactic mastectomies and other options. She would like screening at [facility] for the next imaging that is due as well. She is advised she will need to go to and order picker all of her previous imaging. She has resumed smoking at /2 ppd and is finding that nicotine gum and a fake rubber cigarette seems to be helping her. 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 She had a negative cologuard screen in April of 2022 and can repeat that this year but we do recommend a colonoscopy when she is 51. Last year she suffered an HI and required 3 stents. She seems to be doing well with that and has no cardiac symptoms. She continues to follow with her tight cooper at [facility]. She has had an obesity problem for many years that she has struggled with. Her weight is down 40 pounds since last year as she has been working on it. We encourage healthy lifestyle choices and smoking cessation. nikolas Not available 09/06/2024 13:54:20 10/26/2024 10/26/2024 Sofi has had a significant allergic reaction yesterday evening when she was [place]. She was bitten multiple times by what sounds like deer flies. She has known severe hymenoptera allergies and carries an epipen typically but she did not have it with her. She had facial swelling including lips. Time jones it does seem more consistent with an acute allergic reaction to the multiple bites however she does take Losartan that can also cause angioedema even after taking it for years. 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 She also had a small deer tick on her. We reviewed that the deer fly bites can transmit Tularemia and she advises there are a lot of rabbits on her property. Also the deer tick can transmit Lyme disease. Both can be treated with Doxycycline so we do recommend empiric treatment. She has a cardiology appointment next week to review the blood pressure and our concern for her taking Losartan anymore. nikolas Not available 10/28/2024 19:12:38 02/14/2025 02/14/2025 Sofi presents for a wellness visit. She is treated for hypertension, hyperlipidemia and anxiety. She has been followed by cardiology for several years for anginal type symptoms and last December developed unstable angina and required three coronary stents in the right coronary artery. Most recently she has been experiencing some chest pain again but it did start after she partially turned over her Zero turn mower on an embankment. At times the chest pain is sharp but there has been radiation into the left arm. Her tight cooper started her on a long acting nitrate and she thinks that has helped some. The tight cooper is scheduling a cardiac catheterization for her but it is taking some time. She retired from work and obtained an insurance available and it is not showing up in our system. We suspect it is not a very good insurance for her with her underlying medical issues. She was advised that her insurance company will reimburse her for this visit. She is going to look into changing the insurance as that may be the reason that [facility] is taking so long to schedule her cardiac cath. She suffered a crush injury of the right foot in August 2023 with several toe fractures and the injury finally healed but it was a slow process. Vaccinations are reviewed and we recommend she receive the Covid booster vaccine in the near future as well as the annual flu vaccine. We encourage that she stop smoking of course as she is stil smoking about 1/2 PPD. She has started using some nicotine gum to help her cut back. Labs are reviewed and cholesterol is at goal with LDL of 64. Glycohemoglobin is consistent with prediabetes and is down to 5.9% . Thyroid and blood count are all basically normal. She continues to struggle with a weight problem and has been reducing, and we recommend she continue to work on healthy lifestyle choices. Since she has recently retired she did take the summer off and dropped about 30 pounds. She does plan to find another job in the near future that may be part-time. She is an excellent candidate for the GLP 1 agonist as weight reduction is medically necessary for her with the coronary artery disease and metabolic syndrome if she can find an insurance that will cover it. She keeps an epi pen as she is outdoors in her gardens and has a bee venom allergy. Medications are reviewed. Her anxiety has improved since she retired and she feels stable on the low dose of Paxil so wants to remain on that. She has very significant xanthomas around her eyes from years of hyperlipidemia. Mammogram is due at and she should pursue that after the planned cardiac work up is completed. She had a colon cancer screening with a cologuard in 2021 so is due again this year for the cologuard screen. A ten year calculated cardiovascular risk is 4.15%. She does continue to smoke and we continue to encourage cessation. Not available 02/15/2025 11:30:49 Plan of Treatment Reminders Order Date Submit Date Provider Last Modified By Organization Details Last Modified Time Details Appointments None recorded. Lab noninvasiv e colorectal cancer DNA + occult blood screening, QL, stool 2024 025 lana [email or web address] Not available 08:19:23 unlisted lab - respirator y pathogen panel 2023 024 [place] [facility], [address] [facility] [address], [place], [address], 4 08:50:01 Referral breast surgery referral 2024 025 [email or web address] [email or web address] Robin Tafoya MD, [address] [facility] [address], [place], [address], 5 13:58:03 Procedures None recorded. Surgeries None recorded. Imaging None recorded. Medication Orders paroxetine 10 mg tablet 2024 025 [facility], [address] [place] [address] [address], [place], [id number], 5 13:49:40 triamcinol one acetonide 0.1 % topical cream 2024 025 [facility], [address] [place] [address] [address], [id number], 5 12:58:25 doxycyclin e monohydrat e 100 mg capsule 2024 025 [facility], [address] [place] [address] [address], [place], [id number], 5 11:49:07 epinephrin e 0.3 mg/0.3 mL injection, auto-injec tor 2024 025 [facility], [address] [place] [address] [address], [id number], 5 15:31:33 nystatin 100,000 unit/gram topical cream [address] [facility], [address], [place], [address], 5 11:20:22 cefdinir 300 mg capsule 2023 024 [facility], [address] [place] [address], [address], 4 12:13:00 albuterol sulfate HFA 90 mcg/actuat ion aerosol inhaler 2023 024 [facility], [address] [place] [address], [address], 4 12:07:40 methylpred nisolone 4 mg tablets in a dose pack 2023 024 [facility], [address] [place] [address], [address], 4 12:12:58 Patient TargetsNo targets recorded. Patient Instructions Encounter Date Encounter Id Patient Instructions Last Modified By Organization Details Last Modified Time 01/24/2024 [id number] Quitting Tobacco : Care Instructions Not available 01/25/2024 22:38:13 09/06/[id number] Quitting Tobacco : Care Instructions Not available 09/06/2024 13:56:08 [id number] Quitting Tobacco : Care Instructions Not available 02/14/2025 11:49:43 learning about healthy weight Not available 02/15/2025 11:32:21 Reason for Referral Breast Surgery Referral for BRCA1 gene mutation detected Referring Physician: Camila Berger, Family Medicine, Encounter Date: 09/06/2024 Results Created Date Observation Date Name Description Value Unit Range Abnormal Flag Note LastModifiedBy Organization Detail LastModifiedTime 10/25/1910/25/2023 rapid SARS CoV 2 Ag, QL IA, respi rator y speci men rapid SARS CoV 2 Ag, QL IA, respiratory specimen negati ve Not Available In-Office Order Internal Use Only DO Not Attach Compendium DO Not Attach Compendium, Do Not Delete/merge, [id number] 10/25/2023 15:19:44 10/25/1910/25/2023 rapid strep group A, throa t rapid strep negati ve Not Available [facility] [address] [facility], [place], [address], 10/25/2023 14:30:04 11/01/19 24 11/07/2023 RESPI RATOR Y PATHO GEN PANEL adenovirus TNP TEST NOT PERFO RMED No suita ble speci men recei yoko. Pleas e revie w the test requi remen ts at testd irect ory.q uestd iagno [employer] .[employer] Not Available [facility] [address] [place], [address], 11/07/2023 08:50:01 11/01/19 24 11/07/2023 CULTU RE, AEROB IC AND ANAER OBIC W/GRA M STAIN culture, anaerobic bacteria w/gram stain CULTU RE, ANAER OBIC BACTE NICANOR W/GRA M STAIN Micro Numbe r: [id number] Test Statu s: Final Speci men Sourc e: Not given Speci men Quali ty: Adequ ate Gram Stain : Few Gram posit devon cocci Resul t: No anaer obes isola won. We recei yoko a speci men witho ut an order or with an order for aerob ic cultu re. Infec tions from this body site are appro priat e for aerob ic/an aerob ic cultu re and micro scopy . There fore, an aerob ic and anaer obic cultu re with Gram stain was perfo rmed. If this is not what you inten ded to order , pleas e conta ct your local clien t servi ce repre senta tive immed iatel y so that we can adjus t our anisa ng appro priat petey. You may also inqui re about alter nativ e or addit ional testi ng. Not Available [facility] [address] [facility], [place], [address], 11/07/2023 08:50:02 11/01/19 24 11/07/2023 CULTU RE, AEROB IC AND ANAER OBIC W/GRA M STAIN culture, aerobic bacteria CULTU RE, AEROB IC BACTE NICANOR Micro Numbe r: [id number] Test Statu s: Final Speci men Sourc e: Not given Speci men Quali ty: Adequ ate Resul t: Growt h of skin mireille (note : Growt h does not inclu de S. aureu s, beta- hemol ytic Strep tococ ci or P. aerug inosa ). We recei yoko a speci men witho ut an order or with an order for aerob ic cultu re. Infec tions from this body site are appro priat e for aerob ic/an aerob ic cultu re and micro scopy . There fore, an aerob ic and anaer obic cultu re with Gram stain was perfo rmed. If this is not what you inten ded to order , pleas e conta ct your local clien t servi ce repre senta tive immed iatel y so that we can adjus t our anisa ng appro priat petey. You may also inqui re about alter nativ e or addit ional testi ng. COMME NT: No sourc e was provi ded. The speci men was teste d and repor won based upon the test code order ed. If this is incor rect, pleas e conta ct clien t servi sandip. Not Available [facility] [address] [place], [address], 11/07/2023 08:50:02 01/20/2001/21/2024 LIPID PANEL , STAND ENRIQUE cholesterol, total 112 mg/dL <200 normal Not Available [facility] [address] [place], [address], 01/21/2024 10:14:51 01/20/20 24 01/21/2024 LIPID PANEL , STAND ENRIQUE HDL cholesterol 34 mg/dL > or = 50 low Not Available [facility] [address] [facility] [place], [address], 01/21/2024 10:14:51 01/20/20 24 01/21/2024 LIPID PANEL , STAND ENRIQUE triglyceride s 128 mg/dL <150 normal Not Available [facility] [address], [place], [address], 01/21/2024 10:14:51 01/20/20 24 01/21/2024 LIPID PANEL , STAND ENRIQUE LDL-choleste rol 57 mg/dL _(melchor c) normal Refer ence range : <100 Antonio able range <100 mg/dL for prima ry preve ntion ; <70 mg/dL for patie nts with CHD or diabe tic patie nts with > or = 2 CHD risk facto rs. LDL-C is now calcu lated using the Macarena n-Hop kins calcu janee n, which is a valid ated novel metho d provi ding sari r accur acy than the Fried mango equat ion in the estim ation of LDL-C . Macarena angulo SS et al. BIB. 2013; 310(1 9): 2061- 2068 (http ://ed ucati on.Qu estEguana Technologies Inc.. EyeSpot/f aq/FA Q164) Not Available [facility] [address] [facility], [place], [address], 01/21/2024 10:14:51 01/20/20 24 01/21/2024 LIPID PANEL , STAND ENRIQUE chol/HDLC ratio 3.3 (calc ) <5.0 normal Not Available [facility] [address], [place], [address], 01/21/2024 10:14:51 01/20/20 24 01/21/2024 LIPID PANEL , STAND ENRIQUE non HDL cholesterol 78 mg/dL _(melchor c) <130 normal For patie nts with diabe angel luis plus 1 major ASCVD risk facto r, treat ing to a non-H DL-C goal of <100 mg/dL (LDL- C of <70 mg/dL ) is consi dered a thera peuti c optio n. Not Available [facility] [address] [place], [address], 01/21/2024 10:14:51 01/20/20 24 01/21/2024 COMPR EHENS DEVON METAB OLIC PANEL glucose 102 mg/dL 65-99 high Fasti ng refer ence inter philip For someo ne witho ut known diabe angel luis, a gluco se value betwe en 100 and 125 mg/dL is consi stent with predi abete s and shoul d be confi rmed with a follo w-up test. Not Available [facility] [address] [place], [address], 01/21/2024 10:14:51 01/20/20 24 01/21/2024 COMPR EHENS DEVON METAB OLIC PANEL urea nitrogen (BUN) 13 mg/dL 7-25 normal Not Available [facility] [address] [place], [address], 01/21/2024 10:14:51 01/20/20 24 01/21/2024 COMPR EHENS DEVON METAB OLIC PANEL creatinine 0.56 mg/dL 0.50-0 .99 normal Not Available [facility] [address] [place], [address], 01/21/2024 10:14:51 01/20/20 24 01/21/2024 COMPR EHENS DEVON METAB OLIC PANEL eGFR 113 mL/mi n/1.7 3m2 > or = 60 normal Not Available [facility] [address] [place], [address], 01/21/2024 10:14:51 01/20/20 24 01/21/2024 COMPR EHENS DEVON METAB OLIC PANEL BUN/creatini ne ratio SEE NOTE: (calc ) 6-22 Not Repor won: BUN and Creat inine are withi n refer ence range . Not Available [facility] [address] [place], [address], 01/21/2024 10:14:51 01/20/20 24 01/21/2024 COMPR EHENS DEVON METAB OLIC PANEL sodium 141 mmol/ L 135-14 6 normal Not Available [facility] [address] [facility] [place], [address], 01/21/2024 10:14:51 01/20/20 24 01/21/2024 COMPR EHENS DEVON METAB OLIC PANEL potassium 4.5 mmol/ L 3.5-5. 3 normal Not Available [facility] [address] [place], [address], 01/21/2024 10:14:51 01/20/20 24 01/21/2024 COMPR EHENS DEVON METAB OLIC PANEL chloride 108 mmol/ L 98-110 normal Not Available [facility] [address] [place], [address], 01/21/2024 10:14:51 01/20/20 24 01/21/2024 COMPR EHENS DEVON METAB OLIC PANEL carbon dioxide 23 mmol/ L 20-32 normal Not Available [facility] [address] [place], [address], 01/21/2024 10:14:51 01/20/20 24 01/21/2024 COMPR EHENS DEVON METAB OLIC PANEL calcium 9.6 mg/dL 8.6-10 .2 normal Not Available [facility] [address] [facility] [place], [address], 01/21/2024 10:14:51 01/20/20 24 01/21/2024 COMPR EHENS DEVON METAB OLIC PANEL protein, total 6.8 g/dL 6.1-8. 1 normal Not Available [facility] [address] [place], [address], 01/21/2024 10:14:51 01/20/20 24 01/21/2024 COMPR EHENS DEVON METAB OLIC PANEL albumin 4.3 g/dL 3.6-5. 1 normal Not Available [facility] [address] [facility] [place] [place], [address], 01/21/2024 10:14:51 01/20/20 24 01/21/2024 COMPR EHENS DEVON METAB OLIC PANEL globulin 2.5 g/dL_ (calc ) 1.9-3. 7 normal Not Available [facility] [address] [facility] [place], [address], 01/21/2024 10:14:51 01/20/20 24 01/21/2024 COMPR EHENS DEVON METAB OLIC PANEL albumin/glob ulin ratio 1.7 (calc ) 1.0-2. 5 normal Not Available [facility] [address] [place], [address], 01/21/2024 10:14:51 01/20/20 24 01/21/2024 COMPR EHENS DEVON METAB OLIC PANEL bilirubin, total 0.3 mg/dL 0.2-1. 2 normal Not Available [facility] [address] [facility] [place], [address], 01/21/2024 10:14:51 01/20/20 24 01/21/2024 COMPR EHENS DEVON METAB OLIC PANEL alkaline phosphatase 81 U/L 31-125 normal Not Available [facility] [address] [facility] [place], [address], 01/21/2024 10:14:51 01/20/20 24 01/21/2024 COMPR EHENS DEVON METAB OLIC PANEL AST 12 U/L 10-35 normal Not Available [facility] [address] [place], [address], 01/21/2024 10:14:51 01/20/20 01/21/2024 COMPR EHENS DEVON METAB OLIC PANEL ALT 17 U/L 6-29 normal Not Available [facility] [address] [facility], [place], [address], 01/21/2024 10:14:51 01/20/2001/21/2024 HEMOG LOBIN A1C hemoglobin A1C 6.2 %_of_ total _HGB <5.7 high For someo ne witho ut known diabe angel luis, a hemog lobin A1c value betwe en 5.7% and 6.4% is consi stent with predi abete s and shoul d be confi rmed with a follo w-up test. For someo ne with known diabe angel luis, a value <7% indic ates that their diabe angel luis is well contr olled . A1c targe ts shoul d be indiv idual ized based on durat ion of diabe angel luis, age, comor bid condi tions , and other consi derat ions. This assay resul t is consi stent with an incre ased risk of diabe angel luis. Curre ntly, no conse nsus exist s regar ding use of hemog lobin A1c for diagn osis of diabe angel luis for child earnest. This test was perfo rmed on the Rita flip c503 platf orm. Effec tive 4, a jorgensen e in test platf orms from the [employer] t[employer] to the Rita flip c503 may have shift ed HbA1c resul ts carlos red to histo rical resul ts. Based on labor atory valid ation testi ng condu cted at [facility] , the Rita platf orm relat devon to the [employer] t platf orm had an avera ge incre ase in HbA1c value of < or = 0.3%. This diffe rence is withi n accep won varia bilit y estab lishe d by the Nat[employer] n[employer] hemog lobin Stand ardiz ation Progr am. Note that not all indiv idual s will have had a shift in their resul ts and direc t carlos rison s betwe en histo rical and curre nt resul ts for testi ng condu cted on diffe rent platf orms is not recom linda d. Not Available [facility] [address] [facility] [place], [address], 01/21/2024 10:14:52 01/20/20 24 01/21/2024 TSH TSH 1.20 mIU/L normal Refer ence Range > or = 20 Years 0.40- 4.50 Pregn gabby Range s First trime ster 0.26- 2.66 Secon d trime ster 0.55- 2.73 Third trime ster 0.43- 2.91 Not Available [facility] [address] [place], [address], 01/21/2024 10:14:52 01/20/20 24 01/21/2024 CBC (INCL UDES DIFF/ PLT) white blood cell count 10.1 thous and/u L 3.8-10 .8 normal Not Available [facility] [address] [place], [address], 01/21/2024 10:14:53 01/20/20 24 01/21/2024 CBC (INCL UDES DIFF/ PLT) red blood cell count 4.91 leslie on/uL 3.80-5 .10 normal Not Available [facility] [address] [place], [address], 01/21/2024 10:14:53 01/20/20 24 01/21/2024 CBC (INCL UDES DIFF/ PLT) hemoglobin 13.5 g/dL 11.7-1 5.5 normal Not Available [facility] [address] [place], [address], 01/21/2024 10:14:53 01/20/20 24 01/21/2024 CBC (INCL UDES DIFF/ PLT) hematocrit 42.3 % 35.0-4 5.0 normal Not Available [facility] [address] [place], [address], 01/21/2024 10:14:53 01/20/20 24 01/21/2024 CBC (INCL UDES DIFF/ PLT) MCV 86.2 fL 80.0-1 00.0 normal Not Available [facility] [address] [place], [address], 01/21/2024 10:14:53 01/20/20 24 01/21/2024 CBC (INCL UDES DIFF/ PLT) MCH 27.5 pg 27.0-3 3.0 normal Not Available [facility] [address] [facility] [place], [address], 01/21/2024 10:14:53 01/20/2001/21/2024 CBC (INCL UDES DIFF/ PLT) MCHC 31.9 g/dL 32.0-3 6.0 low Not Available [facility] [address], [place], [address], 01/21/2024 10:14:53 01/20/2001/21/2024 CBC (INCL UDES DIFF/ PLT) RDW 15.7 % 11.0-1 5.0 high Not Available [facility] [address] [facility] [place], [place], [address], 01/21/2024 10:14:53 01/20/20 24 01/21/2024 CBC (INCL UDES DIFF/ PLT) platelet count 276 thous and/u L 140-40 0 normal Not Available [facility] [place] [facility] [address], [place], [address], 01/21/2024 10:14:53 01/20/20 24 01/21/2024 CBC (INCL UDES DIFF/ PLT) MPV 9.8 fL 7.5-12 .5 normal Not Available [facility] [place] [facility] [address] [facility] [facility], [place], [address], 01/21/2024 10:14:53 01/20/20 24 01/21/2024 CBC (INCL UDES DIFF/ PLT) absolute neutrophils 5565 cells /uL 1500-7 800 normal Not Available [facility] [place] [facility] [address] [facility] [facility], [place], [address], 01/21/2024 10:14:53 01/20/20 24 01/21/2024 CBC (INCL UDES DIFF/ PLT) absolute lymphocytes 3384 cells /uL 850-39 00 normal Not Available [facility] [place] [facility] [address] [facility] [facility], [place], [address], 01/21/2024 10:14:53 01/20/20 24 01/21/2024 CBC (INCL UDES DIFF/ PLT) absolute monocytes 596 cells /uL 200-95 0 normal Not Available [facility] [place] [facility] [address] [facility], [place], [address], 01/21/2024 10:14:53 01/20/20 24 01/21/2024 CBC (INCL UDES DIFF/ PLT) absolute eosinophils 475 cells /uL 15-500 normal Not Available [facility] [place] [facility] [address] [facility] [facility], [place], [address], 01/21/2024 10:14:53 01/20/20 24 01/21/2024 CBC (INCL UDES DIFF/ PLT) absolute basophils 81 cells /uL 0-200 normal Not Available [facility] [place] [facility] [address] [facility] [facility], [place], [address], 01/21/2024 10:14:53 01/20/20 24 01/21/2024 CBC (INCL UDES DIFF/ PLT) neutrophils 55.1 % normal Not Available [facility] [place] [facility] [address] [facility] [facility], [place], [address], 01/21/2024 10:14:53 01/20/20 24 01/21/2024 CBC (INCL UDES DIFF/ PLT) lymphocytes 33.5 % normal Not Available [facility] [place] [facility] [address], [place], [address], 01/21/2024 10:14:53 01/20/20 24 01/21/2024 CBC (INCL UDES DIFF/ PLT) monocytes 5.9 % normal Not Available [facility] [place] [facility] [address], [place], [address], 01/21/2024 10:14:53 01/20/20 24 01/21/2024 CBC (INCL UDES DIFF/ PLT) eosinophils 4.7 % normal Not Available [facility] [place] [facility] [address], [place], [address], 01/21/2024 10:14:53 01/20/20 24 01/21/2024 CBC (INCL UDES DIFF/ PLT) basophils 0.8 % normal Not Available [facility] [place] [facility] [address], [place], [address], 01/21/2024 10:14:53 02/08/2002/08/2025 LIPID PANEL , STAND ENRIQUE cholesterol, total 128 mg/dL <200 normal Not Available [facility] [place] [facility] [address], [place], [address], 02/08/2025 08:03:12 02/08/2002/08/2025 LIPID PANEL , STAND ENRIQUE HDL cholesterol 42 mg/dL > or = 50 low Not Available [facility] [address], [place], [address], 02/08/2025 08:03:12 02/08/2002/08/2025 LIPID PANEL , STAND ENRIQUE triglyceride s 141 mg/dL <150 normal Not Available [facility] [place] [facility] [address], [place], [address], 02/08/2025 08:03:12 08/2802/08/2025 LIPID PANEL , STAND ENRIQUE LDL-choleste rol 64 mg/dL _(melchor c) normal Refer ence range : <100 Antonio able range <100 mg/dL for prima ry preve ntion ; <70 mg/dL for patie nts with CHD or diabe tic patie nts with > or = 2 CHD risk facto rs. LDL-C is now calcu lated using the Macarena n-Hop kins calcu janee n, which is a valid ated novel metho d provi ding sari r accur acy than the Fried mango equat ion in the estim ation of LDL-C . Macarena n SS et al. BIB. 2013; 310(1 9): 2061- 2068 (http ://ed ucati on.Wanderio. EyeSpot/f aq/FA Q164) Not Available [facility] [place] [facility] [address], [place], [address], 02/08/2025 08:03:12 02/08/2002/08/2025 LIPID PANEL , STAND ENRIQUE chol/HDLC ratio 3.0 (calc ) <5.0 normal Not Available [facility] [place] [facility] [address] [facility] [facility], [place], [address], 02/08/2025 08:03:12 02/08/2002/08/2025 LIPID PANEL , STAND ENRIQUE non HDL cholesterol 86 mg/dL _(melchor c) <130 normal For patie nts with diabe angel luis plus 1 major ASCVD risk facto r, treat ing to a non-H DL-C goal of <100 mg/dL (LDL- C of <70 mg/dL ) is consi dered a thera peuti c optio n. Not Available [facility] [place] [facility] [address], [place], [address], 02/08/2025 08:03:12 02/08/2002/08/2025 COMPR EHENS DEVON METAB OLIC PANEL glucose 101 mg/dL 65-99 high Fasti ng refer ence inter philip For someo ne witho ut known diabe angel luis, a gluco se value betwe en 100 and 125 mg/dL is consi stent with predi abete s and shoul d be confi rmed with a follo w-up test. Not Available [facility] [place] [facility] [address] [facility] [place], [address], 02/08/2025 08:03:13 02/08/2002/08/2025 COMPR EHENS DEVON METAB OLIC PANEL urea nitrogen (BUN) 10 mg/dL 7-25 normal Not Available [facility] [place] [facility] [address] [place], [address], 02/08/2025 08:03:13 02/08/20 25 02/08/2025 COMPR EHENS DEVON METAB OLIC PANEL creatinine 0.61 mg/dL 0.50-0 .99 normal Not Available [facility] [place] [facility] [address] [place], [address], 02/08/2025 08:03:13 02/08/20 25 02/08/2025 COMPR EHENS DEVON METAB OLIC PANEL eGFR 110 mL/mi n/1.7 3m2 > or = 60 normal Not Available [facility] [place] [facility] [address] [place], [address], 02/08/2025 08:03:13 02/08/2002/08/2025 COMPR EHENS DEVON METAB OLIC PANEL BUN/creatini ne ratio SEE NOTE: (calc ) 6-22 Not Repor won: BUN and Creat inine are withi n refer ence range . Not Available [facility] [place] [facility] [address] [place], [address], 02/08/2025 08:03:13 02/08/20 25 02/08/2025 COMPR EHENS DEVON METAB OLIC PANEL sodium 140 mmol/ L 135-14 6 normal Not Available [facility] [place] [facility] [address] [place], [address], 02/08/2025 08:03:13 02/08/2002/08/2025 COMPR EHENS DEVON METAB OLIC PANEL potassium 4.4 mmol/ L 3.5-5. 3 normal Not Available [facility] [address], [place], [address], 02/08/2025 08:03:13 02/08/2002/08/2025 COMPR EHENS DEVON METAB OLIC PANEL chloride 106 mmol/ L 98-110 normal Not Available [facility] [address], [place], [address], 02/08/2025 08:03:13 02/08/2002/08/2025 COMPR EHENS DEVON METAB OLIC PANEL carbon dioxide 27 mmol/ L 20-32 normal Not Available [facility] [address], [place], [address], 02/08/2025 08:03:13 02/08/2002/08/2025 COMPR EHENS DEVON METAB OLIC PANEL calcium 9.1 mg/dL 8.6-10 .2 normal Not Available [facility] [address], [place], [address], 02/08/2025 08:03:13 02/08/2002/08/2025 COMPR EHENS DEVON METAB OLIC PANEL protein, total 6.7 g/dL 6.1-8. 1 normal Not Available [facility] [address], [place], [address], 02/08/2025 08:03:13 02/08/2002/08/2025 COMPR EHENS DEVON METAB OLIC PANEL albumin 4.3 g/dL 3.6-5. 1 normal Not Available [facility] [address] [facility] [facility], [place], [address], 02/08/2025 08:03:13 02/08/20 02/08/2025 COMPR EHENS DEVON METAB OLIC PANEL globulin 2.4 g/dL_ (calc ) 1.9-3. 7 normal Not Available [facility] [address] [facility] [place], [address], 02/08/2025 08:03:13 02/08/2002/08/2025 COMPR EHENS DEVON METAB OLIC PANEL albumin/glob ulin ratio 1.8 (calc ) 1.0-2. 5 normal Not Available [facility] [address] [facility] [place], [address], 02/08/2025 08:03:13 02/08/2002/08/2025 COMPR EHENS DEVON METAB OLIC PANEL bilirubin, total 0.4 mg/dL 0.2-1. 2 normal Not Available [facility] [address] [facility] [place], [address], 02/08/2025 08:03:13 02/08/20 25 02/08/2025 COMPR EHENS DEVON METAB OLIC PANEL alkaline phosphatase 93 U/L 31-125 normal Not Available [facility] [address] [facility] [place], [address], 02/08/2025 08:03:13 02/08/2002/08/2025 COMPR EHENS DEVON METAB OLIC PANEL AST 12 U/L 10-35 normal Not Available [facility] [address] [facility] [place], [address], 02/08/2025 08:03:13 02/08/2002/08/2025 COMPR EHENS DEVON METAB OLIC PANEL ALT 15 U/L 6-29 normal Not Available [facility] [address] [place], [address], 02/08/2025 08:03:13 02/08/2002/08/2025 HEMOG LOBIN A1C hemoglobin A1C 5.9 % <5.7 high For someo ne witho ut known diabe angel luis, a hemog lobin A1c value betwe en 5.7% and 6.4% is consi stent with predi abete s and shoul d be confi rmed with a follo w-up test. For someo ne with known diabe angel luis, a value <7% indic ates that their diabe angel luis is well contr olled . A1c targe ts shoul d be indiv idual ized based on durat ion of diabe angel luis, age, comor bid condi tions , and other consi derat ions. This assay resul t is consi stent with an incre ased risk of diabe angel luis. Curre ntly, no conse nsus exist s regar ding use of hemog lobin A1c for diagn osis of diabe angel luis for child earnest. Not Available [facility] [place] [facility] [address] [place], [address], 02/08/2025 08:03:13 02/08/2002/08/2025 TSH TSH 1.41 mIU/L normal Refer ence Range > or = 20 Years 0.40- 4.50 Pregn gabby Range s First trime ster 0.26- 2.66 Secon d trime ster 0.55- 2.73 Third trime ster 0.43- 2.91 Not Available [facility] [place] [facility] [address] [place], [address], 02/08/2025 08:03:14 02/08/2002/08/2025 CBC (INCL UDES DIFF/ PLT) white blood cell count 10.0 thous and/u L 3.8-10 .8 normal Not Available [facility] [place] [facility] [address] [place], [address], 02/08/2025 08:03:14 02/08/20 25 02/08/2025 CBC (INCL UDES DIFF/ PLT) red blood cell count 4.84 leslie on/uL 3.80-5 .10 normal Not Available [facility] [place] [facility] [address] [place], [address], 02/08/2025 08:03:14 02/08/2002/08/2025 CBC (INCL UDES DIFF/ PLT) hemoglobin 13.2 g/dL 11.7-1 5.5 normal Not Available [facility] [place] [facility] [address] [place], [address], 02/08/2025 08:03:14 02/08/2002/08/2025 CBC (INCL UDES DIFF/ PLT) hematocrit 41.5 % 35.0-4 5.0 normal Not Available [facility] [place] [facility] [address] [place], [address], 02/08/2025 08:03:14 02/08/2002/08/2025 CBC (INCL UDES DIFF/ PLT) MCV 85.7 fL 80.0-1 00.0 normal Not Available [facility] [place] [facility] [address] [place], [address], 02/08/2025 08:03:14 02/08/2002/08/2025 CBC (INCL UDES DIFF/ PLT) MCH 27.3 pg 27.0-3 3.0 normal Not Available [facility] [address] [place], [address], 02/08/2025 08:03:14 02/08/2002/08/2025 CBC (INCL UDES DIFF/ PLT) MCHC 31.8 g/dL 32.0-3 6.0 low For adult s, a sligh t decre ase in the calcu lated MCHC value (in the range of 30 to 32 g/dL) is most likel y not clini zane signi hunter t; mary jane er, it shoul d be inter prete d with [facility] with other red cell madison eters and the patie nt's clini melchor condi tion. Not Available [facility] [place] [facility] [address], [place], [address], 02/08/2025 08:03:14 02/08/2002/08/2025 CBC (INCL UDES DIFF/ PLT) RDW 15.6 % 11.0-1 5.0 high Not Available [facility] [place] [facility] [address], [place], [address], 02/08/2025 08:03:14 02/08/2002/08/2025 CBC (INCL UDES DIFF/ PLT) platelet count 262 thous and/u L 140-40 0 normal Not Available [facility] [place] [facility] [address], [place], [address], 02/08/2025 08:03:14 02/08/2002/08/2025 CBC (INCL UDES DIFF/ PLT) MPV 10.0 fL 7.5-12 .5 normal Not Available [facility] [place] [facility] [address], [place], [address], 02/08/2025 08:03:14 02/08/2002/08/2025 CBC (INCL UDES DIFF/ PLT) absolute neutrophils 5710 cells /uL 1500-7 800 normal Not Available [facility] [place] [facility], [place], [address], 02/08/2025 08:03:14 02/08/2002/08/2025 CBC (INCL UDES DIFF/ PLT) absolute lymphocytes 3050 cells /uL 850-39 00 normal Not Available [facility] [place] [facility] [address], [place], [address], 02/08/2025 08:03:14 02/08/2002/08/2025 CBC (INCL UDES DIFF/ PLT) absolute monocytes 710 cells /uL 200-95 0 normal Not Available [facility] [place] [facility] [address], [place], [address], 02/08/2025 08:03:14 02/08/20 25 02/08/2025 CBC (INCL UDES DIFF/ PLT) absolute eosinophils 450 cells /uL 15-500 normal Not Available [facility] [place] [facility] [address], [place], [address], 02/08/2025 08:03:14 02/08/2002/08/2025 CBC (INCL UDES DIFF/ PLT) absolute basophils 80 cells /uL 0-200 normal Not Available [facility] [place] [facility] [address], [place], [address], 02/08/2025 08:03:14 02/08/2002/08/2025 CBC (INCL UDES DIFF/ PLT) neutrophils 57.1 % normal Not Available [facility] [place] [facility] [address] [place], [place] [address], [place], [address], 02/08/2025 08:03:14 02/08/2002/08/2025 CBC (INCL UDES DIFF/ PLT) lymphocytes 30.5 % normal Not Available [facility] [place] [facility] [address], [place], [address], 02/08/2025 08:03:14 02/08/2002/08/2025 CBC (INCL UDES DIFF/ PLT) monocytes 7.1 % normal Not Available [facility] [place] [facility] [address], [place], [address], 02/08/2025 08:03:14 02/08/20 25 02/08/2025 CBC (INCL UDES DIFF/ PLT) eosinophils 4.5 % normal Not Available [facility] [place] [facility], [place], [address], 02/08/2025 08:03:14 02/08/20 25 02/08/2025 CBC (INCL UDES DIFF/ PLT) basophils 0.8 % normal Not Available [facility] [place] [facility] [address] [facility], [place], [address], 02/08/2025 08:03:14 11/23/19 24 11/23/2023 XR, chest , 2 view No observ ation record ed. [address], [place], [address], 11/28/2023 08:44:54 11/23/19 24 11/23/2023 CT, head + brain , w/o contr ast No observ ation record ed. [address], [place], [address], 11/28/2023 08:45:39 11/23/19 24 11/23/2023 CT, angio gram, chest , w/ contr ast No observ ation record ed. [address], [place], [address], 11/28/2023 08:46:13 11/23/19 24 11/23/2023 CT, angio gram, neck, w/ contr ast No observ ation record ed. [address], [place], [address], 11/28/2023 08:46:53 11/23/19 24 11/23/2023 CT, angio gram, head + neck, w/ contr ast No observ ation record ed. [address], [place], [address], 11/28/2023 08:54:12 11/24/19 24 11/23/2023 rhyth m strip , EKG* No observ ation record ed. [address], [place], [address], 11/28/2023 08:54:32 11/29/19 24 11/29/2023 US, lower extre mity No observ ation record ed. [address], [place], [address], 12/06/2023 19:48:20 12/21/19 24 12/20/2023 CT, coron abraham calci um score No observ ation record ed. [address], [place], [address], 12/23/2023 22:19:31 12/22/19 24 12/20/2023 CT, angio gram, coron abraham arter ies, w/ contr ast No observ ation record ed. [address], [place], [address], 12/23/2023 08:26:06 01/02/20 24 01/02/2024 XR, chest , 2 view No observ ation record ed. [address], [place], [address], 01/03/2024 13:23:35 01/03/20 24 01/03/2024 US, echoc ardio gram No observ ation record ed. [address], [place], [address], 01/03/2024 13:24:12 01/03/20 24 01/03/2024 US, doppl er echoc ardio gram No observ ation record ed. [address], [place], [address], 01/05/2024 12:43:26 01/03/20 24 01/03/2024 US, echoc ardio gram No observ ation record ed. [address], [place], [address], 01/05/2024 12:44:12 01/04/20 24 01/03/2024 rhyth m strip , EKG* No observ ation record ed. [address], [place], [address], 01/05/2024 12:44:41 06/08/20 24 06/07/2024 XR, chest , 2 view No observ ation record ed. [address], [place], [address], 06/19/2024 08:35:19 06/08/20 24 06/07/2024 rhyth m strip , EKG* No observ ation record ed. [address], [place], [address], 06/19/2024 08:35:44 01/30/20 25 01/29/2025 imagi ng/di agnos tic resul t No observ ation record ed. [address], [place], [address], 02/14/2025 11:24:00 01/30/20 25 01/29/2025 imagi ng/di agnos tic resul t No observ ation record ed. [address], [place], [address], 02/14/2025 11:24:00 01/30/20 25 01/29/2025 imagi ng/di agnos tic resul t No observ ation record ed. [address], [place], [address], 02/14/2025 11:24:00 Result Notes None recorded. Problems Name Problem SNOMED Code Status Onset Date Resolution Date Notes Provider Name and Address Organization Details Recorded Time Fatigue 57045291 Active Camila Berger MD [address] [facility], [address], [place], [address], [place] [facility] 5 06:44:15 Weight increased [id number] Tammie Berger MD [address] [address], [facility] 4 18:51:05 Cramp in lower leg [id number] Tammie Berger MD [address] [address], [facility] 18:51:05 Abscess [id number] Tammie Berger MD [address] [address], [facility] 4 18:52:44 Influenza caused by Influenza A virus [id number] Tammie Berger MD [address] [address], [facility] 4 16:54:52 Nausea present [id number] Tammie Berger MD [address] [address], [facility] 4 16:54:52 Wheezing [id number] Tammie Berger MD [address] [address], [facility] 4 16:54:52 Acute bronchitis [id number] Tammie Berger MD [address] [address], [facility] 4 16:58:46 Blood pressure outside reference range [id number] Tammie Berger MD [address] [address], [facility] 5 06:44:15 Obesity [id number] Tammie Berger MD [address], [address] [place] [address], [place] - [facility] 5 06:44:15 Tobacco dependence syndrome 70136564 Active Camila Berger MD [address] [address], [place] - [facility] 5 06:44:15 Strain of back muscle 242568535 Active Camila Berger MD [address] [address], [place] - [facility] 5 09:19:49 Upper respiratory infection 93660007 Active Camila Berger MD [address] [address], [place] - [facility] 5 18:46:19 Problem Notes None recorded. Procedures Surgical History Date Name Laterality Status Provider Name and Address Organization Details Recorded Time 01/06/20 24 cardiac catheterization completed Camila Berger MD [address], [address] [place] [address], [facility] 02/15/2025 11:02:22 06/13/19 06 Hysterectomy completed Camila Berger MD [address], [address] [place] [address], [facility] 10/17/2014 17:04:21 06/13/19 05 Caesarean Section completed Camila Berger MD [address], [address] [place] [address], [facility] 10/17/2014 17:04:21 06/13/19 03 Caesarean Section completed Camila Berger MD [address], [address] [place] [address], [facility] 10/17/2014 17:04:21 06/13/19 03 Cholecystectomy completed Camila Berger MD [address] [address], [place], [address], [facility] 10/17/2014 17:04:21 06/13/18 96 Appendectomy completed Camila Berger MD [address], [address], [facility] 10/17/2014 17:04:21 Imaging Results None recorded. Procedure Notes None recorded. Medical Equipment None Reported. Allergies Allergen ID Allergen Name Allergen Category Reaction Reaction Severity Criticality Documentation Date Start Date Code Code System Note Provider Name and Address Organization Details Recorded Time Product containin g penicilli n (product) medicatio n Not available Not available Not available 03/26/2014 20149 8001 SNOMED Aida Faulkner [facility] 4 17:12:07 36601 Substance with sulfonami de structure and antibacte rial mechanism of action (substanc e) medicatio n rash Not available high 11/01/2023 64544 8003 SNOMED Camila Berger MD [address], [address] [place] [address], [facility] 4 12:03:15 86746 honey bee venom medicatio n Not available Not available high 09/06/2024 01302 7 RxNorm Camila Berger MD [address], [address] [place] [address] 7, [facility] 5 10:50:43 82912 losartan medicatio n angioedem a moderate high 01/15/2025 57803 RxNorm [facility] 5 14:21:52 Medications Name Sig Start Date Stop Date Status Note LastModified by Organization Details LastModified Time pseudoephed rine 120 mg active Not Available Not Available Not Available losartan 50 mg tablet TAKE 1 TABLET BY MOUTH EVERY DAY 02/14 completed Not Available Not Available Not Available cyclobenzap rine 10 mg tablet TAKE 1 TABLET BY MOUTH 3 TIMES A DAY NEEDED 11/26 completed Not Available Not Available Not Available atorvastati n 40 mg tablet TAKE ONE TABLET BY MOUTH EVERY DAY AT BEDTIME active Not Available Not Available No t Available hydrocodone 7.5 mg-ibuprofe n 200 mg tablet Take 1 tablet every 4 hours by oral route as needed. 10/21 completed Not Available Not Available Not Available nystatin 100,000 unit/mL oral suspension Take 5 mL 4 times a day by oral route as needed for 10 days. 05/27 completed Not Available Not Available Not Available prednisone 10 mg tablet active Not Available Not Available Not Available doxycycline hyclate 100 mg capsule TAKE 1 CAPSULE BY MOUTH TWICE DAILY FOR 10 DAYS 09/11 completed Not Available Not Available Not Available paroxetine 10 mg tablet TAKE ONE TABLET BY MOUTH EVERY DAY active Not Available Not Available No t Available atorvastati n 20 mg tablet TAKE 1 TABLET BY MOUTH EVERY DAY IN THE EVENING 01/23 completed Not Available Not Available Not Available nicotine 14 mg/24 hr daily transdermal patch Apply 1 patch every day by transderm al route for 42 days. 10/24 completed Not Available Not Available Not Available clindamycin HCl 300 mg capsule TAKE 1 CAPSULE BY MOUTH TWICE DAILY FOR 7 DAYS 01/23 completed Not Available Not Available Not Available azithromyci n 250 mg tablet TAKE 2 TABLETS (500 MG) BY ORAL ROUTE ONCE DAILY FOR 1 DAY THEN 1 TABLET (250 MG) BY ORAL ROUTE ONCE DAILY FOR 4 DAYS 01/23 completed Not Available Not Available Not Available ibuprofen 800 mg tablet active Not Available Not Available Not Available fluconazole 150 mg tablet active Not Available Not Available Not Available benzonatate 200 mg capsule Take 1 capsule 3 times a day by oral route as needed. 08/04 completed Not Available Not Available Not Available metoprolol succinate ER 50 mg tablet,exte nded release 24 hr TAKE ONE TABLET BY MOUTH EVERY DAY active Not Available Not Available No t Available valacyclovi r 1 gram tablet Take 2 tablets every 12 hours by oral route for 1 day. 01/23 completed Not Available Not Available Not Available cephalexin 250 mg capsule active Not Available Not Available Not Available Nystop 100,000 unit/gram topical powder active Not Available Not Available Not Available fluconazole 200 mg tablet 04/18 completed Not Available Not Available Not Available phenazopyri dine 200 mg tablet TAKE ONE TABLET BY MOUTH EVERY 8 HOURS FOR PAIN FOR 2 DAYS MAY CAUSE DISCOLORA TION OF URINE active Not Available Not Available No t Available isosorbide mononitrate ER 30 mg tablet,exte nded release 24 hr TAKE ONE TABLET BY MOUTH EVERY DAY active Not Available Not Available No t Available promethazin e 6.25 mg-codeine 10 mg/5 mL syrup active Not Available Not Available Not Available metronidazo le 500 mg tablet 04/30 completed Not Available Not Available Not Available amlodipine 5 mg tablet TAKE ONE TABLET BY MOUTH EVERY DAY 02/14 completed Not Available Not Available Not Available valacyclovi r 500 mg tablet TAKE 1 TABLET EVERY DAY BY MOUTH 05/19 completed Not Available Not Available Not Available ciprofloxac in 500 mg tablet Take 1 tablet every 12 hours by oral route. 01/23 completed Not Available Not Available Not Available Tamiflu 75 mg capsule Take 1 capsule twice a day by oral route for 5 days. active Not Available Not Available No t Available sulfamethox azole 800 mg-trimetho prim 160 mg tablet Take 1 tablet twice a day by oral route. 10/24 completed Not Available Not Available Not Available aspirin 81 mg tablet,andrew yed release TAKE ONE TABLET BY MOUTH EVERY DAY active Not Available Not Available No t Available triamcinolo ne acetonide 0.1 % topical cream APPLY TOPICALLY TO THE AFFECTED AREA(S) (A THIN LAYER) FOUR TIMES DAILY NEEDED active Not Available Not Available No t Available acyclovir 800 mg tablet TAKE 1 TABLET BY ORAL ROUTE 5 TIMES PER DAY FOR 7 DAYS 02/11 completed Not Available Not Available Not Available ondansetron 8 mg disintegrat ing tablet Place 1 tablet every 8 hours by transling ual route as needed. 10/21 completed Not Available Not Available Not Available ceftriaxone 1 gram solution for injection Take 0.5 g by injection route. 01/23 completed Not Available Not Available Not Available famotidine 20 mg tablet 07/27 completed Not Available Not Available Not Available meclizine 25 mg tablet Take 1 tablet 3 times a day by oral route as needed. 09/11 completed Not Available Not Available Not Available amlodipine 10 mg tablet TAKE ONE TABLET BY MOUTH EVERY DAY active Not Available Not Available No t Available doxycycline monohydrate 100 mg capsule TAKE ONE CAPSULE BY MOUTH TWICE DAILY WITH MEALS FOR FOURTEEN DAYS -- FINISH ALL MEDICINE -- 02/14 completed Not Available Not Available Not Available hydrocodone 7.5 mg-acetamin ophen 325 mg tablet 10/21 completed Not Available Not Available Not Available cephalexin 500 mg capsule 10/24 completed Not Available Not Available Not Available cyanocobala min (vit B-12) 1,000 mcg/mL injection solution active Not Available Not Available Not Available neomycin-po lymyxin-dex ameth 3.5 mg/mL-10,00 0 unit/mL-0.1 % eye drops 10/24 completed Not Available Not Available Not Available nystatin 100,000 unit/gram topical cream Apply 1 applicati on twice a day by topical route as needed. 09/06 completed Not Available Not Available Not Available clotrimazol e-betametha sone 1 %-0.05 % topical cream active Not Available Not Available Not Available hydroxyzine HCl 25 mg tablet TAKE 1 TABLET BY MOUTH EVERY 6 HOURS NEEDED FOR ANXIETY 03/02 completed Not Available Not Available Not Available mupirocin 2 % topical ointment APPLY TO AFFECTED AREA THREE TIMES DAILY FOR 10 DAYS 10/21 completed Not Available Not Available Not Available dexamethaso ne sodium phosphate 4 mg/mL injection solution Inject 1 mL by intramusc ular route. 10/24 completed Not Available Not Available Not Available ibuprofen 600 mg tablet TAKE 1 TABLET BY MOUTH EVERY 6 HOURS NEEDED 09/11 completed Not Available Not Available Not Available levofloxaci n 500 mg tablet active Not Available Not Available Not Available levofloxaci n 750 mg tablet TAKE ONE TABLET BY MOUTH ONCE DAILY FOR SIX DAYS -- FINISH ALL MEDICINE -- 09/06 completed Not Available Not Available Not Available methylpredn isolone 4 mg tablets in a dose pack take as directed for wheezing 01/23 completed Not Available Not Available Not Available albuterol sulfate HFA 90 mcg/actuati on aerosol inhaler Inhale 2 puffs every 4 hours by inhalatio n route as needed. active Not Available Not Available No t Available cefdinir 300 mg capsule Take 1 capsule every 12 hours by oral route for 10 days. 01/23 completed Not Available Not Available Not Available fluticasone propionate 50 mcg/actuati on nasal spray,suspe nsion instill 1 SPRAY IN EACH NOSTRIL TWICE DAILY FOR ONE WEEK THEN ONCE DAILY DIRECTED active Not Available Not Available No t Available metformin ER 500 mg tablet,exte nded release 24 hr active Not Available Not Available Not Available doxycycline hyclate 100 mg tablet TAKE 1 TABLET(S) EVERY DAY BY ORAL ROUTE FOR 10 DAYS. 12/09 completed Not Available Not Available Not Available nicotine 21mg/24hr-1 4mg/24hr-7m g/24hr daily transderm patches,seq uentl APPLY 1 PATCH TRANSDERM ALLY EVERY 24 HOURS; START WITH 21MG PATCH FOR FOURTEEN DAYS, THEN 14MG PATCH FOR FOURTEEN DAYS, THEN 7MG PATCH FOR 7 DAYS 02/14 completed Not Available Not Available Not Available cyclobenzap rine 5 mg tablet TAKE 1 TABLET BY MOUTH THREE TIMES DAILY NEEDED 09/11 completed Not Available Not Available Not Available nitrofurant oin monohydrate /macrocryst als 100 mg capsule TAKE ONE CAPSULE BY MOUTH EVERY TWELVE HOURS FOR 7 DAYS --TAKE WITH FOOD-- -- FINISH ALL MEDICINE -- 09/06 completed Not Available Not Available Not Available Nicotine Gum as needed active Not Available Not Available No t Available prasugrel HCl 10 mg tablet TAKE ONE TABLET BY MOUTH EVERY DAY active Not Available Not Available No t Available Tylenol Cold and Flu Severe 5 mg-10 mg-325 mg-200 mg/15 mL oral liquid Take 30 mL 4 times a day by oral route as needed. 10/21 completed Not Available Not Available Not Available Auvi-Q 0.3 mg/0.3 mL injection, auto-inject or INJECT THE CONTENTS OF 1 AUTO-INJE CTOR INTRAMUSC ULARLY ONCE every 10 minutes NEEDED FOR ANAPHYLAX IS REACTION FOR 2 doses active Not Available Not Available No t Available BinaxNOW COVID-19 Ag Self Test kit TEST DIRECTED TODAY 10/24 completed Not Available Not Available Not Available Wegovy 0.25 mg/0.5 mL subcutaneou s pen injector Inject 0.5 mL every week by subcutane ous route for 28 days. 10/24 completed Not Available Not Available Not Available Paxlovid 300 mg (150 mg x 2)-100 mg tablets in a dose pack TK 2 NIRMATREL VIR TS AND 1 RITONAVIR T TOGETHER PO BID FOR 5 DAYS BID FOR 5 DAYS 05/19 completed Not Available Not Available Not Available Vitals Date Recorded Body height Body weight Heart rate Oxygen saturation Oxygen saturation in Arterial blood by Pulse oximetry Body temperature Systolic And Diastolic Provider Name and Address Organization Details Last Updated DateTime 5 175.26 cm 916430. 15 g 77 /min 96 % 96 % 98.1 [degF] 136/92 mm[Hg] [facility] 5 09:53:32 Date Recorded Body height Body mass index (BMI) Body weight Heart rate Oxygen saturation Oxygen saturation in Arterial blood by Pulse oximetry Body temperature Systolic And Diastolic Provider Name and Address Organization Details Last Updated DateTime 5 175.26 cm 35.5 kg/m2 772581. 57 g 87 /min 96 % 96 % 97.7 [degF] 147/87 mm[Hg] [facility] 5 11:21:35 Date Recorded Body height Body mass index (BMI) Body weight Heart rate Oxygen saturation Oxygen saturation in Arterial blood by Pulse oximetry Body temperature Systolic And Diastolic Provider Name and Address Organization Details Last Updated DateTime 4 175.26 cm 41.3 kg/m2 071607. 86 g 91 /min 95 % 95 % 98.4 [degF] 143/87 mm[Hg] [facility] 4 11:23:59 Date Recorded Body height Body mass index (BMI) Body weight Heart rate Oxygen saturation Oxygen saturation in Arterial blood by Pulse oximetry Body temperature Systolic And Diastolic Provider Name and Address Organization Details Last Updated DateTime 4 175.26 cm 39.3 kg/m2 009214. 27 g 52 /min 97 % 97 % 97 [degF] 148/87 mm[Hg] [facility] 4 11:14:42 Date Recorded Body height Body mass index (BMI) Body weight Heart rate Oxygen saturation Oxygen saturation in Arterial blood by Pulse oximetry Body temperature Systolic And Diastolic Provider Name and Address Organization Details Last Updated DateTime 5 175.26 cm 37.1 kg/m2 058148. 68 g 78 /min 95 % 95 % 97.5 [degF] 144/87 mm[Hg] [facility] 5 10:49:44 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 Question Answer Notes LastModified by Organization Details LastModified Time Tobacco Smoking Status Current Every Day Smoker Not Available [facility] 04/08/2020 03:11:16 What Is Your Level Of Caffeine Consumption? Moderate Information not available 02/14/2025 What Type Of Diet Are You Following? REGULAR _4 Information not available 04/08/2020 Which Illicit Or Recreational Drugs Have You Used? None [id number] Information not available 04/08/2020 What Is The Highest Grade Or Level Of School You Have Completed Or The Highest Degree You Have Received? [id number] [facility] Information not available 10/21/2020 Who Is Your Employer? [employer] Information not available 10/21/2020 Marital Status Informatio n not available 02/22/2017 What Was The Date Of Your Most Recent Tobacco Screening? 02/14/2025 Information not available 02/14/2025 How Many Children Do You Have? 2 17 Year Old Son And 15 Year Old Daughter ([facility]) Information not available 10/21/2020 What Is Your Relationship Status? Information not available 10/21/2020 How Much Tobacco Do You Smoke? 0.5 PPD Trying To Quit Information not available 09/06/2024 General Stress Level Medium [email or web address] Information not available 03/26/2014 How Many Years Have You Smoked Tobacco? 20 Information not available 10/21/2020 Sex: Female Functional Status Question Answer Note LastModified by Organizat ion Details LastModified Time What is your level of alcohol consumption? None [id number] Information not available 04/08/2020 Are you currently employed? Yes [email or web address] Information not available 10/21/2020 What is your occupation? [employer] maile connor Information not available 10/21/2020 What is your exercise level? Occasional [id number] Information not available 04/08/2020 Mental Status Question Answer Note LastModified by Organization D etails LastModified Time Do you feel stressed (tense, restless, nervous, or anxious, or unable to sleep at night)? [id number] Information not available 03/02/2022 Family History Relationship Description Onset Age of this Age Resolved Age Notes LastModified by Organization Details LastModified Time Mother Diabetes mellitus [email or web address] Not available 2014 16:56:58 Mother Hypertensive disorder [email or web address] Not available 03/09 09:41:29 Maternal Grandmother Malignant neoplasm of breast 79 Not available 2016 16:28:59 Maternal Aunt Malignant neoplasm of breast 65 Not available 2016 16:28:59 Maternal Aunt Malignant neoplasm of breast Not available 2016 16:28:59 Father Cirrhosis of liver 61 alcoho lism and also heart proble [email or web address] Not available 02/22/2017 11:44:56 Medical History Condition Response Coronary Artery Disease N Gout N Kidney Stones N Blood Diseases N Hyperthyroidism N Depression N Hypothyroidism N COPD N Developmental or Behavioral Disorders N Eczema, Hives or other skin conditions N Anxiety Disorder N Muscle, Joint, or Bone Problems N Vision or Eye Problems N Arthritis N Serious Illness or Injuries N Congenital Anomalies N Cancer N Stroke N Bladder or Kidney Problems N Hospital Admission other than Y High Cholesterol N Liver Disease N Fibromyalgia N Kidney Disease N Heart Problems N Ear or Hearing Problems N ADD or ADHD N Thyroid Problems N Skin Problems N Anemia Y Constipation N Diabetes N Bedwetting N Seizures/Epilepsy N Tuberculosis N Diverticulitis N Allergies Y Asthma Y GERD/Reflux N Heart Disease N Pulmonary Embolism N Hypertension N Osteoporosis N Chicken Pox N Gynecological History Statement/Question Response Menses Monthly N If Post Menopausal, Age at Menopause 29 Obstetrics History GPAL:G 2 P 2 0 3 2 Type Value Full Term 2 Spontaneous 3 Living 2 Total 2 Immunizations Vaccine Type Date Status Note Provider Nam e and Address Organization Details Recorded Time Tdap 7 completed Not Available [facility] 06/30/2019 02:12:10 Influenza, split virus, quadrivalent, PF 7 completed Not Available [facility] 06/30/2019 02:12:13 Hep A, adult 8 completed Not Available [facility] 06/30/2019 02:12:07 Influenza, split virus, quadrivalent, PF 8 completed Not Available [facility] 06/30/2019 02:12:13 Influenza, recombinant, quadrivalent, PF 0 completed [facility] 04/18/2020 11:38:37 Influenza, split virus, trivalent, preservative 4 completed [facility] 05/20/2014 16:35:20 Influenza, recombinant, quadrivalent, PF 2 completed Camila Berger MD [address], [address], [facility] 03/03/2022 22:56:17 pneumococcal polysaccharide PPV23 4 completed Camila Berger MD [address] [address], [place], [address], [facility] 01/26/2024 07:26:09 Influenza, split virus, trivalent, preservative 6 completed Not Available [facility] 07/14/2019 02:12:32 COVID-19, mRNA, LNP-S, PF, 100 mcg/0.5mL dose or 50 mcg/0.25mL dose 1 completed Camila Berger MD [address] [address], [place], [address], [facility] 01/16/2021 15:12:15 COVID-19, mRNA, LNP-S, PF, 100 mcg/0.5mL dose or 50 mcg/0.25mL dose completed Camila Berger MD [address], [address], [facility] 03/13/2021 16:22:48 Past Encounters Encounter ID Performer Location Encounter Start Date Encounter Closed Date Diagnosis/Indication Diagnosis SNOMED-CT Code Diagnosis ICD10 Code Diagnosis IMO Codes Diagnosis Note [id number] Camila Berger MD [facility] [address] [address] 03/26/2014 16:21:30 03/28/2014 17:31:28 Fatigue 34535994 Weight increased 661565327 Cramp in lower leg 544064276 [id number] Camila Berger MD [address] [address] 05/28/2014 15:22:48 05/28/2014 17:00:28 Influenza caused by Influenza A virus 330621733 Nausea present 108746643 Wheezing 95047650 Acute bronchitis 08643203 [id number] Camila Berger MD [address] [address] 10/17/2014 15:12:00 10/22/2014 13:40:20 Fatigue 02352253 Blood pres sure outside reference range 71742382 Obesity 225616420 Tobacco de pendence syndrome 71827863 [id number] Camila Berger MD [address] [address] 03/09/2016 09:14:29 03/09/2016 13:23:03 Blood pressure outside reference range 15406881 Z01.31 Fatigue 29331825 R53.83 Body mass index 30+ - obesity 611121162 Z68.39 [id number] Camila Berger MD [address] [address] 07/19/2016 15:29:59 07/19/2016 17:04:27 Urinary tract infectious disease 52100579 N39.0 Benign ess ential hypertension 3460397 I10 Body mass index 30+ - obesity 245453015 Z68.39 [id number] Camila Berger MD [facility] [address] [address] 11/29/2016 14:55:46 11/29/2016 17:12:29 Abscess of breast 96341254 N61.1 this is much better Screening mammography 24 999412 Z12.31 [id number] Camila Berger MD [address] [address] 02/22/2017 10:26:09 02/25/2017 07:55:36 Adult health examination 048100556 Z00.01 Essential hypertension 86917872 I10 Hyperlipidemia 59119950 E78.5 Body mass index 30+ - obesity 528860729 Z68.39 Fatigue 47049285 R53.83 Active or passive immunization 030522673 Z23 Tobacco de pendence syndrome 48300963 F17.200 [id number] Camila Berger MD [address] [address] 05/09/2017 14:47:31 05/09/2017 17:32:36 Fever 062454241 R50.9 Abscess of breast 149328 03 N61.1 this is much better Herpes sim plex type 1 infection 418602575 B00.9 [id number] Camila Berger MD [address] [address] 01/26/2018 13:53:39 01/27/2018 09:12:07 Painless rectal bleeding 493495343 K62.5 Essential hypertension 65366654 I10 Increased frequency of urination 296282050 R35.0 Body mass index 30+ - obesity 299240697 Z68.38 Fatigue 18722830 R53.83 Screening for malignant neoplasm of colon 536610871 Z12.11 Family his tory of breast cancer 996263633 Z80.3 Hyperlipidemia 44002491 E78.5 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 H0 2.60 [id number] Camila Berger MD [address] [address] 05/16/2018 15:30:30 05/22/2018 09:14:46 Active or passive immunization 808090161 Z23 Adult heal th examination 534796621 Z00.01 Candidiasis of mouth 797 24360 B37.0 Essential hypertension 33160762 I10 Hyperlipidemia 82496326 E78.5 Body mass index 30+ - obesity 432338257 Z68.39 Fatigue 92399323 R53.83 Tobacco de pendence syndrome 75681679 F17.200 [id number] Camila Berger MD [facility] [address] [place], [place] [address] 12/08/2018 14:46:33 12/11/2018 08:42:59 Acute sinusitis 38414125 J01.90 Migraine 00477523 G43.90 9 she has had a rough week with the headache and poor sleeping out of the ordinary. She also has some photophobi a [id number] Camila Berger MD [facility] [address] [address] 7 04/19/2019 15:42:05 04/20/2019 08:27:24 Cellulitis and abscess of breast 520727388 N61.1 Pain of breast 00938343 N64.4 Nausea 765379738 R11.0 [id number] Camila Berger MD [address] [place] [address] 7 04/18/2020 09:57:44 04/21/2020 08:01:59 Ganglion cyst of right wrist 3120330121 56309 M67.431 Acute otitis media 66111 03 H66.93 Administra tion of influenza vaccine 99360260 Z23 [id number] Camila Berger MD [place] [address] 7 10/21/2020 14:48:45 10/23/2020 09:04:55 Allergy to bee venom 173711459 Z91.030 Adult heal th examination 262732832 Z00.01 Essential hypertension 00710957 I10 Hyperlipidemia 65471117 E78.5 Body mass index 30+ - obesity 731621051 Z68.39 Fatigue 78496254 R53.83 Tobacco de pendence syndrome 52825973 F17.200 Screening for malignant neoplasm of colon 153598982 Z12.11 Screening mammography 24 572871 Z12.31 [id number] Camila Berger MD [facility] [place] [address] 7 12/16/2020 11:08:54 12/21/2020 16:46:51 Postconcussion syndrome 84283938 F07.81 [id number] Camila Berger MD [facility] [address] [place] [address] 01/16/2021 14:43:17 01/19/2021 09:12:57 Vertigo 339691549 R42 [id number] Camila Berger MD [facility] [address] [address] 03/13/2021 15:46:53 03/16/2021 07:55:17 Acute upper respiratory infection 36412712 J06.9 Acute low back pain 2788 12770 M54.50 Headache 64457686 R51.9 Acute lowe r respiratory tract infection 203066818 J22 [id number] Camila Berger MD [facility] [address] [address] 09/11/2021 10:17:13 09/11/2021 11:36:42 Chest pain 26086823 R07.9 [id number] Camila Berger MD [facility] [address] [address] 09/14/2021 15:59:45 09/15/2021 08:22:25 Anxiety 56563681 F41.9 Hyperlipidemia 37523031 E78.5 Coronary arteriosclerosis 16634702 I25.10 [id number] Camila Berger MD [facility] [address] [address] 03/02/2022 15:13:20 03/04/2022 08:41:04 Administration of influenza vaccine 28703340 Z23 Urinary tr act infectious disease 60918074 N39.0 Allergy to bee venom 424 649490 Z91.030 Tobacco de pendence syndrome 65219471 F17.200 Screening mammography 24 194970 Z12.31 Adult heal th examination 175720895 Z00.01 Essential hypertension 04817357 I10 Hyperlipidemia 07394506 E78.5 Body mass index 30+ - obesity 315112459 Z68.33 Fatigue 56555909 R53.83 Anxiety disorder 4010673 06 F41.9 Screening for malignant neoplasm of colon 722649538 Z12.11 Glucose le paula outside reference range 292008945 R73.09 Low densit y lipoprotein cholesterol above reference range 548472755 E78.89 Cholestatic pruritus 707 648114 L29.9 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 08 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 [id number] Camila Berger MD [facility] [address] [address] 07/27/2022 10:08:17 07/29/2022 08:30:17 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 Carpal naima barbra syndrome of left wrist 4949467368 40079 G56.02 possibly this too, but concerned about elbow Body mass index 30+ - obesity 076736169 Z68.37 [id number] Camila Berger MD [facility] [place] [address] 10/25/2022 14:22:54 10/26/2022 08:07:30 Allergic reaction to insect bite 858697599 T63.481A Breast can cer genetic marker of susceptibility detected 764273005 Z15.01 [id number] Camila Berger MD [facility] [place] [address] 10/25/2023 14:11:27 10/25/2023 15:40:09 Sore throat 117679732 J02.9 Herpes sim plex type 1 infection 475331367 B00.9 Acute lowe r respiratory tract infection 280419687 J22 [id number] Camila Berger MD [facility] [place] [address] 11/01/2023 11:10:59 11/01/2023 13:15:20 Acute lower respiratory tract infection 451772184 J22 Wheezing 31343432 R06.2 [id number] Camila Berger MD [facility] [place] [address] 7 01/24/2024 11:08:43 01/28/2024 15:31:00 Candidiasis of skin 62096969 B37.2 History of placement of stent for coronary artery disease 369247898 Z95.5 Adult heal th examination 828791996 Z00.01 Active or passive immunization 062246052 Z23 History of hysterectomy 964512806 Z90.711 one remaining ovary Allergy to bee venom 424 040042 Z91.030 Tobacco de pendence syndrome 99468871 F17.200 Screening mammography 24 560308 Z12.31 Essential hypertension 11490951 I10 Hyperlipidemia 57186605 E78.5 Body mass index 30+ - obesity 937988667 Z68.39 Fatigue 45567322 R53.83 Anxiety disorder 0873126 06 F41.9 Cholestatic pruritus 707 852757 L29.9 Xanthoma of eyelid 33938 08 H02.60 Screening for cardiovascular system disease 009551537 Z13.6 Prediabetes 382569101 R7 3.03 [id number] Camila Berger MD [facility] [address] [place] [address] 7 09/06/2024 09:31:22 09/06/2024 16:40:00 Allergy to bee venom 487711327 Z91.030 Inconclusi ve mammography finding 4336388927 39299 R92.8 Tobacco user 531884257 Z 72.0 Family his tory of breast cancer 2 gene mutation 887353629 Z84.81 History of placement of stent for coronary artery disease 338150383 Z95.5 Medication review done by doctor 631821025 Z76.89 BRCA1 gene mutation detected 719179423 Z15.01 [id number] Camila Berger MD [facility] [place] [address] 10/26/2024 11:12:06 10/29/2024 09:02:24 Allergic reaction to insect bite 412437804 Z91.038 18840098 Tick bite 91341621 S50.8 62A W57.XXXA 18256659 Fly bite 609827919 T14.8 XXA W57.XXXA 6902991189 History of angioedema 63 84983888 108 Z87.895 4901496 [id number] Camila Berger MD [facility] [place] [address] 02/14/2025 10:45:44 02/18/2025 08:27:29 Anxiety 82329049 F41.9 Adult heal th examination 191665816 Z00.01 History of placement of stent for coronary artery disease 319820572 Z95.5 History of hysterectomy 440863838 Z90.711 one remaining ovary Allergy to bee venom 424 056732 Z91.030 Tobacco de pendence syndrome 19906218 F17.200 Screening mammography 24 276793 Z12.31 due at and patient schedules this. Essential hypertension 27476056 I10 Hyperlipidemia 94869216 E78.5 Fatigue 81304745 R53.83 Anxiety disorder 7266079 06 F41.9 Xanthoma of eyelid 63902 08 H02.60 Screening for cardiovascular system disease 194381845 Z13.6 Prediabetes 209421951 R7 3.03 Review of medication 182 986940 Z79.899 72582984 Body mass index 30+ - obesity 161070827 Z68.37 59806559 Screening for malignant neoplasm of colon 701260514 Z12.11 966240 Health Concerns Section Related Observation LastModified by Organization Detai ls LastModified Time None Recorded Concern Status LastModified by Organization Details LastModified Time None Recorded Advance Directives Directive None Recorded Payers Insurance Date Sequence Insurance Name Policy Number Policy Norris Covered Member ID Norris Member ID Guarantor Name 03/09/2016 1 [facility] [id number] [facility] [id number] Sofi Faulkner 10/03/2020 1 [employer] (PPO) [id number] Sofi R Faulkner [id number] Sofi Faulkner 02/14/2025 1 [place] [id number] Sofi R Faulkner [id number] Sofi Faulkner 02/14/2025 1 [employer] [place] ([place]) [id number] Sofi R Faulkner [id number] Sofi Faulkner 02/14/2025 1 [employer] [place] [id number] Sofi R Faulkner [id number] Sofi Faulkner 02/14/2025 1 [employer] - [employer] (INDEMNITY) [id number] Sofi Faulkner [id number] Sofi Faulkner 02/14/2025 1 *SELF PAY* Te ozzie Faulkner 02/14/2025 1 [employer] (INDEMNITY) [id number] Sofi Faulkner [id number] Sofi Faulkner Notes Date Note Type Note Provider Name and Address Organization Details Recorded Time 11/01/2023 text/html She has been coughing terribly and it keeps her awake. She is tired but no longer having any fevers. She is still healing from her injury but her toes are a little dusky and they are the toes that were fractured. She is wearing open toe shoes as advised by the orthopedist and is walking more.Recently her activity is less with the severity of her prolonged respiratory illness. She is wheezing now very significantly. She does continue to smoke 1/2 ppd Camila Berger MD [address] [facility], [address] [address], [place], [address], [facility] 11/01/2023 13:08:58 01/24/2024 text/html now using an kike called [employer] for her meal planning as she has always struggled with that. She is motivated to work on that. This involved Mediterranean type of eating.She has had significant stress with work and she is taking a leave of absence. Camila Berger MD [address] [facility], [address] [address], [place], [address], [facility] 01/25/2024 22:38:26 09/06/2024 text/html She has positive genetic testing from . She has alternating breast mammograms and MRIsThey want us to do all her orders and we discussed that she nay wish to have a breast surgeon referral at So far she has only been dealing with radiology /she did have some counseling with the utility system repairer who only advised continuing surveillance with mammography and breast MRI scans. She would like another opinion. All of her biopsies at thus far have been benign, but she is very worried about her family history and positive genetic testing. Camila Berger MD [address] [facility], [facility] [address], [place], [address], [facility] 09/06/2024 16:24:05 10/26/2024 text/html She did get multiple black fly bites yesterday/last night while fishing and she reacted to those on the left arm with redness and swollen bumps Since she is on blood thinners she does bruise easily. She had not taken her losartan yet yesterday when this happenedShe also had a deer tick bite last night We reviewed that the deer flies can also cause Tularemia. Camila Berger MD [address] [facility], [address], [place], [address], [facility] 10/28/2024 19:13:04 OBGyn Episode No OBEpisode recorded.
[2025-04-21 20:05] LABS: Microscopic, Urine URINE MICROSCOPIC (MICROSCOPIC)
[2025-04-21 20:07] LABS: Bilirubin,Urine Negative (Negative); Color,Urine YELLOW (Yellow); Glucose,Urine (UA) TRACE (Negative); Ketones,Urine Negative (Negative); Leukocyte Esterase,Urine TRACE (Negative); PH,Urine 7.0 (5.0-8.5); Protein,Urine 1+ (Negative); Specific Gravity, Urine 1.015 (1.005-1.030); Urobilinogen,Urine 2.0 EU/dl (0.2)
[2025-04-21 20:15] LABS: Bacteria,Urine 1+ /lpf
[2025-04-21 20:20] LABS: Hematocrit 36.9 % (37.0-47.0); Hemoglobin 12.1 g/dL (12.2-16.2); Immature Granulocytes % 0.5 %; Mean Corpuscular HGB Conc 32.8 g/dL (31.8-35.4); Mean Corpuscular Hemoglobin 26.9 pg (27.0-31.2); Mean Corpuscular Volume 82.2 fl (81-99); Nucleated Red Blood Cells % 0 %; Platelet Count 265 K/mm3 (142-424); Red Blood Count 4.49 M/mm3 (4.20-5.40); Red Cell Distribution Width-SD 45.4 fL; White Blood Count 11.9 K/mm3 (4.8-10.8)
--- NOTE | 2025-04-21 20:24 | ED_ITS ---
<Statement entered by Isis Bates DO - 04/21/25 23:44> I was consulted by the DANIELA, and we discussed the complexity of the problems being addressed. I approved the treatment and management plan for this patient's care in the emergency department, thus performing a substantive portion of the medical decision making. Isis Bates DO Discharge Plan Disposition Patient Disposition: Home, Self-Care Condition: Good Prescriptions Prescriptions: New ciprofloxacin HCl [Cipro] 500 mg tablet 500 mg PO Q12H Qty: 14 0RF No Action metoprolol succinate 50 mg tablet extended release 24 hr 50 mg PO DAILY Qty: 90 3RF fluticasone propionate [Flonase Allergy Relief] 50 mcg/actuation spray,suspension 1 spray intranasal DAILY Qty: 16 2RF Rx Instructions: administer into each nostril twice a day for a week then once daily. aspirin 81 mg tablet,delayed release (DR/EC) See Rx Instructions .ROUTE .COMPLEX Qty: 90 1RF Dose Instruction: TAKE ONE TABLET BY MOUTH EVERY DAY Rx Instructions: TAKE ONE TABLET BY MOUTH EVERY DAY atorvastatin 40 mg tablet See Rx Instructions .ROUTE .COMPLEX Qty: 90 3RF Dose Instruction: TAKE ONE TABLET BY MOUTH EVERY DAY AT BEDTIME Rx Instructions: TAKE ONE TABLET BY MOUTH EVERY DAY AT BEDTIME prasugrel HCl 10 mg tablet See Rx Instructions .ROUTE .COMPLEX Qty: 90 3RF Dose Instruction: TAKE ONE TABLET BY MOUTH EVERY DAY Rx Instructions: TAKE ONE TABLET BY MOUTH EVERY DAY amlodipine 10 mg tablet 10 mg PO DAILY Qty: 90 3RF isosorbide mononitrate 30 mg tablet extended release 24 hr 30 mg PO DAILY Qty: 30 5RF paroxetine HCl 10 mg tablet 10 mg PO DAILY Patient Comments: TAKE 1 TABLET BY MOUTH EVERY DAY epinephrine [EpiPen] 0.3 mg/0.3 mL auto-injector 0.3 mg IM Q10M PRN (Reason: anaphylaxis) Qty: 2 0RF Rx Instructions: for 2 doses Referrals Follow up/Referrals: Camila Berger [Primary Care Provider, Medical] - See instructions Activity Restrictions/Add. Instructions Additional Instructions/Restrictions: You were seen for a UTI. Return to the ER if you have any fevers, vomiting, increased pain. Please follow-up with your PCP tomorrow. Clinical Impressions Clinical Impression: UTI (urinary tract infection) Instructions Patient Instructions: DI for Urinary Tract Infection (UTI) Print Language Print Language: Burmese Discharge ED Provider: Isis Bates General Adult HPI General Chief complaint: Urogenital-Female Stated complaint: burning and painful with urination Time Seen by Provider: 04/21/25 19:53 Mode of Arrival: Ambulatory Source of Information: Patient Description of Symptoms (Recalled from ER Triage Doc. by RN): Pt has been having dysuria, frequency, and urgency since earlier today. Pt did take pyridium and isosorbide this afternoon she has left over from a previous UTI. Pt is c/o vaginal and flank pain as well. History of Present Illness HPI narrative: Patient presents complaining of dysuria today. She reports a history of frequent UTIs. She reports pelvic pain radiating up into the bilateral flanks. Describes her pain as 8 out of 10, throbbing. She reports chills without fever. Denies any nausea or vomiting. She has taken a Pyridium today MD complaint: UTI symptoms Onset (ago): day(s) (1) Location: pelvis Radiation: back Severity: moderate Consistency: constant Relieving factors: none Exacerbating factors: none Associated symptoms: fever/chills; negative nausea/vomiting Treatments prior to arrival: none Related Data Home Medications ?Medication ?Instructions ?Recorded ?Confirmed paroxetine HCl 10 mg tablet 10 mg PO DAILY 07/10/24 Previous Rx's ?Medication ?Instructions ?Recorded atorvastatin 40 mg tablet See Rx Instructions .Route 0 07/30/24 .COMPLEX #90 tabs prasugrel HCl 10 mg tablet See Rx Instructions .Route 07/30/24 .COMPLEX #90 tabs epinephrine 0.3 mg/0.3 mL 0.3 mg (0.3 mL) IM Q10M PRN 10/25/24 injection, auto-injector (EpiPen) anaphylaxis #2 ea amlodipine 10 mg tablet 10 mg PO DAILY #90 tabs 11/11 03/07 metoprolol succinate 50 mg 50 mg PO DAILY #90 tabs tablet,extended release 24 hr fluticasone propionate 50 1 spray intranasal DAILY #16 grams 01/02/25 mcg/actuation nasal spray,suspension (Flonase Allergy Relief) aspirin 81 mg tablet,delayed See Rx Instructions .Rout e 02/06/25 release .COMPLEX #90 tabs isosorbide mononitrate 30 mg 30 mg PO DAILY #30 tabs 1 tablet,extended release 24 hr ciprofloxacin HCl 500 mg tablet 500 mg PO Q12H #14 tab s 04/21/25 (Cipro) Allergies Allergy/AdvReac Type Severity Reaction Status Date / Time bee venom protein (honey bee) Allergy Severe Anaphylaxis Verified 02/06/25 14:56 losartan Allergy Severe throat and Verified 02/06/25 14:56 lip swelling Penicillins Allergy Intermediate Unknown Verified 02/06/25 14:56 allergy reaction cephalexin (From Keflex) Allergy Unknown Verified 02/06/25 14:56 allergy reaction Sulfa (Sulfonamide Allergy Hives Verified 02/06/25 14:56 Antibiotics) [facility] Disclaimer: The information contained in this section may have been updated after the patient was seen, as this information can be updated by other users. Medical History Angina pectoris SOB (shortness of breath) LV dysfunction Unstable angina Abnormal findings on diagnostic imaging of heart and coronary circulation Pain of left lower extremity Cellulitis of breast Abscess of breast Xanthelasma Coronary artery disease Morbid obesity HLD (hyperlipidemia) HTN (hypertension) Surgical History Previous section Hx of cholecystectomy History of appendectomy H/O: hysterectomy Family History Other No significant family history 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 Smoking Status: Current every day smoker tobacco type: cigarettes packs per day: 1 alcohol intake: never current occupational status: employed Travel in the last 8 weeks?: None caffeine: Yes Have you lived/traveled outside [place] in past 30 days?: No Contact w/someone who lives/traveled outside US past 30 days?: No Exposure to someone with infectious disease in past 14 days?: No Do you have a fever (greater than 100.4 F or 38 C)?: No Have you tested positive for COVID-19?: No Exposed to someone with COVID-19 in past 14 days?: No Do you have a sore throat?: No Do you have a cough?: No Do you have any weakness?: No Do you have any diarrhea?: No Are you experiencing any unusual bleeding?: No Do you have any muscle aches/pain?: No Do you have any abdominal pain?: No Are you experiencing loss of taste or smell?: No Other Medical History Have you received the Flu Vaccine for this season: No Have you received the Pneumonia Vaccine: Yes ROS Obtained: Yes Systems reviewed as appropriate & no additional complaints except as documented Physical Exam General General appearance: alert and in no apparent distress Head Head exam: atraumatic and normocephalic Eye Eye exam: Present normal appearance and EOMI Chest Chest inspection: Present symmetric chest wall rise Respiratory Respiratory exam: Present normal lung sounds bilaterally; Absent wheezes or stridor Cardiovascular Cardiovascular exam: Present regular rate and normal rhythm; Absent systolic murmur Abdominal Exam Abdominal exam: Present soft; Absent distention Abdominal tenderness: Present RLQ and suprapubic Extremities Exam Extremities exam: Present full ROM Neurological Exam Neurological exam: Present alert and oriented X3 Psychiatric Psychiatric exam: Present normal affect and normal mood Skin Skin exam: Present warm, dry and intact Medical Decision Making Medical Records Screening: Per USPSTF and CDC recommendations, given the prevalence of disease in our region, it is our hospital?s policy to screen for HIV and viral Hepatitis for all patients aged 18 and over and those with ongoing risk factors. Jonathan Inquiry Pt receiving controlled substance: No Vital Signs: 04/21/25 20:00 Temperature 98.5 F Temperature Source Oral Pulse Rate [Right] 97 H Respiratory Rate 18 Blood Pressure [Right Arm] 168/94 H Blood Pressure Mean [Right Arm] 118 Blood Pressure Source [Right Arm] Automatic Cuff Blood Pressure Position [Right Arm] Sitting 02 Sat by Pulse Oximetry 97 Oxygen Delivery Method Room Air Lab Data Lab Results 04/21/25 19:56: Urine Color Yellow, Urine Appearance Clear, Urine pH 7.0, Ur Specific Roland 1.015, Urine Protein 1+ A, Urine Glucose (UA) Trace, Urine Ketones Negative, Urine Blood 1+ A, Urine Nitrate Positive A, Urine Bilirubin Negative, Urine Urobilinogen 2.0, Ur Leukocyte Esterase Trace, Urine RBC 3-5, Urine WBC 10-20, Ur Squamous Epith Cells 3-5, Ur Renal Epithelial Cell 3-5, Urine Bacteria 1+ 04/21/25 20:13: WBC 11.9 H, RBC 4.49, Hgb 12.1 L, Hct 36.9 L, MCV 82.2, MCH 26.9 L, MCHC 32.8, RDW 15.2, Plt Count 265, MPV 10.1, Neut % (Auto) 52.3, Lymph % (Auto) 36.6, Atlantic % (Auto) 6.0, Eos % (Auto) 4.0, Baso % (Auto) 0.6, Neut # (Auto) 6.2, Lymph # (Auto) 4.4, Atlantic # (Auto) 0.7, Eos # (Auto) 0.5 H, Baso # (Auto) 0.1, Sodium 138, Potassium 3.8, Chloride 105, Carbon Dioxide 26, Anion Gap 10.8, BUN 13, Creatinine 0.70, Estimated Creat Clear 176, Estimated GFR 89, Est GFR ( Amer) 108, Glucose 128 H, Calcium 9.1, Total Bilirubin 0.6, AST 25, ALT 24, Alkaline Phosphatase 97, Total Protein 7.0, Albumin 4.8, Globulin 2.2, Albumin/Globulin Ratio 2.2 H 04/21/25 20:13 04/21/25 20:13 Orders (Tests/Meds): ED MEDICATIONS Generic Name Dose Route Start Last Admin Trade Name Freq PRN Reason Stop Dose Admin Levofloxacin 750 mg 04/21/25 21:05 Levofloxacin 750 Mg Tablet PO 04/21/25 21:06 ONCE ONE Sodium Chloride 10 ml 04/21/25 20:02 Sodium Chloride 0.9% 10ml Flush Syringe IV 05/21/25 20:01 NEEDED PRN Maintain IV Site ORDERS Category Date Time Status CBC w/Auto Diff [Complete Blood Count Auto Diff] Stat Lab 04/21/25 20:13 Completed CMP [Comprehensive Metabolic Panel] Stat Lab 04/21/25 20:13 Completed Urinalysis and Microscopic Stat Lab 04/21/25 19:56 Completed Urine Culture Stat Micro 04/21/25 19:56 Received Medical Decision Narrative: In summary patient is a 49-year-old who presents the emergency department for evaluation of UTI. Patient is hypertensive upon arrival, afebrile. Suprapubic and right lower quadrant tenderness on exam. Differential diagnosis includes cystitis, ureteral stone, pyelonephritis. Initial workup will be conducted with hematologic labs, urinalysis. Initial workup reviewed by me reveals UTI, nitrite positive, leukocytosis of 11.9. Upon repeat evaluation patient is resting comfortably. Given 1 dose of fluoroquinolone in the ER as she is allergic to cephalosporins and Bactrim. Given this patient is appropriate for discharge home at this time with return precautions and follow-up instructions. Instructed to discuss her slight anemia with her PCP.. Critical Care Critical Care Time Critical Care Time: No
[2025-04-21 20:27] LABS: Chloride 105 mmol/L (98-107); Potassium 3.8 mmoL/L (3.5-5.1); Sodium 138 mmol/L (136-145)
[2025-04-21 20:29] LABS: Blood Urea Nitrogen 13 mg/dl (7-17)
[2025-04-21 20:30] LABS: Alanine Aminotransferase 24 U/L (12-78); Alkaline Phosphatase 97 U/L (38-126); Anion Gap 10.8 mEq/L (5-15); Aspartate Amino Transferase 25 U/L (14-36); Bilirubin,Total 0.6 mg/dl (0.2-1.3); Calcium 9.1 mg/dl (8.4-10.2); Carbon Dioxide 26 mmol/L (22.0-30.0); Creatinine Clearance Estimated 176 mL/min (50-200); Creatinine,Serum 0.70 mg/dl (0.52-1.04); Estimated Glomerular Filt Rate 89 ml/min (>60); GFR (African American) 108 ML/MIN (>60); Glucose 128 mg/dl (74-100); Total Protein,Serum 7.0 g/dl (6.3-8.2)
[2025-04-21 20:58] LABS: Albumin Level 4.8 g/dl (3.5-5.0); Albumin/Globulin Ratio 2.2 (1.1-1.8); Globulin 2.2 g/dL (1.3-3.2)
[2025-04-21 21:15] VITALS: BP 111/68; PULSE 92; RESP 18; TEMP 36.9; O2SAT 97
--- NOTE | 2025-04-26 04:38 | PC.NURSE ---
MD Márquez notified of urine culture result, no changes to any prescriptions at this time
--- NOTE | 2025-04-26 14:43 | PC.NURSE ---
URINE CULTURE DISCUSSED WITH DR JOYA, NO NEW ORDERS
== END 2025-04-21 21:19 | disposition home or self-care (01) ==
PROVIDERS: Physician Assistant; Emergency Provider Emergency Medicine; PCP Family Medicine
DX: R10.20 Pelvic and perineal pain unspecified side (principal); N39.0 Urinary tract infection, site not specified; R30.0 Dysuria; F17.210 Nicotine dependence, cigarettes, uncomplicated; B96.20 Unspecified Escherichia coli [E. coli] as the cause of diseases classified elsewhere
CPT/HCPCS: 80053; 81001; 85025; 87086; 87088; 87186; 99283